=== PATIENT | female | born 1955 | race Caucasian/White ===

== ENCOUNTER 2017-09-29 09:35 | Emergency (ER) | payer MEDICAID, SELFPAY ==
[2017-09-29 09:36] VITALS: BP 159/92; PULSE 72; RESP 18; TEMP 36.6; O2SAT 96; BMI 28.0
--- NOTE | 2017-09-29 09:45 | ED.VISSUMM ---
- ER Visit Summary Date of Service: 09/29/17 Chief Complaint: Right neck pain History of Present Illness: The patient is a 61 F who woke up with right-sided neck pain yesterday. She took a couple of aspirin and it went away. Throughout the day as she was doing things around the house it got worse. She denies any trauma or falls. She also tried some icy hot which did not help. She woke up today and it was worse again. She has a history of arthritis but denies any history of neck or back pain. She has not had any fevers. Physical Examination: Vital signs are reviewed. Neck exam reveals right-sided paraspinal tenderness to palpation over the trapezius muscle. There is no midline tenderness to palpation. No thoracic back tenderness to palpation. Her neurologic exam is normal Test Results: None indicated Emergency Department Course and Treatment: She has a trapezius strain. It may have been from the way she slept 2 nights ago. I will treat her with naproxen and Flexeril. She will continue ice and icy hot. She will follow-up with her PCP Treatment Plan: [] Disposition: Discharge Impression: Right trapezius strain This note was generated with [employer] dictation software. It may contain incorrect words, spelling, and punctuation that were not noted in review of the chart prior to signing ED Disposition - Plan for ED Patient: Chief Complaint: Other, Pain/Inj Referrals: Keaton Voss MD [Primary Care Provider] -
--- NOTE | 2017-09-29 09:47 | ED.DEP ---
ED Disposition - Plan for ED Patient: Disposition: Home or Assisted Living Chief Complaint: Other, Pain/Inj Instructions: ED Sprain Strain Neck Prescriptions: Naproxen [Naprosyn] 500 mg PO BID PRN #20 tab Cyclobenzaprine [Flexeril] 10 mg PO TID PRN #20 tab PRN Reason: Muscle Spasm Referrals: Keaton Voss MD [Primary Care Provider] -
[2017-09-29] MEDS: Naproxen 500 MG Tablet PO (10:17)
[2017-09-29 10:21] VITALS: PULSE 72; RESP 17; O2SAT 96
== END 2017-09-29 10:23 | disposition home or self-care (01) ==
LOC: ED 10:13
PROVIDERS: Emergency Provider Emergency Medicine; Family Provider Family Medicine; PCP Family Medicine
DX: S46.811A Strain of other muscles, fascia and tendons at shoulder and upper arm level, right arm, initial encounter (principal); X58.XXXA Exposure to other specified factors, initial encounter; Y93.9 Activity, unspecified; Y92.9 Unspecified place or not applicable; Y99.9 Unspecified external cause status; M19.90 Unspecified osteoarthritis, unspecified site; Z72.0 Tobacco use

== ENCOUNTER 2017-09-29 23:56 | Emergency (ER) | payer MEDICAID, SELFPAY ==
[2017-09-29 09:36] VITALS: BP 159/92; BMI 28.0
[2017-09-29 23:58] VITALS: BP 161/107; PULSE 77; RESP 18; TEMP 36.3; O2SAT 98; BMI 28.2
--- NOTE | 2017-09-30 00:28 | ED.DCSUM_ITS ---
- ER Visit Summary Date of Service: 09/30/17 Chief Complaint: Neck pain History of Present Illness: The patient is a 61 F who has been having severe neck pain that radiates into the right arm for the last few days. She was seen early this morning for the same problem, prescribed naproxen, using icy hot and warm compresses, none of it is helping at all her pain is worse. It is the same symptoms. This includes burning in the same distribution, no pain goes past the elbow. Nothing on the other side. Never had this before, although has had low back arthritis that occasionally shoots down her right lower extremity, never had an MRI. No recent injuries. A little worse with movement in her neck. Physical Examination: Hypertensive but otherwise vitals are normal. She is in no acute distress. She has a normal neurologic exam in both upper extremities including symmetric DTRs of biceps, triceps, brachioradialis. There is no rash. There is minimal right paraspinal cervical neck tenderness. She has full range of motion of her neck. When I slightly distract her head cranially, it relieves some of the pain partially. Test Results: n/a Emergency Department Course and Treatment: I believe her history and physical are consistent with cervical radiculopathy, most consistent with the C5 level. Will prescribe her gabapentin and a short course of [place] and give her pain medication here. She is comfortable with this plan as well as following up with her doctor soon as she is able. Treatment Plan: As above Disposition: Discharge home Impression: Cervical radiculopathy Right upper extremity neuropathic pain due to cervical radiculopathy This note was generated with [employer] dictation software. It may contain incorrect words, spelling, and punctuation that were not noted in review of the chart prior to signing ED Disposition - Plan for ED Patient: Disposition: Home or Assisted Living Chief Complaint: Other, Pain/Inj Instructions: ED Cervical Radiculopathy Prescriptions: Hydrocodone Bitart/Apap 5-325 [[place] 5/325] 1 tab PO Q4H PRN PRN 3 Days #12 tab PRN Reason: Pain Gabapentin [Neurontin] 300 mg PO TIDCM #87 cap Referrals: Keaton Voss MD [Primary Care Provider] - As soon as possible
[2017-09-30] MEDS: Ondansetron ODT 4 MG Tablet 8 MG PO (00:31)
[2017-09-30 00:56] VITALS: BP 139/85; PULSE 66; RESP 17; O2SAT 99
== END 2017-09-30 00:58 | disposition home or self-care (01) ==
PROVIDERS: Emergency Provider Emergency Medicine; Family Provider Family Medicine; PCP Family Medicine
DX: M54.12 Radiculopathy, cervical region (principal); I10 Essential (primary) hypertension; M19.90 Unspecified osteoarthritis, unspecified site
CPT/HCPCS: 96372; 99283

== ENCOUNTER → 2018-01-11 10:28 | Outpatient (CLI) | payer MEDICAID, SELFPAY ==
--- NOTE | 2018-01-11 10:30 | RAD_ITS ---
STUDY: X-RAY - CERVICAL SPINE REASON FOR EXAM: Female, 62 years old. Neck pain TECHNIQUE: 4 view(s) of the cervical spine were obtained. COMPARISON: None FINDINGS: Normal anterior atlantoaxial articulation. Normal odontoid process. There is no subluxation on the flexion or extension views. There is straightening of the normal cervical lordosis. There is multi-level endplate spondylosis. There is multi-level degenerative disc disease with multilevel disc space narrowing. There is multi-level osseous foraminal stenosis. The soft tissue structures are unremarkable. RAD/Cerv Spine 4 or 5 Views IMPRESSION: There are degenerative changes as noted above. Electronically Signed: Angel Santiago MD at 21:58 EDT , Service support ,
== END ==
PROVIDERS: Family Provider Family Medicine; PCP Family Medicine; Visit Provider Orthopaedic Surgery
DX: M54.2 Cervicalgia (principal)
CPT/HCPCS: 72050

== ENCOUNTER 2018-02-25 11:16 | Emergency (ER) | payer MEDICAID, SELFPAY ==
[2018-02-25 11:17] VITALS: BP 151/76; PULSE 58; RESP 16; TEMP 36.9; O2SAT 98; BMI 26.6
--- NOTE | 2018-02-25 11:33 | RAD_ITS ---
STUDY: X-RAY - LEFT WRIST REASON FOR EXAM: Female, 62 years old. Pain following a fall. TECHNIQUE: 3 view(s) of the wrist were obtained. COMPARISON: None. FINDINGS: Nondisplaced transverse fracture of the distal radial metaphysis. Avulsion fracture of the ulnar styloid. Normal radiocarpal articulation. Normal distal radioulnar articulation. Normal carpal bones. Normal carpal articulations. Normal carpometacarpal articulation of the thumb. Normal second through fifth carpometacarpal articulations. Normal visualized metacarpal bones. Soft tissue swelling. RAD/Wrist min 3 Views IMPRESSION: Nondisplaced transverse fracture of the distal radial metaphysis. Avulsion fracture of the ulnar styloid. Diffuse soft tissue swelling. Electronically Signed: Priyank Arrington MD at 12:03 EDT Tel [phone], Service support ,
--- NOTE | 2018-02-25 11:33 | ED.VISSUMM ---
- ER Visit Summary Date of Service: 02/25/18 Chief Complaint: Right wrist pain History of Present Illness: The patient is a 62 F who tripped and fell yesterday landing on her right arm. She complaining of pain to the right wrist. She denies paresthesias. She denies any other injury from the fall. She is not on anticoagulants. Physical Examination: Vital signs significant for blood pressure of 151/76 and a heart rate of 58. Patient is sitting in a bedside chair. She is in no acute distress. Head neck examination was no external sign of trauma. Heart is regular rate and rhythm. Lung sounds are clear. Abdomen is soft nontender. Right upper extremity examination reveals tenderness about the right wrist, worse over the radial aspect. She has strong distal pulses. She is normal range of motion. There is no tenderness at the elbow or shoulder. She has normal sensation distally with good cap refill. Test Results: Right wrist x-rays are obtained. Per my read there is a distal right radius fracture with very minimal displacement. Emergency Department Course and Treatment: Patient is placed in an AP Ortho-Glass splint. Following splint application she has good cap refill distally and can wiggle fingers. Prescription for [place] will be sent to the pharmacy for her. Patient will follow up with Dr. Liu, as she is very known to that office. Treatment Plan: [] Disposition: Discharge Impression: Right distal radius fracture status post fall This note was generated with [employer] dictation software. It may contain incorrect words, spelling, and punctuation that were not noted in review of the chart prior to signing ED Disposition - Plan for ED Patient: Chief Complaint: Upper Extremity Injury Referrals: Keaton Voss MD [Primary Care Provider] -
--- NOTE | 2018-02-25 12:02 | DCINST.ED_ITS ---
ED Disposition - Plan for ED Patient: Disposition: Home or Assisted Living Chief Complaint: Upper Extremity Injury Instructions: ED Fx Wrist General Prescriptions: Hydrocodone Bitart/Apap 5-325 [[place] 5MG-325MG] 1 tablet PO Q4H PRN PRN 2 Days # 14 tablet PRN Reason: Pain Referrals: Keaton Voss MD [Primary Care Provider] - Danica Liu DO [STAFF PHYSICIAN] - 5-7 Days
[2018-02-25 12:09] VITALS: BP 169/82; PULSE 57; RESP 14; O2SAT 98
== END 2018-02-25 12:10 | disposition home or self-care (01) ==
PROVIDERS: Emergency Provider Emergency Medicine; Family Provider Family Medicine; PCP Family Medicine
DX: S52.501A Unspecified fracture of the lower end of right radius, initial encounter for closed fracture (principal); M54.2 Cervicalgia; W01.0XXA Fall on same level from slipping, tripping and stumbling without subsequent striking against object, initial encounter; Y93.9 Activity, unspecified; Y92.9 Unspecified place or not applicable; Y99.9 Unspecified external cause status; Z72.0 Tobacco use; Z79.899 Other long term (current) drug therapy
CPT/HCPCS: 29125; 73110; 99282

== ENCOUNTER → 2018-03-03 13:32 | Outpatient (CLI) | payer MEDICAID, SELFPAY ==
--- NOTE | 2018-03-03 13:34 | RAD_ITS ---
STUDY: X-RAY - RIGHT WRIST REASON FOR EXAM: Female, 62 years old. Follow-up of fracture. TECHNIQUE: 3 view(s) of the wrist were obtained through casting material. COMPARISON: February 25, 2018 FINDINGS: There is generalized osteopenia. A healing fracture of the distal radial metaphysis is identified with slight impaction at the fracture site unchanged. The ulnar styloid fracture shows no change. Normal distal radioulnar articulation. Normal carpal bones. Normal carpal articulations. Incidentally noted is stable moderate arthrosis of the radial carpal row and the first carpometacarpal joint. Normal second through fifth carpometacarpal articulations. Normal visualized metacarpal bones. The soft tissue structures are unremarkable. RAD/Wrist min 3 Views IMPRESSION: Stable osteopenia with healing fracture of the distal radial metaphysis. No change in the ulnar styloid fracture. Electronically Signed: Sebastian Vasques MD at 16:46 EDT , Service support ,
== END ==
PROVIDERS: Family Provider Family Medicine; PCP Family Medicine; Visit Provider Orthopaedic Surgery
DX: M25.531 Pain in right wrist (principal)
CPT/HCPCS: 73110

== ENCOUNTER → 2018-03-17 09:13 | Outpatient (CLI) | payer MEDICAID, SELFPAY ==
--- NOTE | 2018-03-17 09:15 | RAD_ITS ---
STUDY: X-RAY - RIGHT WRIST REASON FOR EXAM: Female, 62 years old. Fracture TECHNIQUE: 3 view(s) of the wrist were obtained. COMPARISON: 03/03/2018 FINDINGS: A fiberglass cast supports the right wrist. There has been closed reduction of previously described fractures in the radius and ulna. Bones remain diffusely demineralized with anatomic alignment of the fracture sites. There has been some progressive healing since the previous study but complete osseous union has yet to occur. Follow-up recommended to assure complete osseous union. RAD/Wrist min 3 Views IMPRESSION: Healing distal radius and ulnar fractures. Alignment remains anatomic, follow-up recommended to assure complete osseous union Demineralization of the osseous structures Fiberglas cast fine bony detail difficult. Electronically Signed: Elliot López MD at 11:39 EDT , Service support ,
== END ==
PROVIDERS: Family Provider Family Medicine; PCP Family Medicine; Visit Provider Physician Assistant
DX: S52.501A Unspecified fracture of the lower end of right radius, initial encounter for closed fracture (principal); X58.XXXA Exposure to other specified factors, initial encounter; Y93.9 Activity, unspecified; Y92.9 Unspecified place or not applicable; Y99.9 Unspecified external cause status
CPT/HCPCS: 73110

== ENCOUNTER → 2018-04-18 10:19 | Outpatient (CLI) | payer MEDICAID, SELFPAY | PROVIDERS: Family Provider Family Medicine; PCP Family Medicine; Visit Provider Physician Assistant | DX: S52.551A Other extraarticular fracture of lower end of right radius, initial encounter for closed fracture (principal); X58.XXXA Exposure to other specified factors, initial encounter; Y93.9 Activity, unspecified; Y92.9 Unspecified place or not applicable; Y99.9 Unspecified external cause status | CPT/HCPCS: 73110 ==

== ENCOUNTER → 2018-08-30 14:40 | Outpatient (CLI) | payer MEDICAID, SELFPAY ==
[2018-08-17 10:52] VITALS: BMI 28.2
--- NOTE | 2018-08-30 14:42 | RAD_ITS ---
STUDY: X-RAY - CERVICAL SPINE REASON FOR EXAM: Female, 62 years old. Postop TECHNIQUE: 2 view(s) of the cervical spine were obtained. COMPARISON: 01/11/2018 FINDINGS: There is no evidence of fracture or dislocation in the cervical spine. Since the prior examination, the patient is status post posterior fusion with fixation hardware spanning C3-T1. The hardware is intact and alignment is satisfactory. There are stable degenerative changes. The prevertebral soft tissues are unremarkable. There is no radiodense foreign body. RAD/Cerv Spine 2 or 3 Views IMPRESSION: Postoperative changes with intact hardware in satisfactory alignment. No fracture or dislocation in the cervical spine. Stable degenerative changes. Electronically Signed: Jamar De La O, at 15:13 EST Tel , Service support ,
== END ==
PROVIDERS: Family Provider Family Medicine; PCP Family Medicine; Referring Provider Orthopaedic Surgery; Visit Provider Orthopaedic Surgery
DX: M54.2 Cervicalgia (principal)
CPT/HCPCS: 72040

== ENCOUNTER → 2018-10-18 09:47 | Outpatient (CLI) | payer MEDICAID, SELFPAY ==
[2018-08-17 10:52] VITALS: BMI 28.2
--- NOTE | 2018-10-18 09:49 | RAD_ITS ---
STUDY: X-RAY - CERVICAL SPINE REASON FOR EXAM: Female, 62 years old. Postop TECHNIQUE: 2 view(s) of the cervical spine were obtained. COMPARISON: Previous study of August 30, 2018 FINDINGS: Normal anterior atlantoaxial articulation. Normal odontoid process. There is straightening of the normal cervical lordosis. There is posterior spinal fusion changes of the cervical spine from C3 through T1. There is narrowing of the C4-5, 5-6, and 6-7 levels. There is no evidence of fracture or subluxation. The soft tissue structures are unremarkable. RAD/Cerv Spine 2 or 3 Views IMPRESSION: Posterior spinal fusion changes from C3 through T1. The cervical vertebrae are normal in alignment. Degenerative changes as detailed above. Findings are stable in the interval. Electronically Signed: Brent Pool MD at 19:59 EST , Service support ,
== END ==
PROVIDERS: Family Provider Family Medicine; PCP Family Medicine; Referring Provider Orthopaedic Surgery; Visit Provider Orthopaedic Surgery
DX: M54.2 Cervicalgia (principal)
CPT/HCPCS: 72040

== ENCOUNTER → 2018-11-15 10:00 | Outpatient (CLI) | payer MEDICAID, SELFPAY ==
[2018-10-18 10:07] VITALS: BMI 28.2
--- NOTE | 2018-11-15 10:02 | RAD_ITS ---
HISTORY: LBP EXAM/TECHNIQUE: XR Spine Lumbar Min 4 Views: COMPARISON: None. FINDINGS: # of images incl. paperwork: 4 No fracture or dislocation or osseous destruction. Sagittal alignment anatomic including with flexion and extension. Moderate right scoliosis centered at T12. Mild disc and facet degeneration mid and lower lumbar spine. No acute findings in the soft tissues. RAD/L/S Spine Min 4 Views IMPRESSION: No acute findings. Moderate right scoliosis centered at T12. Mild degenerative changes. at 1014 Reported and signed by: Brent Fuentes MD Electronically Signed: Brent Fuentes, at 10:13 EDT Tel , Service support ,
--- NOTE | 2018-11-15 10:02 | RAD_ITS ---
HISTORY: POST OP EXAM/TECHNIQUE: XR Spine Cervical 2 or 3 Views: COMPARISON: 10/18/18 radiographs. FINDINGS: # of images incl. paperwork: 2 No fracture or dislocation or osseous destruction. Posterior fusion and laminectomy C3-T1, with bilateral pedicle screws at all levels except C7, joined by spinal rods. Hardware intact. Alignment anatomic. Underlying degenerative changes similar to prior. No acute findings in the soft tissues. RAD/Cerv Spine 2 or 3 Views IMPRESSION: Posterior fusion and laminectomy C3-T1 with no evidence of complication. at 1013 Reported and signed by: Brent Fuentes MD Electronically Signed: Brent Fuentes, at 10:12 EDT Tel , Service support ,
== END ==
PROVIDERS: Family Provider Family Medicine; PCP Family Medicine; Referring Provider Orthopaedic Surgery; Visit Provider Orthopaedic Surgery
DX: M54.5 Low back pain (principal); Z98.1 Arthrodesis status
CPT/HCPCS: 72040; 72110

== ENCOUNTER 2018-11-24 12:22 | Emergency (ER) | payer MEDICAID, SELFPAY ==
[2018-10-18 10:07] VITALS: BMI 28.2
[2018-11-24 12:23] VITALS: BP 151/84; PULSE 78; RESP 16; TEMP 36.3; O2SAT 98; BMI 24.0
--- NOTE | 2018-11-24 13:15 | ED.VIS.BACK ---
History of Present Illness Chief Complaint: Lower Extremity Injury Informant: Patient Onset: Weeks Context: Gradual Onset Injury: - - Possibly from bending and lifting Timing: Continuous, Waxes and wanes Quality: Dull, Aching Location: Lumbar, Buttock, Left Leg Current Severity: Mild Maximum Severity: Moderate Worsened by: improves with: Movement, Bending, Lifting. worse with: Night time pain Relieved by: Nothing - Radiation posteriorly to the popliteal fossa, left lower extremity denies bowel bladder dysfunction. Denies weakness going up or down steps. Denies foot drop. Denies saddle paresthesia or anesthesia. Narrative: 62-year-old woman who was seen Dr. ochoa for neck pathology and surgery. She is scheduled to follow-up with Dr. Dozier for pain management. She has no contra indication NSAIDs. She is presently on gabapentin. She denies bowel bladder dysfunction. Denies saddle paresthesia anesthesia. She denies foot drop. She has quadricep weakness going up or down steps. She denies dysuria, frequency, urgency or hematuria. She reports pain left lower back radiating posteriorly to the popliteal fossa. Prior similar symptoms: With Prior Back Pain Recent Illness/Hospitalization: No Past Medical History - Allergies and Home Meds Allergies/Adverse Reactions: Allergies Penicillins Allergy (Verified 11/24/18 12:26) Rash Primary Care Physician: Keaton Voss MD [Primary Care Provider] - Prior records reviewed: Yes Surgical History: noncontributory Lives: Spouse/ Significant Other Smoking Status: Former smoker Alcohol: None Review of Systems General: Denies: Chills, Fever, Subjective, Sweats, Weight loss Eyes: Denies: Visual changes - bilaterally, Blurred Vision - bilaterally, Diplopia ENT: Denies: Rhinorrhea, Sore throat Cardiovascular: Denies: Chest pain, Palpitations Respiratory: Denies: Dyspnea, Cough, Dyspnea on exertion Gastrointestinal: Denies: Abdominal pain, Nausea, Vomiting, Diarrhea, Melena, Hematochezia Genitourinary: Denies: Dysuria, Hematuria, Frequency Musculoskeletal: Reports: Back pain, Extremity Pain. Denies: Myalgias, Arthralgias Skin: Denies: Rash, Wounds Neurological: Denies: Headache, Weakness, Numbness Physical Exam Vital Signs/Narrative: Vital Signs Temp Pulse Resp BP Pulse Ox 11/24/18 12:23 97.3 F L 78 16 151/84 H 98 Inital Vital Signs reviewed: Yes General: Well nourished, Well developed Head: Normocephalic, Atraumatic Eyes: Perrl, EOMI ENT: Moist mucous membranes, No rhinorrhea Neck: Supple, Nontender Cardiovascular: Regular rate, Regular rhythm, No murmurs Respiratory: No distress, CTA bilaterally, Chest nontender Abdomen: Soft, Nontender, Nondistended, Normal bowel sounds Back: Normal Inspection, Nontender Extremeties: Nontender, No edema, Strong Pulses, Symmetric, - - DP and PT pulses are palpable and symmetric. Skin: Normal color, No rash Neuro: Alert, Oriented, Normal Strength - Motor strength is 5/5. She is able to dorsi and plantarflex. She is able to invert and yonis her foot with no weakness. EHL is intact., Normal Sensation, Normal DTR, Normal Gait, Normal Reflexes - Patella and ankle reflex are 2+. Psychological: Normal affect Diagnostic/Tx/Re-eval No diagnostic tests were obtained - Medical Decision Making Patient with exacerbation of chronic pain. She does have radicular pain. Straight leg test was equivocal at 30 degrees. Crossover test was negative. With no neurologic deficit imaging is not required since there is no history of trauma. Will medicate with [place] and Naprosyn. She is discharged with a prescription for Naprosyn. ED Disposition - Plan for ED Patient: Disposition: Home or Assisted Living Diagnosis: Left-sided low back pain with left-sided sciatica Instructions: ED Sciatica Prescriptions: Naproxen [Naprosyn] 500 mg PO BID #14 tablet Referrals: Keaton Voss MD [Primary Care Provider] - 5-7 Days Additional Instructions: if you are unable to urinate, have loss of bowel control or develope foot drop return to ER.
[2018-11-24] MEDS: HYDROcodone Bitartrate/Apap 5/325 Tablet PO (13:38)
[2018-11-24] MEDS: Naproxen 250 MG Tablet 500 MG PO (13:38)
== END 2018-11-24 13:40 | disposition home or self-care (01) ==
PROVIDERS: Emergency Provider Emergency Medicine; Family Provider Family Medicine; PCP Family Medicine
DX: M54.42 Lumbago with sciatica, left side (principal); Z87.891 Personal history of nicotine dependence; Z79.899 Other long term (current) drug therapy
CPT/HCPCS: 99283

== ENCOUNTER 2019-02-02 10:30 | Outpatient (RCR) | payer MEDICAID, SELFPAY ==
[2018-10-18 10:07] VITALS: BMI 28.2
--- NOTE | 2018-12-13 07:39 | HP.PTEVAL_ITS ---
Patient's Visit Information MAXI GARCIA is a 63 year old F referred to Physical Therapy by Erica Duncan MD with a diagnosis of low back pain and C3-T1 instrumental fusion. Date of Evaluation: 11/29/18 Physical Therapist: Andrew Sneed DPT - Visit Plan Frequency: 2x /Week Duration: 4-6 Weeks Plan: Start with BLE/core and scapular strengthening in aquatic setting allowing for increased overalll mobility. Progress HEP as tolerated. May attempt DN as modality for lumbar and cervical spine if needed. I would like her to start with slow progression of general mobility and strengthening first and explor modalities if needed. - Subjective Findings: Pt. is here today for her initial evaluation with diagnosis of low back pain and C3-T1 instrumental fusion. DOS: 08.12.18. Pt. was recently removed from cervical collar and is overall doing well. Pt. reports stiffness in her neck, but reports ebing pleased with progress. Pt. is having low back pain as well which appears to be more limiting at this point in time. Pt. has not been doing PT, but has slowly been increasing her walking routine. Pt. reports minimal pain in neck, but low back is 4/10 at this point in time. Pt. also reports having difficulty due to passing away recently. Pt. reports no formal PT recently, but did attempt PT ~3 years ago. Pt. denies fever or chilles and no N/T in all extremities. Pt. is hopeful to resume all ADLs and IADLs without issues. - Pain Lumbar spine Pain Intensity (Out of 10): 4 Cervical spine Pain Intensity (Out of 10): 0 Comment: Just stiff - Objective POSTURE: Pt. has guarded posture with her neck, increased shoulder elevation bilat, mild FH posture and slight rounded shoulders bilat. PALPATION: Pt. has normal healing incision, no signs of infection. Pt. has tenderness in bilatal UT and cervical erector spinea. Pt. has tenderness along lumbar erector spinea and multifidus. NEURO: Normal senstion and DTR of all UEs. ROM: cervical spine: flexion- mod loss, extension mod loss, rotation and SB mod loss bilat. No increase in pain with cervical ROM, but reports increased stiffness. UEs: Pt. lacks end range flexion, but no increase in pain. LUMBAR SPINE: flexion: mod loss increase NW, extension mod loss increase NW, SB min loss NE bilat, SB min loss NE bilat. Pt. has tight hip flexors and HS bilat. MMT: BUEs: 4+/5 throughout no signs of myotomal weakness. Cervical iso- 5/5 no pain. Core strength- poor. RLE- 4/5 throughout; except 5/5 throughout ankle. LLE- 4/5 throughout except ankle. GAIT: Pt. ambulates without AD, but has methodical pattern. Pt. has no LOB with ambulation this date. STAIRS: Pt. is able to complete with step to pattern and use of BHR, mild increase in LBP with descending. - Special Tests L/S Slump test left side: Negative L/S Slump test right side: Negative L/S Left Straight Leg Raise: Negative L/S Right Straight Leg Raise: Negative L/S Prone Instability Test: Positive Lumbar Standing: Flexion - Mechanical Response: No effect Lumbar Standing: Flexion - Symptoms During Testing: Increases Lumbar Standing: Flexion - Symptoms After Testing: No worse Lumbar Standing: Extension - Mechanical Response: No effect Lumbar Standing: Extension - Symptoms During Testing: Increases Lumbar Standing: Extension - Symptoms After Testing: No worse Lumbar Standing: Right Side Glides - Mechanical Response: No effect Lumbar Standing: Right Side [place] - Symptoms During Testing: No effect Lumbar Standing: Right Side [place] - Symptoms After Testing: No effect Lumbar Standing: Left Side [place] - Mechanical Response: No effect Lumbar Standing: Left Side [place] - Symptoms During Testing: No effect Lumbar Standing: Left Side [place] - Symptoms After Testing: No effect - Goals Goal 1:: Pt. to be I with HEP. Goal Time Frame: 4-6 Weeks Goal 2:: Pt. to have increased scapular and BUE strength by 1/2 grade allowing for increased cervical spine stability. Goal Time Frame: 4-6 Weeks Goal 3:: Pt. to have increased BLE and core strength by 1/2 grade to increase lumbar spine. Goal Time Frame: 4-6 Weeks Goal 4:: Pt. to sleep throughout the night without increase in symptoms. Goal Time Frame: 4-6 Weeks Goal 5:: Pt. complete all ADLs and IADLS with 0-2/10 pain in cervical and lumbar spine. Goal Time Frame: 4-6 Weeks - Rehabilitation Potential Physical Therapy Diagnosis: Pt. has signs and symptoms consistent with low back pain and C3-T1 instrumental fusion (DOS: 12.21.18). Pt. has subsequent cervical hyoomobility and core/scpaular weakness. She is also suffering from lumbar instability due to core weakness and would benefit from PT to increase postural strength and core strength to reduce stress on her cervical and lumbar spine. Rehabilitation Potential: Good - Anticipated Interventions Patient/Client Instruction: Educate patient on: Condition, Plan of Care, Risk Factors, Benefits of Fitness Program For the Purpose of:: To foster healthy habits, To improve decision making, To facilitate caregiver knowledge, To improve self management, To prevent re- injury, To improve ability to perform tasks related to life management, To improve tolerance to ADL's Therapeutic Exercise to Include: Strength training, Power training, Body mechanics, Postural training, Flexibilty training, Gait and locomotor training, In an aquatic setting, Passive ROM, Active ROM, Dynamic Lumbar Stabilization, Scapular Strength/Stabilization For the Purpose of:: To decrease pain, To decrease swelling/inflammation, To increase ROM, To improve nutrient delivery to tissue, To increase oxygenation perfusion, To improve muscle performance and motor function, To improve ability to perform ADL's, To improve ability of physical actions for home/community/work/leisure, To improve gait and locomotor functions, To improve health of tissue, To decrease soft tissue restriction, To increase flexibility/ROM Manual Therapy Techniques to Include: Mobilization, Passive ROM, Functional dry needling, Soft tissue mobilization For the Purpose of:: To decrease pain, To decrease swelling/inflammation, To increase ROM IF ES: Yes Cryotherapy (ice pack, ice massage): Yes Thermo therapy (hot pack): Yes Ultrasound (thermal/non thermal): Yes For the Purpose of:: To decrease pain, To decrease swelling/inflammation, To increase ROM Thank you for the opportunity to evaluate your patient. For Medicare and Medicare HMO plans, please review the plan of care and approve it. It will need to be FAXED BACK to us at [phone] for Medicare purposes. For Medicare only, by signing this I certify the plan of care. Please let me know if there are questions or concerns regarding this plan of care. Physician Signature: Date:
--- NOTE | 2019-06-06 08:18 | HP.PTDCSUM_ITS ---
HP - PT D/C Summary It has been my pleasure to treat MAXI GARCIA under orders from Erica Duncan MD, for the diagnosis of low back pain and C3-T1 instrumental fusion for a total of 8 visit(s). Discharge Date: 02/02/19 Please see the following information for a summary of their discharge status. - Subjective Subjective: Pt. reports overall I am doing better, but slwoly. I missed my appt with Dr. Duncan yesterday, but they are going to squeeze me in next month. - Pain Lumbar spine Pain Intensity (Out of 10): 4 Cervical spine Pain Intensity (Out of 10): 3 - Overall Improvement % Improvement: 50 - Objective Objective/Function: ROM: Cervical spine: flexion mod loss increase NW, ext mod loss (tightness), rotation R min loss (tightness), rotation L min loss (tightness), SB R min loss (tightness), SB L min loss (tightnes). LUMBAR SPINE: min loss increase NW, ext min loss NE, SB min loss bilat increase NW, rotation min loss increase NW Bilat. MMT: LEs- 4/5 generally throughout. UEs: 4+/5 throughout BLEs without icnrease in symptoms. GAIT: Pt. ambulates with good pattern, decreased tempo, but no antalgic pattern. - Goals Goal 1:: Pt. to be I with HEP. Goal 2:: Pt. to have increased scapular and BUE strength by 1/2 grade allowing for increased cervical spine stability. Goal 3:: Pt. to have increased BLE and core strength by 1/2 grade to increase lumbar spine. Goal 4:: Pt. to sleep throughout the night without increase in symptoms. Goal Progress: Progressing Goal 5:: Pt. complete all ADLs and IADLS with 0-2/10 pain in cervical and lumbar spine. Goal Progress: Progressing - Plan Plan: Pt. will be DC from PT at this point in time. - D/C Information Discharge Comments: Pt. was seen in aquatic setting for her neck and back pain. Pt. reports having some relief in her neck. Her chief complaint is with stiffness in her neck. Her back pain is more painful than the rest. Pt. was inconsistently with coming due to transportation issues, but did come for 8 visits. If there are questions or concerns regarding this patient's physical therapy, adama vincent feel free to call me at [phone]. Thank you for the referral of this patient. Sincerely, HUBER ForemanT
== END 2019-02-02 19:00 | disposition home or self-care (01) ==
LOC: PT 10:30
PROVIDERS: Family Provider Family Medicine; PCP Family Medicine; Referring Provider Orthopaedic Surgery; Visit Provider Orthopaedic Surgery
DX: M43.23 Fusion of spine, cervicothoracic region (principal); M54.5 Low back pain; Z98.890 Other specified postprocedural states
CPT/HCPCS: 97113; 97161; 97530

== ENCOUNTER 2019-02-10 11:04 | Emergency (ER) | payer MEDICAID, SELFPAY ==
[2019-02-10 11:05] VITALS: BP 140/85; PULSE 61; RESP 18; TEMP 36.4; O2SAT 99; BMI 24.7
--- NOTE | 2019-02-10 11:35 | ED.RN ---
PT STATES SHE WILL CALL PCP TO BE EVALUATED FOR RASH. STATES SHE HAS NOTHING MAJOR WRONG WITH ME. FURTHER STATES SHE DOES NOT WANT TO TAKE UP A ROOM WITH ED BEING SO BUSY'.
== END 2019-02-10 13:31 | disposition left against medical advice (07) ==
LOC: ED 11:45
PROVIDERS: Emergency Provider Emergency Medicine; Family Provider Family Medicine; PCP Family Medicine
DX: R21 Rash and other nonspecific skin eruption (principal); Z53.21 Procedure and treatment not carried out due to patient leaving prior to being seen by health care provider

== ENCOUNTER 2019-03-28 09:49 | Observation (INO) | payer MEDICAID, SELFPAY ==
[2019-03-28] VITALS (10 sets, daily range): BP systolic 130–168; BP diastolic 68–82; PULSE 58–91; RESP 13–16; TEMP 36.4–36.8; O2SAT 97–98; BMI 26.1; BMI 26.3; BMI 26.4
--- NOTE | 2019-03-28 10:17 | EKG12_ITS ---
Test Reason : CP Blood Pressure : / mmHG Vent. Rate : 087 BPM Atrial Rate : 087 BPM P-R Int : 156 ms QRS Dur : 080 ms QT Int : 362 ms P-R-T Axes : 058 021 034 degrees QTc Int : 435 ms Normal sinus rhythm Normal ECG Confirmed by SOLANGE VINSON ([id number]), editorial clerk ОЛЬГА FERNANDEZ ([id number]) on 03/29/2019 2:38:22 PM Referred By: Toshia Mcrae Confirmed By:SOLANGE VINSON
--- NOTE | 2019-03-28 10:18 | ED.VIS.CHEST ---
History of Present Illness Chief Complaint: Chest Pain Informant: Patient Onset: Today - Around 4 hours Activity at onset: Light Activity Timing: Waxes and wanes Quality: Pressure - And tingling Location: Left Chest Current Severity: Mild Maximum Severity: Moderate Worsened By: Exertion, - - Bending over Relieved By: Rest Associated Symptoms: Nausea, Dyspnea, Lightheadedness, Palpitations - Skipping/racing. Negative for: Vomiting, Diaphoresis, Cough, Fever, Acid Reflux Narrative: Patient has no known history of A. fib or coronary artery disease or other heart issues. She states she has had a stress test but it was a long time ago. Discomfort radiating down the proximal left upper extremity this morning, feeling tingly. No other radiation. No sharp, tearing sensations or sense of impending doom. [place] lightheaded but no near syncope. Prior Similar Symptoms: Yes, - - Unknown cause, occurred through 4 years ago. Does not get this often. Recent Illness/Hospitalization: No CVD Risk Factors: Family History 1' </=55. Negative for: Hypertension, Diabetes, Hypercholesterolemia, Smoking PE Risk Factors: Negative for: Recent Travel/Surgery, Recenet Immobilization, Prior DVT or PE, Cancer, OCP + Smoking + >/=35 - Past Medical History (1) Chronic low back pain Status: Chronic Past Medical History - Allergies and Home Meds Allergies/Adverse Reactions: Allergies Penicillins Allergy (Verified 02/10/19 11:06) Rash Primary Care Physician: Keaton Voss MD [Primary Care Provider] - Surgical History: noncontributory Lives: Alone Smoking Status: Former smoker Drugs: None Review of Systems General: Reports: Malaise. Denies: Chills, Fever, Sweats Eyes: Denies: Visual changes - bilaterally, Diplopia ENT: Denies: Rhinorrhea, Sore throat Cardiovascular: Reports: Chest pain - Nonpleuritic. Denies: Palpitations Respiratory: Reports: Dyspnea. Denies: Cough, Sputum, Dyspnea on exertion Gastrointestinal: Reports: Nausea. Denies: Abdominal pain, Vomiting, Diarrhea, Melena, Hematochezia Genitourinary: Denies: Dysuria, Hematuria, Frequency Musculoskeletal: Reports: Back pain - Low back, chronic, unchanged. Denies: Swelling, Extremity Pain Skin: Denies: Rash, Wounds Neurological: Reports: Parasthesia - Down left upper extremity. Denies: Headache, Weakness Physical Exam Vital Signs/Narrative: Vital Signs Temp Pulse Resp BP Pulse Ox 03/28/19 09:51 97.6 F L 91 16 144/78 H 97 Inital Vital Signs reviewed: Yes General: Well nourished, Well developed, No Acute Distress Head: Normocephalic, Atraumatic Eyes: Perrl, EOMI ENT: Moist mucous membranes, No rhinorrhea Neck: Supple, Nontender Cardiovascular: Regular rate, Regular rhythm, Normal S1, Normal S2, Murmur - 1/6 systolic, - - Equal bilateral radial 2+/4 pulses Respiratory: No distress, CTA bilaterally, Chest nontender Abdomen: Soft, Nontender, Nondistended, Normal bowel sounds Back: Nontender, Normal Inspection Extremities: Nontender, No edema Skin: Normal color, No rash Neurological: Alert, Oriented x3, Cranial nerves II-XII grossly intact, Normal Strength, Normal Sensation Psychological: Normal affect, Normal Mood Diagnostic/Tx/Re-eval Impressions Chest X-Ray 03/28/19 10:23 IMPRESSION: No acute abnormality is seen. Electronically Signed: Priyank Arrington, at 10:52 EDT , Service support , 03/28/19 10:23 Chest 1 View (Portable) [RAD] Stat Laboratory Results 03/28/19 03/28/19 10:50 10:50 WBC 6.2 RBC 3.83 L Hgb 9.3 L Hct 30.3 L MCV 79.1 L MCH 24.3 L MCHC 30.7 L RDW Std Deviation 47.6 H RDW Coeff of Carlos 16.8 H Plt Count 299 MPV 10.2 Immature Gran % (Auto) 0.300 Neut % (Auto) 82.0 H Lymph % (Auto) 14.1 L [place] % (Auto) 1.9 Eos % (Auto) 0.6 Baso % (Auto) 1.1 H Absolute Neuts (auto) 5.0 Absolute Lymphs (auto) 0.87 Nucleated RBC % 0 Sodium 137 Potassium 5.8 H Chloride 105 Carbon Dioxide 28.0 Anion Gap 4 L BUN 16 Creatinine 0.94 Estim Creat Clear Calc 55.54 Est GFR (MDRD) Af Amer 78 Est GFR (MDRD) Non-Af 64 BUN/Creatinine Ratio 17.1 Glucose 131 H Calcium 9.1 Troponin I < 0.015 - Rhythm Strip Rhythm Strip: Sinus Rhythm Rate: 60 Ectopy: None - EKG Initial EKG Interpretation: Sinus Rhythm, No Acute Injury Pattern - Normal EKG. Unchanged compared with prior. Prior: Unchanged LUÍS Risk: No Positive LUÍS Elements Score: 0 - Medical Decision Making HEART score is 2/0/1/1/0 = 4. Concern is for unstable angina. At this time enzymes are negative but she presents early after the onset of symptoms. Her EKG is normal, at a time and her pain is improved but not resolved. She was given aspirin. She declined nitroglycerin because her pain was improving. Will discuss with hospitalist for observation and risk stratification. ED Disposition - Plan for ED Patient: Disposition: Acute Care Hospital [facility] Diagnosis: Chest pain, unspecified Referrals: Keaton Voss MD [Primary Care Provider] -
--- NOTE | 2019-03-28 10:23 | RAD_ITS ---
STUDY: X-RAY CHEST REASON FOR EXAM: Female, 63 years old. Chest pain. TECHNIQUE: Single AP portable view of the chest. COMPARISON: None. FINDINGS: The lungs are clear and expanded. There is no demonstrated pleural abnormality. Normal size heart. Normal mediastinum and sarahi. Normal visualized pulmonary arteries. Normal visualized aortic arch and descending thoracic aorta. There are diffuse degenerative changes of the visualized thoracic spine. Normal visualized ribs, clavicles, and shoulders. There is no demonstrated abnormality of the visualized soft tissue structures of the upper abdomen. RAD/Chest 1 View (Portable) IMPRESSION: No acute abnormality is seen. Electronically Signed: Priyank Arrington, at 10:52 EDT , Service support ,
[2019-03-28 10:56] LABS: Absolute Lymphocyte Count 0.87 X10^3/uL (0.83-4.51); Basophil# 0.07 X10^3/uL; Basophil% 1.1 % (0-1); Eosinophil# 0.04 X10^3/uL; Eosinophils% 0.6 % (0-5); Hematocrit 30.3 % (37-47); Hemoglobin 9.3 g/dL (12.0-15.0); Lymphocyte # 0.87 X10^3/ul (4.0); Lymphocyte % 14.1 % (19-41); Mean Corp Hgb Conc 30.7 g/dL (32-36); Mean Corpuscular Hgb 24.3 pg (27.0-32.0); Mean Corpuscular Volume 79.1 fL (81-99); Mean Platelet Vol. 10.2 fl (6.2-12.0); Monocyte# 0.12 X10^3/uL; Monocyte% 1.9 % (0-10); NRBC Flagged by Analyzer 0 % (0-5); Neutrophil # 5.04 X10^3/uL (2.7-7.7); Platelet Count 299 K/mm3 (150-450); RBC Distribution Width CV 16.8 % (11.6-14.6); RBC Distribution Width SD 47.6 fl (35.1-43.9); Red Blood Count 3.83 M/mm3 (4.2-5.4); White Blood Count 6.2 K/mm3 (4.4-11.0)
[2019-03-28 11:23] LABS: Anion Gap 4 (5-15); BUN 16 mg/dL (7-18); BUN/Creat Ratio 17.1 RATIO (10-20); Calcium,Total 9.1 mg/dL (8.5-10.1); Chloride 105 mmol/L (98-107); Creatinine, Serum 0.94 mg/dL (0.55-1.02); EST Glomerular Filtration Rate 64 mL/min (>60); Est Glom Filt Rate - Afr Amer 78 mL/min (>60); Estimated Creatinine Clearance 55.54 ml/min; Glucose 131 mg/dL (74-106); Potassium 5.8 mmol/L (3.5-5.1); Sodium Level 137 mmol/L (136-145)
[2019-03-28] MEDS: Aspirin 81 MG TAB.CHEW 324 MG PO (11:29)
[2019-03-28] MEDS: Ondansetron 4 MG/2 ML Vial IV (11:29)
[2019-03-28] MEDS: Nitroglycerin SL (ED/IMG/CATH) 0.4 MG TABLET SUBLINGUAL ×2 (11:30→11:39)
--- NOTE | 2019-03-28 11:40 | EKG12_ITS ---
Test Reason : CP Blood Pressure : / mmHG Vent. Rate : 067 BPM Atrial Rate : 067 BPM P-R Int : 172 ms QRS Dur : 070 ms QT Int : 394 ms P-R-T Axes : 036 012 021 degrees QTc Int : 416 ms Sinus rhythm with Premature atrial complexes Otherwise normal ECG Confirmed by RHONDA GARY, BLANCA ([id number]), brands editor SALVADOR ZAPATA ([id number]) on 03/31/2019 9:16:54 AM Referred By: Toshia Mcrae Confirmed By:BLANCA ELLIS MD
[2019-03-28] MEDS: Mag Hydrox/Al Hydrox/Simeth 30 ML UDC PO (11:49)
[2019-03-28] MEDS: Nitroglycerin Oint 1 INCH PACKET TRANSDERM. (11:50)
[2019-03-28 11:58] LABS: Magnesium 2.2 mg/dL (1.6-2.6)
--- NOTE | 2019-03-28 12:04 | ED.RN ---
NITRO SL ADMIN #1 140/77, 87 PAIN AT 7-8. NITRO #2 ADMIN 128/69 PAIN 5-6. NO CHANGE WITH PAIN. NITRO PASTE APPLIED.
[2019-03-28] MEDS: 0.9% NaCl Peripheral Flush Adult/Peds IV (14:15)
[2019-03-28] MEDS: Morphine 2 MG/ML Syringe IV (14:15)
--- NOTE | 2019-03-28 14:56 | PCM.HP.STD ---
Problem List (1) Chronic low back pain Status: Chronic (2) Chest pain, unspecified Status: Acute (3) Pain of cervical spine Status: Chronic History of Present Illness Date of Admission: 03/28/19 Chief Complaint: Chest pain. The patient is a 63 year old F who presents emergency room due to chest pain. Patient reports she was completing her normal routine around the house getting ready for her day when she developed chest discomfort, she describes a burning sensation. She reports discomfort radiated up her left neck and left arm. She reports mild associated shortness of breath and lightheadedness. Denies diaphoresis, nausea. Chest discomfort has remained about the same and has not worsened or gotten better. She denies cardiac history. She states her father from heart disease in his mid 60s. She has a past medical history of anxiety, depression, chronic pain/arthritis, history of tobacco use. Past Medical History Past Medical History (Chronic Problems): Chronic Problems Chronic low back pain (Chronic) Pain of cervical spine (Chronic) Allergies Penicillins Allergy (Verified 02/10/19 11:06) Rash Home Medications: Ambulatory Orders Medication Instructions Recorded cycloBENZAPRine HCl [Flexeril] 10 mg PO TID PRN #20 tab 09/29/17 Gabapentin [Neurontin] 300 mg PO TIDCM #87 cap 09/30/17 bupropion HCl SR 150 mg tablet,12 150 mg PO BID 01/11/18 hr sustained-release Docusate Sodium [Colace] 100 mg PO BID 03/28/19 Naproxen [Naprosyn] 500 mg PO BID 03/28/19 Sertraline HCl 100 mg PO DAILY 03/28/19 Surgical History: Surgical History (Last Updated 08/30/18 @ 15:18 by Radhika Weinstein) H/O cervical spine surgery Z98.890 08/12/18 Surgical History: - - Cervical neck surgery. Psychiatric History: Anxiety, Depression [employer]ER [employer]SECTIC[employer] History: No pertinent SPR[employer]ER [employer]SE[employer]IC[employer] history Lives: Alone Smoking Status: Former smoker Alcohol: Occasional Drugs: None - *Family History Maternal History Items: COPD Paternal History Items: Heart Disease - related to heart disease Review of Systems Constitutional: Denies: Chills, Fever, Weight Change HEENT: Denies: Head Aches, Sinus Congestion, Sinus Drainage Cardiovascular: Reports: Chest Pain, Light Headedness. Denies: Edema, Palpitations, Syncope Respiratory: Denies: Cough, Shortness of breath at rest, Sputum production Gastrointestinal: Denies: Abdominal Pain, Nausea, Vomiting Genitourinary: Denies: Dysuria Musculoskeletal: Denies: Joint Pain, Joint Tenderness Skin: Denies: Rash, Wounds Neurological: Denies: Numbness, Tingling, Focal weakness Psychiatric: Reports: Anxiety, Depression Hematologic/ Lymphatic: Denies: Easy Bruising, Easy Bleeding VTE Information - Inpt Only VTE Present on Admission: No VTE Mechan Device Prophylaxis: None VTE Pharm Prophylaxis ordered?: Yes Patient Problems: Active and Suspected Problems Chest pain, unspecified (Acute) - Physical Exam General: Alert, Oriented x3, Cooperative HEENT: Atraumatic, PERRLA, EOMI, Normocephalic Neck: Supple, No JVD, Negative Carotid Bruits Lungs: Clear to auscultation, Normal air movement Cardiovascular: Regular rate, Regular Rhythm, Normal S1, Normal S2, No murmurs Abdomen: Bowel Sounds Present, Soft, Non Tender, Non-Distended Extremities: No clubbing, No cyanosis, No edema, Capillary Refill Less than 3 Seconds Skin: No rashes, No breakdown Musculoskeletal: No Tenderness to Palpation of Joints or Extremities Neurological: Cranial nerves II-XII grossly intact, Neuro grossly intact Psych/Mental Status: Normal Affect, Appropriate Vital Signs Temp Pulse Resp BP Pulse Ox 98.3 F 64 14 167/79 H 98 03/28/19 14:11 03/28/19 14:11 03/28/19 14:11 03/28/19 14:11 03/28/19 14:11 Oxygen Delivery Method Room Air Weight: 126 lb 1.671 oz Body Mass Index (BMI) 26.3 Laboratory Tests Past 24 Hrs 03/28/19 03/28/19 03/28/19 10:50 10:50 10:50 WBC 6.2 RBC 3.83 L Hgb 9.3 L Hct 30.3 L MCV 79.1 L MCH 24.3 L MCHC 30.7 L RDW Std Deviation 47.6 H RDW Coeff of Carlos 16.8 H Plt Count 299 MPV 10.2 Immature Gran % (Auto) 0.300 Neut % (Auto) 82.0 H Lymph % (Auto) 14.1 L [place] % (Auto) 1.9 Eos % (Auto) 0.6 Baso % (Auto) 1.1 H Absolute Neuts (auto) 5.0 Absolute Lymphs (auto) 0.87 Nucleated RBC % 0 Sodium 137 Potassium 5.8 H Chloride 105 Carbon Dioxide 28.0 Anion Gap 4 L BUN 16 Creatinine 0.94 Estim Creat Clear Calc 55.54 Est GFR (MDRD) Af Amer 78 Est GFR (MDRD) Non-Af 64 BUN/Creatinine Ratio 17.1 Glucose 131 H Calcium 9.1 Magnesium 2.2 Troponin I < 0.015 03/28/19 14:15 WBC RBC Hgb Hct MCV MCH MCHC RDW Std Deviation RDW Coeff of Carlos Plt Count MPV Immature Gran % (Auto) Neut % (Auto) Lymph % (Auto) [place] % (Auto) Eos % (Auto) Baso % (Auto) Absolute Neuts (auto) Absolute Lymphs (auto) Nucleated RBC % Sodium Potassium Chloride Carbon Dioxide Anion Gap BUN Creatinine Estim Creat Clear Calc Est GFR (MDRD) Af Amer Est GFR (MDRD) Non-Af BUN/Creatinine Ratio Glucose Calcium Magnesium Troponin I Pending Assessment/Plan All Active Problems Chest pain, unspecified (Acute) 1. Chest pain, rule out ACS-initial troponin negative. EKG without ST-T changes. Trend enzymes. Stress test in a.m. Check lipid panel in a.m. Continue aspirin. 2. Hyperkalemia-suspect this is falsely elevated, labs shows moderate hemolysis. Repeat in a.m. 3. Microcytic anemia, appears chronic-at baseline. Trend CBC. Check iron studies. 4. Depression/anxiety-continue bupropion, sertraline regimen. 5. Chronic pain/arthritis, history of cervical neck surgery-continue home gabapentin regimen. PRN pain regimen. DVT prophylaxis-Lovenox subcu This patient was seen by SHABBIR [place] under the supervision of Dr. Mcrae.
[2019-03-28] MEDS: Acetaminophen 325 MG Tablet 650 MG PO ×2 (15:11→21:56)
[2019-03-28] MEDS: Gabapentin 300 MG Capsule PO (16:47)
[2019-03-28 21:08] LABS: Vitamin B12 165 pg/mL (211-911)
[2019-03-28 21:36] LABS: Ferritin 8 ng/mL (8-252); Iron 39 ug/dL (50-170); Iron Binding Capacity,Total 444 ug/dL (250-450); PERCENT IRON SATURATION 8.8 % (15.0-55.0)
[2019-03-28] MEDS: Famotidine 20 MG Tablet PO (21:56)
[2019-03-28] MEDS: buPROPion (SR) 150 MG Tablet.SA PO (21:56)
[2019-03-28] MEDS: MELATONIN 3 MG TABLET PO (22:14)
[2019-03-29] VITALS (14 sets, daily range): BP systolic 114–154; BP diastolic 62–92; PULSE 53–71; RESP 16–18; TEMP 35.9–37; O2SAT 96–100
--- NOTE | 2019-03-29 04:00 | EKG12_ITS ---
Test Reason : AM EKG Blood Pressure : / mmHG Vent. Rate : 060 BPM Atrial Rate : 060 BPM P-R Int : 180 ms QRS Dur : 084 ms QT Int : 410 ms P-R-T Axes : 037 015 027 degrees QTc Int : 410 ms Normal sinus rhythm Normal ECG Confirmed by RHONDA GARY, BLANCA ([id number]), senior editor SALVADOR ZAPATA ([id number]) on 03/31/2019 9:12:20 AM Referred By: Toshia Mcrae Confirmed By:BLANCA ELLIS MD
[2019-03-29 04:39] LABS: Hematocrit 25.3 % (37-47); Hemoglobin 7.9 g/dL (12.0-15.0); Mean Corp Hgb Conc 31.2 g/dL (32-36); Mean Corpuscular Hgb 24.8 pg (27.0-32.0); Mean Corpuscular Volume 79.6 fL (81-99); Mean Platelet Vol. 9.6 fl (6.2-12.0); Platelet Count 243 K/mm3 (150-450); RBC Distribution Width CV 16.7 % (11.6-14.6); RBC Distribution Width SD 47.4 fl (35.1-43.9); Red Blood Count 3.18 M/mm3 (4.2-5.4); White Blood Count 5.8 K/mm3 (4.4-11.0)
[2019-03-29 04:54] LABS: Prothrombin Time (Protime)PT. 13.3 SECONDS (11.7-14.9)
[2019-03-29 04:55] LABS: Partial Thromboplast Time 29.8 Seconds (24.1-36.2)
[2019-03-29 05:06] LABS: AST(SGOT) 13 U/L (15-37); Alanine Aminotransfer ALT/SGPT 20 U/L (13-56); Albumin, Serum 3.3 g/dL (3.2-5.0); Alkaline Phosphatase 58 U/L (45-117); Anion Gap 6 (5-15); BUN 13 mg/dL (7-18); Bilirubin, Direct 0.13 mg/dL (0.00-0.30); Calcium,Total 8.5 mg/dL (8.5-10.1); Chloride 106 mmol/L (98-107); Cholesterol 238 mg/dL (200); Creatinine, Serum 0.72 mg/dL (0.55-1.02); EST Glomerular Filtration Rate 87 mL/min (>60); Est Glom Filt Rate - Afr Amer 105 mL/min (>60); Estimated Creatinine Clearance 73.16 ml/min; Glucose 91 mg/dL (74-106); High Density Lipoprotein 121 mg/dL; Potassium 3.9 mmol/L (3.5-5.1); Protein, Total 6.3 g/dL (6.4-8.2); Sodium Level 141 mmol/L (136-145); Triglycerides 69 mg/dL; Very Low Density Lipoprotein 14 mg/dL (5-40)
[2019-03-29] MEDS: Aspirin E.C. 81 MG Tablet PO (05:29)
[2019-03-29] MEDS: buPROPion (SR) 150 MG Tablet.SA PO ×2 (07:46→21:44)
[2019-03-29] MEDS: Famotidine 20 MG Tablet PO ×2 (07:46→21:44)
[2019-03-29] MEDS: Sertraline 100 MG Tablet PO (07:46)
[2019-03-29] MEDS: Gabapentin 300 MG Capsule PO ×3 (07:46→17:52)
--- NOTE | 2019-03-29 07:47 | NURSING ---
hgb 7.9 this AM. pt states she had BM before coming to hospital and that BM was of normal color and not dark. Pt denies lightheadedness.
[2019-03-29 09:17] LABS: Hemoglobin 8.6 g/dL (12.0-15.0)
[2019-03-29] MEDS: Acetaminophen 325 MG Tablet 650 MG PO ×2 (10:10→19:59)
--- NOTE | 2019-03-29 12:49 | PN_ITS ---
<Dorothy Nova - Last Filed: 03/29/19 12:53> Patient Problems: Active and Suspected Problems Chest pain, unspecified (Acute) Subjective: Patient seen and examined. Denies further chest pain. Stress test canceled this morning for hemoglobin 7.9. Repeat hemoglobin 8.6. - Physical Exam General: Alert, Oriented x3, Cooperative HEENT: Atraumatic, PERRLA, EOMI, Normocephalic Neck: Supple, No JVD, Negative Carotid Bruits Lungs: Clear to auscultation, Normal air movement Cardiovascular: Regular rate, Regular Rhythm, Normal S1, Normal S2, No murmurs Abdomen: Bowel Sounds Present, Soft, Non Tender, Non-Distended Extremities: No clubbing, No cyanosis, No edema, Capillary Refill Less than 3 Seconds Skin: No rashes, No breakdown Musculoskeletal: No Tenderness to Palpation of Joints or Extremities Neurological: Cranial nerves II-XII grossly intact, Neuro grossly intact Psych/Mental Status: Normal Affect, Appropriate Vital Signs Temp Pulse Resp BP Pulse Ox 97.9 F 68 16 137/67 H 96 03/29/19 09:32 03/29/19 09:32 03/29/19 09:32 03/29/19 09:32 03/29/19 09:32 Oxygen Delivery Method Room Air Weight: 126 lb 1.671 oz Body Mass Index (BMI) 26.3 Intake and Output for Last 24 Hours 03/27/19 03/28/19 03/29/19 23:59 23:59 23:59 Intake Total 220 / 720 750 / 750 Balance 220 / 720 750 / 750 Laboratory Tests Past 24 Hrs 03/28/19 03/28/19 03/28/19 10:50 14:15 17:25 WBC RBC Hgb Hct MCV MCH MCHC RDW Std Deviation RDW Coeff of Carlos Plt Count MPV PT INR APTT Sodium Potassium Chloride Carbon Dioxide Anion Gap BUN Creatinine Estim Creat Clear Calc Est GFR (MDRD) Af Amer Est GFR (MDRD) Non-Af BUN/Creatinine Ratio Glucose Calcium Iron TIBC Iron Saturation Ferritin Total Bilirubin Direct Bilirubin AST ALT Alkaline Phosphatase Troponin I < 0.015 < 0.015 Total Protein Albumin Globulin Triglycerides Cholesterol LDL Cholesterol VLDL Cholesterol HDL Cholesterol Vitamin B12 165 L Folate 03/28/19 03/29/19 03/29/19 17:25 04:24 04:24 WBC 5.8 RBC 3.18 L Hgb 7.9 L Hct 25.3 L MCV 79.6 L MCH 24.8 L MCHC 31.2 L RDW Std Deviation 47.4 H RDW Coeff of Carlos 16.7 H Plt Count 243 MPV 9.6 PT INR APTT Sodium 141 Potassium 3.9 Chloride 106 Carbon Dioxide 29.0 Anion Gap 6 BUN 13 Creatinine 0.72 Estim Creat Clear Calc 73.16 Est GFR (MDRD) Af Amer 105 Est GFR (MDRD) Non-Af 87 BUN/Creatinine Ratio 18.0 Glucose 91 Calcium 8.5 Iron 39 L TIBC 444 Iron Saturation 8.8 L Ferritin 8 Total Bilirubin 0.50 Direct Bilirubin 0.13 AST 13 L ALT 20 Alkaline Phosphatase 58 Troponin I Total Protein 6.3 L Albumin 3.3 Globulin 3.0 Triglycerides 69 Cholesterol 238 H LDL Cholesterol 103 VLDL Cholesterol 14 HDL Cholesterol 121 Vitamin B12 Folate 23.10 03/29/19 03/29/19 04:24 09:04 WBC RBC Hgb 8.6 L Hct MCV MCH MCHC RDW Std Deviation RDW Coeff of Carlos Plt Count MPV PT 13.3 INR 1.0 APTT 29.8 Sodium Potassium Chloride Carbon Dioxide Anion Gap BUN Creatinine Estim Creat Clear Calc Est GFR (MDRD) Af Amer Est GFR (MDRD) Non-Af BUN/Creatinine Ratio Glucose Calcium Iron TIBC Iron Saturation Ferritin Total Bilirubin Direct Bilirubin AST ALT Alkaline Phosphatase Troponin I Total Protein Albumin Globulin Triglycerides Cholesterol LDL Cholesterol VLDL Cholesterol HDL Cholesterol Vitamin B12 Folate Medical Necessity - Tobacco Use Smoking Status: Former smoker Assessment/Plan All Active Problems Chest pain, unspecified (Acute) 1. Chest pain, rule out ACS-troponin negative. EKG without ST-T changes. Co ntinue aspirin. Stress test ordered, unable to complete due to hemoglobin 7.9. Repeat hemoglobin 8.6. Plan for stress test in a.m. 2. Hyperkalemia- falsely elevated, labs shows moderate hemolysis. Repeat BMP normal. 3. Microcytic anemia/iron deficiency anemia, appears chronic-at baseline. Iron studies show low iron. IV letter for x1. Repeat CBC in a.m. 4. Depression/anxiety-continue bupropion, sertraline regimen. 5. Chronic pain/arthritis, history of cervical neck surgery-continue home gabapentin regimen. PRN pain regimen. DVT prophylaxis-Lovenox subcu This patient was seen by SHABBIR Lake under the supervision of Dr. Pearson. <MichelRaghavendra - Last Filed: 03/29/19 16:42> Subjective: Seen and examined. Stress test was canceled for low hemoglobin. Repeat hemoglobin is 8.6 admission. Patient denies any history of obvious or external bleed including GI bleed, vaginal bleeding or hematuria. Patient denies any previous colonoscopy or EGD. - Physical Exam General: Alert, Oriented x3, Cooperative, - - Pale HEENT: Atraumatic, PERRLA, EOMI, Normocephalic Neck: Supple, No JVD, Negative Carotid Bruits Lungs: Clear to auscultation, Normal air movement, No rhonchi, No wheeze, No rales Cardiovascular: Regular rate, Regular Rhythm, Normal S1, Normal S2, No murmurs Abdomen: Bowel Sounds Present, Soft, Non Tender, Non-Distended Extremities: No edema, Capillary Refill Less than 3 Seconds Skin: No rashes, No breakdown Musculoskeletal: No Tenderness to Palpation of Joints or Extremities Neurological: Cranial nerves II-XII grossly intact Psych/Mental Status: Normal Affect, Appropriate Vital Signs Temp Pulse Resp BP Pulse Ox 97.9 F 60 16 147/78 H 97 03/29/19 14:27 03/29/19 16:00 03/29/19 14:27 03/29/19 14:27 03/29/19 14:27 Oxygen Delivery Method Room Air Weight: 126 lb 1.671 oz Body Mass Index (BMI) 26.3 Intake and Output for Last 24 Hours 03/27/19 03/28/19 03/29/19 23:59 23:59 23:59 Intake Total 220 / 720 750 / 750 Balance 220 / 720 750 / 750 Laboratory Tests Past 24 Hrs 03/28/19 03/28/19 03/28/19 10:50 17:25 17:25 WBC RBC Hgb Hct MCV MCH MCHC RDW Std Deviation RDW Coeff of Carlos Plt Count MPV PT INR APTT Sodium Potassium Chloride Carbon Dioxide Anion Gap BUN Creatinine Estim Creat Clear Calc Est GFR (MDRD) Af Amer Est GFR (MDRD) Non-Af BUN/Creatinine Ratio Glucose Calcium Iron 39 L TIBC 444 Iron Saturation 8.8 L Ferritin 8 Total Bilirubin Direct Bilirubin AST ALT Alkaline Phosphatase Troponin I < 0.015 Total Protein Albumin Globulin Triglycerides Cholesterol LDL Cholesterol VLDL Cholesterol HDL Cholesterol Vitamin B12 165 L Folate 23.10 03/29/19 03/29/19 03/29/19 04:24 04:24 04:24 WBC 5.8 RBC 3.18 L Hgb 7.9 L Hct 25.3 L MCV 79.6 L MCH 24.8 L MCHC 31.2 L RDW Std Deviation 47.4 H RDW Coeff of Carlos 16.7 H Plt Count 243 MPV 9.6 PT 13.3 INR 1.0 APTT 29.8 Sodium 141 Potassium 3.9 Chloride 106 Carbon Dioxide 29.0 Anion Gap 6 BUN 13 Creatinine 0.72 Estim Creat Clear Calc 73.16 Est GFR (MDRD) Af Amer 105 Est GFR (MDRD) Non-Af 87 BUN/Creatinine Ratio 18.0 Glucose 91 Calcium 8.5 Iron TIBC Iron Saturation Ferritin Total Bilirubin 0.50 Direct Bilirubin 0.13 AST 13 L ALT 20 Alkaline Phosphatase 58 Troponin I Total Protein 6.3 L Albumin 3.3 Globulin 3.0 Triglycerides 69 Cholesterol 238 H LDL Cholesterol 103 VLDL Cholesterol 14 HDL Cholesterol 121 Vitamin B12 Folate 03/29/19 09:04 WBC RBC Hgb 8.6 L Hct MCV MCH MCHC RDW Std Deviation RDW Coeff of Carlos Plt Count MPV PT INR APTT Sodium Potassium Chloride Carbon Dioxide Anion Gap BUN Creatinine Estim Creat Clear Calc Est GFR (MDRD) Af Amer Est GFR (MDRD) Non-Af BUN/Creatinine Ratio Glucose Calcium Iron TIBC Iron Saturation Ferritin Total Bilirubin Direct Bilirubin AST ALT Alkaline Phosphatase Troponin I Total Protein Albumin Globulin Triglycerides Cholesterol LDL Cholesterol VLDL Cholesterol HDL Cholesterol Vitamin B12 Folate Assessment/Plan This patient was seen in conjunction with [employer], Dorothy. I have independently interviewed and examined the patient and reviewed pertinent history, examination findings, laboratory and plan of management. I have reviewed the note and agree with the documented findings with the few additional points. In brief, patient is admitted for this is a 63-year-old female is admitted with chest pain. EKG shows nonspecific ST-T changes. Stress test was canceled for low hemoglobin. Repeat troponin 8.6. Patient had iron sucrose 200 mg. 1 unit of PRBC transfusion ordered in order to correct H&H for stress tomorrow. Iron work-up is consistent with iron deficiency anemia, iron 39, iron saturation 8.8%, ferritin 8. Rest as mentioned above. I have discussed my assessment with MANAGER DATA WAREHOUSEDorothy and orders have been reviewed. Code Visit OBSV E&M: [id number] Initial observation care L2
--- NOTE | 2019-03-29 13:12 | CASEMGMT ---
Per RN patient was asking about assisted living. SW met with patient. Introduced self and role at [facility]. Patient asked about the low income apartments on [address]. SW told her the apartments are called [facility]. SW told her they have an office at the back of the parking lot. SW explained they have a packet of paperwork that needs to be filled out in order to apply to live there. She said her sister is pretty good with that stuff and she will tell her. SW asked if she needs any other information and she declined. Mariela PIÑA MSW
[2019-03-29] MEDS: Docusate Sodium 100 MG Capsule PO ×2 (13:23→21:44)
--- NOTE | 2019-03-29 13:29 | NURSING ---
pt's niece called this RN and notified this RN that pt drinks about 8 beers a day. this information was passed on from this RN to Edouard Nova NP
--- NOTE | 2019-03-29 13:49 | CASEMGMT ---
ALESIA met with patient again as per her niece she drinks 8 beers a day. Also, patient's in September. SW talked with patient about her drinking. She said when she used to work she would be so tired she couldn't sleep and she would have a couple of beers to help her sleep. SW asked her if she feels like she has been drinking more since her . She does not feel like she drinks more. SW asked her if she feels like she needs resources to stop drinking. She said she needs to quit and would take information, but doesn't like groups. ALESIA then asked her how she has been doing coping with the loss of her . She said she thinks she is doing ok. ALESIA told [facility] about [facility]. She was open to SW giving her this information also. ALESIA gave her information on [facility] and [facility] as well as [facility]. SW asked patient if she plans on going home when she is discharged from the hospital. She said she does plan on going home. Mariela PIÑA MSW
[2019-03-29] MEDS: Thiamine Hydrochloride 100 MG Tablet PO (17:51)
[2019-03-29] MEDS: Folic Acid 1 MG Tablet PO (17:51)
[2019-03-29] MEDS: MELATONIN 3 MG TABLET PO (21:55)
[2019-03-30] VITALS (7 sets, daily range): BP systolic 147–168; BP diastolic 82–96; PULSE 58–79; RESP 16; TEMP 36.4–36.6; O2SAT 94–100
[2019-03-30] MEDS: Famotidine 20 MG Tablet PO (05:37)
[2019-03-30] MEDS: Acetaminophen 325 MG Tablet 650 MG PO (05:37)
[2019-03-30] MEDS: Aspirin E.C. 81 MG Tablet PO (05:37)
--- NOTE | 2019-03-30 05:55 | EKG12_ITS ---
Test Reason : AM EKG Blood Pressure : / mmHG Vent. Rate : 057 BPM Atrial Rate : 057 BPM P-R Int : 184 ms QRS Dur : 076 ms QT Int : 422 ms P-R-T Axes : 059 030 042 degrees QTc Int : 410 ms Sinus bradycardia Otherwise normal ECG Confirmed by RHONDA GARY, BLANCA ([id number]), video effects editor SALVADOR ZAPATA ([id number]) on 03/31/2019 9:02:51 AM Referred By: Toshia Mcrae Confirmed By:BLANCA ELLIS MD
[2019-03-30 05:56] LABS: Hematocrit 32.6 % (37-47); Hemoglobin 10.4 g/dL (12.0-15.0); Mean Corp Hgb Conc 31.9 g/dL (32-36); Mean Corpuscular Hgb 25.9 pg (27.0-32.0); Mean Corpuscular Volume 81.3 fL (81-99); Platelet Count 265 K/mm3 (150-450); RBC Distribution Width CV 16.1 % (11.6-14.6); RBC Distribution Width SD 48.4 fl (35.1-43.9); Red Blood Count 4.01 M/mm3 (4.2-5.4)
--- NOTE | 2019-03-30 09:53 | STRESSREP ---
Stress Test Report Date: 03-30-19 Procedure: Pharmacologic stress nuclear imaging study Indications: Chest pain Consent: Per the patient Procedure: The patient underwent pharmacologic (Regadenoson) evaluation with a peak heart rate of 100 beats per minute (63 %predicted maximal heart rate) and a peak blood pressure of 150/84 mmHg. The baseline ECG demonstrated sinus bradycardia. The peak pharmacologic ECG demonstrated no obvious ECG changes. There were no cardiac dysrhythmias pretest, during pharmacologic infusion, or recovery. There was midsternal chest burning/left upper extremity discomfort during recovery with subsequent spontaneous resolution to baseline. The examination was discontinued secondary to completion of protocol. Impression: 1. Pharmacologic (Regadenoson) evaluation 2. Peak pharmacologic ECG with no obvious ECG changes. 3. There were no cardiac dysrhythmias pretest, during pharmacologic infusion, or recovery. 4. Nuclear images pending Myocardial perfusion imaging study: Technique: The patient was injected with 12.0 millicuries of technetium 99m Cardiolite and subsequently rest SPECT Cardiolite nuclear imaging was obtained in the horizontal long, vertical long, and short axis views. The patient underwent pharmacologic (Regadenoson) evaluation with a peak heart rate of 100 beats per minute (63 % percent predicted maximal heart rate) and a peak blood pressure of 150/84 mmHg. The patient was injected with 36.0 millicuries of technetium 99m Cardiolite and subsequently stress SPECT Cardiolite nuclear imaging was obtained in the horizontal long, vertical long, and short axis views. A gated Cardiolite study at peak stress was obtained. Interpretation: Rest and stress SPECT Cardiolite nuclear imaging status post realignment, normalization, and attenuation correction demonstrate relative uniform tracer uptake and myocardial perfusion appearing within normal limits. There is end systolic thickening and brightening. The gated Cardiolite study demonstrates myocardial thickening and inward wall motion. The reported LVEF is 75 %. Impression: 1. Rest and stress SPECT Cardiolite nuclear imaging demonstrate relative uniform tracer uptake and myocardial perfusion appearing within normal limits. 2. The gated Cardiolite study reports an LVEF of 75 %. This note was generated with [employer] software. It may contain incorrect words, spelling, and punctuation that were not noted in checking the note before signing.
[2019-03-30] MEDS: Docusate Sodium 100 MG Capsule PO (10:13)
[2019-03-30] MEDS: Gabapentin 300 MG Capsule PO (10:13)
[2019-03-30] MEDS: buPROPion (SR) 150 MG Tablet.SA PO (10:13)
[2019-03-30] MEDS: Sertraline 100 MG Tablet PO (10:13)
[2019-03-30] MEDS: Folic Acid 1 MG Tablet PO (10:13)
[2019-03-30] MEDS: Thiamine Hydrochloride 100 MG Tablet PO (10:13)
--- NOTE | 2019-03-30 10:21 | PCM.DC ---
- Discharge Diagnoses Current Active Problems: Current Active and Chronic Problems Chest pain, unspecified (Acute) You will use the following diet at home:: Regular Your food should be the consistency of: Regular Discharge Activity: May Not Drive Call your doctor if you observe: Fever of 101 or Higher, Numbness or Tingling, Inability to urinate, Inability to have a bowel movement, Shortness of breath, Dizziness, Fainting spells, Swelling in the ankles, Chest pain, Increased palpitations (irregular heartbeat) Additional Instructions: Needs outpatient EGD/Colonoscopy for iron def anemia Allergies/Adverse Reactions: Allergies Penicillins Allergy (Verified 02/10/19 11:06) Rash Medications to take at Discharge cycloBENZAPRine HCl [Flexeril] 10 mg PO TID PRN #20 tab 09/29/17 Gabapentin [Neurontin] 300 mg PO TIDCM #87 cap 09/30/17 bupropion HCl SR 150 mg tablet,12 hr sustained-release 150 mg PO BID 01/11/18 Docusate Sodium [Colace] 100 mg PO BID 03/28/19 Sertraline HCl 100 mg PO DAILY 03/28/19 Ferrous Sulfate 325 mg PO TIDCM #90 tab 03/30/19 Folic Acid 1 mg PO DAILY@0800 tablet 03/30/19 Pantoprazole Sodium [Protonix] 40 mg PO DAILY #30 tab 03/30/19 Thiamine Hydrochloride [Vitamin B1] 100 mg PO DAILYCM tablet 03/30/19 The following prescriptions were given: Ferrous Sulfate 325 mg PO TIDCM #90 tab Transmission Status: Pending to [facility] #30 Pantoprazole Sodium [Protonix] 40 mg PO DAILY #30 tab Transmission Status: Pending to [facility] #30 Primary Care Physician: Keaton Voss MD [Primary Care Provider] - Please follow up with your Primary Care Physician in: in 1-2 weeks Test Results: Test results from this visit will be discussed in further detail at your follow-up appointment, if applicable.
--- NOTE | 2019-03-30 10:26 | DS.PCM_ITS ---
Discharge Date and Diagnosis Date of Admission: 03/28/19 Date of Discharge: 03/30/19 - Primary Discharge Diagnosis Active and Suspected Problems Chest pain, unspecified (Acute) - Secondary Discharge Diagnosis Chronic Problems Chronic low back pain (Chronic) Pain of cervical spine (Chronic) Hospital Course and Treatment Imaging Results: 03/30/19 07:00 Nuclear Stress Test - Chemical [NM] Routine Summary of Care Provided: The patient is a 63 year old F is admitted chest pain. EKG shows nonspecific ST-T changes. Earlier, stress test was canceled for low hemoglobin. Repeat troponin 8.6. Patient had iron sucrose 200 mg. 1 unit of PRBC transfusion. Repeat H&H 10./32.6 Iron work-up is consistent with iron deficiency anemia, iron 39, iron saturation 8.8%, ferritin 8. ACS ruled out. Patient had Cardiolite nuclear stress test with reported as myocardial perfusion within normal limit. Gated EF 75% Detailed diagnosis and management as follows 1. Chest pain, acute coronary syndrome ruled out-troponin negative. EKG without ST-T changes. Stress test negative as mentioned above 2. Hyperkalemia- falsely elevated, labs shows moderate hemolysis. Repeat BMP normal. 3. Microcytic anemia/iron deficiency anemia, appears chronic-at baseline. Iron studies show low iron. Patient had 1 dose of 200 mg IV iron sucrose and 1 unit of PRBC transfusion. Repeat H&H 10./32.6. Patient discharged on ferrous sulfate 325 mg 3 times daily along with folic acid and thiamine [id number]. Naproxen discontinued. Patient further advised to follow-up with PCP to refer to GI/surgeon for upper and lower endoscopy. Patient might have gastritis secondary to NSAIDs. Prescription for Protonix 40 mg daily and ferrous sulfate given. 4. Depression/anxiety-continue bupropion, sertraline regimen. 5. Chronic spine pain sciatic in nature and history of cervical neck surgery- continue home gabapentin regimen. Further follow with PCP. DVT prophylaxis-Lovenox discontinued. Discharge medication reconciliation done. Discharge follow-up instructions completed. Discharge process discussed with the patient and all questions were answered to patient's satisfaction. Total time spent, exact 35 minutes on discharge meds reconciliation, examination, review of imaging and blood test and discussion with the patient on follow-up instructions. Subjective: Patient does not have any particular complaint. Patient is on naproxen, Neurontin for lower back pain, sciatica in nature positive for lumbar spine and shooting on bilateral lower legs going beyond the knee. Naproxen discontinued. She had had a nuclear stress test which was negative for acute ischemia. - Physical Exam General: Alert, Oriented x3, Cooperative HEENT: Atraumatic, PERRLA, EOMI, Normocephalic Neck: Supple, No JVD, Negative Carotid Bruits Lungs: Clear to auscultation, Normal air movement, No rhonchi, No wheeze, No rales Cardiovascular: Regular rate, Regular Rhythm, Normal S1, Normal S2, No murmurs Abdomen: Bowel Sounds Present, Soft, Non Tender, Non-Distended Extremities: No edema, Capillary Refill Less than 3 Seconds Skin: No rashes, No breakdown Musculoskeletal: No Tenderness to Palpation of Joints or Extremities Neurological: Cranial nerves II-XII grossly intact Psych/Mental Status: Normal Affect, Appropriate Vital Signs Temp Pulse Resp BP Pulse Ox 97.9 F 60 16 157/83 H 100 03/30/19 10:05 03/30/19 10:05 03/30/19 10:05 03/30/19 10:05 03/30/19 10:05 Oxygen Delivery Method Room Air Weight: 126 lb 1.671 oz Body Mass Index (BMI) 26.3 Intake and Output for Last 24 Hours 03/28/19 03/29/19 03/30/19 23:59 23:59 23:59 Intake Total 220 / 720 1510 / 1510 0 / 0 Balance 220 / 720 1510 / 1510 0 / 0 Laboratory Tests Past 24 Hrs 03/29/19 03/30/19 09:04 05:05 WBC 4.0 L RBC 4.01 L Hgb 10.4 L Hct 32.6 L MCV 81.3 MCH 25.9 L MCHC 31.9 L RDW Std Deviation 48.4 H RDW Coeff of Carlos 16.1 H Plt Count 265 MPV 10.0 Blood Type A POSITIVE Antibody Screen NEGATIVE Crossmatch See Detail Discharge Activity: May Not Drive Call your doctor if you observe: Fever of 101 or Higher, Numbness or Tingling, Inability to urinate, Inability to have a bowel movement, Shortness of breath, Dizziness, Fainting spells, Swelling in the ankles, Chest pain, Increased palpitations (irregular heartbeat) Home Medications: Medications to take at Discharge cycloBENZAPRine HCl [Flexeril] 10 mg PO TID PRN #20 tab 09/29/17 Gabapentin [Neurontin] 300 mg PO TIDCM #87 cap 09/30/17 bupropion HCl SR 150 mg tablet,12 hr sustained-release 150 mg PO BID 01/11/18 Docusate Sodium [Colace] 100 mg PO BID 03/28/19 Sertraline HCl 100 mg PO DAILY 03/28/19 Ferrous Sulfate 325 mg PO TIDCM #90 tab 03/30/19 Folic Acid 1 mg PO DAILY@0800 tab 03/30/19 Lisinopril [Prinivil] 10 mg PO DAILY #30 tab 03/30/19 Pantoprazole Sodium [Protonix] 40 mg PO DAILY #30 tab 03/30/19 Thiamine Hydrochloride [Vitamin B1] 100 mg PO DAILYCM tab 03/30/19 Following Prescrptions Were Given to Patient: Ferrous Sulfate 325 mg PO TIDCM #90 tab Transmission Status: Received by [facility] #30 Lisinopril [Prinivil] 10 mg PO DAILY #30 tab Transmission Status: Received by [facility] #30 Pantoprazole Sodium [Protonix] 40 mg PO DAILY #30 tab Transmission Status: Received by [facility] #30 Primary Care Physician: Keaton Voss MD [Primary Care Provider] - Please follow up with your Primary Care Physician in: in 1-2 weeks Medical Necessity - Tobacco Use Smoking Status: Former smoker Meaningful Use Info Meaningful Use Diagnoses (Choose all that apply): None applicable Code Visit OBSV E&M: 14926 Observation care discharge
== END 2019-03-30 10:22 | disposition home or self-care (01) ==
LOC: ED 11:33 → PCU 11:45
PROVIDERS: Nurse Practitioner Family; Admitting Provider Internal Medicine; Emergency Provider Emergency Medicine; Family Provider Family Medicine; PCP Family Medicine; Referring Provider Internal Medicine; Visit Provider Internal Medicine
DX: R07.89 Other chest pain (principal); R20.2 Paresthesia of skin; G89.29 Other chronic pain; R06.02 Shortness of breath; F41.9 Anxiety disorder, unspecified; F32.9 Major depressive disorder, single episode, unspecified; D50.9 Iron deficiency anemia, unspecified; E87.5 Hyperkalemia; M19.90 Unspecified osteoarthritis, unspecified site; Z79.899 Other long term (current) drug therapy; Z87.891 Personal history of nicotine dependence
CPT/HCPCS: 36415; 36430; 71045; 78452; 80048; 80061; 80076; 82607; 82728; 82746; 83540; 83550; 83735; 84484; 85018; 85025; 85027; 85610; 85730; 86850; 86900; 86920; 93005; 93017; 96365; 96366; 96375; 97162; 99218; 99285; A9500; J1756; J7040; P9016; A4216; G0378; J2405; J2785

== ENCOUNTER → 2019-04-04 13:30 | Outpatient (CLI) | payer MEDICAID, SELFPAY ==
[2019-03-28 12:21] VITALS: BMI 26.3
--- NOTE | 2019-04-04 13:32 | RAD_ITS ---
STUDY: X-RAY - CERVICAL SPINE REASON FOR EXAM: Female, 63 years old. Postoperative change TECHNIQUE: 2 view(s) of the cervical spine were obtained. COMPARISON: November 15, 2018 cervical spine x-ray FINDINGS: There are degenerative changes of the anterior atlantoaxial articulation. Normal odontoid process. There is a posterior spinal fusion with multilevel pedicle screws from the level of C3 disc C6. There are cortical screws at the level of T1 and a spinal bar connecting the above the T1, there is disc space narrowing C4-C5, to the greatest degree C5-C6 and C6-C7 with osteophyte formation. Stable Postlaminectomy. The soft tissue structures are unremarkable. RAD/Cerv Spine 2 or 3 Views IMPRESSION: Status post spinal fusion. As detailed above Electronically Signed: Dalila Espinoza MD at 1:15 EDT Tel , Service support ,
== END ==
PROVIDERS: Family Provider Family Medicine; PCP Family Medicine; Referring Provider Orthopaedic Surgery; Visit Provider Orthopaedic Surgery
DX: Z98.1 Arthrodesis status (principal)
CPT/HCPCS: 72040

== ENCOUNTER 2019-04-20 11:21 | Emergency (ER) | payer MEDICAID, SELFPAY ==
[2019-04-04 13:37] VITALS: BMI 26.3
[2019-04-20 11:22] VITALS: BP 151/76; PULSE 90; RESP 18; TEMP 36.4; O2SAT 98; BMI 27.1
--- NOTE | 2019-04-20 11:40 | ED.VIS.GEN ---
History of Present Illness Chief Complaint: Back Informant: Patient Onset: Days Context: Gradual Onset Current Severity: Moderate Maximum Severity: Moderate Narrative: The patient presents with low back pain. The patient had symptoms for the past few years. She states that over the past day, she is had some increasing pain in the left low back and radiates down her leg. She denies any changes in bowel or bladder. She denies any fevers or chills. She denies any trauma. She states that she was on anti-inflammatories, but had questionable GI bleeding. This was stopped. Since then, her pain is worsened. She is scheduled to see pain management tomorrow. Prior similar symptoms: Yes Recent Illness/Hospitalization: No Past Medical History - Allergies and Home Meds Allergies/Adverse Reactions: Allergies Penicillins Allergy (Verified 04/20/19 11:24) Rash Primary Care Physician: Keaton Voss MD [Primary Care Provider] - Prior records reviewed: Yes Past Medical History: - Surgical History: - - Cervical neck surgery. Lives: Alone Smoking Status: Former smoker Alcohol: None Drugs: None - Family History Maternal Family History: Reports: COPD Paternal Family History: Reports: Heart Disease - related to heart disease Review of Systems General: Denies: Chills, Fever, Sweats Eyes: Denies: Visual changes - bilaterally, Diplopia ENT: Denies: Rhinorrhea, Sore throat Cardiovascular: Denies: Chest pain, Palpitations Respiratory: Denies: Dyspnea, Cough, Dyspnea on exertion Gastrointestinal: Denies: Abdominal pain, Nausea, Vomiting, Diarrhea, Melena, Hematochezia Genitourinary: Denies: Dysuria, Hematuria, Frequency Musculoskeletal: Reports: Back pain. Denies: Myalgias, Arthralgias, Extremity Pain Skin: Denies: Rash, Wounds Neurological: Denies: Headache, Weakness, Numbness Physical Exam Vital Signs/Narrative: Vital Signs Temp Pulse Resp BP Pulse Ox 04/20/19 11:22 97.6 F L 90 18 151/76 H 98 Inital Vital Signs reviewed: Yes General: Well nourished, Well developed, No Acute Distress Head: Normocephalic, Atraumatic Eyes: Perrl, EOMI ENT: Moist mucous membranes, No rhinorrhea Neck: Supple, Nontender Cardiovascular: Regular rate, Regular rhythm, No murmurs Respiratory: No distress, CTA bilaterally, Chest nontender Abdomen: Soft, Nontender, Nondistended, Normal bowel sounds, No masses. Negative for: Guarding, Rebound tenderness Back: Nontender, Normal Inspection, - - The patient does have tenderness in the left paraspinal area. She has a straight leg raise which creates pain, but no paresthesias. She has normal pulses and reflexes. There is no difficulty with dorsiflexion, plantarflexion, extensor hallucis longus.. Negative for: Spinal tenderness Extremities: Nontender, No edema Skin: Normal color, No rash Neurological: Alert, Oriented x3, Cranial nerves II-XII grossly intact, Normal Strength, Normal Sensation Psychological: Normal affect, Normal Mood Diagnostic/Tx/Re-eval - Medical Decision Making The patient presents to the emergency department with sciatica. She does have a history of this. She has the reassuring neurologic examination. Her abdomen is soft and nontender. Her reflexes are normal. Her pulses are normal. She is scheduled to see pain management tomorrow. She will be treated with a short course of analgesics as she has had questionable GI bleed with anti-inflammatories in the past. She has no red flag symptoms. I do feel that this is safe for her to follow-up tomorrow with pain management. She is comfortable with this plan of care. Impression 1. Left low back pain with radiculopathy ED Disposition - Plan for ED Patient: Instructions: BACK PAIN w/ SCIATICA Prescriptions: Hydrocodone Bitart/Apap 5-325 [[place] 5MG-325MG] 1 tab PO Q6H PRN PRN 3 Days #10 tab PRN Reason: Pain Prescription Printed Referrals: Keaton Voss MD [Primary Care Provider] -
[2019-04-20] MEDS: HYDROcodone Bitartrate/Apap 5/325 Tablet PO (11:50)
== END 2019-04-20 12:04 | disposition home or self-care (01) ==
LOC: ED 11:58
PROVIDERS: Emergency Provider Emergency Medicine; Family Provider Family Medicine; PCP Family Medicine
DX: M54.42 Lumbago with sciatica, left side (principal); M54.16 Radiculopathy, lumbar region; Z88.0 Allergy status to penicillin; Z87.891 Personal history of nicotine dependence
CPT/HCPCS: 99283

== ENCOUNTER 2019-05-08 12:04 | Day surgery (SDC) | payer MEDICAID, SELFPAY ==
[2019-05-08] VITALS (7 sets, daily range): BP systolic 109–136; BP diastolic 50–93; PULSE 57–89; RESP 16; TEMP 35.8–37.2; O2SAT 97–100; BMI 25.7
--- NOTE | 2019-05-08 10:29 | HP.PCM_ITS ---
History and Physical Date of Admission: 05/08/19 HISTORY AND PHYSICAL ? Teresa Fry 1955 ? REFERRING PHYSICIAN: Salma Fry(Toribio)* ? CHIEF COMPLAINT: No chief complaint on file. ? HPI: The patient is a 63 year old female referred for endoscopy. Teresa notes she went to the hospital in March for chest pain, where evaluation showed ST changes. She had troponins checked which were negative. She was found on laboratory studies to have hemoglobin of 9.3, was admitted to hospital and given a blood transfusion. She had a cardiac stress test that came back normal. Patient was discharged on omeprazole and her naproxen was discontinued. ? Patient denies any change in bowel habits, weight changes, blood in stools, black tarry stools or abdominal pain. NOTES family history of colon issues. ? The patient NOTES some recent complaints of acid reflux and occasional vomiting if I eat too much. She notes some dysphagia and sensation of solid foods sticking. Patient is a former smoker. ? Teresa has undergone prior colonoscopy in 2015. Patient's past medical history is significant for hypertension, hyperlipidemia, past history of adenomatous colon polyps, degenerative disc disease. She denies problems with sedation in the past. ? ? ? PAST?MEDICAL?HISTORY PAST MEDICAL HISTORY Diagnosis Date ? Anxiety 11/11/2013 ? DDD (degenerative disc disease), lumbar 11/06/2013 ? Depression 11/11/2013 ? Ex-smoker 02/20/2016 ? Started at age 19 up to 13 PPD, Quit 2015 ? Lumbago 10/25/2013 ? 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 Neck pain 11/01/2017 ? Seeing [facility], Dr. Duncan ? Right arm pain 11/01/2017 ? Seeing [facility] at [facility], Dr. Duncan ? Right arm weakness 11/01/2017 ? Right cervical radiculopathy 11/01/2017 ? ? PAST?SURGICAL?HISTORY PAST SURGICAL HISTORY Procedure Laterality Date ? CATARACT EXTRACTION HX Left 03/2019 ? COLONOSCOP W/ OR W/O [facility] SPEC ? 09/11/2015 ? Colonoscopy ? LEXISCAN STRESS TEST ? 03/30/2019 ? negative ? PAST SURGICAL HISTORY OF ? ? ? cyst from tail bone removed. ? PAST SURGICAL HISTORY OF ? 08/12/2019 ? cervical surgery Dr. Duncan ? ? ? CURRENT?MEDICATIONS ? Current Outpatient Medications: cholecalciferol, Vitamin D3, (VITAMIN D3) 50,000 unit cap capsule Take 1 capsule by mouth once each week. For 2 months gabapentin (NEURONTIN) 300 mg capsule Take 1 capsule by mouth three times daily for 30 days. ferrous sulfate 325 mg (65 mg iron) tablet Take 1 tablet by mouth three times daily with meals. lisinopril (ZESTRIL, PRINIVIL) 20 mg tablet Take 1 tablet by mouth once daily. buPROPion SR (ZYBAN SR; WELLBUTRIN SR) 150 mg 12 hr tablet Take 1 tablet by mouth twice daily. sertraline (ZOLOFT) 100 mg tablet Take 1 tablet by mouth once daily. docusate sodium (COLACE) 100 mg capsule Take 1 capsule by mouth twice daily as needed. melatonin 1 mg tablet Take 1 tablet by mouth daily at bedtime. pantoprazole DR (PROTONIX) 40 mg tablet Take 1 tablet by mouth daily before breakfast. Take on empty stomach, 1/2 hr before meal. Cholecalciferol, Vitamin D3, 1,000 unit cap Take 1 capsule by mouth twice daily. ? No current facility-administered medications for this visit. ? ALLERGIES: Penicillins ? PERSONAL HISTORY: SOCIAL?HISTORY Social History Socioeconomic History Marital status: Spouse name: Not on file Number of children: 0 Years of education: Not on file Highest education level: Not on file Occupational History Not on file Social Needs Financial resource strain: Not on file Food insecurity: Worry: Not on file Inability: Not on file Transportation needs: Medical: Not on file Non-medical: Not on file Tobacco Use Smoking status: Former Smoker Quit date: 11/21/2017 Years since quittin.4 Smokeless tobacco: Never Used Tobacco comment: not daily Substance and Sexual Activity Alcohol use: Yes Comment: socially Drug use: No Sexual activity: Not Currently Lifestyle Physical activity: Days per week: Not on file Minutes per session: Not on file Stress: Not on file Relationships Social connections: Talks on phone: Not on file Gets together: Not on file Attends [employer]aritan service: Not on file Active member of club or organization: Not on file Attends meetings of clubs or organizations: Not on file Relationship status: Not on file Intimate partner violence: Fear of current or ex partner: Not on file Emotionally abused: Not on file Physically abused: Not on file Forced sexual activity: Not on file Other Topics Concerns: Not on file Social History Narrative Not on file ? FAMILY HISTORY: FAMILY?HISTORY FAMILY HISTORY Problem Relation Age of Onset ? Colon Cancer Mother 75 ? Coronary Artery Disease Father ? ? 60's ? Heart Brother ? ? ? REVIEW OF SYMPTOMS: The review of systems data was entered by the nurse and reviewed by me ? Nursing Notes: Tim Claire HAINES 05/01/2019 8:28 AM Signed REVIEW OF SYSTEMS: General: The patient denies fatigue, denies weight loss, NOTES weight gain, denies feeling hot, and denies feelings of cold. Eyes: The patient denies glaucoma, NOTES eye injury/surgery, wears glasses or contacts. Ear/Nose/Throat: The patient denies allergies, denies hayfever, denies ear infections, and denies bloody noses. Cardiovascular: The patient denies chest pain, denies heart disease, NOTES high blood pressure,denies cardiac stent, denies prior heart attack, denies irregular heart beat, denies high cholesterol, denies poor circulation, denies heart failure, other cardiac issues, NOTES claudication, denies cold feet, denies peripheral arterial stent. Respiratory: The patient denies tuberculosis, denies pneumonia, denies frequent cough, denies pulmonary embolism, denies shortness of breath, and denies coughing up blood. Gastrointestinal: The patient denies difficulty swallowing, NOTES acid reflux, denies ulcers, denies vomiting, denies jaundice/hepatitis, denies gallbladder problems, denies black or tarry stools, denies hemorrhoids, NOTES bleeding from rectum, denies diverticulitis, NOTES constipation, denies diarrhea, denies loss of stool control, and denies hernias. Kidney/Bladder: The patient denies kidney stones, denies urine infections, and denies bloody urine. Skin: The patient denies a history of skin cancer, denies bleeding/changing moles, and denies a history of skin rash. Neurologic: The patient denies a history of epilepsy/convulsions, denies headaches, denies head/spinal injuries, and denies stroke/TIA. Psychiatric: The patient denies psychiatric medications, NOTES depression, and denies voices, denies substance abuse. Endocrine: The patient denies thyroid disorders, denies diabetes, and denies hormonal problems. Hematologic: The patient denies a history of bruising, denies bleeding, and denies anemia, denies blood clots. Infections: The patient NOTES a history of measles and mumps, denies rheumatic fever, and denies sexually transmitted diseases. Musculoskeletal: The patient denies back pain/injury, NOTES back problems, denies sciatica, denies knee/foot trouble, NOTES arthritis, or denies gout. ? ? When was patient's last Mammogram screening? 01/07 ? Last Colonoscopy: 09/07 ? Tim Rangel LPN I have confirmed and edited as necessary, the PFSH and ROS obtained by others. ? PHYSICAL EXAMINATION: ? General: The patient is 63 year old female, well nourished, well hydrated in no acute distress. The patient is oriented to time, place, and person. ? VITALS: Blood pressure 138/72, pulse 60, height 148.6 cm (4' 10.5), weight 59.7 kg (131 lb 9.6 oz), last menstrual period 06/01/2005. Body mass index is 27.04 kg/m?. ? HEENT: Normal cephalic, ataumatic, pupils are equally round, sclera are anicteric, mucous membranes are moist, oropharynx is clear. Neck has no masses, asymmetry or lymphadenopathy. ? Respiratory: Clear to auscultation and percussion. Normal respiratory excursion and pattern. ? Cardiac: Examination is regular rate and rhythm. Normal S1/S2 ? Abdominal exam: Soft, nontender, with no palpable masses. No hepatosplenomegaly. No palpable hernias. ? Extremities: no clubbing, cyanosis or edema. No adenopathy. ? LABORATORY VALUES: As Noted ? RADIOLOGIC STUDIES: As Noted ? ? IMPRESSION: anemia, history of NSAID use, history of colon polyps, recommend upper and lower endoscopy ? PLAN: I have reviewed my findings with the surgeon. Will plan for upper and lower endoscopy. We discussed the risks and benefits of the planned endoscopy. I have informed the patient that complications can occur including failure to complete the endoscopy and perforation. The patient had the opportunity to ask questions concerning the planned endoscopy. My staff has also explained the procedure to the patient in understandable terms and has given the patient printed material concerning the procedure. The patient freely consents to surgery. ? I plan to use Golytely bowel preparation ? We will plan for Monitored Anesthetic Care. ? ? Diagnoses: (Z86.010) History of colonic polyps (primary encounter diagnosis) (D50.9) Iron deficiency anemia, unspecified iron deficiency anemia type (Z79.1) NSAID long-term use (Z87.898) History of chest pain (R13.10) Esophageal dysphagia ? ? Janet Velasquez PA-C
[2019-05-08] MEDS: Lactated Ringers 1,000 ML 100 ML IV ×2 (13:01→14:47)
--- NOTE | 2019-05-08 14:00 | EGD_PTH ---
PATIENT: MAXI GARCIA LOC: EN U#:[id number] AGE/SX: 63/F ROOM: RE05/08/[address]: Dr. Virginia Abraham MD : 1955 BED: DIS: 05/08/2019 SPEC #: [id number] RECD: 05/08/19 15:26 STATUS: GENEVIEVE GUILLE #: [id number] HARRIETT: 05/08/19 14:[address]: Virginia Abraham DEPT: SURGICAL PATHOLOGY RECD BY: Franck Lin ENTERED: 05/09/19 11:31 SP TYPE: EGD BIOPSY FRANCOISE DR: Dr. Keaton Voss MD Tissues: A - Gastric mucous membrane B - Gastric mucous membrane Procedures: Special Stain Group II Surgery Specimen Level IV Alcian Blue/PAS (control) HEADER OPERATION: Colonoscopy, EGD ([facility] [place]) PRE-OP DIAGNOSIS: Anemia, dysphagia, history polyps TISSUE SUBMITTED: A - Antrum biopsy for H. pylori and histo, B - GE junction MICROSCOPIC DIAGNOSIS A. Antrum, biopsy: Mild gastritis. B. GE junction, biopsy: A fragment of gastroesophageal mucosa with focal minimal intestinal metaplasia, consistent with Cali's esophagus. Mild chronic inflammation. Negative for dysplasia. See comment. SJ:levon 05/10/19 COMMENT A. The results of immunohistochemistry for Helicobacter pylori will be reported separately ([id number]). B. Alcian blue/PAS stain with matched control is used in the evaluation of the specimen. This case has been reviewed in consultation with Dr. Clemons who concurs with the above diagnosis. MICROSCOPIC DESCRIPTION Slides are reviewed. GROSS DESCRIPTION A - Received in fixative is one container labeled with the patient's name and designated gastric antrum. The specimen consists of three irregular fragments of light wagner soft tissue that in aggregate measure 0.5 x 0.2 x 0.1 cm. The specimen is totally submitted in one cassette. B - Received in fixative is one container labeled with the patient's name and designated GE junction biopsy. The specimen consists of one irregular fragment of light wagner soft tissue that measures 0.2 x 0.1 x <0.1 cm. The specimen is totally submitted in one cassette. / TRESA:levon 05/09/19 TC:3 CPT: 83614 x2, 25363
--- NOTE | 2019-05-08 14:00 | IMM_PTH ---
PATIENT: MAXI GARCIA LOC: EN U#:[id number] AGE/SX: 63/F ROOM: RE05/08/[address]: Dr. Virginia Abraham MD : 1955 BED: DIS: 05/08/2019 SPEC #: [id number] RECD: 05/09/19 12:23 STATUS: GENEVIEVE REQ #: [id number] HARRIETT: 05/08/19 14:[address]: Virginia Abraham DEPT: IMMUNOHISTOCHEMISTRY RECD BY: Christine Pop ENTERED: 05/09/19 12:23 SP TYPE: IMMUNO OTHR DR: Dr. Keaton Voss MD Tissues: A - Stomach, NOS Procedures: H Pylori (initial) PHYSICIAN & INSTITUTION [place] [address] SPECIMEN INFORMATION: Tissue Source: A - Antrum biopsy Clinical Info: Anemia, dysphagia, history polyps Specimen Number: [id number] CPT code: 71546 METHODOLOGY: Deparaffinized sections of prefer/formalin-fixed tissue or PAP/DQ stained slides are incubated with monoclonal/polyclonal antibodies/oligonucleotide probes. Localization is made via biotin free immunoperoxidase method. Appropriate controls are performed and reacted as expected. Results on target cell population are indicated in the following table: RESULTS: ANTIBODY / CLONE RESULT Block A H Pylori (polyclonal) negative These tests were developed and their performance characteristics determined by [facility]. They may not have been cleared or approved by the U.S. Food and Drug Administration. The FDA has determined that such clearance or approval is not necessary. INTERPRETATION: A. Antrum, biopsy: Negative for Helicobacter pylori organisms. SJ:levon 05/10/19
--- NOTE | 2019-05-09 23:36 | OP.ENDO_ITS ---
05/09/2019 Keaton Voss MD Re : Upper GI endoscopy procedure for Li Fry Dear Dr. Voss This procedure was performed on Wednesday, May 08, 2019. My impressions and recommendations are as follows: Impressions : - Normal first portion of the duodenum and second portion of the duodenum. - Erythematous mucosa in the antrum. Radial streaking - mild. Bile reflux seen. Biopsied. - Z-line irregular. Biopsied. Recommendations : - Discharge patient to home (ambulatory). - Resume previous diet. - Continue present medications. - Await pathology results. - Return to physician transportation assistant, Janet Velasquez, in 1-2 week. My findings are described in the full procedure note, which is enclosed. If I can be of further assistance, please feel free to contact me at Doctor phone number(s): , Work: . Sincerely, MD Virginia Patterson MD 05/08/2019 3:03:47 PM This report has been signed electronically.
--- NOTE | 2019-05-09 23:36 | OP.ENDO_ITS ---
05/09/2019 Keaton Voss MD Re : Colonoscopy procedure for Li Fry Dear Dr. Voss This procedure was performed on Wednesday, May 08, 2019. My impressions and recommendations are as follows: Impressions : - Preparation of the colon was fair. - Non-bleeding external and internal hemorrhoids - prominent anal papillae. - No specimens collected. Recommendations : - Discharge patient to home (ambulatory). - Resume previous diet. - Continue present medications. - Repeat colonoscopy in 5 years for surveillance. - Return to primary care physician PRN. My findings are described in the full procedure note, which is enclosed. If I can be of further assistance, please feel free to contact me at Doctor phone number(s): , Work: . Sincerely, MD Virginia Patterson MD 05/08/2019 3:06:49 PM This report has been signed electronically.
== END 2019-05-08 16:09 | disposition home or self-care (01) ==
LOC: EN 12:05 → AC 12:16
PROVIDERS: Family Provider Family Medicine; PCP Family Medicine; Referring Provider Surgery; Visit Provider Surgery
PROC: 0DJD8ZZ Inspection of Lower Intestinal Tract, Via Natural or Artificial Opening Endoscopic (ICD-10-PCS; CPT 45378; principal; 2019-05-08 13:55)
DX: Z12.11 Encounter for screening for malignant neoplasm of colon (principal); D50.9 Iron deficiency anemia, unspecified; K21.9 Gastro-esophageal reflux disease without esophagitis; R13.10 Dysphagia, unspecified; K64.4 Residual hemorrhoidal skin tags; K64.8 Other hemorrhoids; I10 Essential (primary) hypertension; E78.5 Hyperlipidemia, unspecified; M51.36 Other intervertebral disc degeneration, lumbar region; F32.5 Major depressive disorder, single episode, in full remission; F41.9 Anxiety disorder, unspecified; Z79.1 Long term (current) use of non-steroidal anti-inflammatories (NSAID); Z79.899 Other long term (current) drug therapy; Z88.0 Allergy status to penicillin; Z86.010 Personal history of colon polyps; Z87.891 Personal history of nicotine dependence
CPT/HCPCS: 43239; 45378; 88305; 88313; 88342; J7120

== ENCOUNTER 2019-10-16 11:14 | Outpatient (RCR) | payer MEDICAID, SELFPAY ==
[2019-05-08 12:48] VITALS: BMI 25.7
--- NOTE | 2019-10-16 12:31 | HP.PTEVAL ---
Patient's Visit Information MAXI GARCIA is a 63 year old F referred to Physical Therapy by SHABBIR Garnica with a diagnosis of BACK PAIN ,LUMBOSACRAL SPONDYLOSIS,LUMBAR RADICULOPATHY. Date of Evaluation: 10/16/19 Physical Therapist: Dwayne Miranda, PT, Cert MDT, OCS - Visit Plan Frequency: 2x /Week Duration: 4 Weeks Plan: PT INTERVETIONS INTIALLY AQUATIC THERAPY FOR LUMBAR ROM,LE FLEXABLITY,DLS ABD/BACK 2X/WK FOR 2WEEKS,THEN RECHECK TO PROGRESS TO LAND EX'S - Subjective Findings: This 63 y/o female presents with physical therapy with lumbar pain. Patient has lumbar pain with many years. Patient lumbar symmtrical radiating down bilateral legs . Patient has DR Liu in past. Patient has had lumbar injection in August didnt help. Seen by pain managemnet. Patient aggravating factors bending,lifting, walking ,standing. Alleviataing rest naprosyn. Denies paratthesia/tingling. Bowel/bladder-. Coughing sneezing -.Pain affects sleeping Patient pain affects ADLS' ,houseworks and function. Patient symptoms affects QOL.Pateint has h/o cervical fusion C3-T1. SOCAIL: . VOCATION: retired - Pain Bilateral Back Pain Intensity (Out of 10): 6 Pain Intensity Range: 10 - Objective POSTURE: mild foward posture. PALAPTION: tender L-S REGION. GAIT: reciprocal pattern mild foward posture. NEURO: denies parathesia/tingling ,reflexes L3-4,L4-5.L5-S1 1/3. MMT: quads/hams 4/5,hip flexion 4-/5,ankle 4/5 - Goals Goal 1:: Indfependant with HEP and Aquatic PT program Goal Time Frame: 4-6 Weeks Goal 2:: Patient decrease lumbar pain by 50 % or > to improve QOL and function. Goal Time Frame: 4-6 Weeks Goal 3:: Patient improve posture for ADLS' Goal Time Frame: 4-6 Weeks Goal 4:: Patient increase lumbar ROM for function of recovery Goal Time Frame: 4-6 Weeks Goal 5:: Patient to improve back owestry score by 5 points or > to improve QOL. - Rehabilitation Potential Physical Therapy Diagnosis: This patient has lumbar radiculopathy with decrease ROM ,pain,decrease strength thus impairs ADL'S and housework tasks thus benifit from skilled PT Rehabilitation Potential: Good - Anticipated Interventions Patient/Client Instruction: Educate patient on: Condition, Plan of Care For the Purpose of:: To decrease pain, To increase ROM, To improve muscle performance and motor function, To improve ability to perform ADL's, To increase tolerance to activity/condition/position, To improve ability of physical actions for home/community/work/leisure, To improve health of tissue, To decrease soft tissue restriction, To increase flexibility/ROM, To improve ability to perform tasks related to life management Therapeutic Exercise to Include: Strength training, Postural training, Flexibilty training, In an aquatic setting, Active ROM, Dynamic Lumbar Stabilization For the Purpose of:: To decrease pain, To increase ROM, To improve muscle performance and motor function, To increase tolerance to activity/condition/position, To improve performance and independence with ADL's, To improve ability of physical actions for home/community/work/leisure, To improve health of tissue, To decrease soft tissue restriction, To reduce risk of recurrence, To improve ability to perform tasks related to life management TENS: Yes IF ES: Yes Cryotherapy (ice pack, ice massage): Yes Thermo therapy (hot pack): Yes Ultrasound (thermal/non thermal): Yes For the Purpose of:: To decrease pain, To improve nutrient delivery to tissue, To increase oxygenation perfusion, To improve health of tissue, To decrease soft tissue restriction Thank you for the opportunity to evaluate your patient. For Medicare and Medicare HMO plans, please review the plan of care and approve it. It will need to be FAXED BACK to us at [phone] for Medicare purposes. For Medicare only, by signing this I certify the plan of care. Please let me know if there are questions or concerns regarding this plan of care. Physician Signature: Date:
--- NOTE | 2019-12-18 13:38 | HP.PT.NRP ---
MAXI GARCIA was seen in my office for initial evaluation on 10/16/19. The following Plan of Care was established for this patient: Initial Frequency: 2x /Week Initial Duration: 4 Weeks Patient/Client Instruction: Educate patient on: Condition, Plan of Care For the Purpose of:: To decrease pain, To increase ROM, To improve muscle performance and motor function, To improve ability to perform ADL's, To increase tolerance to activity/condition/position, To improve ability of physical actions for home/community/work/leisure, To improve health of tissue, To decrease soft tissue restriction, To increase flexibility/ROM, To improve ability to perform tasks related to life management Therapeutic Exercise to Include: Strength training, Postural training, Flexibilty training, In an aquatic setting, Active ROM, Dynamic Lumbar Stabilization For the Purpose of:: To decrease pain, To increase ROM, To improve muscle performance and motor function, To increase tolerance to activity/condition/position, To improve performance and independence with ADL's, To improve ability of physical actions for home/community/work/leisure, To improve health of tissue, To decrease soft tissue restriction, To reduce risk of recurrence, To improve ability to perform tasks related to life management TENS: Yes IF ES: Yes Cryotherapy (ice pack, ice massage): Yes Thermo therapy (hot pack): Yes Ultrasound (thermal/non thermal): Yes For the Purpose of:: To decrease pain, To improve nutrient delivery to tissue, To increase oxygenation perfusion, To improve health of tissue, To decrease soft tissue restriction This patient was last seen in our office . Pertinent comments regarding their Physical therapy will appear below: Patient seen for PT evaluation ,but didnt return COVID-19 At this point I will be discontinuing this patient from physical therapy. I would be happy to see this patient again in the future if found appropriate by the physician. Thank you! Dwayne Miranda, PT, Cert MDT, OCS
== END 2019-10-16 19:00 | disposition home or self-care (01) ==
LOC: PT 11:14
PROVIDERS: PCP Family Medicine; Referring Provider Nurse Practitioner Family; Visit Provider Nurse Practitioner Family
DX: M51.17 Intervertebral disc disorders with radiculopathy, lumbosacral region (principal); M47.27 Other spondylosis with radiculopathy, lumbosacral region; M54.5 Low back pain
CPT/HCPCS: 97110; 97162

== ENCOUNTER → 2019-10-17 09:42 | Outpatient (CLI) | payer MEDICAID, SELFPAY ==
[2019-05-08 12:48] VITALS: BMI 25.7
--- NOTE | 2019-10-17 09:43 | RAD_ITS ---
STUDY: X-RAY - CERVICAL SPINE REASON FOR EXAM: Female, 63 years old. pain COMPARISON: Previous cervical spine x-rays obtained on 04/04/2019 TECHNIQUE: 2 view FINDINGS: Studies of the cervical spine in 2 projections shows the cervical vertebra to be in good position and alignment. The patient has had a posterior cervical fusion with paired pedicle screws in place extending from C3 through T1. An extensive cervical laminectomy has been performed from above C3-T1. This is unchanged from the previous cervical spine x-rays obtained on 04/04/2019 There is no evidence of fracture, dislocation, or bony destruction. The cervical soft tissues appear to be normal. RAD/Cerv Spine 2 or 3 Views IMPRESSION: Status post posterior cervical fusion from C3 through T1 with a laminectomy noted at these levels and the cervical spine maintained in good position and alignment. Electronically Signed: Walter Garcia, at 10:05 EST Tel , Service support ,
== END ==
PROVIDERS: PCP Family Medicine; Referring Provider Orthopaedic Surgery; Visit Provider Orthopaedic Surgery
DX: M54.2 Cervicalgia (principal)
CPT/HCPCS: 72040

== ENCOUNTER 2019-12-30 11:41 | Emergency (ER) | payer MEDICAID, SELFPAY ==
[2019-10-17 10:17] VITALS: BMI 25.7
[2019-12-30 11:43] VITALS: BP 173/96; PULSE 64; RESP 20; TEMP 36.6; O2SAT 100; BMI 29.2
--- NOTE | 2019-12-30 11:56 | EKG12_ITS ---
Test Reason : GEN ILLNESS Blood Pressure : / mmHG Vent. Rate : 055 BPM Atrial Rate : 055 BPM P-R Int : 150 ms QRS Dur : 082 ms QT Int : 432 ms P-R-T Axes : 033 022 007 degrees QTc Int : 413 ms Sinus bradycardia Otherwise normal ECG Confirmed by MACK GARY, PRANEETH ([id number]), editor at large SALVADOR ZAPATA ([id number]) on 01/01/2020 3:18:14 PM Referred By: MERLY Confirmed By:PRANEETH GIRON MD
[2019-12-30 12:18] VITALS: BP 176/79; PULSE 57; RESP 16; O2SAT 99
[2019-12-30 12:55] LABS: Absolute Lymphocyte Count 1.53 X10^3/uL (0.83-4.51); Absolute Neutrophil Count 2.3 X10^3/uL (2.0-7.7); Basophil# 0.05 X10^3/uL; Basophil% 1.2 % (0-1); Eosinophil# 0.22 X10^3/uL; Eosinophils% 5.1 % (0-5); Hematocrit 29.1 % (37-47); Hemoglobin 9.6 g/dL (12.0-15.0); Lymphocyte # 1.53 X10^3/ul (4.0); Lymphocyte % 35.7 % (19-41); Mean Corpuscular Volume 93.9 fL (81-99); Mean Platelet Vol. 9.5 fl (6.2-12.0); Monocyte# 0.21 X10^3/uL; Monocyte% 4.9 % (0-10); NRBC Flagged by Analyzer 0 % (0-5); Neutrophil # 2.26 X10^3/uL (2.7-7.7); Neutrophil % 52.9 % (47-70); Platelet Count 165 K/mm3 (150-450); RBC Distribution Width CV 13.2 % (11.6-14.6); RBC Distribution Width SD 45.9 fl (35.1-43.9); White Blood Count 4.3 K/mm3 (4.4-11.0)
--- NOTE | 2019-12-30 13:05 | RAD_ITS ---
STUDY: X-RAY CHEST REASON FOR EXAM: Female, 64 years old. HTN, ble swelling, sob with wheezing TECHNIQUE: Single AP portable view of the chest. COMPARISON: March 28, 2019 FINDINGS: There are monitoring devices. There is interstitial accentuation of the lungs. There is no demonstrated pleural abnormality. Normal size heart. Normal mediastinum and sarahi. Normal visualized pulmonary arteries. Normal visualized aortic arch and descending thoracic aorta. There are diffuse degenerative changes of the visualized thoracic spine. Postoperative change of the cervical and upper thoracic spine. Normal visualized ribs, clavicles, and shoulders. There is no demonstrated abnormality of the visualized soft tissue structures of the upper abdomen. RAD/Chest 1 View (Portable) IMPRESSION: Interstitial edema or fibrosis. Electronically Signed: Praveen Sinha MD at 14:41 EDT , Service support ,
[2019-12-30 13:14] LABS: ALB/GLOB Ratio 1.3 RATIO (0.9-2.4); AST(SGOT) 19 U/L (15-37); Alanine Aminotransfer ALT/SGPT 18 U/L (13-56); Alkaline Phosphatase 43 U/L (45-117); Anion Gap 8 (5-15); BNP,B-Type NATRIURETIC PEPTIDE 257.9 pg/mL (0-100); BUN 23 mg/dL (7-18); BUN/Creat Ratio 25.9 RATIO (10-20); Chloride 110 mmol/L (98-107); Creatinine, Serum 0.89 mg/dL (0.55-1.02); EST Glomerular Filtration Rate 68 mL/min (>60); Est Glom Filt Rate - Afr Amer 83 mL/min (>60); Estimated Creatinine Clearance 64.86 ml/min; Glucose 78 mg/dL (74-106); Potassium 4.2 mmol/L (3.5-5.1); Sodium Level 143 mmol/L (136-145)
[2019-12-30 13:41] VITALS: BP 185/83; PULSE 82; RESP 16; O2SAT 96
--- NOTE | 2019-12-30 14:07 | CT_ITS ---
STUDY: CTA CHEST REASON FOR EXAM: Female, 64 years old. SOB AND LEG SWELLING RADIATION DOSAGE (If Supplied By Facility): CTDIvol = ( 10.57 ) mGy, DLP = ( 283.13 ) mGycm TECHNIQUE: The examination was performed with the intravenous administration of 100 ML ISOVUE 370. Post-processing of the angiographic images was performed, with multiplanar reformation and 3D reconstruction. Individualized dose optimization techniques were used for this CT. COMPARISON: None. FINDINGS: Normal enhancement of the main pulmonary artery and right and left pulmonary arteries. Normal enhancement of the bilateral peripheral pulmonary arteries. There is no demonstrated pulmonary embolism. Normal thoracic aorta and visualized great vessels. There is no demonstrated aortic dissection. Normal heart and pericardium. Normal mediastinum. Normal hilar regions. Normal visualized trachea and bronchi. The lungs are well expanded. Bilateral calcified granulomas. Normal pleura. Normal chest wall structures. Mild degenerative vertebral changes. Lower cervical surgical fusion. Normal visualized upper abdomen. CT/CTA Chest W/WO Contrast IMPRESSION: No demonstrated pulmonary embolism or arterial dissection. Electronically Signed: Rylan Au DO at 15:15 EDT Tel [phone], Service support ,
[2019-12-30 14:45] VITALS: BP 102/74; PULSE 55; RESP 16; O2SAT 97
--- NOTE | 2019-12-30 15:39 | ED.VISSUMM ---
- ER Visit Summary Date of Service: 12/30/19 Chief Complaint: Hypertension and edema History of Present Illness: The patient is a 64 F who was referred from urgent care for high blood pressure and peripheral edema. She said she has had this issue for the past week. She has some edema in both of her legs. No pain. She said she has a history of high blood pressure and is taking her medication for this, but her pressure was high at the urgent care. She has some shortness of breath occasionally but nothing significant. No chest pain. No other associated symptoms. No history of DVT, PE, CHF, liver disease, or renal disease. She had a stress test just over 6 months ago which was unremarkable. Physical Examination: 173/96. Otherwise vitals unremarkable. 100% on room air. Patient is talking, moving, breathing without difficulty. Heart regular. Lungs clear. Lower extremities show trace and symmetric edema, nontender. Skin appears normal. Test Results: EKG shows sinus rhythm at a rate of 55. No sign of ischemia or infarction pattern. White count 4.3 and hemoglobin 9.6, stable. Chloride 110, BUN 23, alk phos 43. Troponin normal. BNP 257, d-dimer elevated. Chest x-ray was concerning for interstitial edema or fibrosis, but d-dimer was elevated. CTA showed no PE or dissection. Emergency Department Course and Treatment: Patient was placed on the monitor. Work-up as above. Repeat blood pressure was 102/74. Otherwise vitals were unremarkable. No indication to treat her blood pressure emergently. I am concerned for the possibility of hypotension. Patient appears slightly dry clinically. I am reluctant to start diuretics given that her blood pressure has returned to normal and her oxygen is 100%. Her BNP is only 257 and her x-ray is not concerning. Patient is appropriate for outpatient management. Risks were discussed. Return for any new or worsening issues. Treatment Plan: As above Disposition: Discharge Impression: Peripheral edema, hypertension, anemia This note was generated with Playfireation software. It may contain incorrect words, spelling, and punctuation that were not noted in review of the chart prior to signing ED Disposition - Plan for ED Patient: Referrals: Keaton Voss MD [Primary Care Provider] -
--- NOTE | 2019-12-30 15:43 | ED.DEP ---
ED Disposition - Plan for ED Patient: Instructions: ED Peripheral Edema, Bilateral Referrals: Keaton Voss MD [Primary Care Provider] -
[2019-12-30 15:48] VITALS: BP 165/82; PULSE 51; RESP 15; O2SAT 98
== END 2019-12-30 15:59 | disposition home or self-care (01) ==
LOC: ED 14:05
PROVIDERS: Emergency Provider Emergency Medicine; PCP Family Medicine
DX: R60.0 Localized edema (principal); I10 Essential (primary) hypertension; D64.9 Anemia, unspecified; R06.02 Shortness of breath; R79.89 Other specified abnormal findings of blood chemistry; G89.29 Other chronic pain; Z79.899 Other long term (current) drug therapy
CPT/HCPCS: 36415; 71045; 71275; 80053; 83880; 84484; 85025; 85379; 93005; 99285; Q9967; A4216

== ENCOUNTER 2020-05-26 10:51 | Inpatient (IN) | payer MEDICAID, SELFPAY ==
[2020-05-26] VITALS (11 sets, daily range): BP systolic 113–209; BP diastolic 49–192; PULSE 71–86; RESP 12–18; TEMP 36.1–36.6; O2SAT 94–99; BMI 25.0; BMI 25.8
--- NOTE | 2020-05-26 11:05 | CT_ITS ---
STUDY: CT BRAIN WITHOUT CONTRAST REASON FOR EXAM: Female, 64 years old. DECREASED LOC RADIATION DOSAGE (If Supplied By Facility): CTDIvol = ( 44.99 ) mGy, DLP = ( 745.49 ) mGycm TECHNIQUE: Transaxial CT imaging of the brain was performed without administration of intravenous contrast material. Individualized dose optimization techniques were used for this CT. COMPARISON: No relevant priors. FINDINGS: Normal soft tissue structures. Normal calvarium. Normal size ventricles and extra-axial spaces for the patient''s age. Normal white matter tracts of the cerebral hemispheres. Normal basal ganglia and thalami. Normal brainstem. Normal cerebellum. There is no intracranial hemorrhage. There are no findings of an acute ischemic infarction. Normal visualized paranasal sinuses. CT/Brain/Head without Contrast IMPRESSION: Normal unenhanced CT scan of the brain. Electronically Signed: Albert Ordonez MD at 11:38 EDT Tel , Service support ,
--- NOTE | 2020-05-26 11:05 | RAD_ITS ---
STUDY: X-RAY CHEST REASON FOR EXAM: Female, 64 years old. dreased loc. pt found in garage TECHNIQUE: Single AP portable view of the chest. COMPARISON: 12/30/2019 FINDINGS: The lungs are clear and expanded. There is no demonstrated pleural abnormality. Normal size heart. Normal mediastinum and sarahi. Normal visualized pulmonary arteries. Normal visualized aortic arch and descending thoracic aorta. Normal visualized thoracic spine. Normal visualized ribs, clavicles, and shoulders. There is no demonstrated abnormality of the visualized soft tissue structures of the upper abdomen. RAD/Chest 1 View (Portable) IMPRESSION: Normal x-ray examination of the chest. Electronically Signed: Albert Ordonez MD at 11:40 EDT Tel , Service support ,
--- NOTE | 2020-05-26 11:05 | EKG12_ITS ---
Test Reason : NOT MOTIVATED Blood Pressure : / mmHG Vent. Rate : 067 BPM Atrial Rate : 067 BPM P-R Int : 182 ms QRS Dur : 072 ms QT Int : 422 ms P-R-T Axes : 072 046 047 degrees QTc Int : 445 ms Normal sinus rhythm Nonspecific ST abnormality Abnormal ECG Confirmed by MACK GARY, PRANEETH ([id number]), editor book ОЛЬГА FERNANDEZ ([id number]) on 05/29/2020 10:00:40 AM Referred By: MIKE Confirmed By:PRANEETH GIRON MD
[2020-05-26] MEDS: 0.9% Normal Saline 1,000 ML 1000 ML IV (11:16)
[2020-05-26 11:20] LABS: Bacteria 0 SEEN /hpf (None Seen); Mucous, Urine 0 SEEN /hpf (<or=2+); Red Blood Cells-Urine 0 SEEN /hpf (0-5); White Blood Cells 0 SEEN /hpf (0-5)
[2020-05-26 11:22] LABS: Color, Urine Yellow (Yellow); Glucose, Dipstick Normal (Normal); Ketone-Dipstick 15 mg/dl (Negative); Leukocyte Esterase-Dipstick Negative /ul (Negative); Nitrite-Dipstick Negative (Negative); Occult Blood-Urine Negative /ul (Negative); Protein-Dipstick 30 mg/dl (Negative); Urine Bilirubin Dipstick Negative (Negative); Urine Clarity Clear (Clear); Urine Urobilinogen Normal (Normal)
[2020-05-26 11:37] LABS: Squamous Epithelial Cells - UA 0-5 SEEN /hpf (5-10)
[2020-05-26 11:38] LABS: Amphetamine Urine VISTA NEGATIVE (<1000 ng/mL); Barbiturate Urine VISTA NEGATIVE (< 200 ng/mL); Benzodiazepine Urine VISTA NEGATIVE (< 200 ng/mL); Cocaine Urine VISTA NEGATIVE (< 300 ng/mL); Ecstacy Urine VISTA NEGATIVE (< 500 ng/mL); Methadone Urine VISTA NEGATIVE (< 300 ng/mL); PCP Urine VISTA NEGATIVE (< 25 ng/mL); THC Urine VISTA NEGATIVE (< 50 ng/mL); Vista UDS pH Range 5
--- NOTE | 2020-05-26 11:42 | ED.VISSUMM ---
- ER Visit Summary Date of Service: 05/26/20 Chief Complaint: Decreased level of consciousness History of Present Illness: The patient is a [address] Voss. Patient is not able to give me any information. Per sister the patient went grocery shopping with her neighbor yesterday and was fine. This morning the sister went over to check on her and the apartment was locked and the patient did not answer. The landlord opened the door and they found her with decreased level consciousness. Sister does report patient has been depressed and lonely since her last year. However she has not mentioned anything to her about suicide. She reports the patient was not ill yesterday. Patient has been incontinent of stool prior to arrival. Of medications that she is on that may affect her mental status include gabapentin, baclofen, and melatonin. Physical Examination: Vitals: 97.9, 152/102, 71, 15, 90% on room air which is not hypoxic. General: Well-nourished and well-developed. Head: Normocephalic atraumatic. Neck: Supple, no lymphadenopathy. No JVD. Nontender. Cardiovascular: Regular rate and rhythm. 2 out of 6 systolic murmur. Respiratory: No respiratory distress. Clear to auscultation bilaterally. Abdominal: Soft, nontender, nondistended, normal bowel sounds. No guarding, rebound, or peritoneal signs. Back: Nontender. Extremities: Nontender, no edema. Skin: Normal color, no rash. Neurologic: Opens eyes to voice. Moves all extremities well. Answers yes and no questions intermittently. Her answers do seem appropriate. Test Results: EKG is sinus at 67 with artifact. No acute changes. Troponin is negative. CPK is 321. Lactic acid is 1.2. TSH is 1.77. UA shows ketones but is otherwise negative. LFTs are normal. Chem-7 shows a sodium 131, CO2 of 13, anion gap 17, glucose 119, BUN of 78, creatinine 2.68. Baseline creatinine is 0.58?0.94. CBC shows a hematocrit of 36.1 with 84 segmented neutrophils and 10 lymphocytes. Talk screen is negative. Alcohol is negative. Aspirin level is 2.3. Monoxide level is 1.7. Clinical Impression(s) from Imaging Studies Brain CT 05/26/20 11:05 IMPRESSION: Normal unenhanced CT scan of the brain. Electronically Signed: Albert Ordonez MD at 11:38 EDT Tel , Service support , Chest X-Ray 05/26/20 11:05 IMPRESSION: Normal x-ray examination of the chest. Electronically Signed: Albert Ordonez MD at 11:40 EDT Tel , Service support , Emergency Department Course and Treatment: Patient was given a liter of normal saline. While in the department the patient continued to not answer questions. However, when adjusted in bed she put a blanket behind her head without any difficulty. Treatment Plan: At this time I do not have an explanation for her mental status change. However, she has acute kidney injury and an anion gap metabolic acidosis. She will be admitted the hospital for further evaluation and treatment. Disposition: Admitted in serious condition. Impression: 1. Mental status change. 2. Acute kidney injury. 3. Anion gap metabolic acidosis, uncertain cause. This note was generated with [employer]. dictation software. It may contain incorrect words, spelling, and punctuation that were not noted in review of the chart prior to signing ED Disposition - Plan for ED Patient: Referrals: Keaton Voss MD [Primary Care Provider] -
--- NOTE | 2020-05-26 12:10 | ED.RN ---
unable toobtain labs, lab attempted multiple as well. dr dangelo aware and did femural stick. no second blood cx
[2020-05-26 12:18] LABS: Absolute Lymphocyte Count 0.61 X10^3/uL (0.83-4.51); Absolute Neutrophil Count 4.9 X10^3/uL (2.0-7.7); Hematocrit 36.1 % (37-47); Hemoglobin 12.6 g/dL (12.0-15.0); Lymphocyte # 0.61 X10^3/ul (4.0); Lymphocyte % 10.4 % (19-41); Mean Corp Hgb Conc 34.9 g/dL (32-36); Mean Corpuscular Hgb 30.8 pg (27.0-32.0); Mean Corpuscular Volume 88.3 fL (81-99); Mean Platelet Vol. 10.4 fl (6.2-12.0); Monocyte# 0.33 X10^3/uL; Monocyte% 5.6 % (0-10); NRBC Flagged by Analyzer 0 % (0-5); Neutrophil # 4.93 X10^3/uL (2.7-7.7); Neutrophil % 83.8 % (47-70); Platelet Count 208 K/mm3 (150-450); RBC Distribution Width CV 11.9 % (11.6-14.6); RBC Distribution Width SD 38.5 fl (35.1-43.9); Red Blood Count 4.09 M/mm3 (4.2-5.4); White Blood Count 5.9 K/mm3 (4.4-11.0)
[2020-05-26 12:26] LABS: Prothrombin Time (Protime)PT. 13.1 SECONDS (11.7-14.9)
[2020-05-26 12:27] LABS: Partial Thromboplast Time 21.5 Seconds (24.1-36.2)
[2020-05-26 12:35] LABS: ALB/GLOB Ratio 1.2 RATIO (0.9-2.4); AST(SGOT) 26 U/L (15-37); Alanine Aminotransfer ALT/SGPT 30 U/L (13-56); Albumin, Serum 4.3 g/dL (3.2-5.0); Alkaline Phosphatase 62 U/L (45-117); Anion Gap 17 (5-15); BUN 78 mg/dL (7-18); BUN/Creat Ratio 29.1 RATIO (10-20); Calcium,Total 8.7 mg/dL (8.5-10.1); Chloride 101 mmol/L (98-107); Creatinine, Serum 2.68 mg/dL (0.55-1.02); EST Glomerular Filtration Rate 19 mL/min (>60); Est Glom Filt Rate - Afr Amer 23 mL/min (>60); Estimated Creatinine Clearance 16.99 ml/min; Globulin 3.7 g/dL (2.2-4.2); Glucose 119 mg/dL (74-106); Potassium 4.5 mmol/L (3.5-5.1); Sodium Level 131 mmol/L (136-145)
[2020-05-26 12:39] LABS: Lactic Acid 1.2 mmol/L (0.4-1.9)
[2020-05-26 12:43] LABS: CPK Total, Creatine Kinase 321 U/L (26-192); Thyroid Stim Hormone (TSH) 1.77 uIU/mL (0.358-3.74)
[2020-05-26 13:03] LABS: Carboxyhemoglobin Frac (CO) 1.7 % (0.0-1.5)
[2020-05-26 13:06] LABS: Alcohol, Blood (Medical)-Serum < 3.0 mg/dL; Salicylate 2.3 mg/dL (2.8-20.0)
[2020-05-26 13:32] LABS: Acetaminophen (Tylenol) Level < 2.0 ug/mL (10.0-30.0)
--- NOTE | 2020-05-26 14:05 | PCM.HP.STD ---
Problem List (1) Encephalopathy Status: Acute (2) Acute kidney injury Status: Acute (3) Depression Status: Chronic (4) Hyperlipidemia Status: Chronic (5) Hypertension Status: Chronic (6) Chronic low back pain Status: Chronic History of Present Illness Date of Admission: 05/26/20 Chief Complaint: Decreased level of consciousness. The patient is a 64 year old F with past medical history as mentioned above presented to the emergency room because of decreased level of consciousness. At this time, patient is awake, responds to verbal stimuli, blinking her eyes but she was not able to provide any information. Patient sister was at the bedside and she provided the history. According to the sister, patient went for grocery shopping yesterday with her neighbor and she was fine. Today, the sister went to check on the patient and her apartment which was locked and she did not answer or opened the door. The landlord opened the door and patient was found on the chair with decreased level of consciousness, was lethargic and having difficulty getting up. The patient is not able to provide any history at this time. Sister mentioned that patient has been depressed and lonely since her last year. Sister stated that patient never mentioned anything about suicide or hurting herself. Patient was incontinent of stool prior to the arrival to the emergency department. In the emergency department, initial blood pressure was elevated and then improved, was afebrile, heart rate stable, pulse ox was 98% on room air. Routine blood work was remarkable for sodium of 131, BUN of 78, creatinine is 2.68, serum bicarb is 13 and anion gap is 17. Blood glucose was 119. Lactic acid was 1.2. LFT was unremarkable. EKG revealed normal sinus rhythm without evidence of acute ischemic changes or cardiac arrhythmias. Troponin was negative. TSH was normal. Urinalysis showed no evidence of acute infection. Urine drug screen was negative. Blood salicylate and acetaminophen were unremarkable. Blood alcohol level was less than 3. TSH was normal. Chest x-ray showed no acute findings, no infiltrate or consolidation. CT scan brain showed no acute infarct or hemorrhage. She is being admitted for acute kidney injury, metabolic acidosis of unclear etiology but could be due to acute kidney injury as well as encephalopathy of unclear etiology. Past Medical History Past Medical History (Chronic Problems): Chronic Problems Depression (Chronic) Hyperlipidemia (Chronic) Hypertension (Chronic) Chronic low back pain (Chronic) Pain of cervical spine (Chronic) Allergies Penicillins Allergy (Verified 12/30/19 11:43) Rash Home Medications: Ambulatory Orders Medication Instructions Recorded Gabapentin [Neurontin] 300 mg PO TIDCM #87 cap 09/30/17 bupropion HCl 150 mg tablet,12 hr 150 mg PO BID 01/11/18 sustained-release Docusate Sodium [Colace] 100 mg PO BID 03/28/19 Sertraline HCl 100 mg PO DAILY 03/28/19 Folic Acid 1 mg PO DAILY@0800 tab 03/30/19 Pantoprazole Sodium [Protonix] 40 mg PO DAILY #30 tab 03/30/19 Thiamine Hydrochloride [Vitamin B1] 100 mg PO DAILYCM tab 03/30/19 Lisinopril [Prinivil] 20 mg PO DAILY 05/03/19 Atorvastatin Calcium [Lipitor] 10 mg PO QHS 05/26/20 Baclofen [Lioresal] 10 mg PO BID PRN 05/26/20 Cholecalciferol (VIT D3) [Vitamin 1,000 unit PO DAILY 05/26/20 D] Hydrochlorothiazide [Hctz] 25 mg PO DAILY 05/26/20 Loratadine 10 mg PO DAILY 05/26/20 Melatonin/Pyridoxine HCl (B6) 1 ea PO QHS 05/26/20 [Melatonin 1 mg Tablet] Surgical History: Surgical History (Last Updated 08/30/18 @ 15:18 by Radhika Weinstein) H/O cervical spine surgery Z98.890 08/12/18 Surgical History: - - Cervical neck surgery. 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 Eyes: Reports: - - Unobtainable, patient is responding to verbal stimuli, not answering questions. HEENT: Reports: - - Unobtainable, patient is responding to verbal stimuli, not answering questions. Cardiovascular: Reports: - - Unobtainable, patient is responding to verbal stimuli, not answering questions. Respiratory: Reports: - - Unobtainable, patient is responding to verbal stimuli, not answering questions. Gastrointestinal: Reports: - - Unobtainable, patient is responding to verbal stimuli, not answering questions. Genitourinary: Reports: - - Unobtainable, patient is responding to verbal stimuli, not answering questions. Musculoskeletal: Reports: - - Unobtainable, patient is responding to verbal stimuli, not answering questions. Skin: Reports: - - Unobtainable, patient is responding to verbal stimuli, not answering questions. Neurological: Reports: - - Unobtainable, patient is responding to verbal stimuli, not answering questions. Psychiatric: Reports: - - Unobtainable, patient is responding to verbal stimuli, not answering questions. Endocrine: Reports: - - Unobtainable, patient is responding to verbal stimuli, not answering questions. Hematologic/ Lymphatic: Reports: - VTE Information - Inpt Only VTE Present on Admission: No VTE Mechan Device Prophylaxis: None VTE Pharm Prophylaxis ordered?: Yes Patient Problems: Active and Suspected Problems Encephalopathy (Acute) Acute kidney injury (Acute) - Physical Exam Vitals/I&O's: Vital Signs Temp Pulse Resp BP Pulse Ox 97 F L 81 18 120/70 99 05/26/20 13:53 05/26/20 13:53 05/26/20 13:53 05/26/20 13:53 05/26/20 13:53 Oxygen Delivery Method Room Air Weight: 136 lb 10.986 oz Body Mass Index (BMI) 25.0 Intake and Output for Last 24 Hours 05/24/20 05/25/20 05/26/20 23:59 23:59 23:59 Intake Total 1000 / 1000 Balance 1000 / 1000 General: Alert, - - Open eyes to verbal stimuli, blinking eyes, not answering questions. HEENT: Atraumatic, PERRLA, EOMI, Normocephalic Oral: Moist Mucosa, No Gingival or Mucosal Lesions/ Ulcerations Neck: Supple, No JVD, Negative Carotid Bruits, Trachea Midline Lungs: Clear to auscultation, Normal air movement, No rhonchi, No wheeze, No rales, Diminished Cardiovascular: Regular rate, Regular Rhythm, Normal S1, Normal S2, PMI Normal Abdomen: Bowel Sounds Present, Soft, Non Tender, Non-Distended, No Hepato-splenomegaly Extremities: No clubbing, No cyanosis, No edema Skin: No rashes, No breakdown Lymphatic: No Cervical, Supraclavicular, or Inguinal Adenopathy Neurological: Cranial nerves II-XII grossly intact, - - Not following commands but she is moving all limbs. Psych/Mental Status: Flat Affect, - - Not answering questions. Laboratory Results 05/26/20 11:04: Urine Color Yellow, Urine Clarity Clear, Urine pH 5.0, Ur Specific [place] 1.020, Urine Protein 30 H, Urine Glucose (UA) Normal, Urine Ketones 15 H, Urine Occult Blood Negative, Urine Nitrite Negative, Urine Bilirubin Negative, Urine Urobilinogen Normal, Ur Leukocyte Esterase Negative, Urine RBC 0 SEEN, Urine WBC 0 SEEN, Ur Squamous Epith Cells 0-5 SEEN, Urine Bacteria 0 SEEN, Urine Mucus 0 SEEN 05/26/20 11:04: Urine Opiates Screen NEGATIVE, Urine Methadone Screen NEGATIVE, Ur Barbiturates Screen NEGATIVE, Ur Phencyclidine Scrn NEGATIVE, Ur Amphetamines Screen NEGATIVE, U Methamphetamin-MDMA NEGATIVE, U Benzodiazepines Scrn NEGATIVE, Urine Cocaine Screen NEGATIVE, U Cannabinoids Screen NEGATIVE, Ur Drug Screen Comment 05/26/20 12:00: WBC 5.9, RBC 4.09 L, Hgb 12.6, Hct 36.1 L, MCV 88.3, MCH 30.8, MCHC 34.9, RDW Std Deviation 38.5, RDW Coeff of Carlos 11.9, Plt Count 208, MPV 10.4, Immature Gran % (Auto) 0.200, Neut % (Auto) 83.8 H, Lymph % (Auto) 10.4 L, [place] % (Auto) 5.6, Eos % (Auto) 0.0, Baso % (Auto) 0.0, Absolute Neuts (auto) 4.9, Absolute Lymphs (auto) 0.61 L, Nucleated RBC % 0 05/26/20 12:00: PT 13.1, INR 1.0, APTT 21.5 L 05/26/20 12:00: Sodium 131 L, Potassium 4.5, Chloride 101, Carbon Dioxide 13.0 L, Anion Gap 17 H, BUN 78 H, Creatinine 2.68 H, Estim Creat Clear Calc 16.99, Est GFR (MDRD) Af Amer 23 L, Est GFR (MDRD) Non-Af 19 L, BUN/Creatinine Ratio 29.1 H, Glucose 119 H, Calcium 8.7, Total Bilirubin 0.20, AST 26, ALT 30, Alkaline Phosphatase 62, Troponin I < 0.015, Total Protein 8.0, Albumin 4.3, Globulin 3.7, Albumin/Globulin Ratio 1.2 05/26/20 12:00: Salicylates 2.3 L, Acetaminophen < 2.0 L, Ethyl Alcohol < 3.0 05/26/20 12:00: Lactic Acid 1.2 05/26/20 12:00: Total Creatine Kinase 321 H, TSH 1.77 05/26/20 12:53: VBG Carboxyhemoglobin 1.7 H Clinical Impression(s) from Imaging Studies Brain CT 05/26/20 11:05 IMPRESSION: Normal unenhanced CT scan of the brain. Electronically Signed: Albert Ordonez MD at 11:38 EDT Tel , Service support , Chest X-Ray 05/26/20 11:05 IMPRESSION: Normal x-ray examination of the chest. Electronically Signed: Albert Ordonez MD at 11:40 EDT Tel , Service support , Assessment/Plan All Active Problems Encephalopathy (Acute) Acute kidney injury (Acute) This is a 64 years old female patient presented to the emergency room because of decreased level of consciousness, no obvious etiology identified and she was found to have acute kidney injury, hyponatremia and metabolic acidosis and she is being admitted for evaluation and treatment. #1 acute encephalopathy: Unclear etiology, could be metabolic. No evidence of infection. CT scan brain showed no acute findings. She has no focal deficit on physical exam. EKG reviewed as above. Urine drug screen was unremarkable. Chest x-ray and urinalysis were unremarkable. Drug overdose is possible but no reported suicide attempt. Carboxyhemoglobin is 1.7% which is very minimally elevated. Patient has been on room air. Plan: Admit to PCU, cardiac monitoring, aspiration precautions, IV fluids, input output chart, repeat CBC and CMP tomorrow morning, cardiac diet when patient is fully awake, PT OT evaluation and treatment. #2 acute kidney injury: It is likely because of dehydration, poor oral intake. Creatinine kinase slightly elevated. Baseline kidney function is normal. Plan: IV fluids, input output chart, hold nephrotoxic drugs, repeat BMP tomorrow morning. #3 hyponatremia: It is probably due to hypovolemic hyponatremia secondary to dehydration. Expect sodium to improve with IV fluids. Plan as above. #4 metabolic acidosis: Unclear etiology, could be due to acute kidney injury. ABG is pending at this time. Blood glucose is 119, no evidence of DKA. #5 hypertension: Initially, blood pressure was elevated but improved down to normal. Hold HCTZ and lisinopril because of acute kidney injury. #6 hyperlipidemia: Continue statins. #7 chronic back pain: Patient has been on baclofen and gabapentin as well as melatonin. We are not sure if patient overdosed on 1 of those medications. Plan to hold all of them. #8 depression: Continue sertraline. #9 DVT prophylaxis: Subcu heparin. This note was generated with [employer] dictation software. It may contain incorrect words, spelling, and punctuation that were not noted in checking the note before signing. Inpatient E&M: 77071 Init Hosp L3
[2020-05-26] MEDS: 0.9% Normal Saline 1,000 ML 125 ML IV ×2 (14:46→22:28)
[2020-05-26 15:10] LABS: Base Excess -12 mmol/L (-2 to +2); Bicarbonate 14.4 mmol/L (22-26); Blood Gas Specimen Type ART; FI02 21; PO2 99 mmHG (75-100); SITE L Brach; SO2 97 % (95-99); Total Carbon Dioxide 15 mmol/L; pCO2 28.5 mmHg (35-45); pH 7.31 (7.35-7.45)
[2020-05-26] MEDS: Heparin Injection (Vial) 5,000 UNIT/ML VIAL 5000 UNIT SC (22:28)
[2020-05-27] VITALS (10 sets, daily range): BP systolic 142–154; BP diastolic 47–78; PULSE 74–90; RESP 15–18; TEMP 36.6–37.4; O2SAT 97–99
[2020-05-27] MEDS: Heparin Injection (Vial) 5,000 UNIT/ML VIAL 5000 UNIT SC ×3 (05:33→21:31)
[2020-05-27] MEDS: 0.9% Normal Saline 1,000 ML 125 ML IV ×3 (05:35→21:33)
[2020-05-27 05:49] LABS: Absolute Lymphocyte Count 1.01 X10^3/uL (0.83-4.51); Absolute Neutrophil Count 2.9 X10^3/uL (2.0-7.7); Basophil# 0.01 X10^3/uL; Basophil% 0.2 % (0-1); Eosinophil# 0.02 X10^3/uL; Eosinophils% 0.5 % (0-5); Hematocrit 31.7 % (37-47); Hemoglobin 10.8 g/dL (12.0-15.0); Lymphocyte # 1.01 X10^3/ul (4.0); Lymphocyte % 23.6 % (19-41); Mean Corp Hgb Conc 34.1 g/dL (32-36); Mean Corpuscular Hgb 30.8 pg (27.0-32.0); Mean Corpuscular Volume 90.3 fL (81-99); Mean Platelet Vol. 10.1 fl (6.2-12.0); NRBC Flagged by Analyzer 0 % (0-5); Neutrophil # 2.94 X10^3/uL (2.7-7.7); Neutrophil % 68.7 % (47-70); Platelet Count 150 K/mm3 (150-450); RBC Distribution Width CV 12.4 % (11.6-14.6); RBC Distribution Width SD 40.7 fl (35.1-43.9); Red Blood Count 3.51 M/mm3 (4.2-5.4); White Blood Count 4.3 K/mm3 (4.4-11.0)
[2020-05-27 06:28] LABS: ALB/GLOB Ratio 1.3 RATIO (0.9-2.4); AST(SGOT) 34 U/L (15-37); Alanine Aminotransfer ALT/SGPT 28 U/L (13-56); Albumin, Serum 3.8 g/dL (3.2-5.0); Alkaline Phosphatase 53 U/L (45-117); Anion Gap 12 (5-15); BUN 53 mg/dL (7-18); BUN/Creat Ratio 41.4 RATIO (10-20); Calcium,Total 8.6 mg/dL (8.5-10.1); Chloride 111 mmol/L (98-107); Creatinine, Serum 1.28 mg/dL (0.55-1.02); EST Glomerular Filtration Rate 45 mL/min (>60); Est Glom Filt Rate - Afr Amer 54 mL/min (>60); Estimated Creatinine Clearance 41.19 ml/min; Glucose 97 mg/dL (74-106); Potassium 3.9 mmol/L (3.5-5.1); Protein, Total 6.8 g/dL (6.4-8.2); Sodium Level 140 mmol/L (136-145)
[2020-05-27] MEDS: Sertraline 100 MG Tablet PO (09:37)
[2020-05-27] MEDS: Pantoprazole Sodium 40 MG Tablet PO (09:37)
--- NOTE | 2020-05-27 11:18 | CASEMGMT ---
Addendum entered by Dede Polanco 05/27/20 14:50: Per therapy, pt's sister is at bedside and has questions regarding aides for pt/help at home. This RN CM back to room to talk with pt/sister at this time. Pt/sister aware that pt should have CM thru [facility] that they can contact for resources and also provided with contact info for [facility], voice understanding. Advised pt/sister that this RN CM would follow for possible HHC need at discharge, voices understanding. Sister aware that HHC would not be for housekeeping help(which is what she is requesting) but would be for therapy or nursing, if needed, voices understanding. Pt/sister voice no further questions/concerns/needs at this time. CM to follow. [place] RN [facility] Original Note: RN CM assessment: Face to Face with patient for initial transition planning/care coordination assessment. RN CM introduced self and role at [facility], pt voices understanding and consents to assessment at this time. Pt is lying in bed in no distress at this time. Pt is A/Ox4 at this time and answers all questions appropriately at this time. Care providers, pharmacy, and demographics verified at this time. Presentation: Pt found at home, groggy, slow to respond but following commands Admitting dx: Encephalopathy, RUPAL PCP: [facility] Specialists: Pt states no current specialists. Preferred Pharmacy: [facility] Insurance: [facility] Prescription Benefit: [facility] Living Will/HPOA: Pt states has LW/HPOA and is aware that they are not on file at [facility] at this time. Pt states her sister, Rocío Gomez, is HPOA. LNOK: Rocío Gomez, sister/HPOA Living Arrangements: Pt states lives alone in apt with couple steps in and states no concerns at home at this time. Pt states is independent with ADL's. Transportation: Pt states drives self and states no transportation concerns at this time. DME/HHC: Pt states has a shower chair and states no need for any further DME at this time. Pt states has had HHC in the past and has been to [facility] in the past. Pt states no concerns with going home at time of discharge. Pt states is retired. Pt states does not smoke cigarettes or drink ETOH. Pt states no further concerns/needs at this time. CM to follow for any further discharge planning/needs. Advised pt to ask for CM if any further questions/concerns/needs at this time, voices understanding. Pt Goal: Home Plan: Home [facility] Maria FARRELL CM
--- NOTE | 2020-05-27 12:57 | PCM.PN.HOSP ---
<Alvarez Weiss - Last Filed: 05/27/20 12:57> Patient Problems: Active and Suspected Problems Encephalopathy (Acute) Acute kidney injury (Acute) Reason for Visit: encephalopathy Subjective: The patient was somewhat groggy and slow to respond to questions. She was a/ox3 however. She notes that she started taking baclofen a couple days ago for the first time. She used this in addition to gabapentin for chronic low back pain. Vitals/I&O's: Vital Signs Temp Pulse Resp BP Pulse Ox 98.4 F 89 16 146/65 H 97 05/27/20 08:33 05/27/20 08:33 05/27/20 08:33 05/27/20 08:33 05/27/20 08:33 Oxygen Delivery Method Room Air Weight: 127 lb 13.89 oz Body Mass Index (BMI) 25.8 Intake and Output for Last 24 Hours 05/25/20 05/26/20 05/27/20 23:59 23:59 23:59 Intake Total 1962.5 / 1962.5 949.58 / 949.58 Output Total 1850 / 1850 Balance 1962.5 / 1962.5 -900.42 / -900.42 General: Alert, Oriented x3, Cooperative, Lethargic HEENT: Atraumatic, PERRLA, EOMI, Normocephalic Neck: Supple, No JVD, Negative Carotid Bruits Lungs: Clear to auscultation, Normal air movement Cardiovascular: Regular rate, No murmurs Abdomen: Bowel Sounds Present, Soft, Non Tender Extremities: No edema, Capillary Refill Less than 3 Seconds Skin: No rashes, No breakdown Musculoskeletal: No Tenderness to Palpation of Joints or Extremities Neurological: Cranial nerves II-XII grossly intact Psych/Mental Status: Normal Affect, Appropriate, Alert and oriented to time, place, person, mood and affect Microbiology Past 72 Hours 05/26/20 11:04 Urine, Catheterized Urine Culture - Preliminary Culture exhibits no growth. Laboratory Results 05/26/20 12:00: PT 13.1, INR 1.0, APTT 21.5 L 05/26/20 12:00: Salicylates 2.3 L, Acetaminophen < 2.0 L, Ethyl Alcohol < 3.0 05/26/20 12:53: VBG Carboxyhemoglobin 1.7 H 05/26/20 15:04: Specimen Type ART, Sample Site L Brach, pH 7.31 L, Bicarbonate Actual 14.4 L, Total CO2 15, Base Excess -12 L, O2 Saturation 97, O2 % 21, ABG pCO2 28.5 L, ABG pO2 99 05/27/20 05:35: WBC 4.3 L, RBC 3.51 L, Hgb 10.8 L, Hct 31.7 L, MCV 90.3, MCH 30.8, MCHC 34.1, RDW Std Deviation 40.7, RDW Coeff of Carlos 12.4, Plt Count 150, MPV 10.1, Immature Gran % (Auto) 0.000, Neut % (Auto) 68.7, Lymph % (Auto) 23.6, [place] % (Auto) 7.0, Eos % (Auto) 0.5, Baso % (Auto) 0.2, Absolute Neuts (auto) 2.9, Absolute Lymphs (auto) 1.01, Nucleated RBC % 0 05/27/20 05:35: Sodium 140, Potassium 3.9, Chloride 111 H, Carbon Dioxide 17.0 L, Anion Gap 12, BUN 53 H, Creatinine 1.28 H, Estim Creat Clear Calc 41.19, Est GFR (MDRD) Af Amer 54 L, Est GFR (MDRD) Non-Af 45 L, BUN/Creatinine Ratio 41.4 H, Glucose 97, Calcium 8.6, Total Bilirubin 0.20, AST 34, ALT 28, Alkaline Phosphatase 53, Total Protein 6.8, Albumin 3.8, Globulin 3.0, Albumin/Globulin Ratio 1.3 Current Medications Acetaminophen (Tylenol) 650 mg PO Q6H PRN PRN PRN Reason: Pain Score 1-10/Temp > 100.7 F Atorvastatin Calcium (Lipitor) 10 mg PO QHS [facility] Last Admin: 05/26/20 22:27 Dose: Not Given Documented by: Heparin Sodium (Porcine) (Heparin Na) 5,000 unit SC Q8 [facility] Last Admin: 05/27/20 05:33 Dose: 5,000 unit Documented by: Sodium Chloride () 1,000 mls @ 125 mls/hr IV .Q8H [facility] Last Admin: 05/27/20 05:35 Dose: 125 mls/hr Documented by: Ondansetron HCl (Zofran) 4 mg IV Q8H PRN PRN PRN Reason: NAUSEA/VOMITING Pantoprazole Sodium (Protonix) 40 mg PO DAILY [facility] Last Admin: 05/27/20 09:37 Dose: 40 mg Documented by: Sertraline HCl (Zoloft) 100 mg PO DAILY [facility] Last Admin: 05/27/20 09:37 Dose: 100 mg Documented by: Sodium Chloride () 10 - 40 ml IV UD PRN PRN Reason: SALINE FLUSH Medical Necessity - Tobacco Use Smoking Status: Never smoker Assessment/Plan All Active Problems Encephalopathy (Acute) Acute kidney injury (Acute) 1. Acute toxic and metabolic encephalopathy 2/2 gabapentin/baclofen and RUPAL - renal function improved, not quite to baseline. Pt a/ox3 now however still lethargic. NPO until nursing comfortably that she is not too lethargic to eat then resume cardiac diet. gabapentin and baclofen held. melatonin held. Hyponatremia resolved. TSh normal, trop neg. CK mildly elevated 2. chronic back pain - will plan to resume gabapentin at lower dose and have the patient remain off baclofen 3. normocytic anemia - suspect some dilution from IVF. recheck in am. 4. depression/anxiety - zoloft - ok to continue, buproprion - resume 5. HTN - YUE held for RUPAL 6. HLD - statin DVT ppx: DC planning: home tomorrow if mentation and renal function improved. This patient was seen by Alvarez Weiss PA-C under the supervision of Dr. Pearson. <Raghavendra Pearson - Last Filed: 05/27/20 17:32> Subjective: Seen and examined. Although patient is awake and oriented x3 but is still looks groggy, slow to respond. Patient states she has difficulty in recall. She has chronic back pain. Physical exam General: Mild drowsy, oriented x3, Cooperative HEENT: Atraumatic, PERRLA, EOMI, Normocephalic Oral: No Gingival or Mucosal Lesions/ Ulcerations Neck: Supple, No JVD, Negative Carotid Bruits Lungs: Air entry diminished in bilateral lung bases. No crepitation/rhonchi Cardiovascular: Regular rate, Regular Rhythm, Normal S1, Normal S2, systolic murmur present over aortic area. Abdomen: Bowel Sounds Present, Soft, Non Tender, Non-Distended : No renal angle tenderness. No suprapubic tenderness. Extremities: No edema, Capillary Refill Less than 3 Seconds Skin: No rashes, No breakdown Musculoskeletal: No Tenderness to Palpation of Joints or Extremities Neurological: Cranial nerves II-XII grossly intact, Deep Tendon Reflexes 2+/4 and Symmetrical, Neuro grossly intact Psych/Mental Status: Normal Affect, Appropriate. Vitals/I&O's: Vital Signs Temp Pulse Resp BP Pulse Ox 98.0 F 86 18 144/71 H 99 05/27/20 15:00 05/27/20 15:00 05/27/20 15:00 05/27/20 15:00 05/27/20 15:00 Oxygen Delivery Method Room Air Weight: 127 lb 13.89 oz Body Mass Index (BMI) 25.8 Intake and Output for Last 24 Hours 05/25/20 05/26/20 05/27/20 23:59 23:59 23:59 Intake Total 1961.5 / 1961.5 1949.58 / 1949.58 Output Total 185 / 185 Balance 1961.5 / 1961. 99.58 / 99.58 Microbiology Past 72 Hours 05/26/20 11:04 Urine, Catheterized Urine Culture - Preliminary Culture exhibits no growth. Laboratory Results 05/27/20 05:35: WBC 4.3 L, RBC 3.51 L, Hgb 10.8 L, Hct 31.7 L, MCV 90.3, MCH 30.8, MCHC 34.1, RDW Std Deviation 40.7, RDW Coeff of Carlos 12.4, Plt Count 150, MPV 10.1, Immature Gran % (Auto) 0.000, Neut % (Auto) 68.7, Lymph % (Auto) 23.6, [place] % (Auto) 7.0, Eos % (Auto) 0.5, Baso % (Auto) 0.2, Absolute Neuts (auto) 2.9, Absolute Lymphs (auto) 1.01, Nucleated RBC % 0 05/27/20 05:35: Sodium 140, Potassium 3.9, Chloride 111 H, Carbon Dioxide 17.0 L, Anion Gap 12, BUN 53 H, Creatinine 1.28 H, Estim Creat Clear Calc 41.19, Est GFR (MDRD) Af Amer 54 L, Est GFR (MDRD) Non-Af 45 L, BUN/Creatinine Ratio 41.4 H, Glucose 97, Calcium 8.6, Total Bilirubin 0.20, AST 34, ALT 28, Alkaline Phosphatase 53, Total Protein 6.8, Albumin 3.8, Globulin 3.0, Albumin/Globulin Ratio 1.3 Current Medications Acetaminophen (Tylenol) 650 mg PO Q6H PRN PRN PRN Reason: Pain Score 1-10/Temp > 100.7 F Atorvastatin Calcium (Lipitor) 10 mg PO QHS [facility] Last Admin: 05/26/20 22:27 Dose: Not Given Documented by: Bupropion HCl (Wellbutrin Sr (150mg Tablets)) 150 mg PO BID [facility] Heparin Sodium (Porcine) (Heparin Na) 5,000 unit SC Q8 [facility] Last Admin: 05/27/20 14:49 Dose: 5,000 unit Documented by: Sodium Chloride () 1,000 mls @ 125 mls/hr IV .Q8H [facility] Last Admin: 05/27/20 13:43 Dose: 125 mls/hr Documented by: Ondansetron HCl (Zofran) 4 mg IV Q8H PRN PRN PRN Reason: NAUSEA/VOMITING Pantoprazole Sodium (Protonix) 40 mg PO DAILY [facility] Last Admin: 05/27/20 09:37 Dose: 40 mg Documented by: Sertraline HCl (Zoloft) 100 mg PO DAILY [facility] Last Admin: 05/27/20 09:37 Dose: 100 mg Documented by: Sodium Chloride () 10 - 40 ml IV UD PRN PRN Reason: SALINE FLUSH STROKE Vital Signs/Narrative: Vital Signs Temp Pulse Resp BP Pulse Ox 05/27/20 15:00 98.0 F 86 18 144/71 H 99 05/27/20 14:22 98.3 F 76 16 154/78 H Assessment/Plan This patient was seen in conjunction with Alvarez CRENSHAW. I have independently interviewed and examined the patient and reviewed pertinent history, examination findings, laboratory and plan of management. I have reviewed the note and agree with the documented findings with the few additional points. In brief, patient is admitted for acute encephalopathy most likely secondary to metabolic/toxic etiology, polypharmacy. Hold gabapentin, baclofen until patient is fully awake. Patient also has RUPAL which shows improvement in BUN/creatinine. Hyponatremia resolved. ABG was done at time of admission, 7.3 09/19/98 suggestive of mild anion gap metabolic acidosis. Continue IV fluid. Other comorbidities as mentioned above I have discussed my assessment with Alvarez CRENSHAW and orders have been reviewed. Inpatient E&M: 29186 Subs Hosp L2
[2020-05-27] MEDS: buPROPion (SR) 150 MG Tablet.SA PO (21:31)
[2020-05-27] MEDS: Atorvastatin Calcium 10 MG Tablet PO (21:31)
[2020-05-28] VITALS (7 sets, daily range): BP systolic 146–151; BP diastolic 69–72; PULSE 62–81; RESP 16; TEMP 36.3–37.1; O2SAT 99–100
[2020-05-28] MEDS: Acetaminophen 325 MG Tablet 650 MG PO (02:02)
[2020-05-28] MEDS: 0.9% Normal Saline 1,000 ML 125 ML IV (05:25)
[2020-05-28] MEDS: Heparin Injection (Vial) 5,000 UNIT/ML VIAL 5000 UNIT SC (05:25)
[2020-05-28 05:55] LABS: Absolute Lymphocyte Count 2.19 X10^3/uL (0.83-4.51); Basophil# 0.03 X10^3/uL; Basophil% 0.7 % (0-1); Eosinophil# 0.11 X10^3/uL; Eosinophils% 2.4 % (0-5); Hematocrit 28.4 % (37-47); Hemoglobin 9.4 g/dL (12.0-15.0); Lymphocyte # 2.19 X10^3/ul (4.0); Lymphocyte % 47.5 % (19-41); Mean Corp Hgb Conc 33.1 g/dL (32-36); Mean Corpuscular Hgb 30.5 pg (27.0-32.0); Mean Corpuscular Volume 92.2 fL (81-99); Mean Platelet Vol. 10.1 fl (6.2-12.0); Monocyte# 0.31 X10^3/uL; Monocyte% 6.7 % (0-10); NRBC Flagged by Analyzer 0 % (0-5); Neutrophil # 1.96 X10^3/uL (2.7-7.7); Neutrophil % 42.5 % (47-70); Platelet Count 117 K/mm3 (150-450); RBC Distribution Width CV 12.3 % (11.6-14.6); RBC Distribution Width SD 41.1 fl (35.1-43.9); Red Blood Count 3.08 M/mm3 (4.2-5.4); White Blood Count 4.6 K/mm3 (4.4-11.0)
[2020-05-28 06:38] LABS: Anion Gap 6 (5-15); BUN 20 mg/dL (7-18); BUN/Creat Ratio 31.3 RATIO (10-20); CPK Total, Creatine Kinase 705 U/L (26-192); Calcium,Total 8.3 mg/dL (8.5-10.1); Chloride 114 mmol/L (98-107); Creatinine, Serum 0.64 mg/dL (0.55-1.02); EST Glomerular Filtration Rate 100 mL/min (>60); Est Glom Filt Rate - Afr Amer 121 mL/min (>60); Estimated Creatinine Clearance 82.38 ml/min; Glucose 100 mg/dL (74-106); Potassium 3.4 mmol/L (3.5-5.1); Sodium Level 141 mmol/L (136-145)
[2020-05-28] MEDS: Pantoprazole Sodium 40 MG Tablet PO (09:04)
[2020-05-28] MEDS: Sertraline 100 MG Tablet PO (09:04)
[2020-05-28] MEDS: buPROPion (SR) 150 MG Tablet.SA PO (09:04)
--- NOTE | 2020-05-28 11:40 | DCINST_ITS ---
- Discharge Diagnoses Current Active Problems: Current Active and Chronic Problems Encephalopathy (Acute) Acute kidney injury (Acute) Depression (Chronic) Hyperlipidemia (Chronic) Hypertension (Chronic) You will use the following diet at home:: Cardiac Your food should be the consistency of: Regular Your liquids should be the consistency of: Regular/Thin Discharge Activity: Return to Normal Activity Allergies/Adverse Reactions: Allergies Penicillins Allergy (Verified 12/30/19 11:43) Rash Medications to take at Discharge bupropion HCl 150 mg tablet,12 hr sustained-release 150 mg PO BID 01/11/18 Docusate Sodium [Colace] 100 mg PO BID 03/28/19 Sertraline HCl 100 mg PO DAILY 03/28/19 Folic Acid 1 mg PO DAILY@0800 tab 03/30/19 Pantoprazole Sodium [Protonix] 40 mg PO DAILY #30 tab 03/30/19 Thiamine Hydrochloride [Vitamin B1] 100 mg PO DAILYCM tab 03/30/19 Lisinopril [Prinivil] 30 mg PO DAILY 05/03/19 Atorvastatin Calcium [Lipitor] 10 mg PO QHS 05/26/20 Cholecalciferol (VIT D3) [Vitamin D3] 1,000 unit PO BID 05/26/20 Hydrochlorothiazide [Hctz] 25 mg PO DAILY 05/26/20 Loratadine 10 mg PO DAILY 05/26/20 Melatonin/Pyridoxine HCl (B6) [Melatonin 1 mg Tablet] 1 ea PO QHS 05/26/20 Acetaminophen [Tylenol Tablet] 650 mg PO Q6H PRN PRN tablet 05/28/20 Primary Care Physician: Keaton Voss MD [Primary Care Provider] - Please follow up with your Primary Care Physician in: 1 week Test Results: Test results from this visit will be discussed in further detail at your follow- up appointment, if applicable. Proposed Discharge Date: 05/28/20
--- NOTE | 2020-05-28 12:23 | PHA.DC.MR ---
Pharmacy Service has performed discharge medication reconciliation for this patient. The patient's discharge medication list was reviewed for discrepancies and discrepancies were resolved. Home Medications bupropion HCl 150 mg tablet,12 hr sustained-release 150 mg PO BID 01/11/18 Docusate Sodium [Colace] 100 mg PO BID 03/28/19 Sertraline HCl 100 mg PO DAILY 03/28/19 Folic Acid 1 mg PO DAILY@0800 tab 03/30/19 Pantoprazole Sodium [Protonix] 40 mg PO DAILY #30 tab 03/30/19 Thiamine Hydrochloride [Vitamin B1] 100 mg PO DAILYCM tab 03/30/19 Lisinopril [Prinivil] 30 mg PO DAILY 05/03/19 Atorvastatin Calcium [Lipitor] 10 mg PO QHS 05/26/20 Cholecalciferol (VIT D3) [Vitamin D3] 1,000 unit PO BID 05/26/20 Hydrochlorothiazide [Hctz] 25 mg PO DAILY 05/26/20 Loratadine 10 mg PO DAILY 05/26/20 Melatonin/Pyridoxine HCl (B6) [Melatonin 1 mg Tablet] 1 ea PO QHS 05/26/20 Acetaminophen [Tylenol Tablet] 650 mg PO Q6H PRN PRN tab 05/28/20
--- NOTE | 2020-05-28 13:29 | DS.PCM_ITS ---
<Alvarez Weiss - Last Filed: 05/28/20 13:29> Discharge Date and Diagnosis - Problem List Patient Problems: Active and Suspected Problems Encephalopathy (Acute) Acute kidney injury (Acute) Date of Admission: 05/26/20 Date of Discharge: 05/28/20 - Primary Discharge Diagnosis Acute Problems: Active Problems Acute toxic/metabolic encephalopathy 2/2 RUPAL, baclofen, gabapentin - Secondary Discharge Diagnosis Chronic Problems: Chronic Problems Depression (Chronic) Hyperlipidemia (Chronic) Hypertension (Chronic) Chronic low back pain (Chronic) Pain of cervical spine (Chronic) Hospital Course and Treatment Imaging Results: RAD/Chest 1 View (Portable) IMPRESSION: Normal x-ray examination of the chest. CT/Brain/Head without Contrast IMPRESSION: Normal unenhanced CT scan of the brain. Operations: None Procedures: None Summary of Care Provided: Hospital Course: The patient is a 64 year old F with pmhx of chronic low back pain who was recently started on baclofen who presented to the ER with decreased LOC. The patient was found by her sister at home very lethargic and weak. She was brought to the ER and appeared to have RUPAL. Brain CT was normal. She was taking baclofen and gabapentin at home which was felt to be responsible for her lethargy and confusion in conjunction with RUPAL. She later admitted that she had recently started the baclofen several days ago. Baclofen and nicholas were held, she was placed on IV fluids, and she was admitted to the hospital. She had some improvement in her renal function the following day and was more alert however lethargic. She was kept one more night and her mentation and renal function returned to baseline. She was discharged home in stable condition. She will need follow up with her PCP in 1 week. This patient was seen by Alvarez Weiss PA-C under the supervision of Dr. Pearson. [] Patient Problems: Active and Suspected Problems Encephalopathy (Acute) Acute kidney injury (Acute) - Physical Exam Vitals/I&O's: Vital Signs Temp Pulse Resp BP Pulse Ox 98.7 F 73 16 146/69 H 100 05/28/20 12:22 05/28/20 12:22 05/28/20 12:22 05/28/20 12:22 05/28/20 12:22 Oxygen Delivery Method Room Air Weight: 127 lb 13.89 oz Body Mass Index (BMI) 25.8 Intake and Output for Last 24 Hours 05/26/20 05/27/20 05/28/20 23:59 23:59 23:59 Intake Total 1961.5 / 1961.5 3403.75 / 3403.75 1803.33 / 1803.33 Output Total 2570 / 2570 200 / 200 Balance 1962.5 / 1962.5 833.75 / 833.75 1603.33 / 1603.33 General: Alert, Oriented x3, Cooperative HEENT: Atraumatic, PERRLA, EOMI, Normocephalic Neck: Supple, No JVD, Negative Carotid Bruits Lungs: Clear to auscultation, Normal air movement Cardiovascular: Regular rate, No murmurs Abdomen: Bowel Sounds Present, Soft, Non Tender Extremities: No edema, Capillary Refill Less than 3 Seconds Skin: No rashes, No breakdown Musculoskeletal: No Tenderness to Palpation of Joints or Extremities Neurological: Cranial nerves II-XII grossly intact Psych/Mental Status: Normal Affect, Appropriate Microbiology Past 72 Hours 05/26/20 12:00 Blood Culture (Wb) - Femoral Artery Blood Culture - Preliminary No growth in 48 hours. 05/26/20 11:04 Urine, Catheterized Urine Culture - Final Culture exhibits no growth. Laboratory Results 05/28/20 05:35: WBC 4.6, RBC 3.08 L, Hgb 9.4 L, Hct 28.4 L, MCV 92.2, MCH 30.5, MCHC 33.1, RDW Std Deviation 41.1, RDW Coeff of Carlos 12.3, Plt Count 117 L, MPV 10.1, Immature Gran % (Auto) 0.200, Neut % (Auto) 42.5 L, Lymph % (Auto) 47.5 H, [place] % (Auto) 6.7, Eos % (Auto) 2.4, Baso % (Auto) 0.7, Absolute Neuts (auto) 2.0, Absolute Lymphs (auto) 2.19, Nucleated RBC % 0 05/28/20 05:35: Sodium 141, Potassium 3.4 L, Chloride 114 H, Carbon Dioxide 21.0, Anion Gap 6, BUN 20 H, Creatinine 0.64, Estim Creat Clear Calc 82.38, Est GFR (MDRD) Af Amer 121, Est GFR (MDRD) Non-Af 100, BUN/Creatinine Ratio 31.3 H, Glucose 100, Calcium 8.3 L, Total Creatine Kinase 705 H Current Medications Acetaminophen (Tylenol) 650 mg PO Q6H PRN PRN PRN Reason: Pain Score 1-10/Temp > 100.7 F Last Admin: 05/28/20 02:02 Dose: 650 mg Documented by: Atorvastatin Calcium (Lipitor) 10 mg PO QHS [facility] Last Admin: 05/27/20 21:31 Dose: 10 mg Documented by: Bupropion HCl (Wellbutrin Sr (150mg Tablets)) 150 mg PO BID [facility] Last Admin: 05/28/20 09:04 Dose: 150 mg Documented by: Sodium Chloride () 1,000 mls @ 125 mls/hr IV .Q8H [facility] Last Admin: 05/28/20 05:25 Dose: 125 mls/hr Documented by: Ondansetron HCl (Zofran) 4 mg IV Q8H PRN PRN PRN Reason: NAUSEA/VOMITING Pantoprazole Sodium (Protonix) 40 mg PO DAILY [facility] Last Admin: 05/28/20 09:04 Dose: 40 mg Documented by: Sertraline HCl (Zoloft) 100 mg PO DAILY [facility] Last Admin: 05/28/20 09:04 Dose: 100 mg Documented by: Sodium Chloride () 10 - 40 ml IV UD PRN PRN Reason: SALINE FLUSH Discharge Diet: Low fat/ Low Cholesterol, 2000 mg Sodium Diet Discharge Activity: Return to Normal Activity Home Medications: Medications to take at Discharge bupropion HCl 150 mg tablet,12 hr sustained-release 150 mg PO BID 01/11/18 Docusate Sodium [Colace] 100 mg PO BID 03/28/19 Sertraline HCl 100 mg PO DAILY 03/28/19 Folic Acid 1 mg PO DAILY@0800 tab 03/30/19 Pantoprazole Sodium [Protonix] 40 mg PO DAILY #30 tab 03/30/19 Thiamine Hydrochloride [Vitamin B1] 100 mg PO DAILYCM tab 03/30/19 Lisinopril [Prinivil] 30 mg PO DAILY 05/03/19 Atorvastatin Calcium [Lipitor] 10 mg PO QHS 05/26/20 Cholecalciferol (VIT D3) [Vitamin D3] 1,000 unit PO BID 05/26/20 Hydrochlorothiazide [Hctz] 25 mg PO DAILY 05/26/20 Loratadine 10 mg PO DAILY 05/26/20 Melatonin/Pyridoxine HCl (B6) [Melatonin 1 mg Tablet] 1 ea PO QHS 05/26/20 Acetaminophen [Tylenol Tablet] 650 mg PO Q6H PRN PRN tab 05/28/20 Primary Care Physician: Keaton Voss MD [Primary Care Provider] - Please follow up with your Primary Care Physician in: 1 week Disposition: Home Minutes spent on discharge:: 35 Patient Condition:: Stable Medical Necessity - Tobacco Use Smoking Status: Never smoker Meaningful Use Info Meaningful Use Diagnoses (Choose all that apply): None applicable <MichelRaghavendra - Last Filed: 05/28/20 13:48> Discharge Date and Diagnosis - Primary Discharge Diagnosis Acute Problems: Active Problems Encephalopathy (Acute) Acute kidney injury (Acute) - Secondary Discharge Diagnosis Chronic Problems: Chronic Problems Depression (Chronic) Hyperlipidemia (Chronic) Hypertension (Chronic) Chronic low back pain (Chronic) Pain of cervical spine (Chronic) Hospital Course and Treatment Summary of Care Provided: This patient was seen in conjunction with Alvarez CRENSHAW. I have independently interviewed and examined the patient and reviewed pertinent history, examination findings, laboratory and plan of management. I have reviewed the note and agree with the documented findings with the few additional points. In brief, patient is admitted for acute encephalopathy most likely secondary to metabolic/toxic etiology, polypharmacy. Hold gabapentin, baclofen until patient is fully awake. RUPAL resolved with IV fluid normal saline. Hyponatremia resolved. ABG was done at time of admission, 7.31///15 suggestive of mild anion gap metabolic acidosis. Other comorbidities as mentioned above. Patient advised to follow-up with PCP in 1 to 2 weeks. Discharge medication reconciliation done. Discharge follow-up instructions completed. Discharge process discussed with the patient and all questions were answered to patient's satisfaction. Total time spent, exact 35 minutes on discharge meds reconciliation, examination, coordination of care with nurses and ancillary staff, review of imaging and blood test and discussion with the patient on follow-up instructions I have discussed my assessment with Alvarez CRENSHAW and orders have been reviewed. Objective: Seen and examined. Blood pressure and heart rate are controlled. Patient had good urine output and bowel movement. Alert awake in bed x3 but I think patient is chronically slow to respond probably early dementia Physical exam General: Mild drowsy, oriented x3, Cooperative HEENT: Atraumatic, PERRLA, EOMI, Normocephalic Oral: No Gingival or Mucosal Lesions/ Ulcerations Neck: Supple, No JVD, Negative Carotid Bruits Lungs: Air entry diminished in bilateral lung bases. No crepitation/rhonchi Cardiovascular: Regular rate, Regular Rhythm, Normal S1, Normal S2, systolic murmur present over aortic area. Abdomen: Bowel Sounds Present, Soft, Non Tender, Non-Distended : No renal angle tenderness. No suprapubic tenderness. Extremities: No edema, Capillary Refill Less than 3 Seconds Skin: No rashes, No breakdown Musculoskeletal: No Tenderness to Palpation of Joints or Extremities Neurological: Cranial nerves II-XII grossly intact, Deep Tendon Reflexes 2+/4 and Symmetrical, Neuro grossly intact Psych/Mental Status: Normal Affect, Appropriate. - Physical Exam Vitals/I&O's: Vital Signs Temp Pulse Resp BP Pulse Ox 98.7 F 73 16 146/69 H 100 05/28/20 12:22 05/28/20 12:22 05/28/20 12:22 05/28/20 12:22 05/28/20 12:22 Oxygen Delivery Method Room Air Weight: 127 lb 13.89 oz Body Mass Index (BMI) 25.8 Intake and Output for Last 24 Hours 05/26/20 05/27/20 05/28/20 23:59 23:59 23:59 Intake Total 1962.5 / 1962.5 3403.75 / 3403.75 1803.33 / 1803.33 Output Total 2570 / 2570 200 / 200 Balance 1962.5 / 1962.5 833.75 / 833.75 1603.33 / 1603.33 Microbiology Past 72 Hours 05/26/20 12:00 Blood Culture (Wb) - Femoral Artery Blood Culture - Preliminary No growth in 48 hours. 05/26/20 11:04 Urine, Catheterized Urine Culture - Final Culture exhibits no growth. Laboratory Results 05/28/20 05:35: WBC 4.6, RBC 3.08 L, Hgb 9.4 L, Hct 28.4 L, MCV 92.2, MCH 30.5, MCHC 33.1, RDW Std Deviation 41.1, RDW Coeff of Carlos 12.3, Plt Count 117 L, MPV 10.1, Immature Gran % (Auto) 0.200, Neut % (Auto) 42.5 L, Lymph % (Auto) 47.5 H, [place] % (Auto) 6.7, Eos % (Auto) 2.4, Baso % (Auto) 0.7, Absolute Neuts (auto) 2.0, Absolute Lymphs (auto) 2.19, Nucleated RBC % 0 05/28/20 05:35: Sodium 141, Potassium 3.4 L, Chloride 114 H, Carbon Dioxide 21.0, Anion Gap 6, BUN 20 H, Creatinine 0.64, Estim Creat Clear Calc 82.38, Est GFR (MDRD) Af Amer 121, Est GFR (MDRD) Non-Af 100, BUN/Creatinine Ratio 31.3 H, Glucose 100, Calcium 8.3 L, Total Creatine Kinase 705 H Current Medications Acetaminophen (Tylenol) 650 mg PO Q6H PRN PRN PRN Reason: Pain Score 1-10/Temp > 100.7 F Last Admin: 05/28/20 02:02 Dose: 650 mg Documented by: Atorvastatin Calcium (Lipitor) 10 mg PO QHS [facility] Last Admin: 05/27/20 21:31 Dose: 10 mg Documented by: Bupropion HCl (Wellbutrin Sr (150mg Tablets)) 150 mg PO BID [facility] Last Admin: 05/28/20 09:04 Dose: 150 mg Documented by: Sodium Chloride () 1,000 mls @ 125 mls/hr IV .Q8H [facility] Last Admin: 05/28/20 05:25 Dose: 125 mls/hr Documented by: Ondansetron HCl (Zofran) 4 mg IV Q8H PRN PRN PRN Reason: NAUSEA/VOMITING Pantoprazole Sodium (Protonix) 40 mg PO DAILY [facility] Last Admin: 05/28/20 09:04 Dose: 40 mg Documented by: Sertraline HCl (Zoloft) 100 mg PO DAILY [facility] Last Admin: 05/28/20 09:04 Dose: 100 mg Documented by: Sodium Chloride () 10 - 40 ml IV UD PRN PRN Reason: SALINE FLUSH Inpatient E&M: [id number] [facility]
--- NOTE | 2020-05-28 14:00 | CASEMGMT ---
Addendum entered by Dede Polanco 05/28/20 15:12: Pt's sister is here and this RN CM back to room to speak with pt/sister at this time. Sister updated on therapy recommendations, voices understanding. Pt/sister decline need for HHC at this time. Pt/sister aware that they can contact pt's PCP once home if they change their mind, voice understanding. Sister states she will try to get a cane for pt, if needed. Pt/sister voice no further questions/concerns/needs at this time. Rosa Maria FARRELL CM Original Note: Verbal from therapy is that pt should not need HHC therapy at discharge at this time. Pt was provided exercise sheets for home by therapy. This RN CM to room and pt states no need for further therapy(HHC or OP)at this time. Pt states no concerns with going home at time of discharge at this time. Pt's sister will be here after 1400 and this RN CM to check back with pt/sister at that time. Rosa Maria FARRELL CM
== END 2020-05-28 15:25 | disposition home or self-care (01) | DRG 469 ==
LOC: ED 12:11 → PCU 14:26
PROVIDERS: Physician Assistant; Admitting Provider Hospitalist; Emergency Provider Emergency Medicine; PCP Family Medicine; Visit Provider Internal Medicine
DX: N17.9 Acute kidney failure, unspecified (principal); E86.0 Dehydration; G93.41 Metabolic encephalopathy; G92 Toxic encephalopathy; T42.8X5A Adverse effect of antiparkinsonism drugs and other central muscle-tone depressants, initial encounter; T42.6X5A Adverse effect of other antiepileptic and sedative-hypnotic drugs, initial encounter; Y92.9 Unspecified place or not applicable; E86.1 Hypovolemia; E87.1 Hypo-osmolality and hyponatremia; E87.2 Acidosis; I10 Essential (primary) hypertension; E78.5 Hyperlipidemia, unspecified; M54.5 Low back pain; G89.29 Other chronic pain; K21.9 Gastro-esophageal reflux disease without esophagitis; F32.9 Major depressive disorder, single episode, unspecified; F41.9 Anxiety disorder, unspecified; Z79.899 Other long term (current) drug therapy
CPT/HCPCS: 36415; 36600; 70450; 71045; 80048; 80053; 80307; 80320; 80329; 81001; 82375; 82550; 82803; 83605; 84443; 84484; 85025; 85610; 85730; 87040; 87086; 93005; 97110; 97116; 97162; 97166; 97530; 97535; 97802; 99285; J7030; A4216; G0480

== ENCOUNTER 2020-06-28 11:40 | Emergency (ER) | payer MEDICAID, SELFPAY ==
[2020-05-26 14:26] VITALS: BMI 25.8
[2020-06-28 11:42] VITALS: BP 168/83; PULSE 64; RESP 16; TEMP 37.1; O2SAT 98; BMI 29.4
--- NOTE | 2020-06-28 12:09 | ED.VIS.GEN ---
History of Present Illness Chief Complaint: Chest Pain Informant: Patient Narrative: 63-year-old female presenting with chest pain/epigastric pain. She states her blood pressure was slightly elevated and she called her primary care's office and they told her to come to the emergency room. She denies shortness of breath, lightheadedness, dizziness. She has no history of cardiac disease. She has hypertension and hyperlipidemia. She did not smoker. No history of DVT/PE. Currently she is pain-free. - Past Medical History (1) Hyperlipidemia Status: Chronic (2) Hypertension Status: Chronic Past Medical History - Allergies and Home Meds Allergies/Adverse Reactions: Allergies Penicillins Allergy (Verified 12/30/19 11:43) Rash Primary Care Physician: Keaton Voss MD [Primary Care Provider] - Prior records reviewed: Yes Past Medical History: - - Reviewed in problem list Surgical History: noncontributory, - - Cervical neck surgery. Smoking Status: Former smoker - Family History Maternal Family History: Reports: COPD Paternal Family History: Reports: Heart Disease - related to heart disease Review of Systems General: Denies: Chills, Fever, Sweats Eyes: Denies: Visual changes - bilaterally, Diplopia ENT: Denies: Rhinorrhea, Sore throat Cardiovascular: Reports: Chest pain. Denies: Palpitations Respiratory: Denies: Dyspnea, Cough, Dyspnea on exertion Gastrointestinal: Denies: Abdominal pain, Nausea, Vomiting, Diarrhea, Melena, Hematochezia Genitourinary: Denies: Dysuria, Hematuria, Frequency Skin: Denies: Rash, Wounds Neurological: Denies: Headache, Weakness, Numbness Physical Exam Vital Signs/Narrative: Vital Signs Temp Pulse Resp BP Pulse Ox 06/28/20 11:42 98.8 F 64 16 168/83 H 98 Inital Vital Signs reviewed: Yes General: Well nourished, Well developed, No Acute Distress Head: Normocephalic, Atraumatic Eyes: Perrl, EOMI ENT: Moist mucous membranes, No rhinorrhea Neck: Supple Cardiovascular: Regular rate, Regular rhythm, No murmurs Respiratory: No distress, CTA bilaterally, Chest nontender Abdomen: Soft, Nontender, Nondistended, Normal bowel sounds Back: Nontender, Normal Inspection Extremities: Nontender, No edema Skin: Normal color, No rash Neurological: Alert, Oriented x3, Cranial nerves II-XII grossly intact, Normal Strength, Normal Sensation Psychological: Normal affect, Normal Mood Diagnostic/Tx/Re-eval Clinical Impression(s) from Imaging Studies Chest X-Ray 06/28/20 12:18 IMPRESSION: No acute abnormalities seen. Electronically Signed: Priyank Arrington, at 12:45 EST , Service support , Chest CTA 06/28/20 13:11 IMPRESSION: Normal CTA chest examination, without a demonstrated pulmonary embolism or arterial dissection. Electronically Signed: Priyank Arrington, at 14:06 EST , Service support , Laboratory Data 06/28/20 06/28/20 06/28/20 15:05 Unknown Unknown WBC 4.2 L RBC 3.60 L Hgb 11.0 L Hct 33.7 L MCV 93.6 MCH 30.6 MCHC 32.6 RDW Std Deviation 44.3 H RDW Coeff of Carlos 12.8 Plt Count 216 MPV 11.0 Immature Gran % (Auto) 0.200 Neut % (Auto) 48.8 Lymph % (Auto) 41.0 [place] % (Auto) 4.5 Eos % (Auto) 4.3 Baso % (Auto) 1.2 H Absolute Neuts (auto) 2.1 Absolute Lymphs (auto) 1.72 Nucleated RBC % 0 D-Dimer Quant (PE/DVT) 0.70 H* Sodium Potassium Chloride Carbon Dioxide Anion Gap BUN Creatinine Estim Creat Clear Calc Est GFR (MDRD) Af Amer Est GFR (MDRD) Non-Af BUN/Creatinine Ratio Glucose Calcium Troponin I < 0.015 06/28/20 Unknown WBC RBC Hgb Hct MCV MCH MCHC RDW Std Deviation RDW Coeff of Carlos Plt Count MPV Immature Gran % (Auto) Neut % (Auto) Lymph % (Auto) [place] % (Auto) Eos % (Auto) Baso % (Auto) Absolute Neuts (auto) Absolute Lymphs (auto) Nucleated RBC % D-Dimer Quant (PE/DVT) Sodium 140 Potassium 3.8 Chloride 106 Carbon Dioxide 27.0 Anion Gap 7 BUN 13 Creatinine 1.05 H Estim Creat Clear Calc 55.32 Est GFR (MDRD) Af Amer 68 Est GFR (MDRD) Non-Af 56 L BUN/Creatinine Ratio 12.4 Glucose 91 Calcium 10.0 Troponin I < 0.015 - Rhythm Strip Rhythm Strip: Sinus Rhythm Rate: 73 - EKG Initial EKG Interpretation: Sinus Rhythm, No Acute Injury Pattern Follow-up EKG Interpretation: No Acute Injury Pattern, Sinus Bradycardia - Medical Decision Making Patient arrives with chest pain which appears to be atypical. She has no other associated symptoms. Is a heart score of 3 therefore she had 2 EKGs and 2 troponins which were negative. Her D-dimer was elevated and she had a negative CTA. Her vital signs are stable and she is afebrile. I think given that she has a normal work-up here she is safe to be discharged home to follow-up with her PCP. She is given return precautions. Impression 1. Chest pain ED Disposition - Plan for ED Patient: Disposition: Home or Assisted Living Instructions: ED Chest Pain Atypical Unkn Cause Referrals: Keaton Voss MD [Primary Care Provider] -
--- NOTE | 2020-06-28 12:18 | RAD_ITS ---
STUDY: X-RAY CHEST REASON FOR EXAM: Female, 64 years old. SBP 170''S, CHEST HEAVINESS, DYSPNEA TECHNIQUE: Single AP portable view of the chest. COMPARISON: Comparison is made with prior study dated 05/26/2020. FINDINGS: EKG electrode are seen. The lungs are clear and expanded. There is no demonstrated pleural abnormality. Normal size heart. Normal mediastinum and sarahi. Normal visualized pulmonary arteries. There is atherosclerotic tortuosity of the aortic arch and descending thoracic aorta. There are diffuse degenerative changes of the visualized thoracic spine. Prior laminectomy and fusion in the lower cervical spine. There is no demonstrated abnormality of the visualized soft tissue structures of the upper abdomen. RAD/Chest 1 View (Portable) IMPRESSION: No acute abnormalities seen. Electronically Signed: Priyank Arrington, at 12:45 EST , Service support ,
--- NOTE | 2020-06-28 12:18 | EKG12_ITS ---
Test Reason : CP Blood Pressure : / mmHG Vent. Rate : 073 BPM Atrial Rate : 073 BPM P-R Int : 168 ms QRS Dur : 072 ms QT Int : 390 ms P-R-T Axes : 036 004 030 degrees QTc Int : 429 ms Normal sinus rhythm Normal ECG Confirmed by RHONDA GARY, BLANCA ([id number]), editor department REINIER BEARD ([id number]) on 07/01/2020 2:28:53 PM Referred By: MR Confirmed By:BLANCA ELLIS MD
[2020-06-28 12:52] VITALS: BP 185/78; PULSE 63; RESP 16; O2SAT 96
[2020-06-28 13:00] VITALS: BP 168/73; PULSE 61; RESP 17; O2SAT 95
[2020-06-28 13:04] LABS: Absolute Lymphocyte Count 1.72 X10^3/uL (0.83-4.51); Absolute Neutrophil Count 2.1 X10^3/uL (2.0-7.7); Basophil# 0.05 X10^3/uL; Basophil% 1.2 % (0-1); Eosinophil# 0.18 X10^3/uL; Eosinophils% 4.3 % (0-5); Hematocrit 33.7 % (37-47); Lymphocyte # 1.72 X10^3/ul (4.0); Mean Corp Hgb Conc 32.6 g/dL (32-36); Mean Corpuscular Hgb 30.6 pg (27.0-32.0); Mean Corpuscular Volume 93.6 fL (81-99); Monocyte# 0.19 X10^3/uL; Monocyte% 4.5 % (0-10); NRBC Flagged by Analyzer 0 % (0-5); Neutrophil # 2.05 X10^3/uL (2.7-7.7); Neutrophil % 48.8 % (47-70); Platelet Count 216 K/mm3 (150-450); RBC Distribution Width CV 12.8 % (11.6-14.6); RBC Distribution Width SD 44.3 fl (35.1-43.9); White Blood Count 4.2 K/mm3 (4.4-11.0)
--- NOTE | 2020-06-28 13:11 | CT_ITS ---
STUDY: CTA CHEST REASON FOR EXAM: Female, 64 years old. CHEST FULLNESS and amp; HEAVINESS -- DYSPNEA RADIATION DOSAGE (If Supplied By Facility): CTDIvol = ( 5.54 ) mGy, DLP = ( 157.69 ) mGycm TECHNIQUE: The examination was performed with the intravenous administration of IV 100mL Isovue-370. Post-processing of the angiographic images was performed, with multiplanar reformation and 3D reconstruction. Individualized dose optimization techniques were used for this CT. COMPARISON: Comparison is made with prior chest radiograph done earlier in the day as well as prior CT scan of the chest dated 12/30/2019. FINDINGS: Normal enhancement of the main pulmonary artery and right and left pulmonary arteries. Normal enhancement of the bilateral peripheral pulmonary arteries. There is no demonstrated pulmonary embolism. Normal thoracic aorta and visualized great vessels. There is no demonstrated aortic dissection. Normal heart and pericardium. Normal mediastinum. Normal hilar regions. Normal visualized trachea and bronchi. The lungs are well expanded. Normal pulmonary parenchyma. Normal pleura. Normal chest wall structures. There are degenerative changes of thoracic spine. Normal visualized upper abdomen. CT/CTA Chest W/WO Contrast IMPRESSION: Normal CTA chest examination, without a demonstrated pulmonary embolism or arterial dissection. Electronically Signed: Priyank Arrington, at 14:06 EST , Service support ,
[2020-06-28 13:14] LABS: Anion Gap 7 (5-15); BUN 13 mg/dL (7-18); BUN/Creat Ratio 12.4 RATIO (10-20); Chloride 106 mmol/L (98-107); Creatinine, Serum 1.05 mg/dL (0.55-1.02); EST Glomerular Filtration Rate 56 mL/min (>60); Est Glom Filt Rate - Afr Amer 68 mL/min (>60); Estimated Creatinine Clearance 55.32 ml/min; Glucose 91 mg/dL (74-106); Potassium 3.8 mmol/L (3.5-5.1); Sodium Level 140 mmol/L (136-145)
[2020-06-28 14:30] VITALS: BP 178/82; PULSE 59; RESP 15; O2SAT 99
--- NOTE | 2020-06-28 14:57 | EKG12_ITS ---
Test Reason : REPEAT Blood Pressure : / mmHG Vent. Rate : 057 BPM Atrial Rate : 057 BPM P-R Int : 134 ms QRS Dur : 070 ms QT Int : 440 ms P-R-T Axes : 010 006 016 degrees QTc Int : 428 ms Sinus bradycardia Otherwise normal ECG Confirmed by RHONDA GARY, BLANCA ([id number]), acquisition editor REINIER BEARD ([id number]) on 07/01/2020 2:29:10 PM Referred By: LISSET Confirmed By:BLANCA ELLIS MD
[2020-06-28 16:13] VITALS: BP 184/78; PULSE 56; RESP 12; O2SAT 98
[2020-06-28 16:45] VITALS: BP 174/82; PULSE 61; RESP 16; O2SAT 98
== END 2020-06-28 16:45 | disposition home or self-care (01) ==
PROVIDERS: Emergency Provider Student in an Organized Health Care Education/Training Program; PCP Family Medicine
DX: R07.9 Chest pain, unspecified (principal); R10.13 Epigastric pain; R79.89 Other specified abnormal findings of blood chemistry; I10 Essential (primary) hypertension; E78.5 Hyperlipidemia, unspecified; Z87.891 Personal history of nicotine dependence; Z79.899 Other long term (current) drug therapy
CPT/HCPCS: 71045; 71275; 80048; 84484; 85025; 85379; 93005; 99285; J7030; Q9967; A4216

== ENCOUNTER 2020-09-23 10:06 | Emergency (ER) | payer MEDICAID, SELFPAY ==
[2020-09-23 10:07] VITALS: BP 146/73; PULSE 84; RESP 17; TEMP 36; O2SAT 96; BMI 26.1
--- NOTE | 2020-09-23 10:29 | RAD_ITS ---
STUDY: X-RAY - ABDOMEN/PELVIS REASON FOR EXAM: Female, 64 years old. CONSTIPATION X 3 DAYS TECHNIQUE: Single AP view of the abdomen / pelvis. COMPARISON: None. FINDINGS: Normal visualized lung bases. There is an unremarkable bowel gas pattern. Moderate amount of fecal material is seen in the rectum. The visualized liver, spleen and kidneys are grossly normal in size and morphology. Normal soft tissue structures. There are diffuse degenerative changes of the visualized lumbar spine. Mild dextroscoliosis. RAD/Abdomen Single View IMPRESSION: Moderate amount of fecal material is seen in the rectum. Electronically Signed: Priyank Arrington MD at 10:54 EST , Service support ,
--- NOTE | 2020-09-23 10:30 | ED.VISSUMM ---
- ER Visit Summary Date of Service: 09/23/20 Chief Complaint: Constipation History of Present Illness: The patient is a 64 F presenting with constipation. Patient states her last bowel movement was morning. She states she has tried laxatives and enemas at home with no relief. She denies nausea or vomiting. Denies abdominal pain. Denies other complaints. Physical Examination: Vitals are stable. Patient is afebrile. Alert no acute distress. HEENT exam is unremarkable. Neck is supple. Lungs are clear and equal bilaterally. Heart is regular rate and rhythm. Abdomen is soft nontender nondistended. No guarding or rebound Rectal soft stool. Extremities are unremarkable. Skin is warm and dry. Remainder of exam is unremarkable. Emergency Department Course and Treatment: KUB read by myself and radiology shows moderate amount of fecal material is seen in the rectum. Patient was given a soapsuds enema. She was manually disimpacted. She prefers to take mag citrate at home. She will follow-up with her primary care physician. Advised return to ED for worsening complaints. Disposition: Discharge home Impression: Constipation This note was generated with [employer] dictation software. It may contain incorrect words, spelling, and punctuation that were not noted in review of the chart prior to signing ED Disposition - Plan for ED Patient: Instructions: ED Constipation (Adult) Referrals: Keaton Voss MD [Primary Care Provider] -
--- NOTE | 2020-09-23 14:44 | ED.DEP ---
ED Disposition - Plan for ED Patient: Instructions: ED Constipation (Adult) Referrals: Keaton Voss MD [Primary Care Provider] -
[2020-09-23] MEDS: Magnesium Citrate 300 ML PO (15:30)
[2020-09-23 15:51] VITALS: BP 142/58; PULSE 75; RESP 18; O2SAT 97
== END 2020-09-23 15:30 | disposition home or self-care (01) ==
LOC: ED 10:33
PROVIDERS: Emergency Provider Emergency Medicine; PCP Family Medicine
DX: K59.00 Constipation, unspecified (principal); Z79.899 Other long term (current) drug therapy
CPT/HCPCS: 74018; 99284

== ENCOUNTER 2020-09-24 13:50 | Emergency (ER) | payer MEDICAID, SELFPAY ==
[2020-09-23 10:07] VITALS: BMI 26.1
[2020-09-24 13:51] VITALS: BP 142/74; PULSE 98; RESP 15; TEMP 36; O2SAT 96; BMI 25.7
--- NOTE | 2020-09-24 14:10 | RAD_ITS ---
STUDY: X-RAY - ABDOMEN/PELVIS REASON FOR EXAM: Female, 64 years old. CONSTIPATION X4 DAYS TECHNIQUE: Single AP view of the abdomen / pelvis. COMPARISON: Comparison is made with prior study dated 09/23/2020. FINDINGS: Normal visualized lung bases. There is an unremarkable bowel gas pattern. Small amount of residual fecal material is seen in the rectum. The visualized liver, spleen and kidneys are grossly normal in size and morphology. There are calcified phleboliths in the pelvis. There are diffuse degenerative changes of the visualized lumbar spine. Dextroscoliosis. RAD/Abdomen Single View IMPRESSION: Nonspecific bowel gas pattern. Electronically Signed: Priyank Arrington MD at 14:25 EST , Service support ,
--- NOTE | 2020-09-24 14:32 | ED.VIS.GEN ---
History of Present Illness Chief Complaint: Constipation Informant: Patient Narrative: Patient states that several days ago she consumed an entire large bag of popcorn. Since then she has felt constipated and has not been eating or drinking as much. She has had constipation in the past and has typically tried to digitally disimpact herself. She has tried a couple enemas. She was seen at an urgent care recently. She was seen in the emergency department yesterday. Yesterday she had some disimpaction and enema work done. She states that today she continues to feel like she needs to have a bowel movement. She has not arranged follow-up with primary care. She notes some anal discomfort from her manipulation and occasionally gets dizzy with straining. - Past Medical History (1) Depression Status: Chronic (2) Hyperlipidemia Status: Chronic (3) Hypertension Status: Chronic Past Medical History - Allergies and Home Meds Allergies/Adverse Reactions: Allergies Penicillins Allergy (Verified 09/24/20 13:50) Rash Primary Care Physician: Keaton Voss MD [Primary Care Provider] - Surgical History: noncontributory, - - Cervical neck surgery. Smoking Status: Former smoker Drugs: None - Family History Maternal Family History: Reports: COPD Paternal Family History: Reports: Heart Disease - related to heart disease Review of Systems General: Denies: Chills, Fever, Sweats Eyes: Denies: Visual changes - bilaterally, Diplopia ENT: Denies: Rhinorrhea, Sore throat Cardiovascular: Denies: Chest pain, Palpitations Respiratory: Denies: Dyspnea, Cough, Dyspnea on exertion Gastrointestinal: Reports: Constipation. Denies: Abdominal pain, Nausea, Vomiting, Diarrhea, Melena, Hematochezia Genitourinary: Denies: Dysuria, Hematuria, Frequency Musculoskeletal: Denies: Back pain, Extremity Pain Skin: Denies: Rash, Wounds Neurological: Denies: Headache, Weakness, Numbness Physical Exam Vital Signs/Narrative: Vital Signs Temp Pulse Resp BP Pulse Ox 09/24/20 13:51 96.8 F L 98 15 142/74 H 96 Inital Vital Signs reviewed: Yes General: Well nourished, Well developed, No Acute Distress Head: Normocephalic, Atraumatic Eyes: Perrl, EOMI ENT: Moist mucous membranes, No rhinorrhea Neck: Supple, Nontender Cardiovascular: Regular rate, Regular rhythm, No murmurs Respiratory: No distress, CTA bilaterally, Chest nontender Abdomen: Soft, Nontender, Nondistended, Normal bowel sounds Rectal: - - Soft stool present Back: Nontender, Normal Inspection Extremities: Nontender, No edema Skin: Normal color, No rash Neurological: Alert, Oriented x3, Cranial nerves II-XII grossly intact, Normal Strength, Normal Sensation Psychological: Normal affect, Normal Mood Diagnostic/Tx/Re-eval Clinical Impression(s) from Imaging Studies KUB X-Ray 09/24/20 14:10 IMPRESSION: Nonspecific bowel gas pattern. Electronically Signed: Priyank Arrington MD at 14:25 EST , Service support , - Medical Decision Making Interpretation of the single view abdominal x-ray is nonspecific bowel gas pattern with small residual stool in the rectal vault. Patient has benign abdomen. The patient has very little fecal material in her colon. This is most likely because she has not been eating or drinking much. Low recommend that she can certainly try a couple more enemas at home to try to hold as long she can to help soften what little stool is there. Also recommend that she do a bottle of magnesium citrate a day. I believe that this last small amount of stool will pass. I do not believe that hospitalization is needed or further rectal disimpaction. ED Disposition - Plan for ED Patient: Disposition: Home or Assisted Living Diagnosis: Constipation Instructions: ED Constipation (Adult) Prescriptions: Magnesium Citrate [Citrate Of Magnesia] 300 ml PO DAILY 2 Days #600 ml Prescription Printed Referrals: Keaton Voss MD [Primary Care Provider] - 3-5 Days Additional Instructions: I would recommend a bottle of magnesium citrate daily for the next couple of days. I would try a couple more enemas and hold as long as you can. I truly believe that your stool will pass. You will probably go a couple days without having bowel movements as there is very little stool left in you.
== END 2020-09-24 14:48 | disposition home or self-care (01) ==
PROVIDERS: Emergency Provider Emergency Medicine; PCP Family Medicine
DX: K59.00 Constipation, unspecified (principal); I10 Essential (primary) hypertension; E78.5 Hyperlipidemia, unspecified; F32.9 Major depressive disorder, single episode, unspecified; Z79.899 Other long term (current) drug therapy; Z88.0 Allergy status to penicillin; Z87.891 Personal history of nicotine dependence
CPT/HCPCS: 74018; 99282

== ENCOUNTER 2020-09-26 12:31 | Observation (INO) | payer MEDICAID, SELFPAY ==
[2020-09-26] VITALS (7 sets, daily range): BP systolic 122–174; BP diastolic 53–84; PULSE 67–81; RESP 16–18; TEMP 37–37.2; O2SAT 97–100; BMI 26.7; BMI 26.8; BMI 25.2
--- NOTE | 2020-09-26 12:45 | CT_ITS ---
STUDY: CT ABDOMEN AND PELVIS WITHOUT CONTRAST REASON FOR EXAM: Female, 64 years old. ABD PAIN/N/V/D/SEEN HERE 09/23 AND 09/24 FOR CONSTIPATION. Oral contrast only RADIATION DOSAGE (If Supplied By Facility): CTDIvol = ( 6.09 ) mGy, DLP = ( 273.79 ) mGycm TECHNIQUE: Transaxial images were obtained from the dome of the diaphragm to the symphysis pubis with oral contrast, and without intravenous contrast. Sagittal and coronal images were reconstructed. Individualized dose optimization techniques were used for this CT. COMPARISON: None. FINDINGS: The visualized lung bases are unremarkable. The visualized portions of the heart are within normal limits. Normal liver. Normal gallbladder and extrahepatic biliary system. Normal spleen. Normal pancreas. Normal bilateral adrenal glands. Normal right kidney. Normal left kidney. There is a small hiatal hernia. Normal small intestine. Normal colon. The appendix is visualized and appears normal. There is scattered atherosclerotic calcification of the abdominal aorta, without a demonstrated aneurysm. Normal inferior vena cava. Normal retroperitoneum. Normal urinary bladder. Normal abdominal wall. There are diffuse degenerative changes of the visualized lumbar spine. There is straightening of the normal lumbar lordosis. CT/Abdomen/Pel W ORAL Cont Only IMPRESSION: No acute abnormality is seen. Electronically Signed: Priyank Arrington MD at 14:49 EST , Service support ,
--- NOTE | 2020-09-26 12:46 | ED.DCSUM_ITS ---
- ER Visit Summary Date of Service: 09/26/20 Chief Complaint: [Constipation and vomiting] History of Present Illness: The patient is a 64 F [notes to the emergency department with complaint of constipation. Patient states that she has been in this department 2 other times in the last 4 days for the same complaint. Patient states that today she was trying to drink some of her magnesium citrate and vomited x1. She has had some intermittent abdominal discomfort. Patient states that she is passing loose to watery stools but does not feel like she had a good bowel movement. She denies any fevers. Patient complains of generalized weakness and fatigue as well as some body aches. She denies any fever or cough. She denies Covid exposures and states that she lives alone and really does not go anywhere. Patient has history of hypertension, high cholesterol, and history of encephalopathy. Patient denies prior abdominal surgeries.] Physical Examination: [HEENT-PERRLA, EOMI. Cranial nerves II through XII grossly intact. TMs clear. Mucous membranes moist. No adenopathy. Cardiovascular-regular rate and rhythm without murmur or ectopy Lungs-clear to auscultation, chest wall stable without crepitus or subcu emphysema Abdomen-normoactive bowel sounds, soft. Patient has some mild diffuse tenderness on exam. There is no rebound, rigidity, or peritoneal signs. Extremities-intact ?4, normal range of motion, normal pulses, atraumatic] Test Results: CBC with differential obtained showing a 7.8, hemoglobin 11.9, hematocrit 34, platelet 388. Chemistries showed a sodium 133, potassium 2.5, chloride 96, CO2 26, glucose 120, BUN 22 and Gram 1.6. LFTs unremarkable. Urinalysis unremarkable. CT scan of the abdomen pelvis showed nothing acute.] Emergency Department Course and Treatment: [The line established on arrival. Patient was ordered potassium chloride 40 mEq p.o. Patient was ordered soapsuds enema. I discussed case with hospitalist who will evaluate patient for admission who also recommended obtaining a magnesium level.] Treatment Plan: [Admit] Disposition: [Admit] Impression: [Weakness Obstipation Hypokalemia Hypercalcemia Acute kidney injury] This note was generated with [employer] dictation software. It may contain incorrect words, spelling, and punctuation that were not noted in review of the chart prior to signing ED Disposition - Plan for ED Patient: Referrals: Keaton Voss MD [Primary Care Provider] -
[2020-09-26] MEDS: 0.9% Normal Saline 1,000 ML 125 ML IV (14:07)
[2020-09-26 14:16] LABS: Absolute Lymphocyte Count 1.22 X10^3/uL (0.83-4.51); Absolute Neutrophil Count 5.5 X10^3/uL (2.0-7.7); Basophil# 0.07 X10^3/uL; Basophil% 0.9 % (0-1); Eosinophil# 0.06 X10^3/uL; Eosinophils% 0.8 % (0-5); Hematocrit 34.4 % (37-47); Hemoglobin 11.9 g/dL (12.0-15.0); Lymphocyte # 1.22 X10^3/ul (4.0); Lymphocyte % 15.6 % (19-41); Mean Corp Hgb Conc 34.6 g/dL (32-36); Mean Corpuscular Hgb 30.4 pg (27.0-32.0); Mean Corpuscular Volume 87.8 fL (81-99); Mean Platelet Vol. 9.6 fl (6.2-12.0); Monocyte# 0.83 X10^3/uL; Monocyte% 10.6 % (0-10); NRBC Flagged by Analyzer 0 % (0-5); Neutrophil # 5.49 X10^3/uL (2.7-7.7); Neutrophil % 70.1 % (47-70); Platelet Count 388 K/mm3 (150-450); RBC Distribution Width CV 12.8 % (11.6-14.6); RBC Distribution Width SD 41.1 fl (35.1-43.9); Red Blood Count 3.92 M/mm3 (4.2-5.4); White Blood Count 7.8 K/mm3 (4.4-11.0)
[2020-09-26 14:37] LABS: ALB/GLOB Ratio 0.9 RATIO (0.9-2.4); AST(SGOT) 17 U/L (15-37); Alanine Aminotransfer ALT/SGPT 23 U/L (13-56); Alkaline Phosphatase 71 U/L (45-117); Anion Gap 11 (5-15); BUN 22 mg/dL (7-18); BUN/Creat Ratio 13.8 RATIO (10-20); Calcium,Total 10.4 mg/dL (8.5-10.1); Chloride 96 mmol/L (98-107); EST Glomerular Filtration Rate 35 mL/min (>60); Est Glom Filt Rate - Afr Amer 42 mL/min (>60); Estimated Creatinine Clearance 33.01 ml/min; Globulin 4.5 g/dL (2.2-4.2); Glucose 120 mg/dL (74-106); Potassium 2.5 mmol/L (3.5-5.1); Protein, Total 8.5 g/dL (6.4-8.2); Sodium Level 133 mmol/L (136-145)
[2020-09-26 14:38] LABS: Lactic Acid 0.9 mmol/L (0.4-1.9)
[2020-09-26 15:07] LABS: Mucous, Urine 0 SEEN /hpf (<or=2+); Red Blood Cells-Urine 0 SEEN /hpf (0-5); Squamous Epithelial Cells - UA 0 SEEN /hpf (5-10)
[2020-09-26 15:10] LABS: Glucose, Dipstick Normal (Normal); Ketone-Dipstick 5 mg/dl (Negative); Leukocyte Esterase-Dipstick 25 /ul (Negative); Nitrite-Dipstick Negative (Negative); Occult Blood-Urine 10 /ul (Negative); Protein-Dipstick 15 mg/dl (Negative); Specific Gravity, Urine 1.015 (1.002-1.030); Urine Bilirubin Dipstick Negative (Negative); Urine Urobilinogen Normal (Normal)
[2020-09-26 15:11] LABS: Color, Urine Yellow (Yellow); Urine Clarity Clear (Clear)
[2020-09-26 15:21] LABS: Bacteria 2+ /hpf (None Seen); White Blood Cells 0-5 SEEN /hpf (0-5)
--- NOTE | 2020-09-26 15:36 | HP.PCM_ITS ---
Problem List (1) Acute kidney injury Status: Acute (2) Depression Status: Chronic Qualifiers: Depression Type: unspecified Qualified Code(s): F32.9 - Major depressive disorder, single episode, unspecified (3) Hyperlipidemia Status: Chronic Qualifiers: Hyperlipidemia type: unspecified Qualified Code(s): E78.5 - Hyperlipidemia, unspecified (4) Hypertension Status: Chronic Qualifiers: Hypertension type: essential hypertension Qualified Code(s): I10 - Essential (primary) hypertension (5) Chronic low back pain Status: Chronic Qualifiers: Sciatica presence: unspecified whether sciatica present History of Present Illness Date of Admission: 09/26/20 Chief Complaint: Generalized weakness, diarrhea, nausea and vomiting The patient is a 64 year old F with past medical history of hypertension, hyperlipidemia who comes in for the third time to the emergency department with complaints of generalized weakness, diarrhea, nausea and vomiting. Patient was first seen in the ED on 09/23/20 with complaints of constipation. She admitted to having consumed an entire large bowel of popcorn. She felt constipated and has not been eating and drinking much. She had tried a couple of enema and also to digitally disimpact herself with no success. She was seen on 09/23/20 and given a soapsuds enema which seems to have helped. She was discharged home with mag citrate. She stated she has had nausea and vomiting she took some mag citrate. She admits to passing loose watery stools but still feels she has not had a good bowel movement. When patient was picked up by the EMS crew, her temperature was 100.3F. Rectal exam done in the emergency department showed soft stools in the rectal vault with popcorn residue. Vitals in the ED showed temperature of 98.8F, heart rate 81, blood pressure 132/61, respiratory rate 18, SPO2 is 97% on room air. Had WBC count 7.8, hemoglobin 11.9, platelet count of 388, sodium 133, potassium 2.5, chloride 96, bicarbonate 26, BUN 22, creatinine 1.60, his creatinine was around 1. Lactic acid was 0.9, calcium was 10.4, magnesium 4.2, albumin 4.2, UA was unremarkable. CT scan of the abdomen and pelvis showed no bowel obstruction. Past Medical History Past Medical History (Chronic Problems): Chronic Problems Depression (Chronic) Hyperlipidemia (Chronic) Hypertension (Chronic) Chronic low back pain (Chronic) Pain of cervical spine (Chronic) Allergies Penicillins Allergy (Verified 09/24/20 13:50) Rash Home Medications: Ambulatory Orders Medication Instructions Recorded Sertraline HCl 100 mg PO DAILY 03/28/19 Atorvastatin Calcium [Lipitor] 10 mg PO DAILY 05/26/20 Cholecalciferol (VIT D3) [Vitamin 1,000 unit PO BID 05/26/20 D3] Hydrochlorothiazide [Hctz] 25 mg PO DAILY 05/26/20 Loratadine 10 mg PO DAILY 05/26/20 Melatonin/Pyridoxine HCl (B6) 1 tab PO QHS 05/26/20 [Melatonin 1 mg Tablet] Baclofen 10 mg PO BID 09/26/20 Ibuprofen 800 mg PO TID 09/26/20 Lisinopril 30 mg PO DAILY 09/26/20 Pantoprazole Sodium [Protonix] 40 mg PO DAILY 09/26/20 Surgical History: Surgical History (Last Updated 08/30/18 @ 15:18 by Radhika Weinstein) H/O cervical spine surgery Z98.890 08/12/18 Surgical History: - - Cervical neck surgery. 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 Denies: Chills, Night Sweats, Weight Change Eyes: Denies: Blurred vision, Cataracts, Conjunctivae Inflammation, Pain, Redness, Vision Change HEENT: Denies: Difficulty Hearing, Difficulty Swallowing, Head Aches, Hearing Changes, Sinus Congestion, Sinus Drainage, Sore Throat Cardiovascular: Denies: Chest Pain, Claudication, Orthopnea, Palpitations, Paroxysmal Noc. Dyspnea Respiratory: Denies: Cough, Hemoptysis, Shortness of breath at rest, Shortness of breath upon exertion, Sputum production Gastrointestinal: Reports: Constipation, Diarrhea, Nausea, Vomiting. Denies: Abdominal Pain, Dyspepsia, Hematemesis, Hematochezia Genitourinary: Denies: Dysuria Musculoskeletal: Denies: Joint Pain, Joint stiffness, Joint swelling, Joint Tenderness Skin: Denies: Rash, Wounds Neurological: Denies: Difficulty swallowing, Focal weakness, Numbness, Tingling Psychiatric: Denies: Anxiety, Depression, Homicidal Ideations, Suicidal Ideations Hematologic/ Lymphatic: Denies: Easy Bruising, Easy Bleeding VTE Information - Inpt Only VTE Present on Admission: No VTE Pharm Prophylaxis ordered?: Yes Patient Problems: Active and Suspected Problems Acute kidney injury (Acute) - Physical Exam Vitals/I&O's: Vital Signs Temp Pulse Resp BP Pulse Ox 98.8 F 67 16 150/84 H 100 09/26/20 12:32 09/26/20 14:53 09/26/20 14:53 09/26/20 14:53 09/26/20 14:53 Oxygen Delivery Method Room Air Weight: 58.1 kg Body Mass Index (BMI) 26.7 General: Alert, Oriented x3, Cooperative, - - Appears very frail HEENT: Atraumatic, PERRLA, EOMI, Normocephalic Oral: Moist Mucosa Neck: Supple Lungs: Clear to auscultation, Normal air movement Cardiovascular: Regular rate, Regular Rhythm, Normal S1, Normal S2, No murmurs Abdomen: Bowel Sounds Present, Soft, Non-Distended, No Hepato-splenomegaly, Tender - Slight generalized tenderness, no guarding or rebound tenderness Extremities: No edema Skin: No rashes, No breakdown Musculoskeletal: No Tenderness to Palpation of Joints or Extremities Lymphatic: No Cervical, Supraclavicular, or Inguinal Adenopathy Neurological: Cranial nerves II-XII grossly intact, Neuro grossly intact Psych/Mental Status: Normal Affect, Appropriate Microbiology Past 72 Hours 09/26/20 13:00 Mucosa - Nose SARS-CoV-2 Antigen (Rapid) - Final Laboratory Results 09/26/20 14:05: WBC 7.8, RBC 3.92 L, Hgb 11.9 L, Hct 34.4 L, MCV 87.8, MCH 30.4, MCHC 34.6, RDW Std Deviation 41.1, RDW Coeff of Carlos 12.8, Plt Count 388, MPV 9.6, Immature Gran % (Auto) 2.000 H, Neut % (Auto) 70.1 H, Lymph % (Auto) 15.6 L , [place] % (Auto) 10.6 H, Eos % (Auto) 0.8, Baso % (Auto) 0.9, Absolute Neuts (auto) 5.5, Absolute Lymphs (auto) 1.22, Nucleated RBC % 0 09/26/20 14:05: Sodium 133 L, Potassium 2.5 L*, Chloride 96 L, Carbon Dioxide 26.0, Anion Gap 11, BUN 22 H, Creatinine 1.60 H, Estim Creat Clear Calc 33.01, Est GFR (MDRD) Af Amer 42 L, Est GFR (MDRD) Non-Af 35 L, BUN/Creatinine Ratio 13.8, Glucose 120 H, Calcium 10.4 H, Total Bilirubin 0.20, AST 17, ALT 23, Alkaline Phosphatase 71, Total Protein 8.5 H, Albumin 4.0, Globulin 4.5 H, Albumin/Globulin Ratio 0.9 09/26/20 14:05: Lactic Acid 0.9 09/26/20 15:00: Urine Color Yellow, Urine Clarity Clear, Urine pH 5.0, Ur Specific [place] 1.015, Urine Protein 15 H, Urine Glucose (UA) Normal, Urine Ketones 5 H, Urine Occult Blood 10 H, Urine Nitrite Negative, Urine Bilirubin Negative, Urine Urobilinogen Normal, Ur Leukocyte Esterase 25 H, Urine RBC 0 SEEN, Urine WBC 0-5 SEEN, Ur Squamous Epith Cells 0 SEEN, Urine Bacteria 2+, Uri ne Mucus 0 SEEN Current Medications Sodium Chloride () 1,000 mls @ 125 mls/hr IV .Q8H [facility] Last Admin: 09/26/20 14:07 Dose: 125 mls/hr Documented by: Assessment/Plan All Active Problems Encephalopathy (Acute) Acute kidney injury (Acute) 1. Acute nausea/vomiting/diarrhea, status post recent treatment for constipation related to large popcorn use Continue IV fluids, continue to manage symptomatically 2. Acute kidney injury, prerenal from dehydration from #1 Baseline creatinine is less than 1, admitted creatinine 1.6 Continue on IV fluids, repeat blood work in a.m. 3. Severe hypokalemia secondary to #1, admitting potassium is 2.5, replace, recheck in a.m. 4. Hypermagnesemia/hypercalcemia likely secondary to chronic mag citrate use/RUPAL Continue on IV fluids. Would repeat blood work in a.m. 5. Hypertension, slightly uncontrolled, will hold hydrochlorothiazide and lisinopril for now Continue on hydralazine as needed 6. Hyperlipidemia, continue on statin 7. Depression, continue on Zoloft 8. DVT PPx- Heparin SC Inpatient E&M: [id number] Init Hosp L3
--- NOTE | 2020-09-26 15:45 | NURSING ---
MED SURG PAINTSIL HYPOKALEMIA, RUPAL, HYPERCALCEMIA, OBSTIPATION
--- NOTE | 2020-09-26 17:55 | RAD_ITS ---
HISTORY: FEVER EXAM: XR Chest 1 View: COMPARISON: June 28, 2020 FINDINGS: # of images incl. paperwork: 1 Posterior neck cervical thoracic fixation hardware is unchanged Lungs are clear, but a right upper lobe benign calcified granuloma which is unchanged. Heart is not enlarged. No acute osseous pathology perceived. Pulmonary vascularity is distinct. No effusions. RAD/Chest 1 View (Portable) IMPRESSION: No acute cardiopulmonary disease perceived. at 0305 Reported and signed by: Savage Lewis MD Electronically Signed: Savage Lewis MD at 3:04 EST Tel , Service support ,
[2020-09-26] MEDS: 0.9% Normal Saline 1,000 ML 150 ML IV (18:16)
[2020-09-26] MEDS: Potassium Chloride 10mEq/100mL 10 MEQ/100 ML IV.SOLN. 100 MEQ IV BOLUS (18:22)
[2020-09-26] MEDS: Potassium Chloride 10mEq/100mL 10 MEQ/100 ML IV.SOLN. 80 MEQ IV BOLUS ×3 (19:57→22:38)
[2020-09-26] MEDS: Heparin Injection (Vial) 5,000 UNIT/ML VIAL 5000 UNIT SC (21:45)
[2020-09-26] MEDS: MELATONIN 3 MG TABLET PO (21:45)
[2020-09-26] MEDS: Atorvastatin Calcium 10 MG Tablet PO (21:45)
[2020-09-27] VITALS (7 sets, daily range): BP systolic 118–166; BP diastolic 46–79; PULSE 65–90; RESP 16–18; TEMP 36.7–36.9; O2SAT 96–100
[2020-09-27] MEDS: 0.9% Normal Saline 1,000 ML 150 ML IV ×4 (01:00→21:58)
[2020-09-27 01:19] LABS: Anion Gap 7 (5-15); BUN 19 mg/dL (7-18); BUN/Creat Ratio 16.4 RATIO (10-20); Calcium,Total 8.7 mg/dL (8.5-10.1); Chloride 107 mmol/L (98-107); Creatinine, Serum 1.16 mg/dL (0.55-1.02); EST Glomerular Filtration Rate 50 mL/min (>60); Est Glom Filt Rate - Afr Amer 61 mL/min (>60); Estimated Creatinine Clearance 42.83 ml/min; Glucose 100 mg/dL (74-106); Potassium 3.4 mmol/L (3.5-5.1); Sodium Level 139 mmol/L (136-145)
--- NOTE | 2020-09-27 07:10 | PCS.PANDOC ---
PANDEMIC DOCUMENTATION INITIATED: Date: 07/29/2020 Time:
[2020-09-27 07:14] LABS: Absolute Lymphocyte Count 1.48 X10^3/uL (0.83-4.51); Absolute Neutrophil Count 3.2 X10^3/uL (2.0-7.7); Basophil# 0.05 X10^3/uL; Basophil% 0.9 % (0-1); Eosinophil# 0.14 X10^3/uL; Eosinophils% 2.6 % (0-5); Hematocrit 27.5 % (37-47); Hemoglobin 9.2 g/dL (12.0-15.0); Lymphocyte # 1.48 X10^3/ul (4.0); Lymphocyte % 27.1 % (19-41); Mean Corp Hgb Conc 33.5 g/dL (32-36); Mean Corpuscular Hgb 30.3 pg (27.0-32.0); Mean Corpuscular Volume 90.5 fL (81-99); Mean Platelet Vol. 10.1 fl (6.2-12.0); Monocyte# 0.48 X10^3/uL; Monocyte% 8.8 % (0-10); NRBC Flagged by Analyzer 0 % (0-5); Neutrophil # 3.18 X10^3/uL (2.7-7.7); Platelet Count 221 K/mm3 (150-450); RBC Distribution Width CV 13.2 % (11.6-14.6); RBC Distribution Width SD 43.9 fl (35.1-43.9); Red Blood Count 3.04 M/mm3 (4.2-5.4); White Blood Count 5.5 K/mm3 (4.4-11.0)
--- NOTE | 2020-09-27 07:55 | PN_ITS ---
Patient Problems: Active and Suspected Problems Acute kidney injury (Acute) Reason for Visit: Follow-up on acute kidney injury/gastroenteritis/constipation Subjective: Patient was seen and examined. She is feeling a bit better. She had one moderate bowel movement. Denies any dizziness, palpitations or chest pain. She complains of flareup of her hemorrhoids. Objective: Physical exam: General: Alert, Oriented x3, Cooperative, - - Appears very frail HEENT: Atraumatic, PERRLA, EOMI, Normocephalic Oral: Moist Mucosa Neck: Supple Lungs: Clear to auscultation, Normal air movement Cardiovascular: Regular rate, Regular Rhythm, Normal S1, Normal S2, No murmurs Abdomen: Bowel Sounds Present, Soft, Non-Distended, No Hepato-splenomegaly, Tender - Slight generalized tenderness, no guarding or rebound tenderness Extremities: No edema Skin: No rashes, No breakdown Musculoskeletal: No Tenderness to Palpation of Joints or Extremities Lymphatic: No Cervical, Supraclavicular, or Inguinal Adenopathy Neurological: Cranial nerves II-XII grossly intact, Neuro grossly intact Psych/Mental Status: Normal Affect, Appropriate Vitals/I&O's: Vital Signs Temp Pulse Resp BP Pulse Ox 98.4 F 77 16 118/46 L 97 09/27/20 04:24 09/27/20 05:23 09/27/20 04:24 09/27/20 04:24 09/27/20 04:24 Oxygen Delivery Method Room Air Weight: 54.658 kg Body Mass Index (BMI) 25.2 Intake and Output for Last 24 Hours 09/25/20 09/26/20 09/27/20 23:59 23:59 23:59 Intake Total 970.42 / 1170.42 2800 / 2800 Balance 970.42 / 1170.42 2800 / 2800 Microbiology Past 72 Hours 09/26/20 13:00 Mucosa - Nose SARS-CoV-2 Antigen (Rapid) - Final Laboratory Results 09/26/20 14:05: WBC 7.8, RBC 3.92 L, Hgb 11.9 L, Hct 34.4 L, MCV 87.8, MCH 30.4, MCHC 34.6, RDW Std Deviation 41.1, RDW Coeff of Carlos 12.8, Plt Count 388, MPV 9.6, Immature Gran % (Auto) 2.000 H, Neut % (Auto) 70.1 H, Lymph % (Auto) 15.6 L , [place] % (Auto) 10.6 H, Eos % (Auto) 0.8, Baso % (Auto) 0.9, Absolute Neuts (auto) 5.5, Absolute Lymphs (auto) 1.22, Nucleated RBC % 0 09/26/20 14:05: Sodium 133 L, Potassium 2.5 L*, Chloride 96 L, Carbon Dioxide 26.0, Anion Gap 11, BUN 22 H, Creatinine 1.60 H, Estim Creat Clear Calc 33.01, Est GFR (MDRD) Af Amer 42 L, Est GFR (MDRD) Non-Af 35 L, BUN/Creatinine Ratio 13.8, Glucose 120 H, Calcium 10.4 H, Total Bilirubin 0.20, AST 17, ALT 23, Alkaline Phosphatase 71, Total Protein 8.5 H, Albumin 4.0, Globulin 4.5 H, Albumin/Globulin Ratio 0.9 09/26/20 14:05: Lactic Acid 0.9 09/26/20 14:05: Magnesium 4.0 H 09/26/20 15:00: Urine Color Yellow, Urine Clarity Clear, Urine pH 5.0, Ur Specific [place] 1.015, Urine Protein 15 H, Urine Glucose (UA) Normal, Urine Ketones 5 H, Urine Occult Blood 10 H, Urine Nitrite Negative, Urine Bilirubin Negative, Urine Urobilinogen Normal, Ur Leukocyte Esterase 25 H, Urine RBC 0 SEEN, Urine WBC 0-5 SEEN, Ur Squamous Epith Cells 0 SEEN, Urine Bacteria 2+, Urine Mucus 0 SEEN 09/27/20 00:46: Sodium 139, Potassium 3.4 L, Chloride 107, Carbon Dioxide 25.0, Anion Gap 7, BUN 19 H, Creatinine 1.16 H, Estim Creat Clear Calc 42.83, Est GFR (MDRD) Af Amer 61, Est GFR (MDRD) Non-Af 50 L, BUN/Creatinine Ratio 16.4, Glucose 100, Calcium 8.7 09/27/20 07:02: WBC 5.5, RBC 3.04 L, Hgb 9.2 L, Hct 27.5 L, MCV 90.5, MCH 30.3, MCHC 33.5, RDW Std Deviation 43.9, RDW Coeff of Carlos 13.2, Plt Count 221, MPV 10.1, Immature Gran % (Auto) 2.600 H, Neut % (Auto) 58.0, Lymph % (Auto) 27.1, [place] % (Auto) 8.8, Eos % (Auto) 2.6, Baso % (Auto) 0.9, Absolute Neuts (auto) 3.2, Absolute Lymphs (auto) 1.48, Nucleated RBC % 0 09/27/20 07:02: Sodium Pending, Potassium Pending, Chloride Pending, Carbon Dioxide Pending, Anion Gap Pending, BUN Pending, Creatinine Pending, Est GFR (MDRD) Af Amer Pending, Est GFR (MDRD) Non-Af Pending, BUN/Creatinine Ratio Pending, Glucose Pending, Calcium Pending, Total Bilirubin Pending, AST Pending, ALT Pending, Alkaline Phosphatase Pending, Total Protein Pending, Albumin Pending Current Medications Acetaminophen (Acetaminophen 325 Mg Tablet) 650 mg PO Q6H PRN PRN PRN Reason: Pain Score 1-10/Temp > 100.7 F Albuterol Sulfate (Albuterol 2.5 Mg/3 Ml Vial.Neb.) 2.5 mg INHALATION Q2H PRN PRN PRN Reason: Shortness of Breath/Wheezing Atorvastatin Calcium (Atorvastatin Calcium 10 Mg Tablet) 10 mg PO QHS [facility] Last Admin: 09/26/20 21:45 Dose: 10 mg Documented by: Heparin Sodium (Porcine) (Heparin Injection (Vial) 5,000 Unit/Ml Vial) 5,000 unit SC Q12 [facility] Last Admin: 09/26/20 21:45 Dose: 5,000 unit Documented by: Hydralazine HCl (Hydralazine 20 Mg/Ml Vial) 5 mg IV Q4H PRN PRN PRN Reason: BLOOD PRESSURE Sodium Chloride () 1,000 mls @ 150 mls/hr IV .Q6H40M [facility] Last Admin: 09/27/20 07:48 Dose: 150 mls/hr Documented by: Pantoprazole Sodium 40 mg/ (Sodium Chloride) 110 mls @ 330 mls/hr IV Q24 [facility] Last Infusion: 09/26/20 20:38 Dose: Infused Documented by: Melatonin (Melatonin 3 Mg Tablet) 3 mg PO QHS [facility] Last Admin: 09/26/20 21:45 Dose: 3 mg Documented by: Ondansetron HCl (Ondansetron 4 Mg/2 Ml Vial) 4 mg IV Q8H PRN PRN PRN Reason: NAUSEA/VOMITING Sertraline HCl (Sertraline 100 Mg Tablet) 100 mg PO DAILY [facility] Sodium Chloride (0.9% Saline Lock 10 Ml Syringe) 10 - 40 ml IV UD PRN PRN Reason: SALINE FLUSH STROKE Vital Signs/Narrative: Vital Signs Temp Pulse Resp BP Pulse Ox 09/27/20 05:23 77 09/27/20 04:24 98.4 F 81 16 118/46 L 97 Medical Necessity - Tobacco Use Smoking Status: Former smoker Tobacco Use: Non-smoker Assessment/Plan All Active Problems Encephalopathy (Acute) Acute kidney injury (Acute) 1. Acute nausea/vomiting/diarrhea, status post recent treatment for constipation related to large popcorn use, improved Continue IV fluids, continue to manage symptomatically 2. Acute kidney injury, prerenal from dehydration from #1, improved Creatinine is less than 1 Baseline creatinine is less than 1, admitted with creatinine 1.6 Continue on IV fluids, repeat blood work in a.m. 3. Severe hypokalemia secondary to #1, resolved Admitting potassium is 2.5, recheck in a.m. 4. Hypermagnesemia/hypercalcemia likely secondary to chronic mag citrate use/RUPAL, resolved Continue on IV fluids. Repeat blood work in a.m. 5. Hypertension, controlled Continue to hold hydrochlorothiazide and lisinopril for now Continue on hydralazine as needed 6. Hemorrhoids, continue on prn anusol 7. Hyperlipidemia, continue on statin 8. Depression, continue on Zoloft 9. DVT PPx- Heparin SC Inpatient E&M: [id number] [facility] Hosp L3
[2020-09-27 08:07] LABS: ALB/GLOB Ratio 0.8 RATIO (0.9-2.4); AST(SGOT) 24 U/L (15-37); Alanine Aminotransfer ALT/SGPT 17 U/L (13-56); Albumin, Serum 2.9 g/dL (3.2-5.0); Alkaline Phosphatase 55 U/L (45-117); Anion Gap 9 (5-15); BUN 16 mg/dL (7-18); BUN/Creat Ratio 17.2 RATIO (10-20); Calcium,Total 8.8 mg/dL (8.5-10.1); Chloride 107 mmol/L (98-107); Creatinine, Serum 0.93 mg/dL (0.55-1.02); EST Glomerular Filtration Rate 65 mL/min (>60); Est Glom Filt Rate - Afr Amer 78 mL/min (>60); Estimated Creatinine Clearance 53.43 ml/min; Globulin 3.7 g/dL (2.2-4.2); Glucose 105 mg/dL (74-106); Potassium 4.7 mmol/L (3.5-5.1); Protein, Total 6.6 g/dL (6.4-8.2); Sodium Level 136 mmol/L (136-145)
[2020-09-27] MEDS: Sertraline 100 MG Tablet PO (10:00)
[2020-09-27] MEDS: Acetaminophen 325 MG Tablet 650 MG PO ×2 (10:01→17:46)
[2020-09-27] MEDS: Heparin Injection (Vial) 5,000 UNIT/ML VIAL 5000 UNIT SC ×2 (10:01→22:43)
[2020-09-27] MEDS: Menthol/Lanolin/Calamine/Znox 113 GM Tube 1 APPLIC TOPICAL ×4 (10:02→22:42)
[2020-09-27] MEDS: Hydrocortisone 25 MG Suppository RECTAL ×3 (10:02→23:07)
--- NOTE | 2020-09-27 10:30 | CASEMGMT ---
JAMI GREER Face to Face with patient for initial transition planning/care coordination assessment. RN EPRCY introduced self and role at [facility]. Patient lying in bed, alert and oriented. Patient willing to participate in assessment and is able to answer all questions appropriately. Care providers, pharmacy, and demographics verified. Patient wishes to discharge home, denies need for home health at this time, but is interested in possible aides. RN PERCY updated ALESIA Wood regarding referral for [facility]. Patient states she has no further needs or concerns at this time. CM to follow for discharge planning needs that may arise. PCP: [facility] Specialists: none Preferred Pharmacy: [facility] Insurance: [employer] Prescription Benefit: yes Living Will/HPOA: none LNOK: sister Living Arrangements: Patient lives alone in a first floor apartment with no steps to enter. Patient states she is independent. Transportation: [employer], sister, or friend DME/HHC: Patient states she has hand held shower and grab bars. Patient has previously been to [facility]. Disposition Plan: Patient to discharge home with family support and follow-up plans in place. Dede LEWIS, RN, CM
--- NOTE | 2020-09-27 13:19 | CASEMGMT ---
Social Work Note SW received referral for [facility] information. SW in to speak with pt. SW introduced self and role at [facility]. Pt is alert and orientated. Pt has guest present in room, pt gave this worker permission to speak to her in front of her guest. SW provided [facility] brochure to pt, SW educated pt on programs. Pt agreeable to having a referral made to [facility]. Pt denied additional needs or concerns at this time. SW faxed referral to [facility]. Dede Wood STAFF ANESTHETIST, CRIPPLE WORKER
[2020-09-27] MEDS: Atorvastatin Calcium 10 MG Tablet PO (22:43)
[2020-09-27] MEDS: MELATONIN 3 MG TABLET PO (22:43)
[2020-09-28 03:32] VITALS: BP 167/70; PULSE 61; RESP 18; TEMP 36.8; O2SAT 99
[2020-09-28 03:42] VITALS: BP 167/70; PULSE 61
[2020-09-28] MEDS: hydrALAZINE 20 MG/ML Vial 5 MG IV (03:42)
[2020-09-28] MEDS: 0.9% Normal Saline 1,000 ML 150 ML IV (03:47)
[2020-09-28] MEDS: Hydrocortisone 25 MG Suppository RECTAL (03:51)
[2020-09-28] MEDS: Lisinopril 20 MG Tablet 30 MG PO (08:06)
[2020-09-28 08:27] LABS: Absolute Lymphocyte Count 1.48 X10^3/uL (0.83-4.51); Absolute Neutrophil Count 3.1 X10^3/uL (2.0-7.7); Basophil# 0.07 X10^3/uL; Basophil% 1.3 % (0-1); Eosinophil# 0.11 X10^3/uL; Eosinophils% 2.1 % (0-5); Hemoglobin 10.1 g/dL (12.0-15.0); Lymphocyte # 1.48 X10^3/ul (4.0); Lymphocyte % 27.9 % (19-41); Mean Corp Hgb Conc 32.6 g/dL (32-36); Mean Corpuscular Hgb 29.6 pg (27.0-32.0); Mean Corpuscular Volume 90.9 fL (81-99); Mean Platelet Vol. 9.4 fl (6.2-12.0); Monocyte# 0.33 X10^3/uL; Monocyte% 6.2 % (0-10); NRBC Flagged by Analyzer 0 % (0-5); Neutrophil # 3.14 X10^3/uL (2.7-7.7); Neutrophil % 59.3 % (47-70); Platelet Count 379 K/mm3 (150-450); RBC Distribution Width CV 13.1 % (11.6-14.6); RBC Distribution Width SD 43.6 fl (35.1-43.9); Red Blood Count 3.41 M/mm3 (4.2-5.4); White Blood Count 5.3 K/mm3 (4.4-11.0)
--- NOTE | 2020-09-28 08:37 | RAD_ITS ---
STUDY: X-RAY - ABDOMEN/PELVIS REASON FOR EXAM: Female, 64 years old. constipation, abd pain TECHNIQUE: Single AP view of the abdomen / pelvis. COMPARISON: 09/24/2020 FINDINGS: Normal visualized lung bases. There is an unremarkable bowel gas pattern. The visualized liver, spleen and kidneys are grossly normal in size and morphology. Normal soft tissue structures. Normal visualized osseous structures. RAD/Abdomen Single View IMPRESSION: Normal x-ray examination of the abdomen and pelvis. Electronically Signed: Albert Ordonez MD at 9:36 EST Tel , Service support ,
[2020-09-28 08:57] LABS: ALB/GLOB Ratio 0.9 RATIO (0.9-2.4); AST(SGOT) 12 U/L (15-37); Alanine Aminotransfer ALT/SGPT 20 U/L (13-56); Alkaline Phosphatase 54 U/L (45-117); Anion Gap 7 (5-15); BUN 9 mg/dL (7-18); Calcium,Total 9.1 mg/dL (8.5-10.1); Chloride 110 mmol/L (98-107); Creatinine, Serum 0.64 mg/dL (0.55-1.02); EST Glomerular Filtration Rate 99 mL/min (>60); Est Glom Filt Rate - Afr Amer 119 mL/min (>60); Estimated Creatinine Clearance 77.63 ml/min; Globulin 3.5 g/dL (2.2-4.2); Glucose 110 mg/dL (74-106); Potassium 3.2 mmol/L (3.5-5.1); Protein, Total 6.5 g/dL (6.4-8.2); Sodium Level 142 mmol/L (136-145)
[2020-09-28 09:30] VITALS: BP 162/69; PULSE 67; RESP 16; TEMP 36.7; O2SAT 100
--- NOTE | 2020-09-28 09:52 | PCM.DC ---
- Discharge Diagnoses Current Active Problems: Current Active and Chronic Problems Acute kidney injury (Acute) Depression (Chronic) Hyperlipidemia (Chronic) Hypertension (Chronic) Chronic low back pain (Chronic) Reason(s) for Visit for Discharge Instructions: Nausea, vomiting, diarrhea, constipation You will use the following diet at home:: Cardiac Your food should be the consistency of: Regular Your liquids should be the consistency of: Regular/Thin Discharge Activity: Return to Normal Activity Additional Instructions: Continue to keep yourself hydrated. Continue to use your stool softeners as previous. You have also been prescribed MiraLAX to use as needed for constipation. Take note of some changes in your medications. You should follow-up with your primary care doctor within 1 week. Take your blood pressure every day and show a log of her blood pressure at your primary care doctor. Allergies/Adverse Reactions: Allergies Penicillins Allergy (Verified 09/24/20 13:50) Rash Medications to take at Discharge Sertraline HCl 100 mg PO DAILY 03/28/19 Atorvastatin Calcium [Lipitor] 10 mg PO DAILY 05/26/20 Cholecalciferol (VIT D3) [Vitamin D3] 1,000 unit PO BID 05/26/20 Loratadine 10 mg PO DAILY 05/26/20 Melatonin/Pyridoxine HCl (B6) [Melatonin 1 mg Tablet] 1 tab PO QHS 05/26/20 Baclofen 10 mg PO BID 09/26/20 Ibuprofen 800 mg PO TID 09/26/20 Lisinopril 30 mg PO DAILY 09/26/20 Pantoprazole Sodium [Protonix] 40 mg PO DAILY 09/26/20 Polyethylene Glycol 3350 [Miralax] 17 gm PO DAILY PRN 30 Days #30 packet 09/28/20 Primary Care Physician: Keaton Voss MD [Primary Care Provider] - Please follow up with your Primary Care Physician in: within 1-2 weeks Test Results: Test results from this visit will be discussed in further detail at your follow-up appointment, if applicable. Proposed Discharge Date: 09/28/20
--- NOTE | 2020-09-28 09:54 | DS.PCM_ITS ---
Discharge Date and Diagnosis - Problem List Patient Problems: Active and Suspected Problems Acute kidney injury (Acute) Date of Admission: 09/26/20 Date of Discharge: 09/28/20 - Primary Discharge Diagnosis Acute Problems: Active Problems Acute kidney injury (Acute) Hypokalemia Hypermagnesemia Acute kidney injury, pre-renal - Secondary Discharge Diagnosis Chronic Problems: Chronic Problems Depression (Chronic) Hyperlipidemia (Chronic) Hypertension (Chronic) Chronic low back pain (Chronic) Pain of cervical spine (Chronic) Hospital Course and Treatment Imaging Results: Clinical Impression(s) from Imaging Studies Abdomen CT 09/26/20 12:45 IMPRESSION: No acute abnormality is seen. Electronically Signed: Priyank Arrington MD at 14:49 EST , Service support , Chest X-Ray 09/26/20 17:55 IMPRESSION: No acute cardiopulmonary disease perceived. at 0305 Reported and signed by: Savage Lewis MD Electronically Signed: Savage Lewis MD at 3:04 EST Tel , Service support , KUB X-Ray 09/28/20 08:37 IMPRESSION: Normal x-ray examination of the abdomen and pelvis. Electronically Signed: Albert Ordonez MD at 9:36 EST Tel , Service support , Operations: None Procedures: None Summary of Care Provided: The patient is a 64 year old F with past medical history of hypertension, hyperlipidemia who comes in for the third time to the emergency department with complaints of generalized weakness, diarrhea, nausea and vomiting. Patient was first seen in the ED on 09/23/20 with complaints of constipation. She admitted to having consumed an entire large bowel of popcorn. She felt constipated and has not been eating and drinking much. She had tried a couple of enema and also to digitally disimpact herself with no success. She was seen on 09/23/20 and given a soapsuds enema which seems to have helped. She was discharged home with mag citrate. She stated she has had nausea and vomiting she took some mag citrate. She admits to passing loose watery stools but still feels she has not had a good bowel movement. She was admitted to the [facility] floor, started on IVF, electrolytes were replaced. Patient continued to feel improved. She had irritation of her hemorrhoids for which suppository and Calmoseptine were prescribed. Patient had complained of sensation of incomplete bowel emptying. KUB showed no evidence of constipation. She was discharged to follow-up with her primary care doctor within a week for repeat blood work. Patient Problems: Active and Suspected Problems Acute kidney injury (Acute) Subjective: On the day of discharge, patient was seen and examined. She felt improved. Denies chest pain, dizziness, palpitations. Objective: Physical exam: General: Alert, Oriented x3, Cooperative, - -Appears very frail HEENT: Atraumatic, PERRLA, EOMI, Normocephalic Oral: Moist Mucosa Neck: Supple Lungs: Clear to auscultation, Normal air movement Cardiovascular: Regular rate, Regular Rhythm, Normal S1, Normal S2, No murmurs Abdomen: Bowel Sounds Present, Soft, Non-Distended, No Hepato-splenomegaly, Tender - Slight generalized tenderness, no guarding or rebound tenderness Extremities: No edema Skin: No rashes, No breakdown Musculoskeletal: No Tenderness to Palpation of Joints or Extremities Lymphatic: No Cervical, Supraclavicular, or Inguinal Adenopathy Neurological: Cranial nerves II-XII grossly intact, Neuro grossly intact Psych/Mental Status: Normal Affect, Appropriate - Physical Exam Vitals/I&O's: Vital Signs Temp Pulse Resp BP Pulse Ox 98.3 F 61 18 167/70 H 99 09/28/20 03:32 09/28/20 03:42 09/28/20 03:32 09/28/20 03:42 09/28/20 03:32 Oxygen Delivery Method Room Air Weight: 54.658 kg Body Mass Index (BMI) 25.2 Intake and Output for Last 24 Hours 09/26/20 09/27/20 09/28/20 23:59 23:59 23:59 Intake Total 970.42 / 1170.42 4840.0 / 4840.0 872.5 / 872.5 Balance 970.42 / 1170.42 4840.0 / 4840.0 872.5 / 872.5 Microbiology Past 72 Hours 09/26/20 13:00 Mucosa - Nose SARS-CoV-2 Antigen (Rapid) - Final Laboratory Results 09/28/20 08:13: WBC 5.3, RBC 3.41 L, Hgb 10.1 L, Hct 31.0 L, MCV 90.9, MCH 29.6, MCHC 32.6, RDW Std Deviation 43.6, RDW Coeff of Carlos 13.1, Plt Count 379, MPV 9.4, Immature Gran % (Auto) 3.200 H, Neut % (Auto) 59.3, Lymph % (Auto) 27.9, [place] % (Auto) 6.2, Eos % (Auto) 2.1, Baso % (Auto) 1.3 H, Absolute Neuts (auto) 3.1, Absolute Lymphs (auto) 1.48, Nucleated RBC % 0 09/28/20 08:13: Sodium 142, Potassium 3.2 L, Chloride 110 H, Carbon Dioxide 25.0 , Anion Gap 7, BUN 9, Creatinine 0.64, Estim Creat Clear Calc 77.63, Est GFR (MDRD) Af Amer 119, Est GFR (MDRD) Non-Af 99, BUN/Creatinine Ratio 14.0, Glucose 110 H, Calcium 9.1, Total Bilirubin 0.10 L, AST 12 L, ALT 20, Alkaline Phosphatase 54, Total Protein 6.5, Albumin 3.0 L, Globulin 3.5, Albumin/Globulin Ratio 0.9 Current Medications Acetaminophen (Acetaminophen 325 Mg Tablet) 650 mg PO Q6H PRN PRN PRN Reason: Pain Score 1-10/Temp > 100.7 F Last Admin: 09/27/20 17:46 Dose: 650 mg Documented by: Albuterol Sulfate (Albuterol 2.5 Mg/3 Ml Vial.Neb.) 2.5 mg INHALATION Q2H PRN PRN PRN Reason: Shortness of Breath/Wheezing Atorvastatin Calcium (Atorvastatin Calcium 10 Mg Tablet) 10 mg PO QHS DOMINIC Last Admin: 09/27/20 22:43 Dose: 10 mg Documented by: Calamine/Phenol (Menthol/Lanolin/Calamine/Znox 113 Gm Tube) 1 applic TOPICAL 4X/DAY [facility]; Protocol Last Admin: 09/27/20 22:42 Dose: 1 applicatio Documented by: Heparin Sodium (Porcine) (Heparin Injection (Vial) 5,000 Unit/Ml Vial) 5,000 unit SC Q12 [facility] Last Admin: 09/27/20 22:43 Dose: 5,000 unit Documented by: Hydralazine HCl (Hydralazine 20 Mg/Ml Vial) 5 mg IV Q4H PRN PRN PRN Reason: BLOOD PRESSURE Last Admin: 09/28/20 03:42 Dose: 5 mg Documented by: Hydrocortisone Acetate (Hydrocortisone 25 Mg Suppository) 25 mg RECTAL TID PRN PRN PRN Reason: rectal pain Last Admin: 09/28/20 03:51 Dose: 25 mg Documented by: Sodium Chloride () 1,000 mls @ 150 mls/hr IV .Q6H40M [facility] Last Admin: 09/28/20 03:47 Dose: 150 mls/hr Documented by: Pantoprazole Sodium 40 mg/ (Sodium Chloride) 110 mls @ 330 mls/hr IV Q24 [facility] Last Infusion: 09/27/20 10:30 Dose: Infused Documented by: Lisinopril (Lisinopril 20 Mg Tablet) 30 mg PO DAILY [facility] Last Admin: 09/28/20 08:06 Dose: 30 mg Documented by: Melatonin (Melatonin 3 Mg Tablet) 3 mg PO QHS [facility] Last Admin: 09/27/20 22:43 Dose: 3 mg Documented by: Ondansetron HCl (Ondansetron 4 Mg/2 Ml Vial) 4 mg IV Q8H PRN PRN PRN Reason: NAUSEA/VOMITING Sertraline HCl (Sertraline 100 Mg Tablet) 100 mg PO DAILY [facility] Last Admin: 09/27/20 10:00 Dose: 100 mg Documented by: Sodium Chloride (0.9% Saline Lock 10 Ml Syringe) 10 - 40 ml IV UD PRN PRN Reason: SALINE FLUSH Discharge Diet: Low fat/ Low Cholesterol, 2000 mg Sodium Diet Discharge Activity: Return to Normal Activity Home Medications: Medications to take at Discharge Sertraline HCl 100 mg PO DAILY 03/28/19 Atorvastatin Calcium [Lipitor] 10 mg PO DAILY 05/26/20 Cholecalciferol (VIT D3) [Vitamin D3] 1,000 unit PO BID 10/04/20 Loratadine 10 mg PO DAILY 05/26/20 Melatonin/Pyridoxine HCl (B6) [Melatonin 1 mg Tablet] 1 tab PO QHS 05/26/20 Baclofen 10 mg PO BID 09/26/20 Ibuprofen 800 mg PO TID 09/26/20 Lisinopril 30 mg PO DAILY 09/26/20 Pantoprazole Sodium [Protonix] 40 mg PO DAILY 09/26/20 Polyethylene Glycol 3350 [Miralax] 17 gm PO DAILY PRN 30 Days #30 packet 09/28/20 Following Prescriptions Were Given to Patient: Polyethylene Glycol 3350 [Miralax] 17 gm PO DAILY PRN 30 Days #30 packet PRN Reason: Constipation Transmission Status: Received by [facility] Primary Care Physician: Keaton Voss MD [Primary Care Provider] - Please follow up with your Primary Care Physician in: within 1-2 weeks Disposition: Home Minutes spent on discharge:: 40 Patient Condition:: Stable Medical Necessity - Tobacco Use Smoking Status: Former smoker Tobacco Use: Non-smoker Meaningful Use Info Meaningful Use Diagnoses (Choose all that apply): None applicable Inpatient E&M: 74915 Disch Hosp
[2020-09-28] MEDS: Sertraline 100 MG Tablet PO (10:24)
[2020-09-28] MEDS: Menthol/Lanolin/Calamine/Znox 113 GM Tube 1 APPLIC TOPICAL (10:30)
[2020-09-28] MEDS: Heparin Injection (Vial) 5,000 UNIT/ML VIAL 5000 UNIT SC (10:30)
[2020-09-28] MEDS: Acetaminophen 325 MG Tablet 650 MG PO (10:30)
[2020-09-28 12:39] VITALS: BP 162/69; PULSE 67; RESP 16; TEMP 36.7; O2SAT 100
== END 2020-09-28 12:28 | disposition home or self-care (01) | DRG 469 ==
LOC: ED 13:21 → MS3 16:10
PROVIDERS: Admitting Provider Internal Medicine; Emergency Provider Emergency Medicine; PCP Family Medicine; Visit Provider Internal Medicine
DX: N17.9 Acute kidney failure, unspecified (principal); E86.0 Dehydration; K52.9 Noninfective gastroenteritis and colitis, unspecified; K59.00 Constipation, unspecified; E87.6 Hypokalemia; E83.41 Hypermagnesemia; I10 Essential (primary) hypertension; E78.5 Hyperlipidemia, unspecified; M54.5 Low back pain; G89.29 Other chronic pain; F32.9 Major depressive disorder, single episode, unspecified; E83.52 Hypercalcemia; K64.9 Unspecified hemorrhoids; F41.9 Anxiety disorder, unspecified; Z79.899 Other long term (current) drug therapy; Z87.891 Personal history of nicotine dependence
CPT/HCPCS: 36415; 71045; 74018; 74176; 80048; 80053; 81001; 83605; 83735; 85025; 87426; 96361; 96365; 96366; 96367; 96372; 97802; 99218; 99282; 99284; 99285; J7030; P9612; A4216; G0378

== ENCOUNTER 2021-05-12 22:07 | Emergency (ER) | payer MEDICAID, SELFPAY ==
[2021-05-12 22:09] VITALS: BP 191/79; PULSE 81; RESP 18; TEMP 37; O2SAT 98; BMI 29.5
[2021-05-12 23:52] LABS: Bacteria 0 SEEN /hpf (None Seen); Mucous, Urine 0 SEEN /hpf (<or=2+); Red Blood Cells-Urine 0 SEEN /hpf (0-5); White Blood Cells 0 SEEN /hpf (0-5)
--- NOTE | 2021-05-13 00:01 | ED.VIS.FEGU ---
HPI HPI - Female History of Present Illness Chief Complaint: Complaint Informant: patient Narrative Narrative: Patient presents with suprapubic and left lower quadrant discomfort and dysuria. It sounds like she has been having the dysuria for at least a month. She saw her physician's office approximately 2 weeks ago. She was given an unknown antibiotic. Urine was checked but she does not recall the results. Symptoms seem to get better but then came back a couple days after the antibiotics. She was seen again Wednesday just a few days ago. Urinalysis was questionable for UTI. She was started on an antibiotic but she was told to stop it today because the culture was negative. Patient states she still has some dysuria. She also has some discomfort. She has back pain but this is a chronic issue. She has had back surgery and she is on baclofen. This is not any different or new. Nothing makes her urinary symptoms better or worse. No prior abdominal surgeries. [facility] Medical History Depression Home Medications sertraline 100 mg PO DAILY 03/28/19 [History Last Taken 09/25/20] atorvastatin 10 mg PO DAILY 05/26/20 [History Last Taken 09/25/20] cholecalciferol (vitamin D3) 1,000 unit PO BID 05/26/20 [History Last Taken 09/25/20] loratadine 10 mg PO DAILY 05/26/20 [History Last Taken 09/23/20] melatonin-pyridoxine HCl (B6) 1 tab PO QHS 05/26/20 [History Last Taken 09/25/20] baclofen 10 mg PO BID 09/26/20 [History Last Taken 09/25/20] ibuprofen 800 mg PO TID 09/26/20 [History Last Taken 09/26/20] lisinopril 30 mg PO DAILY 09/26/20 [History Last Taken 09/26/20] pantoprazole 40 mg PO DAILY 09/26/20 [History Last Taken 09/25/20] phenazopyridine [Pyridium] 100 mg PO TID PRN #6 tab 05/13/21 [Rx Last Taken Unknown] Allergy/AdvReac Type Severity Reaction Status Date / Time Penicillins Allergy Rash Verified 05/12/21 23:48 Surgical History H/O cervical spine surgery Social History Smoking Status: Former smoker ROS ROS ED Constitutional Constitutional ED: Denies chills or fever(s) Eyes Eyes: Denies blurry vision ENT ENT ED: Denies rhinorrhea Cardiovascular Cardiovascular: Denies palpitations Respiratory/Chest Respiratory/Chest: Denies cough or dyspnea Gastrointestinal Gastrointestinal: Reports abdominal pain and other Details: Patient is eating and drinking well. ; Denies constipation, diarrhea, melena, nausea or vomiting Genitourinary Genitourinary ED: Reports dysuria; Denies hematuria Musculoskeletal Musculoskeletal: Reports neck pain and other Details: Chronic neck and back pains. Integumentary Denies rash Neurologic Neurologic: Denies paresthesias or weakness Endocrine Endocrinology: Denies polydipsia Hematologic/Lymphatic Hematologic/Lymphatic: Denies easy bleeding or easy bruising Allergic/Immunologic Allergic/Immunologic ED: Denies urticaria EXAM Physical Exam Const Vital Signs: 05/12/21 22:09 05/13/21 02:44 Temperature 98.6 F 96.8 F L Temperature Source Temporal Temporal Pulse Rate 81 59 L Respiratory Rate 18 16 Blood Pressure 191/79 H 154/73 H Blood Pressure Mean 116 100 Pulse Ox 98 97 Oxygen Delivery Method Room Air Room Air Positive well nourished and well developed General Appearance ED: well developed and NAD HEENT Reports moist mucous membranes Negative for trauma or tenderness Eyes General Eye ED: Negative for scleral icterus Resp normal respiratory effort and clear to auscultation bilaterally Cardio regular rate and regular rhythm GI normal to inspection, nondistended, normoactive bowel sounds and soft to palpation GI Narrative: Bowel sounds are normal and abdomen is not distended. However there is some mild tenderness in the suprapubic and left lower quadrant region. No guarding or rebound. No mass felt. no CVA tenderness Extremity normal to inspection Neuro oriented x3 Sensorium / Orientation: alert Psych mental status grossly normal Skin no rashes or lesions noted MDM MDM MDM Narrative Medical decision making narrative: There is no white count. There is some mild anemia. Electrolytes show some mildly low sodium but no other acute process. We did give her some IV fluids here. Urine does not show sign of infection. CT showed some mild colitis versus malabsorption. Patient denies any diarrhea or bowel symptoms. I think we get this patient home. She will follow up with her primary physician in a couple days to recheck her sodium. I will get her on some Pyridium to help symptoms. She has an appointment with the urologist she thinks on 26 May. Lab Data Attestation: I reviewed the patient's lab results. Labs: Laboratory Results - last 24 hr 05/12/21 05/13/21 05/13/21 23:35 00:15 00:15 WBC 4.5 RBC 3.59 L Hgb 10.6 L Hct 30.8 L MCV 85.8 MCH 29.5 MCHC 34.4 RDW Std Deviation 38.5 RDW Coeff of Carlos 12.3 Plt Count 258 MPV 10.0 Immature Gran % (Auto) 0.200 Neut % (Auto) 44.5 L Lymph % (Auto) 40.8 [place] % (Auto) 7.6 Eos % (Auto) 5.1 H Baso % (Auto) 1.8 H Absolute Neuts (auto) 2.0 Absolute Lymphs (auto) 1.83 Nucleated RBC % 0 Sodium 124 L Potassium 5.0 Chloride 91 L Carbon Dioxide 25.0 Anion Gap 8 BUN 24 H Creatinine 0.93 Estim Creat Clear Calc 63.01 Est GFR (MDRD) Af Amer 78 Est GFR (MDRD) Non-Af 65 BUN/Creatinine Ratio 25.9 H Glucose 95 Calcium 8.8 Urine Color Yellow Urine Clarity Clear Urine pH 7.0 Ur Specific [place] 1.005 Urine Protein Negative Urine Glucose (UA) NEGATIVE Urine Ketones Negative Urine Occult Blood Negative Urine Nitrite Negative Urine Bilirubin Negative Urine Urobilinogen Normal Ur Leukocyte Esterase Negative Urine RBC 0 SEEN Urine WBC 0 SEEN Ur Squamous Epith Cells 0-5 SEEN Urine Bacteria 0 SEEN Urine Mucus 0 SEEN Radiography Diagnostic Testing: Radiology Impression Abdomen/Pelvis CT 05/13/21 23:58 IMPRESSION: Cannot exclude mild colitis/enterocolitis versus malabsorption with mild diffuse distention of the colon and scattered foamy debris within the lumen. No bowel obstruction. No acute appendicitis. Unremarkable abdominal viscera. Electronically Signed: Skylar Gutiérrez MD at 1:51 EDT , Service support , Discharge Plan Triage Chief Complaint: Complaint Other Complaint: Back ED Provider: Listerman,Peter Dx/Rx/DC Orders Clinical Impression: Dysuria, Hyponatremia Instructions: Dysuria, ED Hyponatremia Prescriptions: New phenazopyridine [Pyridium] 100 mg tablet 100 mg PO TID PRN (Reason: pain) Qty: 6 RF: 0 No Action sertraline 100 MG tablet 100 mg PO DAILY RF: 0 atorvastatin 10 MG tablet 10 mg PO DAILY RF: 0 loratadine 10 MG tablet 10 mg PO DAILY RF: 0 cholecalciferol (vitamin D3) 1,000 UNIT tablet 1,000 unit PO BID RF: 0 melatonin-pyridoxine HCl (B6) 1 EACH tablet 1 tab PO QHS RF: 0 ibuprofen 800 MG tablet 800 mg PO TID RF: 0 baclofen 10 MG tablet 10 mg PO BID RF: 0 lisinopril 30 MG tablet 30 mg PO DAILY RF: 0 pantoprazole 40 MG tablet 40 mg PO DAILY RF: 0 Primary Care Provider: Keaton Voss Referrals: Keaton Voss MD [Primary Care Provider] - 2 Days (Follow-up for recheck and recheck of sodium level.) Disposition Disposition: Home, Self Care
[2021-05-13 00:16] LABS: Color, Urine Yellow (Yellow); Glucose, Dipstick NEGATIVE (Normal); Ketone-Dipstick Negative (Negative); Leukocyte Esterase-Dipstick Negative /ul (Negative); Nitrite-Dipstick Negative (Negative); Occult Blood-Urine Negative /ul (Negative); Protein-Dipstick Negative (Negative); Specific Gravity, Urine 1.005 (1.002-1.030); Squamous Epithelial Cells - UA 0-5 SEEN /hpf (5-10); Urine Bilirubin Dipstick Negative (Negative); Urine Clarity Clear (Clear); Urine Urobilinogen Normal (Normal)
[2021-05-13] MEDS: Morphine 4 MG/ML Syringe IV (00:18)
[2021-05-13 00:28] LABS: Absolute Lymphocyte Count 1.83 X10^3/uL (0.83-4.51); Basophil# 0.08 X10^3/uL; Basophil% 1.8 % (0-1); Eosinophil# 0.23 X10^3/uL; Eosinophils% 5.1 % (0-5); Hematocrit 30.8 % (37-47); Hemoglobin 10.6 g/dL (12.0-15.0); Lymphocyte # 1.83 X10^3/ul (0.83-4.51); Lymphocyte % 40.8 % (19-41); Mean Corp Hgb Conc 34.4 g/dL (32-36); Mean Corpuscular Hgb 29.5 pg (27.0-32.0); Mean Corpuscular Volume 85.8 fL (81-99); Monocyte# 0.34 X10^3/uL; Monocyte% 7.6 % (0-10); NRBC Flagged by Analyzer 0 % (0-5); Neutrophil # 1.99 X10^3/uL (2.7-7.7); Neutrophil % 44.5 % (47-70); Platelet Count 258 K/mm3 (150-450); RBC Distribution Width CV 12.3 % (11.6-14.6); RBC Distribution Width SD 38.5 fl (35.1-43.9); Red Blood Count 3.59 M/mm3 (4.2-5.4); White Blood Count 4.5 K/mm3 (4.4-11.0)
[2021-05-13 00:42] LABS: Anion Gap 8 (5-15); BUN 24 mg/dL (7-18); BUN/Creat Ratio 25.9 RATIO (10-20); Calcium,Total 8.8 mg/dL (8.5-10.1); Chloride 91 mmol/L (98-107); Creatinine, Serum 0.93 mg/dL (0.55-1.02); EST Glomerular Filtration Rate 65 mL/min (>60); Est Glom Filt Rate - Afr Amer 78 mL/min (>60); Estimated Creatinine Clearance 63.01 ml/min; Glucose 95 mg/dL (74-106); Sodium Level 124 mmol/L (136-145)
[2021-05-13 02:44] VITALS: BP 154/73; PULSE 59; RESP 16; TEMP 36; O2SAT 97
[2021-05-13] MEDS: Phenazopyridine 95 MG Tablet PO (03:42)
--- NOTE | 2021-05-13 23:58 | CT_ITS ---
STUDY: CT ABDOMEN AND PELVIS WITH CONTRAST REASON FOR EXAM: Female, 65 years old. abd pain RADIATION DOSAGE (If Supplied By Facility): CTDIvol = ( 12.68 ) mGy, DLP = ( 538.95 ) mGycm TECHNIQUE: Transaxial images were obtained from the dome of the diaphragm to the symphysis pubis without oral contrast. IV 100mL Isovue-370 was administered. Sagittal and coronal images were reconstructed. Individualized dose optimization techniques were used for this CT. COMPARISON: None. FINDINGS: The visualized lung bases are unremarkable. The visualized portions of the heart are within normal limits. Normal liver. Normal gallbladder and extrahepatic biliary system. Normal spleen. Normal pancreas. Normal bilateral adrenal glands. Normal right kidney. Normal left kidney. Normal visualized stomach. Borderline thickening of the wall through some of the small bowel loops which may indicate enteritis. Mild diffuse distention of the colon with scattered foamy debris and minimal surrounding stranding, cannot exclude nonspecific mild colitis versus mild obstruction. The appendix is visualized and appears normal. There is diffuse atherosclerotic calcification of the abdominal aorta, without a demonstrated aneurysm. Normal inferior vena cava. Normal retroperitoneum. Normal urinary bladder. Normal abdominal wall. There are diffuse degenerative changes of the visualized lumbar spine. CT/Abdomen/Pelvis W IV Cont ONLY IMPRESSION: Cannot exclude mild colitis/enterocolitis versus malabsorption with mild diffuse distention of the colon and scattered foamy debris within the lumen. No bowel obstruction. No acute appendicitis. Unremarkable abdominal viscera. Electronically Signed: Skylar Gutiérrez MD at 1:51 EDT , Service support ,
== END 2021-05-13 03:43 | disposition home or self-care (01) ==
PROVIDERS: Emergency Provider Emergency Medicine; PCP Family Medicine
DX: R30.0 Dysuria (principal); E87.1 Hypo-osmolality and hyponatremia; M54.2 Cervicalgia; R10.9 Unspecified abdominal pain; M54.9 Dorsalgia, unspecified; D64.9 Anemia, unspecified; F32.9 Major depressive disorder, single episode, unspecified; Z79.1 Long term (current) use of non-steroidal anti-inflammatories (NSAID); Z79.899 Other long term (current) drug therapy; Z87.891 Personal history of nicotine dependence
CPT/HCPCS: 74177; 80048; 81001; 85025; 87077; 87086; 87088; 87186; 96361; 96365; 96374; 99285; Q9967; A4216

== ENCOUNTER 2021-10-19 12:21 | Emergency (ER) | payer MEDICAID, SELFPAY ==
[2021-10-19 12:21] VITALS: BP 179/63; PULSE 81; RESP 16; TEMP 36.2; O2SAT 93; BMI 29.6
--- NOTE | 2021-10-19 13:00 | ED.VIS.BACK ---
HPI History of Present Illness Chief Complaint: Back Informant: patient Onset/Context/Timing Onset: Days Context: Gradual Onset Timing: Intermittent Quality: Dull and Aching Location: Lumbar Current Severity: Mild Maximum Severity: Mild Worsened by: improves with Movement Relieved by: Remaining Still Associated Symptoms Associated Symptoms: Negative for Numbness, Tingling, Radiation to Right Leg, Radiation to Left Leg, Fever, Abdominal Pain, Dysuria, Unable to Ambulate, Unable to Transfer, Urinary Retention, Urinary Incontinence, Constipation and Fecal Incontinence Narrative Narrative: 65-year-old female has a history of osteoporosis and hypertension. States she has been walking more recently and has had discomfort in her neck and lower back. States she has had this before when she has had muscle stiffness and muscle spasms. She uses baclofen at home. She denies any other symptoms. She has not been ill recently. She denies any numbness or weakness in her legs. No falls or trauma. Prior similar symptoms: Yes Recent Illness/[facility]ospital[facility]: [facility] Medical History Depression Home Medications sertraline 100 mg PO DAILY 03/28/19 [History Last Taken 09/25/20] atorvastatin 10 mg PO DAILY 05/26/20 [History Last Taken 09/25/20] cholecalciferol (vitamin D3) 1,000 unit PO BID 05/26/20 [History Last Taken 09/25/20] loratadine 10 mg PO DAILY 05/26/20 [History Last Taken 09/23/20] melatonin-pyridoxine HCl (B6) 1 tab PO QHS 05/26/20 [History Last Taken 09/25/20] baclofen 10 mg PO BID 09/26/20 [History Last Taken 09/25/20] ibuprofen 800 mg PO TID 09/26/20 [History Last Taken 09/26/20] lisinopril 30 mg PO DAILY 09/26/20 [History Last Taken 09/26/20] pantoprazole 40 mg PO DAILY 09/26/20 [History Last Taken 09/25/20] phenazopyridine [Pyridium] 100 mg PO TID PRN #6 tab 05/13/21 [Rx Last Taken Unknown] Allergy/AdvReac Type Severity Reaction Status Date / Time Penicillins Allergy Rash Verified 10/19/21 12:24 Surgical History H/O cervical spine surgery Social History Smoking Status: Former smoker ROS ROS ED ROS Narrative Upper back and neck and lower back discomfort. Review of Systems ROS Unobtainable: Denies due to encephalopathy Constitutional Constitutional ED: Denies fever(s) Eyes Eyes: Denies change in vision ENT ENT ED: Denies ear pain Cardiovascular Cardiovascular: Denies chest pain Respiratory/Chest Respiratory/Chest: Denies dyspnea Gastrointestinal Gastrointestinal: Denies abdominal pain Genitourinary Genitourinary ED: Denies dysuria Musculoskeletal Musculoskeletal: Reports back pain and myalgias Integumentary Denies rash Neurologic Neurologic: Denies headache(s) Psychiatric Psychiatric: Denies depression Endocrine Endocrinology: Denies polyuria Hematologic/Lymphatic Hematologic/Lymphatic: Denies easy bruising Allergic/Immunologic Allergic/Immunologic ED: Denies urticaria EXAM Physical Exam Narrative Exam Narrative: 65-year-old female no acute distress vital signs stable afebrile. HEENT exam unremarkable. Moist mucous membranes. Neck she has paracervical soft tissue tenderness. There is no bony tenderness. Consistent with a stiff neck. Trachea midline. Lungs are clear. Heart regular rhythm no murmur. Abdomen soft nontender. Moving all 4 extremities. Normal quality analyst/technical writer strength. Normal range of motion. Normal dorsi plantar flexion. No cauda equina. Neurologically she is awake and alert with no focal motor deficits. Const Vital Signs: 10/19/21 12:21 Temperature 97.1 F L Temperature Source Temporal Pulse Rate 81 Respiratory Rate 16 Blood Pressure 179/63 H Blood Pressure Mean 101 Pulse Ox 93 Oxygen Delivery Method Room Air Positive well nourished and well developed; Negative for cachectic, contractures or unkempt General Appearance ED: well developed and NAD; Negative for unkempt, cachectic, contractures or pallor Nutritional Appearance: Negative for cachectic HEENT Reports moist mucous membranes Negative for trauma or tenderness Eyes PERRL and EOMs intact bilaterally General Eye ED: Negative for pale conjunctiva or scleral icterus Neck no lymphadenopathy, supple and no JVD General: tenderness Resp normal respiratory effort and clear to auscultation bilaterally Effort and Inspection: Negative for pain with movement or other Auscultation: Negative for rales or rhonchi Cardio regular rate, regular rhythm, S1 normal heart sound, S2 normal heart sound and no murmurs GI normal to inspection, nondistended, normoactive bowel sounds, soft to palpation, non-tender, non-distended and no masses Palpation: Negative for tender, guarding or rebound tenderness present Back/Spine normal to inspection; Negative for no thoracic nor lumbar tenderness Cervical Spine: Negative for cervical spine tenderness and paracervical muscle tenderness Thoracic Spine / Upper Back: paraspinal muscle tenderness Lumbar Spine / Lower Back: straight leg raise negative bilaterally; Negative for ROM limited Extremity normal to inspection General Extremety ED: Negative for edema or tenderness General Extremity: Negative for edema Neuro oriented x3 and no sensory deficits noted Sensorium / Orientation: alert; Negative for confused, lethargic or stuporous Motor Exam: strength 5/5 throughout Psych mental status grossly normal Appearance: Negative for unkempt Mood & Affect: Negative for depressed or tearful Skin no rashes or lesions noted and no wounds General Skin Exam: Negative for jaundice or pallor MDM MDM MDM Narrative Medical decision making narrative: 65-year-old with history exam consistent with muscle stiffness of her neck and lower back. She has normal motor strength and sensation. She is already on baclofen at home. Hot shower, warm bath, massage and her baclofen. Follow-up with primary if not improving. She is comfortable with the plan. Discharge Plan Triage Chief Complaint: Back ED Provider: Angel Diallo Dx/Rx/DC Orders Clinical Impression: Muscle spasm, Back spasm Instructions: ED Back Pain (Acute or Chronic), ED Muscle Spasm Prescriptions: No Action sertraline 100 MG tablet 100 mg PO DAILY RF: 0 atorvastatin 10 MG tablet 10 mg PO DAILY RF: 0 loratadine 10 MG tablet 10 mg PO DAILY RF: 0 cholecalciferol (vitamin D3) 1,000 UNIT tablet 1,000 unit PO BID RF: 0 melatonin-pyridoxine HCl (B6) 1 EACH tablet 1 tab PO QHS RF: 0 ibuprofen 800 MG tablet 800 mg PO TID RF: 0 baclofen 10 MG tablet 10 mg PO BID RF: 0 lisinopril 30 MG tablet 30 mg PO DAILY RF: 0 pantoprazole 40 MG tablet 40 mg PO DAILY RF: 0 phenazopyridine [Pyridium] 100 mg tablet 100 mg PO TID PRN (Reason: pain) Qty: 6 RF: 0 Primary Care Provider: Keaton Voss Referrals: Keaton Voss MD [Primary Care Provider] - 1 Week if not improving Activity Restrictions/Additional Instructions: Hot shower, warm bath and massage. Motrin and Tylenol for pain. Use the muscle relaxant you have at home. Follow-up with your doctor if not improving. Disposition Disposition: Home, Self Care
== END 2021-10-19 13:07 | disposition home or self-care (01) ==
PROVIDERS: Emergency Provider Emergency Medicine; PCP Family Medicine; Visit Provider Emergency Medicine
DX: M62.830 Muscle spasm of back (principal); I10 Essential (primary) hypertension; M54.2 Cervicalgia; M54.50 Low back pain, unspecified; M81.0 Age-related osteoporosis without current pathological fracture; F32.A Depression, unspecified; Z79.899 Other long term (current) drug therapy; Z87.891 Personal history of nicotine dependence
CPT/HCPCS: 99282

== ENCOUNTER 2021-10-23 10:00 | Outpatient (CLI) | payer MEDICAID, SELFPAY ==
[2021-10-23 11:35] LABS: Absolute Lymphocyte Count 1.49 X10^3/uL (0.83-4.51); Absolute Neutrophil Count 2.9 X10^3/uL (2.0-7.7); Basophil# 0.04 X10^3/uL; Basophil% 0.8 % (0-1); Eosinophil# 0.16 X10^3/uL; Eosinophils% 3.3 % (0-5); Hematocrit 31.4 % (37-47); Hemoglobin 10.4 g/dL (12.0-15.0); Lymphocyte # 1.49 X10^3/ul (0.83-4.51); Lymphocyte % 30.6 % (19-41); Mean Corp Hgb Conc 33.1 g/dL (32-36); Mean Corpuscular Hgb 30.1 pg (27.0-32.0); Mean Corpuscular Volume 90.8 fL (81-99); Mean Platelet Vol. 10.4 fl (6.2-12.0); Monocyte# 0.27 X10^3/uL; Monocyte% 5.5 % (0-10); NRBC Flagged by Analyzer 0 % (0-5); Neutrophil % 59.6 % (47-70); Platelet Count 263 K/mm3 (150-450); RBC Distribution Width CV 13.8 % (11.6-14.6); Red Blood Count 3.46 M/mm3 (4.2-5.4); White Blood Count 4.9 K/mm3 (4.4-11.0)
[2021-10-23 11:40] LABS: Erythrocyte Sedimentation Rate 9 mm/hr (0-30)
[2021-10-23 11:59] LABS: International Normalized Ratio 0.9; Prothrombin Time (Protime)PT. 11.4 SECONDS (11.7-14.9)
[2021-10-23 12:03] LABS: Hemoglobin A1c 5.1 % (3.8-5.6)
[2021-10-23 12:22] LABS: HIV - WCH Non-Reactive (Nonreactive); Vitamin B12 202 pg/mL (211-911)
[2021-10-23 12:23] LABS: ALB/GLOB Ratio 1.2 RATIO (0.9-2.4); AST(SGOT) 19 U/L (15-37); Alanine Aminotransfer ALT/SGPT 24 U/L (13-56); Albumin, Serum 4.4 g/dL (3.2-5.0); Alkaline Phosphatase 48 U/L (45-117); Anion Gap 5 (5-15); BUN 21 mg/dL (7-18); BUN/Creat Ratio 20.8 RATIO (10-20); Bilirubin, Direct 0.08 mg/dL (0.00-0.30); CRP < 2.90 mg/L (0.0-3.0); Calcium,Total 9.1 mg/dL (8.5-10.1); Chloride 103 mmol/L (98-107); Creatinine, Serum 1.01 mg/dL (0.55-1.02); EST Glomerular Filtration Rate 59 mL/min (>60); Est Glom Filt Rate - Afr Amer 71 mL/min (>60); Ferritin 9 ng/mL (8-252); Globulin 3.7 g/dL (2.2-4.2); Glucose 86 mg/dL (74-106); LDH 224 U/L (84-246); Potassium 6.2 mmol/L (3.5-5.1); Protein, Total 8.1 g/dL (6.4-8.2); Sodium Level 133 mmol/L (136-145); Thyroid Stim Hormone (TSH) 2.48 uIU/mL (0.358-3.74)
[2021-10-24 13:08] LABS: Anti-Centromere B Ab <0.2 AI (0.0-0.9); Anti-Chromatin <0.2 AI (0.0-0.9); Anti-Jo <0.2 AI (0.0-0.9); Anti-Scleroderma-70 AB <0.2 AI (0.0-0.9); RNP Ab <0.2 AI (0.0-0.9); SJOGREN'S Anti-SS-A test < 0.2 AI (0.0-0.9); SJOGREN'S Anti-SS-B test < 0.2 AI (0.0-0.9); Smith Ab <0.2 AI (0.0-0.9)
[2021-10-24 15:14] LABS: Anti-dsDNA Ab 1 IU/mL (0-9)
[2021-10-24 18:55] LABS: Anti-Mitochondrial AB <20.0 Units (0.0-20.0)
[2021-10-26 11:07] LABS: Angiotensin Convert Enzyme < 15 U/L (14-82); Cytoplasmic Ab (C-ANCA) <1:20 titer (Neg:<1:20); HEPATITIS B SURFACE AG Negative (Negative); Hepatitis A IgM Antibody Negative (Negative); Hepatitis B Core AB IgM Negative (Negative)
[2021-10-27 13:35] LABS: AFP, Tumor Marker 6.4 ng/mL (0.0-8.3); Anti-Smooth Muscle ABS 6 Units (0-19); Copper, Serum or Plasma 122 ug/dL (80-158); Haptoglobin 70 mg/dL (37-355); Hep C Antibodies <0.1 s/co ratio (0.0-0.9); Perinuclear Ab (P-ANCA) <1:20 titer (Neg:<1:20)
== END 2021-10-23 23:59 | disposition home or self-care (01) ==
LOC: LAB 10:01
PROVIDERS: PCP Family Medicine; Referring Provider Nurse Practitioner Adult Health; Visit Provider Nurse Practitioner Adult Health
DX: K74.60 Unspecified cirrhosis of liver (principal)
CPT/HCPCS: 36415; 80074; 86235 ×5; 82164; 86225; 86703; 80053; 82105; 82248; 83010; 83036; 84443; 82140; 83516 ×2; 86256 ×3; 82390; 82728; 85610; 82607; 85025; 85652; 83615; 82525; 86140

== ENCOUNTER 2021-10-23 12:59 | Emergency (ER) | payer MEDICAID, SELFPAY ==
[2021-10-23 13:00] VITALS: BP 157/64; PULSE 92; RESP 15; TEMP 36.2; O2SAT 98; BMI 29.2
--- NOTE | 2021-10-23 13:05 | EKG12_ITS ---
Test Reason : Blood Pressure : / mmHG Vent. Rate : 087 BPM Atrial Rate : 087 BPM P-R Int : 142 ms QRS Dur : 066 ms QT Int : 334 ms P-R-T Axes : 043 012 027 degrees QTc Int : 401 ms Normal sinus rhythm Normal ECG Confirmed by MACK GARY, PRANEETH ([id number]), writer editor ОЛЬГА FERNANDEZ ([id number]) on 10/24/2021 9:14:22 AM Referred By: RONI Confirmed By:PRANEETH GIRON MD
--- NOTE | 2021-10-23 15:29 | EDS_ITS ---
HPI History of Present Illness Chief Complaint: Abn Labs Informant: patient Narrative Narrative: Patient is a 65-year-old female with history of chronic low back pain, cirrhosis of the liver, alcohol abuse, hypertension and hyperlipidemia presenting with an elevated potassium level. Patient had routine labs this morning ordered by gastroenterology [employer]. She has been evaluated for cirrhosis. She was found to have a potassium of 6.2 and sent to the emergency room for further evaluation. She not currently on any potassium supplements. She has a history of low potassium when she is admitted to the hospital but not high. She denies any change with her urination. She knows she has had some issues with stress incontinence and dysuria which she is following with gynecology for. She is taking ibuprofen 800 mg. Patient had normal kidney function on lab work this morning. [facility] Medical History Depression Home Medications sertraline 100 mg PO DAILY 03/28/19 [History Last Taken 09/25/20] atorvastatin 10 mg PO DAILY 05/26/20 [History Last Taken 09/25/20] cholecalciferol (vitamin D3) 1,000 unit PO BID 05/26/20 [History Last Taken 09/25/20] loratadine 10 mg PO DAILY 05/26/20 [History Last Taken 09/23/20] melatonin-pyridoxine HCl (B6) 1 tab PO QHS 05/26/20 [History Last Taken 09/25/20] baclofen 10 mg PO BID 09/26/20 [History Last Taken 09/25/20] ibuprofen 800 mg PO TID 09/26/20 [History Last Taken 09/26/20] lisinopril 30 mg PO DAILY 09/26/20 [History Last Taken 09/26/20] pantoprazole 40 mg PO DAILY 09/26/20 [History Last Taken 09/25/20] alendronate 70 mg tablet 70 mg PO QWEEK 10/23/21 [History Last Taken Unknown] Allergy/AdvReac Type Severity Reaction Status Date / Time Penicillins Allergy Rash Verified 10/23/21 13:02 Surgical History H/O cervical spine surgery Social History Smoking Status: Former smoker alcohol intake: current ROS ROS ED Constitutional Constitutional ED: Denies chills or fever(s) Eyes Eyes: Denies change in vision ENT ENT ED: Denies sore throat Cardiovascular Cardiovascular: Reports chest pain and other Details: Attributed to reflux Respiratory/Chest Respiratory/Chest: Denies cough or dyspnea Gastrointestinal Gastrointestinal: Reports abdominal pain and other Details: epigastric pain, seeing GI for this ; Denies diarrhea, nausea or vomiting Genitourinary Genitourinary ED: Reports urinary frequency; Denies dysuria or hematuria Musculoskeletal Musculoskeletal: Reports back pain and neck pain; Denies myalgias Integumentary Denies rash Neurologic Neurologic: Denies headache(s) or weakness Psychiatric Psychiatric: Denies depression EXAM Physical Exam Const Vital Signs: 10/23/21 13:00 10/23/21 15:04 10/23/21 16:35 Temperature 97.2 F L Temperature Source Temporal Pulse Rate 92 70 Respiratory Rate 15 14 Respiratory Effort Normal Non-Labored Respiratory Pattern Normal Blood Pressure 157/64 H 139/57 H Blood Pressure Mean 95 84 Pulse Ox 98 91 Oxygen Delivery Method Room Air Room Air 10/23/21 17:24 Temperature Temperature Source Pulse Rate 68 Respiratory Rate 16 Respiratory Effort Respiratory Pattern Blood Pressure 141/60 H Blood Pressure Mean Pulse Ox 92 Oxygen Delivery Method Positive well nourished and well developed General Appearance ED: well developed HEENT Negative for trauma or tenderness Eyes PERRL and EOMs intact bilaterally General Eye ED: Negative for scleral icterus Neck supple Chest Wall inspection of chest normal Resp normal respiratory effort and clear to auscultation bilaterally Cardio regular rate, regular rhythm and no murmurs GI normal to inspection, nondistended, normoactive bowel sounds, non-tender and non-distended Palpation: soft Extremity normal to inspection Neuro oriented x3 Sensorium / Orientation: alert Motor Exam: Negative for general weakness Psych mental status grossly normal Skin no rashes or lesions noted MDM MDM MDM Narrative Medical decision making narrative: Patient's potassium on redraw is 5.3. No EKG changes. Is given a liter of IV fluids. Patient states she is been eating a lot of bananas. She had normal kidney function earlier today so I do not think there is an acute renal pathology. Counseled to slightly decrease her potassium intake and follow-up for repeat labs in a week. This time I do not think she requires admission for her hyperkalemia. Patient is counseled on signs and symptoms requiring return to the emergency room. Patient verbalizes agreement and understand this plan. Patient discharged home in stable and improved condition. Lab Data Labs: Laboratory Results - last 24 hr 10/23/21 15:20 Potassium 5.3 H Rhythm Strip Rhythm Strip: Sinus Rhythm Rate: 87 Ectopy: None EKG Initial EKG: Attestation: I personally reviewed and interpreted this EKG as follows: Interpretation: Sinus Rhythm Comments: Normal sinus rhythm at a rate of 87 Normal axis Normal intervals Normal ST segments Normal T waves Discharge Plan Triage Chief Complaint: Abn Labs ED Provider: Jaclyn Girard Dx/Rx/DC Orders Clinical Impression: Hyperkalemia Instructions: ED Hyperkalemia Prescriptions: No Action alendronate 70 mg tablet 70 mg PO QWEEK RF: 0 sertraline 100 MG tablet 100 mg PO DAILY RF: 0 atorvastatin 10 MG tablet 10 mg PO DAILY RF: 0 loratadine 10 MG tablet 10 mg PO DAILY RF: 0 cholecalciferol (vitamin D3) 1,000 UNIT tablet 1,000 unit PO BID RF: 0 melatonin-pyridoxine HCl (B6) 1 EACH tablet 1 tab PO QHS RF: 0 ibuprofen 800 MG tablet 800 mg PO TID RF: 0 baclofen 10 MG tablet 10 mg PO BID RF: 0 lisinopril 30 MG tablet 30 mg PO DAILY RF: 0 pantoprazole 40 MG tablet 40 mg PO DAILY RF: 0 Primary Care Provider: Keaton Voss Referrals: Keaton Voss MD [Primary Care Provider] - Activity Restrictions/Additional Instructions: Follow-up with your primary care doctor next week for repeat blood draw. Your potassium on recheck today was 5.3. You are given a liter of IV fluid. Decrease your banana/high potassium food intake. At this time I think you are safe to go home. Disposition Disposition: Home, Self Care Discharge Date/Time: 10/23/21 17:26
[2021-10-23 15:54] LABS: Potassium 5.3 mmol/L (3.5-5.1)
[2021-10-23] MEDS: 0.9% Normal Saline 1,000 ML 999 ML IV (16:34)
[2021-10-23 16:35] VITALS: BP 139/57; PULSE 70; RESP 14; O2SAT 91
[2021-10-23 17:24] VITALS: BP 141/60; PULSE 68; RESP 16; O2SAT 92
== END 2021-10-23 17:26 | disposition home or self-care (01) ==
PROVIDERS: Emergency Provider Emergency Medicine; PCP Family Medicine; Visit Provider Emergency Medicine
DX: E87.5 Hyperkalemia (principal); K74.60 Unspecified cirrhosis of liver; I10 Essential (primary) hypertension; E78.5 Hyperlipidemia, unspecified; F10.10 Alcohol abuse, uncomplicated; M54.50 Low back pain, unspecified; G89.29 Other chronic pain; Z79.899 Other long term (current) drug therapy; Z87.891 Personal history of nicotine dependence
CPT/HCPCS: 36415; 80053; 80074; 82105; 82140; 82164; 82248; 82390; 82525; 82607; 82728; 83010; 83036; 83516; 83615; 84132; 84443; 85025; 85610; 85652; 86140; 86225; 86235; 86256; 86703; 93005; 96360; 99283; J7030; A4216

== ENCOUNTER 2022-02-05 15:27 | Emergency (ER) | payer MEDICARE, MEDICAID, SELFPAY ==
[2022-02-05 15:28] VITALS: BP 161/90; PULSE 75; RESP 18; TEMP 36.8; O2SAT 96; BMI 29.9
[2022-02-05 15:32] VITALS: O2SAT 97
--- NOTE | 2022-02-05 15:47 | EKG12_ITS ---
Test Reason : SOB Blood Pressure : / mmHG Vent. Rate : 074 BPM Atrial Rate : 074 BPM P-R Int : 180 ms QRS Dur : 076 ms QT Int : 380 ms P-R-T Axes : 068 032 043 degrees QTc Int : 421 ms Normal sinus rhythm Normal ECG Confirmed by RHONDA GARY, BLANCA ([id number]), pictures editor ОЛЬГА FERNANDEZ ([id number]) on 02/06/2022 9:03:27 AM Referred By: SIENNA Confirmed By:BLANCA ELLIS MD
--- NOTE | 2022-02-05 16:00 | RAD_ITS ---
HISTORY: chest pain. TECHNIQUE: XR Chest 1 View. COMPARISON: 09/26/2020. FINDINGS: CARDIOMEDIASTINAL BORDERS: Cardiac silhouette within normal limits in size. Mediastinal contour unremarkable. LUNGS: Radiographically clear. PLEURA: No pleural effusion or pneumothorax seen. OSSEOUS STRUCTURES: Cervical spinal fusion hardware noted. RAD/Chest 1 View (Portable) IMPRESSION: No acute cardiopulmonary process identified. Electronically Signed: Ramya Elizabeth MD at 16:18 EDT ,
--- NOTE | 2022-02-05 16:04 | ED.VIS.DYS ---
HPI <DEN Miranda - Last Filed: 02/05/22 18:48> History of Present Illness Chief Complaint: Shortness of Breath Narrative Narrative: 66-year-old female with PMH of HTN, HLD, GERD, Cali's esophagus, cirrhosis, anxiety presents with chest tightness and shortness of breath that started at rest today. No nausea vomiting or diaphoresis. Both of her arms feel tight like they have muscle spasms in her hands with numbness and tingling. She has a history of anxiety but states this does not feel similar. She has no cardiopulmonary history. She quit smoking in 2017. She states over the last week she has had some dyspnea on exertion noted while shopping or cleaning around the house but no associated chest pain. PFS <DEN Miranda - Last Filed: 02/05/22 18:48> [facility] Medical History (Updated 02/05/22 @ 18:47 by DEN Miranda) Abdominal pain Abnormal liver ultrasound Alcohol use Anemia Arthritis Back pain Cirrhosis Depression Easy bruising Former smoker Gastric reflux GERD (gastroesophageal reflux disease) History of Cail's esophagus History of edema History of stress test Hypertension Injury of head and neck Leg cramps Restless legs Shortness of breath on exertion Wears dentures Wears glasses Home Medications sertraline 100 mg tablet 100 mg PO DAILY antidepressant 03/28/19 [History Last Taken 09/25/20] atorvastatin 10 mg tablet 10 mg PO DAILY CHOLESTEROL 05/26/20 [History Last Taken 09/25/20] loratadine 10 mg tablet 10 mg PO DAILY ALLERGIES 05/26/20 [History Last Taken 09/23/20] melatonin-pyridoxine HCl (vitamin B6) 1 mg-10 mg tablet 1 tab PO QHS SLEEP 05/26/20 [History Last Taken 09/25/20] baclofen 10 mg tablet 10 mg PO BID SPASMS 09/26/20 [History Last Taken 09/25/20] ibuprofen 800 mg tablet 800 mg PO TID PAIN 09/26/20 [History Last Taken 09/26/20] lisinopril 30 mg tablet 40 mg PO DAILY BP 09/26/20 [History Last Taken 09/26/20] pantoprazole 40 mg tablet,delayed release 40 mg PO DAILY GERD 09/26/20 [History Last Taken 09/25/20] alendronate 70 mg tablet 70 mg PO QWEEK 10/23/21 [History Last Taken Unknown] ergocalciferol (vitamin D2) 1,250 mcg (50,000 unit) capsule (Vitamin D2) 1,250 mcg PO QWEEK 10/31/21 [History Last Taken Unknown] Allergy/AdvReac Type Severity Reaction Status Date / Time Penicillins Allergy Rash Verified 12/15/21 15:26 Surgical History H/O cervical spine surgery Hx of colonoscopy Hx of left cataract extraction Social History Smoking Status: Former smoker alcohol intake: current ROS <DEN Miranda - Last Filed: 02/05/22 18:48> ROS ED ROS Narrative Constitutional: Negative for fever, chills, malaise. Eyes: Negative for visual change. ENT: Negative for sore throat, ear pain, rhinorrhea. CVS: Positive for chest pain. Negative for palpitations, syncope. Respiratory: Positive for shortness of breath. Negative for cough, orthopnea. GI: Negative for abdominal pain, nausea, vomiting, diarrhea, constipation, melena, hematochezia. : Negative for dysuria, hematuria or frequency. Neuro: Negative for headache, motor/sensory dysfunction. Skin: Negative for rash, abscess, or wound. Musc: Negative for joint pain, swelling, trauma. Heme: Negative for easy bruising, bleeding, lymphadenopathy. EXAM <DEN Miranda - Last Filed: 02/05/22 18:48> Physical Exam Narrative Exam Narrative: CONST: Patient sitting in no acute distress. EYES: Normal inspection. NECK: Normal inspection. RESP: No respiratory distress, CTAB. CVS: Regular rate and rhythm, no murmur, no gallop. ABD: Soft and nontender, no guarding or rebound, nondistended. Back: Normal inspection. SKIN: Color normal, no rash, warm, dry, intact. EXTREMITIES: Normal appearance, no pedal edema. No calf tenderness. 2+ radial and DP pulses. NEURO: Oriented x4. PSYCH: Normal affect. Const Vital Signs: 02/05/22 15:28 02/05/22 15:32 02/05/22 16:40 Temperature 98.3 F Temperature Source Oral Pulse Rate 75 73 Respiratory Rate 18 16 Respiratory Effort Short of Breath Respiratory Depth Normal Respiratory Pattern Normal Blood Pressure 161/90 H 155/75 H Blood Pressure Mean 113 101 Pulse Ox 96 95 Oxygen Delivery Method Room Air Room Air Room Air 02/05/22 17:12 02/05/22 18:22 Temperature Temperature Source Pulse Rate 73 71 Respiratory Rate 16 18 Respiratory Effort Respiratory Depth Respiratory Pattern Blood Pressure 158/93 H 166/76 H Blood Pressure Mean 114 106 Pulse Ox 97 100 Oxygen Delivery Method Room Air Room Air <Dr. Angel Diallo MD - Last Filed: 02/05/22 18:32> Physical Exam Const Vital Signs: 02/05/22 15:28 02/05/22 15:32 02/05/22 16:40 Temperature 98.3 F Temperature Source Oral Pulse Rate 75 73 Respiratory Rate 18 16 Respiratory Effort Short of Breath Respiratory Depth Normal Respiratory Pattern Normal Blood Pressure 161/90 H 155/75 H Blood Pressure Mean 113 101 Pulse Ox 96 95 Oxygen Delivery Method Room Air Room Air Room Air 02/05/22 17:12 02/05/22 18:22 Temperature Temperature Source Pulse Rate 73 71 Respiratory Rate 16 18 Respiratory Effort Respiratory Depth Respiratory Pattern Blood Pressure 158/93 H 166/76 H Blood Pressure Mean 114 106 Pulse Ox 97 100 Oxygen Delivery Method Room Air Room Air MDM <DEN Miranda - Last Filed: 02/05/22 18:48> [facility] MDM Narrative Medical decision making narrative: Patient presents with chest tightness and shortness of breath. She appears well nontoxic. BP 155/75, otherwise normal vital signs. Heart is regular. Lungs clear. Abdomen soft and nontender. There is no lower extremity edema or calf tenderness. Upper and lower extremity pulses intact. EKG is normal sinus rhythm with no ischemia and high-sensitivity troponin is 8. CBC shows stable anemia at 9.9. BMP shows sodium 125, potassium 6.1, creatinine 1.11. She was given IV fluids and repeat labs show sodium trending up at 130, potassium 5.0. Patient advised to continue p.o. hydration and add salt to her food and follow-up with her doctor next week. If any symptoms worsen return to the ER. She was discharged in stable condition. Diagnoses 1. Atypical chest pain 2. Hyponatremia 3. Hyperkalemia, resolved 4. Dehydration I have personally performed a face to face assessment of the patient and have reviewed the AMBER Note. I performed a substantive portion of the visit including all aspects of the following. My maddox findings include: History is [66-year-old female with past medical history that I evaluate with our physician procurement assistant. Patient claims shortness of breath muscle aches etc. Exam is benign. She is undergoing a work-up.] Exam is [six 6-year-old female no acute distress vital signs stable afebrile. Pulse ox 96% on room air no signs hypoxia. H EENT exam unremarkable. Neck nontender no lymphadenopathy. Lungs clear to auscultation. Heart regular rhythm no murmur. Abdomen soft nondistended normal bowel sounds no peritoneal signs. Moving all 4 extremities. Calves are nontender without edema or cords. Neurologically she is awake and alert.] Medical Decision Making [66-year-old undergo work-up. Exam benign] Other additions or changes: [None] Lab Data Attestation: I reviewed the patient's lab results. Labs: Laboratory Results - last 24 hr 02/05/22 02/05/22 02/05/22 16:00 16:00 18:10 WBC 5.1 RBC 3.52 L Hgb 9.9 L Hct 29.4 L MCV 83.5 MCH 28.1 MCHC 33.7 RDW Std Deviation 41.5 RDW Coeff of Carlos 13.5 Plt Count 312 MPV 9.9 Immature Gran % (Auto) 0.400 Neut % (Auto) 45.2 L Lymph % (Auto) 38.7 [place] % (Auto) 9.4 Eos % (Auto) 5.1 H Baso % (Auto) 1.2 H Absolute Neuts (auto) 2.3 Absolute Lymphs (auto) 1.98 Nucleated RBC % 0 Sodium 125 L 130 L Potassium 6.1 H* 5.0 Chloride 96 L 101 Carbon Dioxide 23.0 21.0 Anion Gap 6 8 BUN 24 H 22 H Creatinine 1.11 H 1.04 H Estim Creat Clear Calc 53.55 57.15 Est GFR (MDRD) Af Amer 63 68 Est GFR (MDRD) Non-Af 52 L 57 L BUN/Creatinine Ratio 21.6 H 21.2 H Glucose 92 96 Calcium 9.1 8.2 L Troponin I High Sens < 3 L Radiography Chest X-Ray - ED: 1 View, Read by ED Physician, Normal, Heart, Lungs, Mediastinum, Bony Structures and No Acute Disease Diagnostic Testing: Clinical Impression(s) from Imaging Studies Chest X-Ray 02/05/22 16:00 IMPRESSION: No acute cardiopulmonary process identified. Electronically Signed: Ramya Elizabeth MD at 16:18 EDT , ED attending interpretation shows normal heart size, no acute infiltrate, edema, or effusion. EKG Initial EKG: Attestation: I personally reviewed and interpreted this EKG as follows: Interpretation: Sinus Rhythm Comments: Normal sinus rhythm, normal intervals, no acute ischemic changes, 74 bpm <Dr. Angel Diallo MD - Last Filed: 02/05/22 18:32> [facility] MDM Narrative Medical decision making narrative: Patient presents with chest tightness and shortness of breath. She appears well nontoxic. BP 155/75, otherwise normal vital signs. Heart is regular. Lungs clear. Abdomen soft and nontender. There is no lower extremity edema or calf tenderness. Upper and lower extremity pulses intact. EKG is normal sinus rhythm with no ischemia and high-sensitivity troponin is 8. CBC shows stable anemia at 9.9. BMP shows sodium 125, potassium 6.1, creatinine 1.11. I have personally performed a face to face assessment of the patient and have reviewed the AMBER Note. I performed a substantive portion of the visit including all aspects of the following. My maddox findings include: History is [66-year-old female with past medical history that I evaluate with our physician procurement assistant. Patient claims shortness of breath muscle aches etc. Exam is benign. She is undergoing a work-up.] Exam is [six 6-year-old female no acute distress vital signs stable afebrile. Pulse ox 96% on room air no signs hypoxia. H EENT exam unremarkable. Neck nontender no lymphadenopathy. Lungs clear to auscultation. Heart regular rhythm no murmur. Abdomen soft nondistended normal bowel sounds no peritoneal signs. Moving all 4 extremities. Calves are nontender without edema or cords. Neurologically she is awake and alert.] Medical Decision Making [66-year-old undergo work-up. Exam benign] Other additions or changes: [None] Lab Data Labs: Laboratory Results - last 24 hr 02/05/22 02/05/22 02/05/22 16:00 16:00 18:10 WBC 5.1 RBC 3.52 L Hgb 9.9 L Hct 29.4 L MCV 83.5 MCH 28.1 MCHC 33.7 RDW Std Deviation 41.5 RDW Coeff of Carlso 13.5 Plt Count 312 MPV 9.9 Immature Gran % (Auto) 0.400 Neut % (Auto) 45.2 L Lymph % (Auto) 38.7 [place] % (Auto) 9.4 Eos % (Auto) 5.1 H Baso % (Auto) 1.2 H Absolute Neuts (auto) 2.3 Absolute Lymphs (auto) 1.98 Nucleated RBC % 0 Sodium 125 L 130 L Potassium 6.1 H* 5.0 Chloride 96 L 101 Carbon Dioxide 23.0 21.0 Anion Gap 6 8 BUN 24 H 22 H Creatinine 1.11 H 1.04 H Estim Creat Clear Calc 53.55 57.15 Est GFR (MDRD) Af Amer 63 68 Est GFR (MDRD) Non-Af 52 L 57 L BUN/Creatinine Ratio 21.6 H 21.2 H Glucose 92 96 Calcium 9.1 8.2 L Troponin I High Sens < 3 L Radiography Diagnostic Testing: Clinical Impression(s) from Imaging Studies Chest X-Ray 02/05/22 16:00 IMPRESSION: No acute cardiopulmonary process identified. Electronically Signed: Ramya Elizabeth MD at 16:18 EDT Reading Location ID and State: [address] [place] [address] Tel , Service support , Discharge Plan Triage Chief Complaint: Shortness of Breath ED Midlevel Provider: Charu Ellsworth ED Provider: Angel Diallo Dx/Rx/DC Orders Clinical Impression: Chest pain, Acute dehydration Instructions: Dehydration, ED Chest Pain, Noncardiac Prescriptions: No Action alendronate 70 mg tablet 70 mg PO QWEEK sertraline 100 MG tablet 100 mg PO DAILY atorvastatin 10 MG tablet 10 mg PO DAILY loratadine 10 MG tablet 10 mg PO DAILY melatonin-pyridoxine HCl (B6) 1 EACH tablet 1 tab PO QHS ibuprofen 800 MG tablet 800 mg PO TID baclofen 10 MG tablet 10 mg PO BID lisinopril 30 MG tablet 40 mg PO DAILY pantoprazole 40 MG tablet 40 mg PO DAILY ergocalciferol (vitamin D2) [Vitamin D2] 1,250 mcg (50,000 unit) Capsule 1,250 mcg PO QWEEK Primary Care Provider: Keaton Voss Referrals: Keaton Voss MD [Primary Care Provider] - Activity Restrictions/Additional Instructions: Please increase hydration and add salt to your food. Follow-up with your doctor next week. Disposition Disposition: Home, Self Care
[2022-02-05 16:09] LABS: Absolute Lymphocyte Count 1.98 X10^3/uL (0.83-4.51); Absolute Neutrophil Count 2.3 X10^3/uL (2.0-7.7); Basophil# 0.06 X10^3/uL; Basophil% 1.2 % (0-1); Eosinophil# 0.26 X10^3/uL; Eosinophils% 5.1 % (0-5); Hematocrit 29.4 % (37-47); Hemoglobin 9.9 g/dL (12.0-15.0); Lymphocyte # 1.98 X10^3/ul (0.83-4.51); Lymphocyte % 38.7 % (19-41); Mean Corp Hgb Conc 33.7 g/dL (32-36); Mean Corpuscular Hgb 28.1 pg (27.0-32.0); Mean Corpuscular Volume 83.5 fL (81-99); Mean Platelet Vol. 9.9 fl (6.2-12.0); Monocyte# 0.48 X10^3/uL; Monocyte% 9.4 % (0-10); NRBC Flagged by Analyzer 0 % (0-5); Neutrophil # 2.32 X10^3/uL (2.7-7.7); Neutrophil % 45.2 % (47-70); Platelet Count 312 K/mm3 (150-450); RBC Distribution Width CV 13.5 % (11.6-14.6); RBC Distribution Width SD 41.5 fl (35.1-43.9); Red Blood Count 3.52 M/mm3 (4.2-5.4); White Blood Count 5.1 K/mm3 (4.4-11.0)
[2022-02-05 16:32] LABS: Anion Gap 6 (5-15); BUN 24 mg/dL (7-18); BUN/Creat Ratio 21.6 RATIO (10-20); Calcium,Total 9.1 mg/dL (8.5-10.1); Chloride 96 mmol/L (98-107); Creatinine, Serum 1.11 mg/dL (0.55-1.02); EST Glomerular Filtration Rate 52 mL/min (>60); Est Glom Filt Rate - Afr Amer 63 mL/min (>60); Estimated Creatinine Clearance 53.55 ml/min; Glucose 92 mg/dL (74-106); Potassium 6.1 mmol/L (3.5-5.1); Sodium Level 125 mmol/L (136-145); Troponin-I HS < 3 pg/mL (3.0-54.0)
[2022-02-05 16:40] VITALS: BP 155/75; PULSE 73; RESP 16; O2SAT 95
[2022-02-05 17:12] VITALS: BP 158/93; PULSE 73; RESP 16; O2SAT 97
[2022-02-05] MEDS: 0.9% Normal Saline 1,000 ML 999 ML IV (17:14)
[2022-02-05 18:22] VITALS: BP 166/76; PULSE 71; RESP 18; O2SAT 100
[2022-02-05 18:44] LABS: Anion Gap 8 (5-15); BUN 22 mg/dL (7-18); BUN/Creat Ratio 21.2 RATIO (10-20); Calcium,Total 8.2 mg/dL (8.5-10.1); Chloride 101 mmol/L (98-107); Creatinine, Serum 1.04 mg/dL (0.55-1.02); EST Glomerular Filtration Rate 57 mL/min (>60); Est Glom Filt Rate - Afr Amer 68 mL/min (>60); Estimated Creatinine Clearance 57.15 ml/min; Glucose 96 mg/dL (74-106); Sodium Level 130 mmol/L (136-145)
== END 2022-02-05 19:02 | disposition home or self-care (01) ==
PROVIDERS: Physician Assistant; Emergency Provider Emergency Medicine; PCP Family Medicine; Visit Provider Emergency Medicine
DX: R07.89 Other chest pain (principal); E86.0 Dehydration; E87.5 Hyperkalemia; I10 Essential (primary) hypertension; E78.5 Hyperlipidemia, unspecified; E87.1 Hypo-osmolality and hyponatremia; D64.9 Anemia, unspecified; K21.9 Gastro-esophageal reflux disease without esophagitis; F41.9 Anxiety disorder, unspecified; Z79.899 Other long term (current) drug therapy; Z87.891 Personal history of nicotine dependence
CPT/HCPCS: 71045; 80048; 84484; 85025; 93005; 96360; 99285; J7030; A4216

== ENCOUNTER 2022-09-14 10:27 | Emergency (ER) | payer MEDICARE, MEDICAID, SELFPAY ==
[2022-09-14 10:28] VITALS: BP 198/92; PULSE 93; RESP 16; TEMP 36; O2SAT 98; BMI 28.2
[2022-09-14 10:30] VITALS: BP 198/92; PULSE 93; RESP 16; TEMP 36; O2SAT 98
[2022-09-14 11:30] VITALS: BP 193/98; PULSE 91; RESP 18; TEMP 36.1; O2SAT 97
[2022-09-14 11:54] LABS: Bacteria 0 SEEN /hpf (None Seen); Mucous, Urine 0 SEEN /hpf (<or=2+); Red Blood Cells-Urine 0 SEEN /hpf (0-5)
[2022-09-14 12:00] LABS: Color, Urine Yellow (Yellow); Glucose, Dipstick Normal (Normal); Ketone-Dipstick Negative (Negative); Leukocyte Esterase-Dipstick 100 /ul (Negative); Nitrite-Dipstick Positive (Negative); Occult Blood-Urine Negative /ul (Negative); Protein-Dipstick 15 mg/dl (Negative); Specific Gravity, Urine 1.005 (1.002-1.030); Urine Bilirubin Dipstick Negative (Negative); Urine Clarity Sl. Cloudy (Clear); Urine Urobilinogen Normal (Normal)
[2022-09-14 12:12] LABS: Squamous Epithelial Cells - UA 0-5 SEEN /hpf (5-10); White Blood Cells 10-25 SEEN /hpf (0-5)
--- NOTE | 2022-09-14 12:13 | ED.VIS.FEGU ---
HPI HPI - Female History of Present Illness Chief Complaint: Complaint Informant: patient Pain Pain: Positive for Pelvic Pain Onset: Days (2-3) Context: Gradual Onset Timing: Continuous Quality: Positive for Burning Location: Suprapubic Current Severity: Mild Maximum Severity: Moderate Worsened by: - (Urinating) Relieved by: - (Nothing) Associated Symptoms Associated Symptoms: Positive for Dysuria, Frequency and Urgency; Negative for Hematuria Narrative Narrative: Patient had a urinary infection a year or 2 ago and feels like she may have another 1. She has not discomfort in her lower abdomen, urinary symptoms, and also some pain today in her right flank. No fevers, chills, nausea, vomiting, hematuria, or retention. No vaginal symptoms. [facility] Medical History Abdominal pain Abnormal liver ultrasound Alcohol use Anemia Arthritis Back pain Cirrhosis Depression Easy bruising Former smoker Gastric reflux GERD (gastroesophageal reflux disease) History of Cali's esophagus History of edema History of stress test Hypertension Injury of head and neck Leg cramps Restless legs Shortness of breath on exertion Wears dentures Wears glasses Home Medications sertraline 100 mg tablet 100 mg PO DAILY antidepressant 03/28/19 [History Last Taken 09/25/20] atorvastatin 10 mg tablet 10 mg PO DAILY CHOLESTEROL 05/26/20 [History Last Taken 09/25/20] loratadine 10 mg tablet 10 mg PO DAILY ALLERGIES 05/26/20 [History Last Taken 09/23/20] melatonin-pyridoxine HCl (vitamin B6) 1 mg-10 mg tablet 1 tab PO QHS SLEEP 05/26/20 [History Last Taken 09/25/20] baclofen 10 mg tablet 10 mg PO BID SPASMS 09/26/20 [History Last Taken 09/25/20] ibuprofen 800 mg tablet 800 mg PO TID PAIN 09/26/20 [History Last Taken 09/26/20] lisinopril 30 mg tablet 40 mg PO DAILY BP 09/26/20 [History Last Taken 09/26/20] pantoprazole 40 mg tablet,delayed release 40 mg PO DAILY GERD 09/26/20 [History Last Taken 09/25/20] alendronate 70 mg tablet 70 mg PO NORRIS 10/23/21 [History Last Taken Unknown] ergocalciferol (vitamin D2) 1,250 mcg (50,000 unit) capsule (Vitamin D2) 1,250 mcg PO NORRIS 10/31/21 [History Last Taken Unknown] cephalexin 500 mg capsule 500 mg PO Q6 #28 CAPSULES 09/14/22 [Rx Last Taken Unknown] Allergy/AdvReac Type Severity Reaction Status Date / Time Penicillins Allergy Rash Verified 09/14/22 10:27 Surgical History H/O cervical spine surgery Hx of colonoscopy Hx of left cataract extraction Social History Smoking Status: Former smoker alcohol intake: former substance use type: does not use ROS ROS ED Constitutional Constitutional ED: Denies chills or fever(s) Eyes Eyes: Denies change in vision or diplopia ENT ENT ED: Denies rhinorrhea or sore throat Cardiovascular Cardiovascular: Denies chest pain or palpitations Respiratory/Chest Respiratory/Chest: Denies cough or dyspnea Gastrointestinal Gastrointestinal: Reports abdominal pain; Denies diarrhea, nausea or vomiting Genitourinary Genitourinary ED: Reports dysuria, flank pain and urinary frequency; Denies hematuria Musculoskeletal Musculoskeletal: Denies back pain or neck pain Integumentary Denies abscess or rash Neurologic Neurologic: Denies headache(s), paresthesias or weakness Psychiatric Psychiatric: Denies anxiety or suicidal thoughts EXAM Physical Exam Const Vital Signs: 09/14/22 10:28 09/14/22 10:30 Temperature 96.8 F L 96.8 F L Temperature Source Temporal Temporal Pulse Rate 93 93 Respiratory Rate 16 16 Blood Pressure 198/92 H 198/92 H Blood Pressure Mean 127 127 Pulse Ox 98 98 Oxygen Delivery Method Room Air Room Air Positive well nourished and well developed Constitutional Narrative: Well-appearing General Appearance ED: well developed and NAD HEENT Reports moist mucous membranes normocephalic and atraumatic Eyes PERRL and EOMs intact bilaterally Neck full ROM and supple Resp normal respiratory effort and clear to auscultation bilaterally Cardio regular rate, regular rhythm and no murmurs GI non-distended GI Narrative: Very mild tenderness left side of the bladder/suprapubic area, no other areas of tenderness. Auscultation: normoactive bowel sounds Palpation: soft Back/Spine no CVA tenderness General Back: other FROM Extremity normal to inspection General Extremety ED: Negative for edema, pulses abnormal or tenderness General Extremity: Negative for edema or pulses abnormal Neuro oriented x3, CN's II-XII intact bilaterally and no sensory deficits noted Sensorium / Orientation: awake and alert Motor Exam: strength 5/5 throughout Skin no rashes or lesions noted and no wounds MDM MDM MDM Narrative Medical decision making narrative: Clinically not concerned about pyelonephritis here. Her symptoms are more that of cystitis, and possibly starting to become an a sending infection. Her urinalysis is consistent with infection, I sent this for culture started her on Bactrim and I will give her a weeks worth of that, basically to cover her for the possibility of an early a sending infection, 7 days being longer than the recommended course of cephalexin (Bactrim contraindicated since the patient is on an YUE inhibitor), but not as long as the recommended course for pyelonephritis. Lab Data Attestation: I reviewed the patient's lab results. Labs: Laboratory Results - last 24 hr 09/14/22 11:43 Urine Color Yellow Urine Clarity Sl. Cloudy Urine pH 7.0 Ur Specific [place] 1.005 Urine Protein 15 H Urine Glucose (UA) Normal Urine Ketones Negative Urine Occult Blood Negative Urine Nitrite Positive H Urine Bilirubin Negative Urine Urobilinogen Normal Ur Leukocyte Esterase 100 H Urine RBC 0 SEEN Urine WBC 10-25 SEEN Ur Squamous Epith Cells 0-5 SEEN Urine Bacteria 0 SEEN Urine Mucus 0 SEEN Discharge Plan Triage Chief Complaint: Complaint Other Complaint: Back ED Provider: Praveen Brumfield Dx/Rx/DC Orders Clinical Impression: Acute cystitis without hematuria, Episode of hypertension Instructions: Hypertension Dc, ED Cystitis Female Adult Prescriptions: New cephalexin [cephalexin] 500 mg capsule 500 mg PO Q6 Qty: 28 0RF No Action alendronate 70 mg tablet 70 mg PO NORRIS sertraline 100 MG tablet 100 mg PO DAILY atorvastatin 10 MG tablet 10 mg PO DAILY loratadine 10 MG tablet 10 mg PO DAILY melatonin-pyridoxine HCl (B6) 1 EACH tablet 1 tab PO QHS ibuprofen 800 MG tablet 800 mg PO TID baclofen 10 MG tablet 10 mg PO BID lisinopril 30 MG tablet 40 mg PO DAILY pantoprazole 40 MG tablet 40 mg PO DAILY ergocalciferol (vitamin D2) [Vitamin D2] 1,250 mcg (50,000 unit) Capsule 1,250 mcg PO NORRIS Primary Care Provider: Keaton Voss Referrals: Keaton Voss MD [Primary Care Provider] - 3-5 Days (Follow-up for blood pressure recheck, make sure you are taking your medication as prescribed, sooner if your symptoms or not improving or if they are worsening. We sent a culture, if your infection is resistant to the antibiotic we started, you will get a call to change it.) Disposition Disposition: Home, Self Care
[2022-09-14 12:30] VITALS: BP 197/93; PULSE 94; RESP 16; TEMP 36; O2SAT 98
[2022-09-14] MEDS: Cephalexin 250 MG Capsule 500 MG PO (12:49)
[2022-09-14 12:51] VITALS: BP 192/102; PULSE 70; RESP 18; TEMP 36.2; O2SAT 97
== END 2022-09-14 12:53 | disposition home or self-care (01) ==
PROVIDERS: Emergency Provider Emergency Medicine; PCP Family Medicine; Visit Provider Emergency Medicine
DX: N30.00 Acute cystitis without hematuria (principal); Z87.891 Personal history of nicotine dependence; I10 Essential (primary) hypertension; R10.2 Pelvic and perineal pain; R30.0 Dysuria; R35.0 Frequency of micturition; R39.15 Urgency of urination
CPT/HCPCS: 81001; 87086; 87088; 99283

== ENCOUNTER 2022-11-11 10:45 | Emergency (ER) | payer MEDICARE, MEDICAID, SELFPAY ==
[2022-11-11 10:48] VITALS: BP 151/61; PULSE 98; RESP 16; TEMP 36.6; O2SAT 100; BMI 29.5
--- NOTE | 2022-11-11 11:29 | EX.ED.GENINJ ---
HPI History of Present Illness Chief Complaint: Other, Pain/Inj Narrative Narrative: 66-year-old female here with concern for 2 lumps on back of head. The patient denies any injury. Patient further states this been going on for 2 days no pain symptoms have been constant severe without alleviating factors. No trauma to the area. Denies any ear pain sore throat or other infectious symptoms. [facility] Medical History Abdominal pain Abnormal liver ultrasound Alcohol use Anemia Arthritis Back pain Cirrhosis Depression Easy bruising Former smoker Gastric reflux GERD (gastroesophageal reflux disease) History of Cali's esophagus History of edema History of stress test Hypertension Injury of head and neck Leg cramps Restless legs Shortness of breath on exertion Wears dentures Wears glasses Home Medications sertraline 100 mg tablet 100 mg PO DAILY antidepressant 03/28/19 [History Last Taken 09/25/20] atorvastatin 10 mg tablet 10 mg PO DAILY CHOLESTEROL 05/26/20 [History Last Taken 09/25/20] loratadine 10 mg tablet 10 mg PO DAILY ALLERGIES 05/26/20 [History Last Taken 09/23/20] melatonin-pyridoxine HCl (vitamin B6) 1 mg-10 mg tablet 1 tab PO QHS SLEEP 05/26/20 [History Last Taken 09/25/20] baclofen 10 mg tablet 10 mg PO BID SPASMS 09/26/20 [History Last Taken 09/25/20] ibuprofen 800 mg tablet 800 mg PO TID PAIN 09/26/20 [History Last Taken 09/26/20] lisinopril 30 mg tablet 40 mg PO DAILY BP 09/26/20 [History Last Taken 09/26/20] pantoprazole 40 mg tablet,delayed release 40 mg PO DAILY GERD 09/26/20 [History Last Taken 09/25/20] alendronate 70 mg tablet 70 mg PO NORRIS 10/23/21 [History Last Taken Unknown] ergocalciferol (vitamin D2) 1,250 mcg (50,000 unit) capsule (Vitamin D2) 1,250 mcg PO NORRIS 10/31/21 [History Last Taken Unknown] cephalexin 500 mg capsule 500 mg PO Q6 #28 CAPSULES 09/14/22 [Rx Last Taken Unknown] Allergy/AdvReac Type Severity Reaction Status Date / Time Penicillins Allergy Rash Verified 11/11/22 10:47 Surgical History H/O cervical spine surgery Hx of colonoscopy Hx of left cataract extraction Social History Smoking Status: Former smoker alcohol intake: former substance use type: does not use ROS ROS ED ROS Narrative Constitutional: Denies fever HEENT: Denies sore throat Neck: Denies neck pain Cardiovascular: Denies chest pain, syncope Respiratory: Denies shortness of breath GI: Denies nausea vomiting or abdominal pain : Denies changes in urinary habits Musculoskeletal: Denies muscle or joint pain Neurologic: Denies numbness weakness or loss of sensation Skin denies rash, notes 2 lumps to right side posterior occiput EXAM Physical Exam Narrative Exam Narrative: Nursing triage notes reviewed, Vital signs reviewed Constitutional: please see mdm HENT: MMM, tonsils are without edema, hyperemia, no exudates. Uvula midline. Bilateral TMs pearly alcantara with no evidence of hyperemia or middle ear effusion. Eyes: Pupils equal round and reactive to light, Extraocular muscles intact Neck: No stridor, no JVD, full neck ROM Lungs: Clear to auscultation, No wheezing or rales. No increased work of breathing, no conversational dyspnea, no accessory muscle use, no nasal flaring. No respiratory distress noted Heart: Regular rate and rhythm, No murmurs, No rubs and No gallops, 2+ distal pulses (radial, femoral, posterior tibial) in all extremities Abdomen: Soft, there is no tenderness, rigidity, rebound or guarding, no obvious peritoneal signs, no palpable pulsatile abdominal masses, no auscultated abdominal bruit : No CVAT Extremities: No edema Neuro: No focal neurological deficits, cranial nerves II through XII intact, 5/5 strength in all extremities. Intact sensation to light touch in all extremities, 2+ reflexes bilateral patella dens. Normal gait. No ataxia. Skin: No rash or lesions noted, no fluctuance, no induration, no crepitus no bullae, no redness no obvious trauma to the posterior occiput there are 2 palpable areas approximately 1 cm in diameter that are not freely movable and are not tender to palpation noted the posterior cervical chain likely inflamed lymph nodes. Const Vital Signs: 11/11/22 10:48 Temperature 98 F Temperature Source Temporal Pulse Rate 98 Respiratory Rate 16 Blood Pressure 151/61 H Blood Pressure Mean 91 Pulse Ox 100 Oxygen Delivery Method Room Air MDM MDM MDM Narrative Medical decision making narrative: Chief Complaint: Head lesions External records reviewed: Last ED visit in August for acute cystitis I considered the following differential diagnosis: Mass, lipoma, cellulitis, abscess Exam most consistent with likely lymphadenopathy however this cannot be proven definitively. No obvious abscess, mass or cellulitis noted does not appear to be infectious is not painful is not red. There is no obvious trauma. Encourage ibuprofen for anti-inflammatory effect, careful watching and PCP follow-up for outpatient evaluation possible biopsy if indicated at a later date. Factors affecting care: History of hypertension, hyperlipidemia, cirrhosis, alcohol abuse Social determinants of health: Chronic alcohol abuse History obtained from others: None Shared decision making: I will have a discussion with the patient and or visitors regarding risk/benefits of further testing or admission. They will be made aware of of the risk/benefits inherent in this decision they will be given the opportunity to voice understanding. Consults: None Discharge Plan Triage Chief Complaint: Other, Pain/Inj ED Provider: Waqas Singer Dx/Rx/DC Orders Clinical Impression: Lymphadenopathy Prescriptions: No Action alendronate 70 mg tablet 70 mg PO NORRIS sertraline 100 MG tablet 100 mg PO DAILY atorvastatin 10 MG tablet 10 mg PO DAILY loratadine 10 MG tablet 10 mg PO DAILY melatonin-pyridoxine HCl (B6) 1 EACH tablet 1 tab PO QHS ibuprofen 800 MG tablet 800 mg PO TID baclofen 10 MG tablet 10 mg PO BID lisinopril 30 MG tablet 40 mg PO DAILY pantoprazole 40 MG tablet 40 mg PO DAILY ergocalciferol (vitamin D2) [Vitamin D2] 1,250 mcg (50,000 unit) Capsule 1,250 mcg PO NORRIS cephalexin [cephalexin] 500 mg capsule 500 mg PO Q6 Qty: 28 0RF Primary Care Provider: Keaton Voss Referrals: Keaton Voss MD [Primary Care Provider] -
== END 2022-11-11 13:02 | disposition home or self-care (01) ==
PROVIDERS: Emergency Provider Emergency Medicine; PCP Family Medicine; Visit Provider Emergency Medicine
DX: R59.9 Enlarged lymph nodes, unspecified (principal); K74.60 Unspecified cirrhosis of liver; I10 Essential (primary) hypertension; E78.5 Hyperlipidemia, unspecified; Z79.899 Other long term (current) drug therapy; Z87.891 Personal history of nicotine dependence
CPT/HCPCS: 99282

== ENCOUNTER 2022-11-15 21:17 | Emergency (ER) | payer MEDICARE, MEDICAID, SELFPAY ==
[2022-11-15 21:20] VITALS: BP 157/63; PULSE 70; RESP 15; TEMP 37.2; O2SAT 97
[2022-11-15 22:04] LABS: Mucous, Urine 0 SEEN /hpf (<or=2+); Squamous Epithelial Cells - UA 0 SEEN /hpf (5-10)
[2022-11-15 22:06] LABS: Color, Urine Yellow (Yellow); Glucose, Dipstick Normal (Normal); Ketone-Dipstick Negative (Negative); Leukocyte Esterase-Dipstick 500 /ul (Negative); Nitrite-Dipstick Negative (Negative); Occult Blood-Urine 10 /ul (Negative); Protein-Dipstick 15 mg/dl (Negative); Urine Bilirubin Dipstick Negative (Negative); Urine Clarity Clear (Clear); Urine Urobilinogen Normal (Normal)
[2022-11-15 22:33] LABS: Anion Gap 10 (5-15); BUN 21 mg/dL (7-18); Calcium,Total 9.4 mg/dL (8.5-10.1); Chloride 99 mmol/L (98-107); Creatinine, Serum 1.31 mg/dL (0.55-1.02); EST Glomerular Filtration Rate 43 mL/min (>60); Est Glom Filt Rate - Afr Amer 52 mL/min (>60); Glucose 117 mg/dL (74-106); Potassium 4.6 mmol/L (3.5-5.1); Sodium Level 129 mmol/L (136-145)
[2022-11-15 22:36] LABS: Absolute Lymphocyte Count 0.85 X10^3/uL (0.83-4.51); Basophil# 0.06 X10^3/uL; Eosinophil# 0.35 X10^3/uL; Eosinophils% 6.1 % (0-5); Lymphocyte # 0.85 X10^3/ul (0.83-4.51); Lymphocyte % 14.8 % (19-41); Mean Corp Hgb Conc 34.3 g/dL (32-36); Mean Corpuscular Hgb 29.5 pg (27.0-32.0); Mean Platelet Vol. 9.5 fl (6.2-12.0); Monocyte# 0.43 X10^3/uL; Monocyte% 7.5 % (0-10); NRBC Flagged by Analyzer 0 % (0-5); Neutrophil # 4.03 X10^3/uL (2.7-7.7); Neutrophil % 70.4 % (47-70); Platelet Count 296 K/mm3 (150-450); RBC Distribution Width CV 14.4 % (11.6-14.6); RBC Distribution Width SD 45.6 fl (35.1-43.9); Red Blood Count 4.07 M/mm3 (4.2-5.4); White Blood Count 5.7 K/mm3 (4.4-11.0)
[2022-11-15 23:28] LABS: Bacteria 1+ /hpf (None Seen); Hyaline Cast 0-5 SEEN /lpf (0-5); Red Blood Cells-Urine 0-5 SEEN /hpf (0-5); White Blood Cells 25-50 SEEN /hpf (0-5)
[2022-11-16] MEDS: Phenazopyridine 95 MG Tablet 190 MG PO (00:12)
[2022-11-16] MEDS: Ceftriaxone 1 GM/50 ML BAG IV (00:12)
--- NOTE | 2022-11-16 00:25 | EX.ED.DYSGE1 ---
HPI History of Present Illness Chief Complaint: Abd Pain Narrative Narrative: Patient is a 66-year-old female with past medical history of hypertension and hyperlipidemia who presents the ER complaining of lower mid abdominal burning. She states that the burning sensation/pain began approximate 2 to 3 hours prior to arrival. She states she is having some urinary frequency but denies any dysuria. She states has been no nausea vomiting or diarrhea. She denies any fevers chills or injury. However based on the abnormal sensation which she was concerned for infection and comes in for evaluation [facility] Medical History Abdominal pain Abnormal liver ultrasound Alcohol use Anemia Arthritis Back pain Cirrhosis Depression Easy bruising Former smoker Gastric reflux GERD (gastroesophageal reflux disease) History of Cali's esophagus History of edema History of stress test Hypertension Injury of head and neck Leg cramps Restless legs Shortness of breath on exertion Wears dentures Wears glasses Home Medications sertraline 100 mg tablet 100 mg PO DAILY antidepressant 03/28/19 [History Last Taken 09/25/20] atorvastatin 10 mg tablet 10 mg PO DAILY CHOLESTEROL 05/26/20 [History Last Taken 09/25/20] loratadine 10 mg tablet 10 mg PO DAILY ALLERGIES 05/26/20 [History Last Taken 09/23/20] melatonin-pyridoxine HCl (vitamin B6) 1 mg-10 mg tablet 1 tab PO QHS SLEEP 05/26/20 [History Last Taken 09/25/20] baclofen 10 mg tablet 10 mg PO BID SPASMS 09/26/20 [History Last Taken 09/25/20] ibuprofen 800 mg tablet 800 mg PO TID PAIN 09/26/20 [History Last Taken 09/26/20] lisinopril 30 mg tablet 40 mg PO DAILY BP 09/26/20 [History Last Taken 09/26/20] pantoprazole 40 mg tablet,delayed release 40 mg PO DAILY GERD 09/26/20 [History Last Taken 09/25/20] alendronate 70 mg tablet 70 mg PO NORRIS 10/23/21 [History Last Taken Unknown] ergocalciferol (vitamin D2) 1,250 mcg (50,000 unit) capsule (Vitamin D2) 1,250 mcg PO NORRIS 10/31/21 [History Last Taken Unknown] cephalexin 500 mg capsule 500 mg PO Q6 #28 CAPSULES 09/14/22 [Rx Last Taken Unknown] cephalexin 500 mg capsule 500 mg PO TID 7 days #21 caps 11/16/22 [Rx Last Taken Unknown] phenazopyridine 200 mg tablet (Pyridium) 200 mg PO TID 3 days #9 tabs 11/16/22 [Rx Last Taken Unknown] Allergy/AdvReac Type Severity Reaction Status Date / Time Penicillins Allergy Rash Verified 11/15/22 21:24 Surgical History H/O cervical spine surgery Hx of colonoscopy Hx of left cataract extraction Social History Smoking Status: Former smoker alcohol intake: former substance use type: does not use ROS ROS ED Constitutional Constitutional ED: Denies chills or fever(s) ENT ENT ED: Denies sore throat Cardiovascular Cardiovascular: Denies chest pain Respiratory/Chest Respiratory/Chest: Denies cough or dyspnea Gastrointestinal Gastrointestinal: Reports abdominal pain; Denies diarrhea, nausea or vomiting Genitourinary Genitourinary ED: Reports urinary frequency; Denies dysuria Musculoskeletal Musculoskeletal: Denies back pain or myalgias Integumentary Denies rash Neurologic Neurologic: Denies headache(s) Hematologic/Lymphatic Hematologic/Lymphatic: Denies easy bleeding or easy bruising EXAM Physical Exam Const Vital Signs: 11/15/22 21:20 Temperature 98.9 F Temperature Source Temporal Pulse Rate 70 Respiratory Rate 15 Blood Pressure 157/63 H Blood Pressure Mean 94 Pulse Ox 97 Oxygen Delivery Method Room Air Positive well nourished and well developed General Appearance ED: well developed Eyes PERRL and EOMs intact bilaterally General Eye ED: Negative for scleral icterus Neck supple Resp normal respiratory effort and clear to auscultation bilaterally Cardio regular rate and regular rhythm Rate: other Other Details: Radial pulses are plus 2 out of 4 bilaterally are equal and symmetric GI non-distended GI Narrative: Abdomen is soft and nondistended with normal active bowel sounds. There is mild pain with palpation in the suprapubic region without organomegaly. No voluntary guarding or rigidity. No pulsatile mass Auscultation: normoactive bowel sounds Palpation: soft Extremity normal to inspection Neuro oriented x3 and CN's II-XII intact bilaterally Sensorium / Orientation: alert Psych Psych Narrative: Patient has a flat affect Skin no rashes or lesions noted Skin Narrative: No overlying erythema warmth induration or fluctuance to suggest infectious process MDM MDM MDM Narrative Medical decision making narrative: Patient presented to the ER hypertensive but does have a history of this and otherwise stable vitals. Her abdomen is soft and nonsurgical so there is no need for emergent imaging studies. Differential diagnosis includes viral gastroenteritis colitis urinary tract infection versus overlying cellulitis or abscess formation. Basic labs were obtained and show changes consistent with UTI which would correlate with her suprapubic pain as well as burning sensation and urinary frequency. She does not have any overlying soft tissue changes to suggest Jessi's gangrene or infection such as cellulitis or abscess. She does not show changes consistent with urosepsis or acute kidney injury and therefore can be placed on antibiotics and discharged home History & Record Review Discussion w/independent historian: Patient Lab Data Attestation: I reviewed the patient's lab results. Labs: Laboratory Results - last 24 hr 11/15/22 11/15/22 11/15/22 21:50 21:50 22:00 WBC Cancelled Corrected WBC Cancelled RBC Cancelled Hgb Cancelled Hct Cancelled MCV Cancelled MCH Cancelled MCHC Cancelled RDW Std Deviation Cancelled RDW Coeff of Carlos Cancelled Plt Count Cancelled MPV Cancelled Immature Gran % (Auto) Cancelled Neut % (Auto) Cancelled Lymph % (Auto) Cancelled Mason % (Auto) Cancelled Eos % (Auto) Cancelled Baso % (Auto) Cancelled Absolute Neuts (auto) Cancelled Absolute Lymphs (auto) Cancelled Total Counted Cancelled Neutrophils % (Manual) Cancelled Band Neutrophils % Cancelled Lymphocytes % (Manual) Cancelled Monocytes % (Manual) Cancelled Eosinophils % (Manual) Cancelled Basophils % (Manual) Cancelled Metamyelocytes % Cancelled Myelocytes % Cancelled Promyelocytes % Cancelled Blast Cells % Cancelled Plasma Cell % (Manual) Cancelled Other Cells % Cancelled Nucleated RBC % Cancelled Nucleated RBCs/100 WBC Cancelled Differential Comment Cancelled Diff Path Review Cancelled Hypersegmented Neuts Cancelled Atypical Lymphocytes Cancelled Reactive Lymphocytes Cancelled Smudge Cells Cancelled Toxic Granulation Cancelled Toxic Vacuolation Cancelled Dohle Bodies Cancelled [place] Cancelled Platelet Estimate Cancelled Plt Morphology Comment Cancelled RBC Morphology Cancelled Polychromasia Cancelled Hypochromasia Cancelled Poikilocytosis Cancelled Basophilic Stippling Cancelled Anisocytosis Cancelled Microcytosis Cancelled Macrocytosis Cancelled Spherocytes Cancelled Sickle Cells Cancelled Target Cells Cancelled Tear Drop Cells Cancelled Ovalocytes Cancelled Stomatocytes Cancelled [place] Bodies Cancelled [place] Cells Cancelled Bite Cells Cancelled Crenated Cell Cancelled Acanthocytes (Spur) Cancelled Rouleaux Cancelled Schistocytes Cancelled Sodium 129 L Potassium 4.6 Chloride 99 Carbon Dioxide 20.0 L Anion Gap 10 BUN 21 H Creatinine 1.31 H Est GFR (MDRD) Af Amer 52 L Est GFR (MDRD) Non-Af 43 L BUN/Creatinine Ratio 16.0 Glucose 117 H Calcium 9.4 Urine Color Yellow Urine Clarity Clear Urine pH 6.0 Ur Specific [place] 1.020 Urine Protein 15 H Urine Glucose (UA) Normal Urine Ketones Negative Urine Occult Blood 10 H Urine Nitrite Negative Urine Bilirubin Negative Urine Urobilinogen Normal Ur Leukocyte Esterase 500 H Urine RBC 0-5 SEEN Urine WBC 25-50 SEEN Ur Squamous Epith Cells 0 SEEN Urine Bacteria 1+ Hyaline Casts 0-5 SEEN Urine Mucus 0 SEEN 11/15/22 22:20 WBC 5.7 Corrected WBC RBC 4.07 L Hgb 12.0 Hct 35.0 L MCV 86.0 MCH 29.5 MCHC 34.3 RDW Std Deviation 45.6 H RDW Coeff of Carlos 14.4 Plt Count 296 MPV 9.5 Immature Gran % (Auto) 0.200 Neut % (Auto) 70.4 H Lymph % (Auto) 14.8 L [place] % (Auto) 7.5 Eos % (Auto) 6.1 H Baso % (Auto) 1.0 Absolute Neuts (auto) 4.0 Absolute Lymphs (auto) 0.85 Total Counted Neutrophils % (Manual) Band Neutrophils % Lymphocytes % (Manual) Monocytes % (Manual) Eosinophils % (Manual) Basophils % (Manual) Metamyelocytes % Myelocytes % Promyelocytes % Blast Cells % Plasma Cell % (Manual) Other Cells % Nucleated RBC % 0 Nucleated RBCs/100 WBC Differential Comment Diff Path Review Hypersegmented Neuts Atypical Lymphocytes Reactive Lymphocytes Smudge Cells Toxic Granulation Toxic Vacuolation Dohle Bodies [place]s Platelet Estimate Plt Morphology Comment RBC Morphology Polychromasia Hypochromasia Poikilocytosis Basophilic Stippling Anisocytosis Microcytosis Macrocytosis Spherocytes Sickle Cells Target Cells Tear Drop Cells Ovalocytes Stomatocytes [place] Bodies [place] Cells Bite Cells Crenated Cell Acanthocytes (Spur) Rouleaux Schistocytes Sodium Potassium Chloride Carbon Dioxide Anion Gap BUN Creatinine Est GFR (MDRD) Af Amer Est GFR (MDRD) Non-Af BUN/Creatinine Ratio Glucose Calcium Urine Color Urine Clarity Urine pH Ur Specific [place] Urine Protein Urine Glucose (UA) Urine Ketones Urine Occult Blood Urine Nitrite Urine Bilirubin Urine Urobilinogen Ur Leukocyte Esterase Urine RBC Urine WBC Ur Squamous Epith Cells Urine Bacteria Hyaline Casts Urine Mucus Discharge Plan Triage Chief Complaint: Abd Pain ED Provider: Eddie Osborn Dx/Rx/DC Orders Clinical Impression: Urinary tract infection, Hypertension, Hyperlipidemia Instructions: Urinary Tract Infections in Women Prescriptions: New cephalexin 500 mg capsule 500 mg PO TID 7 Days Qty: 21 0RF phenazopyridine [Pyridium] 200 mg tablet 200 mg PO TID 3 Days Qty: 9 0RF No Action alendronate 70 mg tablet 70 mg PO NORRIS sertraline 100 MG tablet 100 mg PO DAILY atorvastatin 10 MG tablet 10 mg PO DAILY loratadine 10 MG tablet 10 mg PO DAILY melatonin-pyridoxine HCl (B6) 1 EACH tablet 1 tab PO QHS ibuprofen 800 MG tablet 800 mg PO TID baclofen 10 MG tablet 10 mg PO BID lisinopril 30 MG tablet 40 mg PO DAILY pantoprazole 40 MG tablet 40 mg PO DAILY ergocalciferol (vitamin D2) [Vitamin D2] 1,250 mcg (50,000 unit) Capsule 1,250 mcg PO NORRIS cephalexin [cephalexin] 500 mg capsule 500 mg PO Q6 Qty: 28 0RF Primary Care Provider: Keaton Voss Referrals: Keaton Voss MD [Primary Care Provider] - Activity Restrictions/Additional Instructions: Your work-up indicates that your burning sensation is secondary to a urinary tract infection. Take the medication as directed to help control this and treat the infection and return to the ER should you have any further concerns Disposition Disposition: Home, Self Care Discharge Date/Time: 11/16/22 00:45
[2022-11-16 00:38] VITALS: BMI 28.3
[2022-11-16 00:40] VITALS: BP 160/77; PULSE 63; RESP 15; O2SAT 100
== END 2022-11-16 00:45 | disposition home or self-care (01) ==
PROVIDERS: Emergency Provider Emergency Medicine; PCP Family Medicine; Visit Provider Emergency Medicine
DX: N39.0 Urinary tract infection, site not specified (principal); Z87.891 Personal history of nicotine dependence; I10 Essential (primary) hypertension; E78.5 Hyperlipidemia, unspecified; R35.0 Frequency of micturition
CPT/HCPCS: 80048; 81001; 85025; 87086; 87088; 96365; 99284; A4216

== ENCOUNTER 2023-01-21 16:46 | Emergency (ER) | payer MEDICARE, MEDICAID, SELFPAY ==
[2023-01-21 16:47] VITALS: BP 111/98; PULSE 95; RESP 18; TEMP 36.4; O2SAT 99; BMI 18.9
--- NOTE | 2023-01-21 17:26 | EDS_ITS ---
HPI History of Present Illness Chief Complaint: Back Informant: patient Onset/Context/Timing Onset: Days Context: Gradual Onset Timing: Continuous Quality: Aching and Burning Location: Lumbar Worsened by: improves with Nothing Relieved by: - (Heat) Associated Symptoms Associated Symptoms: Radiation to Right Leg and Radiation to Left Leg; Negative for Numbness, Tingling, Fever, Abdominal Pain, Dysuria, Unable to Ambulate, Unable to Transfer, Urinary Retention, Urinary Incontinence, Constipation or Fecal Incontinence Narrative Narrative: Patient presents with back pain that has been getting progressively worse over t he past few days. Patient states it is gradually getting worse. Patient denies any falls or trauma. Patient states it is constant. Patient describes as aching and burning. Patient states her pain is mainly over the lower lumbar area. Patient states nothing makes it worse. Patient states it gets better with heat. Patient states it radiates to her knees bilaterally. Patient denies any bowel or bladder changes. Patient denies any saddle anesthesia. Prior similar symptoms: Yes and With Prior Back Pain [facility] Medical History Abdominal pain Abnormal liver ultrasound Alcohol use Anemia Arthritis Back pain Cirrhosis Depression Easy bruising Former smoker Gastric reflux GERD (gastroesophageal reflux disease) History of Cali's esophagus History of edema History of stress test Hypertension Injury of head and neck Leg cramps Restless legs Shortness of breath on exertion Wears dentures Wears glasses Home Medications sertraline 100 mg tablet 100 mg PO DAILY antidepressant 03/28/19 [History Last Taken 09/25/20] atorvastatin 10 mg tablet 10 mg PO DAILY CHOLESTEROL 05/26/20 [History Last Taken 09/25/20] loratadine 10 mg tablet 10 mg PO DAILY ALLERGIES 05/26/20 [History Last Taken 09/23/20] melatonin-pyridoxine HCl (vitamin B6) 1 mg-10 mg tablet 1 tab PO QHS SLEEP 05/26/20 [History Last Taken 09/25/20] baclofen 10 mg tablet 10 mg PO BID SPASMS 09/26/20 [History Last Taken 09/25/20] ibuprofen 800 mg tablet 800 mg PO TID PAIN 09/26/20 [History Last Taken 09/26/20] lisinopril 30 mg tablet 40 mg PO DAILY BP 09/26/20 [History Last Taken 09/26/20] pantoprazole 40 mg tablet,delayed release 40 mg PO DAILY GERD 09/26/20 [History Last Taken 09/25/20] alendronate 70 mg tablet 70 mg PO NORRIS 10/23/21 [History Last Taken Unknown] ergocalciferol (vitamin D2) 1,250 mcg (50,000 unit) capsule (Vitamin D2) 1,250 mcg PO NORRIS 10/31/21 [History Last Taken Unknown] cephalexin 500 mg capsule 500 mg PO Q6 #28 CAPSULES 09/14/22 [Rx Last Taken Unknown] cephalexin 500 mg capsule 500 mg PO TID 7 days #21 caps 11/16/22 [Rx Last Taken Unknown] phenazopyridine 200 mg tablet (Pyridium) 200 mg PO TID 3 days #9 tabs 11/16/22 [Rx Last Taken Unknown] Allergy/AdvReac Type Severity Reaction Status Date / Time Penicillins Allergy Rash Verified 01/21/23 16:49 Surgical History H/O cervical spine surgery Hx of colonoscopy Hx of left cataract extraction Social History Smoking Status: Former smoker alcohol intake: former substance use type: does not use ROS ROS ED Constitutional Constitutional ED: Denies chills or fever(s) Eyes Eyes: Denies blurry vision or change in vision ENT ENT ED: Denies rhinorrhea or sore throat Cardiovascular Cardiovascular: Denies chest pain or palpitations Respiratory/Chest Respiratory/Chest: Reports dyspnea; Denies cough Gastrointestinal Gastrointestinal: Denies nausea or vomiting Genitourinary Genitourinary ED: Denies dysuria or hematuria Musculoskeletal Musculoskeletal: Reports back pain and neck pain Integumentary Denies abscess or rash Neurologic Neurologic: Denies headache(s) or weakness Allergic/Immunologic Allergic/Immunologic ED: Denies mouth swelling or urticaria EXAM Physical Exam Const Vital Signs: 01/21/23 16:47 Temperature 97.6 F L Temperature Source Temporal Pulse Rate 95 Respiratory Rate 18 Blood Pressure 111/98 H Blood Pressure Mean 102 Pulse Ox 99 Oxygen Delivery Method Room Air Positive well nourished and well developed General Appearance ED: well developed and NAD HEENT Reports moist mucous membranes Neck supple and no JVD Resp normal respiratory effort and clear to auscultation bilaterally Cardio regular rate and regular rhythm GI soft to palpation, non-tender and non-distended Back/Spine Back/Spine Narrative: There is mild tenderness over the lumbar spine and paraspinal muscles. There is no bony crepitance or step-off. There is no edema or ecchymosis. There is somewhat limited range of motion in all motions of the lumbar spine secondary to pain. Strength is 5/5 bilaterally in the upper and lower extremities. There are no sensory deficits noted. Deep tendon reflexes are 2/4 bilaterally in the lower extremities. Straight leg raises were negative bilaterally. Lumbar Spine / Lower Back: ROM limited and straight leg raise negative bilaterally Neuro oriented x3 and no sensory deficits noted Sensorium / Orientation: alert Motor Exam: strength 5/5 throughout Deep Tendon Reflexes: Rt Patellar (L4): 2+, Lt Patellar (L4): 2+, Rt Ankle (S1): 2+ and Lt Ankle (S1): 2+ Deep Tendon Reflexes Back: Rt Patellar (L4): 2+, Lt Patellar (L4): 2+, Rt Ankle (S1): 2+ and Lt Ankle (S1): 2+ Psych mental status grossly normal MDM MDM MDM Narrative Medical decision making narrative: Patient was advised that this is most likely a muscular strain. Patient was advised that x-rays would not be beneficial since she did not have any fall or trauma or injury to her back. Patient was instructed to continue her ibuprofen and baclofen. Patient was given injection of morphine here. Patient was instructed to follow-up with her primary care physician in 5 to 7 days. Patient understood and was agreeable with the plan. All questions were answered. Discharge Plan Triage Chief Complaint: Back ED Provider: Jarad Bear Dx/Rx/DC Orders Clinical Impression: Lumbosacral strain, Chronic low back pain Instructions: ED Back Sprain/Strain, ED Chronic Pain Prescriptions: No Action alendronate 70 mg tablet 70 mg PO NORRIS sertraline 100 MG tablet 100 mg PO DAILY atorvastatin 10 MG tablet 10 mg PO DAILY loratadine 10 MG tablet 10 mg PO DAILY melatonin-pyridoxine HCl (B6) 1 EACH tablet 1 tab PO QHS ibuprofen 800 MG tablet 800 mg PO TID baclofen 10 MG tablet 10 mg PO BID lisinopril 30 MG tablet 40 mg PO DAILY pantoprazole 40 MG tablet 40 mg PO DAILY ergocalciferol (vitamin D2) [Vitamin D2] 1,250 mcg (50,000 unit) Capsule 1,250 mcg PO NORRIS cephalexin [cephalexin] 500 mg capsule 500 mg PO Q6 Qty: 28 0RF cephalexin 500 mg capsule 500 mg PO TID 7 Days Qty: 21 0RF phenazopyridine [Pyridium] 200 mg tablet 200 mg PO TID 3 Days Qty: 9 0RF Primary Care Provider: Keaton Voss Referrals: Keaton Voss MD [Primary Care Provider] - 5-7 Days Disposition Disposition: Home, Self Care
[2023-01-21] MEDS: Morphine 4 MG/ML Syringe IM (17:36)
[2023-01-21 18:18] VITALS: PULSE 80; O2SAT 95
--- NOTE | 2023-01-21 18:22 | ED.RN ---
THIS RN CALLED JOVANA CARR (PT SISTER) ON BEHALF OF THE PT AT 1822 TO SET UP A RIDE FOR THE PT HOME.
--- NOTE | 2023-01-21 18:33 | ED.RN ---
THIS RN CALLED [facility] FOR THE PT DUE TO SISTER AND FRIEND BEING UNABLE TO GIVE HER A RIDE HOME. PT STATED I JUST WANT TO WALK HOME. PT REFUSED TO WAIT FOR [facility]. THIS RN EDUCATED PT THAT WALKING HOME WITH BACK PAIN COULD WORSEN HER CONDITION AND EDUCATED HER THAT IT WOULD BE MOST SAFE FOR HER TO WAIT FOR THE [facility]. PT REFUSED AND WALKED OUT OF ER AT 1834.
== END 2023-01-21 18:25 | disposition home or self-care (01) ==
PROVIDERS: Emergency Provider Emergency Medicine; PCP Family Medicine; Visit Provider Emergency Medicine
DX: S39.012A Strain of muscle, fascia and tendon of lower back, initial encounter (principal); I10 Essential (primary) hypertension; R06.00 Dyspnea, unspecified; G89.29 Other chronic pain; Z87.891 Personal history of nicotine dependence; X58.XXXA Exposure to other specified factors, initial encounter
CPT/HCPCS: 99284; 96372

== ENCOUNTER 2023-01-23 10:30 | Inpatient (IN) | payer MEDICARE, MEDICAID, SELFPAY ==
[2023-01-23 10:34] VITALS: BP 130/64; PULSE 88; RESP 18; TEMP 36.7; O2SAT 94; BMI 27.7
--- NOTE | 2023-01-23 11:02 | EKG12_ITS ---
Test Reason : SHOULDER PAIN Blood Pressure : / mmHG Vent. Rate : 076 BPM Atrial Rate : 076 BPM P-R Int : 178 ms QRS Dur : 074 ms QT Int : 358 ms P-R-T Axes : 041 020 035 degrees QTc Int : 402 ms Normal sinus rhythm Normal ECG Confirmed by MACK GARY, PRANEETH ([id number]), features editor ОЛЬГА FERNANDEZ ([id number]) on 01/26/2023 8:35:34 AM Referred By: Confirmed By:PRANEETH GIRON MD
--- NOTE | 2023-01-23 11:02 | RAD_ITS ---
INDICATION: near syncope EXAMINATION/TECHNIQUE: X-RAY - XR Chest 2 Views COMPARISON: February 05, 2022 FINDINGS: LINES/DEVICES: None. LUNGS: No consolidation, edema or effusion. No pneumothorax. MEDIASTINUM AND CARDIOVASCULAR STRUCTURES: Cardiac silhouette not enlarged. Central airways and mediastinal contour are unremarkable. BONES AND SOFT TISSUES: There are postsurgical changes of the cervical spine. There are degenerative changes of the thoracic spine. RAD/Chest PA and Lateral IMPRESSION: No radiographic evidence of acute cardiopulmonary disease. Electronically Signed: Melissa López MD at 12:00 EDT ,
--- NOTE | 2023-01-23 11:04 | EDS_ITS ---
HPI History of Present Illness Chief Complaint: Other, Pain/Inj Informant: patient Narrative Narrative: Patient is a 67-year-old female with history of chronic low back pain, osteoporosis hypertension, hyperlipidemia, cirrhosis of the liver, alcohol abuse and depression presenting with worsening pelvic pain as well as multiple other complaints. Patient was seen in our ER 2 days ago for worsening of her chronic back pain. She was given dose of morphine at that time. She denies any falls or injuries. She states since last night she is been having worsening pelvic discomfort and pain with urination. She also had urgency. She denies any blood in her urine. She states it feels like her prior urinary tract infections. She states she had about 2 in the past year and she has seen Dr. Osei, urology who thought she maybe has an overactive bladder. Patient does have an appointment to see her primary care doctor this coming Wednesday (in 3 days). She denies any fever or night sweats. She does have some nausea but attributes it more to from taking her medicine if she does not eat. She denies any vomiting. She has an chronic constipation but denies any change in this. She describes an aching and burning in her pelvic region. She is also having some mild right- sided flank pain. Patient states she feels like she is going to pass out and feels lightheaded. She is concerned she is dehydrated. She has osteoarthritis in her knees and has had a harder time walking because of this. Patient does have baclofen to take at home which she feels like its been less helpful than normal. Finally patient states that she suffers from tinnitus. She has been hearing her pulse in her ear and is worried there could be something wrong with her heart because of this. [facility] Medical History Abdominal pain Abnormal liver ultrasound Alcohol use Anemia Arthritis Back pain Cirrhosis Depression Easy bruising Former smoker Gastric reflux GERD (gastroesophageal reflux disease) History of Cali's esophagus History of edema History of stress test Hypertension Injury of head and neck Leg cramps Restless legs Shortness of breath on exertion Wears dentures Wears glasses Home Medications sertraline 100 mg tablet 100 mg PO DAILY antidepressant 03/28/19 [History Last Taken 09/25/20] atorvastatin 10 mg tablet 10 mg PO DAILY CHOLESTEROL 05/26/20 [History Last Taken 09/25/20] baclofen 10 mg tablet 10 mg PO BID SPASMS 09/26/20 [History Last Taken 09/25/20] lisinopril 30 mg tablet 40 mg PO DAILY BP 09/26/20 [History Last Taken 09/26/20] alendronate 70 mg tablet 70 mg PO NORRIS 10/23/21 [History Last Taken Unknown] ergocalciferol (vitamin D2) 1,250 mcg (50,000 unit) capsule (Vitamin D2) 1,250 mcg PO NORRIS 10/31/21 [History Last Taken Unknown] Allergy/AdvReac Type Severity Reaction Status Date / Time Penicillins Allergy Rash Verified 01/23/23 10:36 Surgical History H/O cervical spine surgery Hx of colonoscopy Hx of left cataract extraction Social History Smoking Status: Former smoker alcohol intake: former substance use type: does not use ROS ROS ED Constitutional Constitutional ED: Denies chills, fever(s) or sweats ENT ENT ED: Reports other Details: + Tinnitus ; Denies ear pain, rhinorrhea or sore throat Cardiovascular Cardiovascular: Reports palpitations; Denies chest pain Gastrointestinal Gastrointestinal: Reports abdominal pain and nausea; Denies constipation, diarrhea or vomiting Genitourinary Genitourinary ED: Reports dysuria and urinary frequency; Denies hematuria Musculoskeletal Musculoskeletal: Reports arthralgias and back pain; Denies myalgias or neck pain Integumentary Denies rash Neurologic Neurologic: Reports weakness; Denies headache(s) or paresthesias Psychiatric Psychiatric: Reports anxiety Hematologic/Lymphatic Hematologic/Lymphatic: Denies easy bleeding or easy bruising EXAM Physical Exam Const Vital Signs: 01/23/23 10:34 01/23/23 11:32 Temperature 98.1 F Temperature Source Temporal Pulse Rate 88 Respiratory Rate 18 Respiratory Pattern Normal Blood Pressure 130/64 H Blood Pressure Mean 86 Pulse Ox 94 Oxygen Delivery Method Room Air Positive well nourished and well developed General Appearance ED: well developed and NAD HEENT Reports moist mucous membranes Eyes PERRL and EOMs intact bilaterally Neck supple and no JVD Chest Wall inspection of chest normal and palpation of chest normal Resp normal respiratory effort and clear to auscultation bilaterally Cardio regular rate, regular rhythm and no murmurs GI normal to inspection, nondistended, normoactive bowel sounds Palpation: tender suprapubic; Negative for guarding Back/Spine General Back: CVA tenderness right (very mild ) Thoracic Spine / Upper Back: Negative for thoracic spinal tenderness Lumbar Spine / Lower Back: Negative for lumbar spinal tenderness Extremity normal to inspection General Extremety ED: Negative for edema or tenderness General Extremity: Negative for edema Neuro oriented x3 Sensorium / Orientation: alert Motor Exam: general weakness Psych mental status grossly normal Mood & Affect: anxious Skin no rashes or lesions noted and no wounds MDM MDM MDM Narrative Medical decision making narrative: Patient's evaluated for dysuria, generalized weakness and concern for dehydrati on. Patient's been afebrile. She does report some mild right flank pain however is not reproducible on direct palpation. Patient does have a urinalysis concerning for infection with 500 leukoesterase, 5-10 white blood cells and 1+ bacteria. There is slight contamination with 0-5 squamous epithelial cells. In addition she has worsening hyponatremia with a sodium of 126, chloride of 91 and now a creatinine of 1.7 which is up trending. 3 months ago patient's creatinine was 1.31 and a year ago her creatinine was around 1.0. Clinically patient does appear dehydrated. She is given IV fluids in the emergency room. She started IV Rocephin which chart review shows that she has previously tolerated. Given her generalized weakness, worsening kidney function and worsening hyponatremia I do think she benefit from admission for treatment of UTI and IV fluids. Given that she is having some mild right flank pain question she could be developing pyelonephritis. Patient is agreeable this plan of care. Patient is given a dose of IV morphine for pain control in the ER. As she has been taking a lot of NSAIDs which could be contributing to her worsening kidney function. Case is discussed with admitting physician, Dr. Pearson, who is agreeable with plan of care. History & Record Review Additional record(s) reviewed:: Prior labs Lab Data Labs: Laboratory Results - last 24 hr 01/23/23 01/23/23 01/23/23 11:30 11:30 11:30 WBC 4.9 RBC 3.84 L Hgb 11.4 L Hct 32.9 L MCV 85.7 MCH 29.7 MCHC 34.7 RDW Std Deviation 43.7 RDW Coeff of Carlos 13.9 Plt Count 215 MPV 10.2 Immature Gran % (Auto) 0.200 Neut % (Auto) 56.5 Lymph % (Auto) 30.0 [place] % (Auto) 9.7 Eos % (Auto) 2.6 Baso % (Auto) 1.0 Absolute Neuts (auto) 2.8 Absolute Lymphs (auto) 1.48 Nucleated RBC % 0 Sodium 126 L Potassium 4.0 Chloride 91 L Carbon Dioxide 22.0 Anion Gap 13 BUN 19 H Creatinine 1.70 H Estim Creat Clear Calc 30.93 Est GFR (MDRD) Af Amer 39 L Est GFR (MDRD) Non-Af 32 L BUN/Creatinine Ratio 11.2 Glucose 119 H Calcium 9.7 Phosphorus Magnesium Total Bilirubin 0.20 AST 30 ALT 28 Alkaline Phosphatase 48 Ammonia 17.0 Total Protein 8.3 H Albumin 4.6 Globulin 3.7 Albumin/Globulin Ratio 1.2 Urine Color Urine Clarity Urine pH Ur Specific [place] Urine Protein Urine Glucose (UA) Urine Ketones Urine Occult Blood Urine Nitrite Urine Bilirubin Urine Urobilinogen Ur Leukocyte Esterase Urine RBC Urine WBC Ur Squamous Epith Cells Urine Bacteria Urine Mucus 01/23/23 01/23/23 11:30 11:30 WBC RBC Hgb Hct MCV MCH MCHC RDW Std Deviation RDW Coeff of Carlos Plt Count MPV Immature Gran % (Auto) Neut % (Auto) Lymph % (Auto) [place] % (Auto) Eos % (Auto) Baso % (Auto) Absolute Neuts (auto) Absolute Lymphs (auto) Nucleated RBC % Sodium Potassium Chloride Carbon Dioxide Anion Gap BUN Creatinine Estim Creat Clear Calc Est GFR (MDRD) Af Amer Est GFR (MDRD) Non-Af BUN/Creatinine Ratio Glucose Calcium Phosphorus 2.9 Magnesium 1.8 Total Bilirubin AST ALT Alkaline Phosphatase Ammonia Total Protein Albumin Globulin Albumin/Globulin Ratio Urine Color Yellow Urine Clarity Sl. Cloudy Urine pH 5.0 Ur Specific [place] 1.020 Urine Protein Negative Urine Glucose (UA) Normal Urine Ketones 5 H Urine Occult Blood Negative Urine Nitrite Negative Urine Bilirubin Negative Urine Urobilinogen Normal Ur Leukocyte Esterase 500 H Urine RBC 0 SEEN Urine WBC 5-10 SEEN Ur Squamous Epith Cells 0-5 SEEN Urine Bacteria 1+ Urine Mucus 0 SEEN Radiography Chest X-Ray - ED: 2 View, Read by ED Physician and No Acute Disease Diagnostic Testing: Clinical Impression(s) from Imaging Studies Chest X-Ray 01/23/23 11:02 IMPRESSION: No radiographic evidence of acute cardiopulmonary disease. Electronically Signed: Melissa López MD at 12:00 EDT , Renal Ultrasound 01/23/23 12:43 IMPRESSION: No acute findings in the retroperitoneum. Electronically Signed: Janes Barboza ([place]) at 15:49 EDT , Rhythm Strip Rhythm Strip: Sinus Rhythm Rate: 76 Ectopy: None EKG Initial EKG: Attestation: I personally reviewed and interpreted this EKG as follows: Interpretation: Sinus Rhythm Comments: Sinus rhythm at a rate of 76 bpm Normal axis Normal intervals Normal ST segments Discharge Plan Dx/Rx/DC Orders Clinical Impression: Acute kidney injury, Acute UTI, Acute hyponatremia, Dehydration Disposition Disposition: Acute Care Hospital [facility] Discharge Date/Time: 01/23/23 13:11
[2023-01-23] MEDS: 0.9% Normal Saline 1,000 ML 1000 ML IV (11:35)
[2023-01-23 11:37] LABS: Mucous, Urine 0 SEEN /hpf (<or=2+); Red Blood Cells-Urine 0 SEEN /hpf (0-5)
[2023-01-23 11:40] LABS: Absolute Lymphocyte Count 1.48 X10^3/uL (0.83-4.51); Absolute Neutrophil Count 2.8 X10^3/uL (2.0-7.7); Basophil# 0.05 X10^3/uL; Eosinophil# 0.13 X10^3/uL; Eosinophils% 2.6 % (0-5); Hematocrit 32.9 % (37-47); Hemoglobin 11.4 g/dL (12.0-15.0); Lymphocyte # 1.48 X10^3/ul (0.83-4.51); Mean Corp Hgb Conc 34.7 g/dL (32-36); Mean Corpuscular Hgb 29.7 pg (27.0-32.0); Mean Corpuscular Volume 85.7 fL (81-99); Mean Platelet Vol. 10.2 fl (6.2-12.0); Monocyte# 0.48 X10^3/uL; Monocyte% 9.7 % (0-10); NRBC Flagged by Analyzer 0 % (0-5); Neutrophil # 2.78 X10^3/uL (2.7-7.7); Neutrophil % 56.5 % (47-70); Platelet Count 215 K/mm3 (150-450); RBC Distribution Width CV 13.9 % (11.6-14.6); RBC Distribution Width SD 43.7 fl (35.1-43.9); Red Blood Count 3.84 M/mm3 (4.2-5.4); White Blood Count 4.9 K/mm3 (4.4-11.0)
[2023-01-23 11:41] LABS: Color, Urine Yellow (Yellow); Glucose, Dipstick Normal (Normal); Ketone-Dipstick 5 mg/dl (Negative); Leukocyte Esterase-Dipstick 500 /ul (Negative); Nitrite-Dipstick Negative (Negative); Occult Blood-Urine Negative /ul (Negative); Protein-Dipstick Negative (Negative); Urine Bilirubin Dipstick Negative (Negative); Urine Clarity Sl. Cloudy (Clear); Urine Urobilinogen Normal (Normal)
[2023-01-23 11:46] LABS: White Blood Cells 5-10 SEEN /hpf (0-5)
[2023-01-23 11:47] LABS: Bacteria 1+ /hpf (None Seen); Squamous Epithelial Cells - UA 0-5 SEEN /hpf (5-10)
[2023-01-23 11:55] LABS: ALB/GLOB Ratio 1.2 RATIO (0.9-2.4); AST(SGOT) 30 U/L (15-37); Alanine Aminotransfer ALT/SGPT 28 U/L (13-56); Albumin, Serum 4.6 g/dL (3.2-5.0); Alkaline Phosphatase 48 U/L (45-117); Anion Gap 13 (5-15); BUN 19 mg/dL (7-18); BUN/Creat Ratio 11.2 RATIO (10-20); Calcium,Total 9.7 mg/dL (8.5-10.1); Chloride 91 mmol/L (98-107); EST Glomerular Filtration Rate 32 mL/min (>60); Est Glom Filt Rate - Afr Amer 39 mL/min (>60); Estimated Creatinine Clearance 30.93 ml/min; Globulin 3.7 g/dL (2.2-4.2); Glucose 119 mg/dL (74-106); Protein, Total 8.3 g/dL (6.4-8.2); Sodium Level 126 mmol/L (136-145)
--- NOTE | 2023-01-23 12:43 | US_ITS ---
EXAM: US RETROPERITONEAL LIMITED, RENAL CLINICAL INDICATION: Right flank pain, TECHNIQUE: Limited grayscale and color Doppler sonographic evaluation of the retroperitoneum was performed. COMPARISON: No relevant prior studies available. FINDINGS: RIGHT KIDNEY: Mild cortical thinning. No hydronephrosis. No shadowing calculus. No focal lesion. No perinephric collection is demonstrated. LEFT KIDNEY: Unremarkable. No hydronephrosis. No shadowing calculus. No focal lesion. No perinephric collection is demonstrated. BLADDER: No bladder wall thickening. Bilateral ureteral jets are confirmed. US/Kidney and Bladder IMPRESSION: No acute findings in the retroperitoneum. Electronically Signed: Janes Barboza ([place]), at 15:49 EDT ,
--- NOTE | 2023-01-23 13:02 | HP.PCM.HOS_ITS ---
HPI - General General Date of Admission: 01/23/23 Date of Service: 01/23/23 Chief Complaint: Multiple pain issues, burning pain/dysuria and RUPAL HPI Narrative MAXI GARCIA, is a 67 F has history of recurrent ED visits came to ER this time with multiple pain complaints. She has chronic back pain and neck pain and had surgery in cervical spine [place] [address] GARCIA. Complain of chronic bilateral lower back pain more on the right side with radiation along her right buttock and thigh to the knee level. she has seen Dr. Garner last visit in April 2022. She also has osteoarthritis in knees. Complain of right flank pain also and burning micturition for 2 days. She also has history of recurrent UTI and had to UTI last year and 1 this year. She also feels dizzy lightheaded and dehydrated. She also complains of bilateral ear tinnitus which is chronic with difficulty in his speech discrimination and impaired hearing worse in the right ear. She is on ibuprofen 800 mg 3 times daily along with baclofen, alendronate and vitamin D. She states she has history of osteoporosis and hurts all over. Vitals in the ED in acceptable limit. No fever. Labs and imaging reviewed and discussed in assessment plan. ON LICENSE OF [facility] Medical History Abdominal pain Abnormal liver ultrasound Alcohol use Anemia Arthritis Back pain Cirrhosis Depression Easy bruising Former smoker Gastric reflux GERD (gastroesophageal reflux disease) History of Cali's esophagus History of edema History of stress test Hypertension Injury of head and neck Leg cramps Restless legs Shortness of breath on exertion Wears dentures Wears glasses Home Medications sertraline 100 mg tablet 100 mg PO DAILY antidepressant 03/28/19 [History Last Taken 09/25/20] atorvastatin 10 mg tablet 10 mg PO DAILY CHOLESTEROL 05/26/20 [History Last Taken 09/25/20] baclofen 10 mg tablet 10 mg PO BID SPASMS 09/26/20 [History Last Taken 09/25/20] lisinopril 30 mg tablet 40 mg PO DAILY BP 09/26/20 [History Last Taken 09/26/20] alendronate 70 mg tablet 70 mg PO NORRIS 10/23/21 [History Last Taken Unknown] ergocalciferol (vitamin D2) 1,250 mcg (50,000 unit) capsule (Vitamin D2) 1,250 mcg PO NORRIS 10/31/21 [History Last Taken Unknown] Allergy/AdvReac Type Severity Reaction Status Date / Time Penicillins Allergy Rash Verified 01/23/23 10:36 Surgical History H/O cervical spine surgery Hx of colonoscopy Hx of left cataract extraction Social History Smoking Status: Former smoker alcohol intake: former substance use type: does not use ROS ROS Narrative Constitutional: Reports fatigue and weakness and chronic pain. No fever. HEENT: Reports systems reviewed and no addt'l complaints, except as documented Respiratory/Chest: No acute shortness of breath or respiratory distress or wheezing. CVS: No chest pain or tightness. Denies history of cardiac abnormality. Gastrointestinal: Denies coffee ground emesis, hematemesis or vomiting Genitourinary: Denies recent decrease in urine output or water intake. Burning micturition. History of recurrent UTI Musculoskeletal: Chronic joint pain arthritis of C-spine lumbar spine, right knee and left hip. History of cervical spine surgery. No acute injury Neurologic: Denies seizure-like symptoms. No acute strokelike symptoms. skin: No ulcer. No rash Endocrinology: Reports systems reviewed and no addt'l complaints, except as documented Hematologic/Lymphatic: Reports systems reviewed and no addt'l complaints, except as documented Rest 14 ROS are negative except as mentioned in HPI Vital Signs Vital Signs Vital Signs: 01/23/23 10:34 01/23/23 11:32 Temperature 98.1 F Temperature Source Temporal Pulse Rate 88 Respiratory Rate 18 Respiratory Pattern Normal Blood Pressure 130/64 H Blood Pressure Mean 86 Pulse Ox 94 Oxygen Delivery Method Room Air Weight Weight: 132 lb 11.2 oz Body Mass Index (BMI) 27.7 Physical Exam Narrative General: Alert, Oriented x3, Cooperative HEENT: Atraumatic, PERRLA, EOMI, Normocephalic Oral: Oral mucosa dry. No Gingival or Mucosal Lesions/ Ulcerations Neck: Supple, No JVD, Negative Carotid Bruits Lungs: Air entry diminished in bilateral lung bases. No crepitation/rhonchi Cardiovascular: Regular rate, Regular Rhythm, Normal S1, Normal S2, systolic murmur over right second ICS and LUSB. Abdomen: Bowel Sounds Present, Soft, Non Tender, Non-Distended : Mild tenderness over right lumbar back. No suprapubic tenderness. Dysuria present. Extremities: No edema, Capillary Refill Less than 3 Seconds Skin: No rashes, No breakdown Musculoskeletal: Tenderness over right and left lumbar paraspinal muscles and LS spine. ROM restricted over right knee. Mild tenderness over right knee and left knee, on deep palpation, degenerative arthritis Neurological: Cranial nerves II-XII grossly intact, DTR 2+/4, muscle strength 4+/5 at knees and hip joints. Psych/Mental Status: Flat affect. Results Lab / Micro Data Result Diagrams: 01/23/23 11:30 01/23/23 11:30 Labs: Laboratory Results - last 24 hr 01/23/23 11:30: WBC 4.9, RBC 3.84 L, Hgb 11.4 L, Hct 32.9 L, MCV 85.7, MCH 29.7, MCHC 34.7, RDW Std Deviation 43.7, RDW Coeff of Carlos 13.9, Plt Count 215, MPV 10.2, Immature Gran % (Auto) 0.200, Neut % (Auto) 56.5, Lymph % (Auto) 30.0, Day % (Auto) 9.7, Eos % (Auto) 2.6, Baso % (Auto) 1.0, Absolute Neuts (auto) 2.8, Absolute Lymphs (auto) 1.48, Nucleated RBC % 0 01/23/23 11:30: Sodium 126 L, Potassium 4.0, Chloride 91 L, Carbon Dioxide 22.0, Anion Gap 13, BUN 19 H, Creatinine 1.70 H, Estim Creat Clear Calc 30.93, Est GFR (MDRD) Af Amer 39 L, Est GFR (MDRD) Non-Af 32 L, BUN/Creatinine Ratio 11.2, Glucose 119 H, Calcium 9.7, Total Bilirubin 0.20, AST 30, ALT 28, Alkaline Phosphatase 48, Total Protein 8.3 H, Albumin 4.6, Globulin 3.7, Albumin/Globulin Ratio 1.2 01/23/23 11:30: Ammonia 17.0 01/23/23 11:30: Urine Color Yellow, Urine Clarity Sl. Cloudy, Urine pH 5.0, Ur Specific [place] 1.020, Urine Protein Negative, Urine Glucose (UA) Normal, Urine Ketones 5 H, Urine Occult Blood Negative, Urine Nitrite Negative, Urine Bilirubin Negative, Urine Urobilinogen Normal, Ur Leukocyte Esterase 500 H, Urine RBC 0 SEEN, Urine WBC 5-10 SEEN, Ur Squamous Epith Cells 0-5 SEEN, Urine Bacteria 1+, Urine Mucus 0 SEEN Rhythm Strip Rhythm Strip: Sinus Rhythm Rate: 76 Ectopy: None Radiology Impression Chest X-Ray 01/23/23 11:02 IMPRESSION: No radiographic evidence of acute cardiopulmonary disease. Electronically Signed: Melissa López MD at 12:00 EDT , Assessment & Plan Assessment/Plan (1) Acute kidney injury: PLAN: Plan This 67-year-old female is being admitted for concern of possible UTI/pyelonephritis, hyponatremia and RUPAL 1. RUPAL on CKD Stage IIIA with possible gradual worsening CKD, possible prerenal or potential ATN: Patient creatinine was 1.04 in January 2022, 1.31 in October 2022 and now 1.70. Not much increase in BUN. Patient on high dose of NSAID ibupr ofen 800 mg 3 times daily which might be a factor for worsening chronic kidney disease. IV fluid normal saline monitor kidney function electrolyte. Avoid nephrotoxic medications. Renal bladder ultrasound ordered. Patient was last admitted in September 2019 for RUPAL. If kidney function worsens, will consult ada accommodation consultant. 2. Hypotonic isovolumetric hyponatremia, gradually worsening: Patient sodium was 1 29-1 30 in last year but currently 126. Denies external loss of fluid. Monitor sodium. Does not have acute symptoms of hyponatremia including altered mental status, seizure or decreased mentation. IV fluid normal saline 100 mill per hour. Serum potassium normal. 3. Dysuria, urgency and concern for UTI with history of recurrent UTI: Patient history of recurrent UTI 2 times last year and 23 August 2022. UA shows WBC 5- 10 cells, LE 500, nitrite negative. Patient started empirically on IV ceftriaxone. Urine culture ordered. No fever. She follows Dr. Osei for overactive/urge incontinence. She also has chronic constipation. 4. Hypertension: Blood pressure is controlled. Patient states she takes HCTZ but not listed on home meds reconciliation. Hold lisinopril for now. 5. Osteoporosis, multiple chronic degenerative arthritis involving cervical spine, lumbar spine/lumbar radiculopathy, knee and hip joint arthritis. Patient follows Dr. Garner, last seen in April 2022. PT and OT ordered. Avoid NSAIDs. 6. Other chronic comorbidities include dyslipidemia, anxiety and depression and chronic pain syndrome: On Zoloft. Home medication reconciliation done. Living will/advanced directive/end of life care: Patient does not have living will or advanced directive. Her next to kin is her sister Mrs. Rocío Gomez who lives in [facility]. After discussion of benefits/risks procedures involved with full code, DNR CC arrest and DNR CC, the patient opted for full code. Patient does want artificial life support including intubation, tube feed, olvin tilator and/chest compression, central venous catheter, vasopressor and DC shock if needed Total time spent in [id number] encounter in discussion of advanced directive 17 minutes. Laboratory Results 01/23/23 11:30: WBC 4.9, RBC 3.84 L, Hgb 11.4 L, Hct 32.9 L, MCV 85.7, MCH 29.7, MCHC 34.7, RDW Std Deviation 43.7, RDW Coeff of Carlos 13.9, Plt Count 215, MPV 10.2, Immature Gran % (Auto) 0.200, Neut % (Auto) 56.5, Lymph % (Auto) 30.0, Day % (Auto) 9.7, Eos % (Auto) 2.6, Baso % (Auto) 1.0, Absolute Neuts (auto) 2.8, Absolute Lymphs (auto) 1.48, Nucleated RBC % 0 01/23/23 11:30: Sodium 126 L, Potassium 4.0, Chloride 91 L, Carbon Dioxide 22.0, Anion Gap 13, BUN 19 H, Creatinine 1.70 H, Estim Creat Clear Calc 30.93, Est GFR (MDRD) Af Amer 39 L, Est GFR (MDRD) Non-Af 32 L, BUN/Creatinine Ratio 11.2, Glucose 119 H, Calcium 9.7, Total Bilirubin 0.20, AST 30, ALT 28, Alkaline Phosphatase 48, Total Protein 8.3 H, Albumin 4.6, Globulin 3.7, Albumin/Globulin Ratio 1.2 01/23/23 11:30: Ammonia 17.0 01/23/23 11:30: Urine Color Yellow, Urine Clarity Sl. Cloudy, Urine pH 5.0, Ur Specific [place] 1.020, Urine Protein Negative, Urine Glucose (UA) Normal, Urine Ketones 5 H, Urine Occult Blood Negative, Urine Nitrite Negative, Urine Bilirubin Negative, Urine Urobilinogen Normal, Ur Leukocyte Esterase 500 H, Urine RBC 0 SEEN, Urine WBC 5-10 SEEN, Ur Squamous Epith Cells 0-5 SEEN, Urine Bacteria 1+, Urine Mucus 0 SEEN 01/23/23 11:30: Phosphorus Pending, Magnesium Pending Clinical Impression(s) from Imaging Studies Chest X-Ray 01/23/23 11:02 IMPRESSION: No radiographic evidence of acute cardiopulmonary disease. Charges/Coding Visit Charges Inpatient E&M: 66580 Init Hosp L3 Procedures Hospitalists Procedures: 05612 Advncd Care Plan 30 Min
[2023-01-23] MEDS: Morphine 4 MG/ML Syringe IV (13:05)
[2023-01-23] MEDS: Ceftriaxone 1 GM/50 ML BAG IV (13:05)
[2023-01-23 13:06] VITALS: BP 112/70; PULSE 78; RESP 14; TEMP 36.6; O2SAT 95
[2023-01-23 13:23] VITALS: BMI 28.3
[2023-01-23 13:30] LABS: Magnesium 1.8 mg/dL (1.6-2.6); Phosphorus 2.9 mg/dL (2.5-4.9)
[2023-01-23 13:47] VITALS: BP 169/87; PULSE 70; RESP 16; TEMP 36.9; O2SAT 97
[2023-01-23 15:45] VITALS: O2SAT 100
[2023-01-23 16:05] VITALS: BP 137/74; PULSE 69; RESP 16; TEMP 36.5; O2SAT 100
[2023-01-23] MEDS: Enoxaparin 30 MG/0.3 ML Syringe SC (16:09)
[2023-01-23] MEDS: 0.9% Normal Saline 1,000 ML 100 ML IV (16:09)
[2023-01-23] MEDS: amLODIPine 5 MG Tablet PO (16:09)
[2023-01-23] MEDS: Baclofen 10 MG Tablet PO (19:54)
[2023-01-23] MEDS: Atorvastatin Calcium 10 MG Tablet PO (19:54)
[2023-01-23] MEDS: Senna/Docusate Sodium 1 Tablet 2 TABLET PO (19:54)
[2023-01-23] MEDS: MELATONIN 3 MG TABLET 5 MG PO (21:07)
[2023-01-23 21:15] VITALS: BP 105/58; PULSE 74; RESP 18; TEMP 36.4; O2SAT 98
[2023-01-24] VITALS (9 sets, daily range): BP systolic 131–157; BP diastolic 60–90; PULSE 75–98; RESP 16–18; TEMP 36.5–36.8; O2SAT 95–99
[2023-01-24] MEDS: 0.9% Normal Saline 1,000 ML 100 ML IV (00:46)
[2023-01-24 06:12] LABS: Absolute Lymphocyte Count 1.45 X10^3/uL (0.83-4.51); Absolute Neutrophil Count 2.5 X10^3/uL (2.0-7.7); Basophil# 0.05 X10^3/uL; Basophil% 1.1 % (0-1); Eosinophil# 0.15 X10^3/uL; Eosinophils% 3.4 % (0-5); Hematocrit 29.6 % (37-47); Lymphocyte # 1.45 X10^3/ul (0.83-4.51); Lymphocyte % 32.5 % (19-41); Mean Corp Hgb Conc 33.8 g/dL (32-36); Mean Corpuscular Hgb 30.1 pg (27.0-32.0); Mean Corpuscular Volume 89.2 fL (81-99); Monocyte# 0.33 X10^3/uL; Monocyte% 7.4 % (0-10); NRBC Flagged by Analyzer 0 % (0-5); Neutrophil # 2.47 X10^3/uL (2.7-7.7); Neutrophil % 55.4 % (47-70); Platelet Count 158 K/mm3 (150-450); RBC Distribution Width CV 14.4 % (11.6-14.6); RBC Distribution Width SD 47.1 fl (35.1-43.9); Red Blood Count 3.32 M/mm3 (4.2-5.4); White Blood Count 4.5 K/mm3 (4.4-11.0)
[2023-01-24 06:39] LABS: Anion Gap 9 (5-15); BUN 10 mg/dL (7-18); BUN/Creat Ratio 14.9 RATIO (10-20); Calcium,Total 8.2 mg/dL (8.5-10.1); Chloride 110 mmol/L (98-107); Creatinine, Serum 0.67 mg/dL (0.55-1.02); EST Glomerular Filtration Rate 93 mL/min (>60); Est Glom Filt Rate - Afr Amer 113 mL/min (>60); Estimated Creatinine Clearance 53.69 ml/min; Glucose 94 mg/dL (74-106); Potassium 3.7 mmol/L (3.5-5.1); Sodium Level 139 mmol/L (136-145)
--- NOTE | 2023-01-24 08:08 | PN.HOSP_ITS ---
Reason for Visit Reason for Visit: Diagnoses Acute kidney failure, unspecified (01/23/23) Subjective Subjective Follow-up for RUPAL and hyponatremia. Objective Data Objective Data Vital Signs: Vital Signs Temp Pulse Resp BP Pulse Ox O2 Del Method 97.8 F 80 18 142/75 H 96 Room Air 01/24/23 03:20 01/24/23 03:20 01/24/23 03:20 01/24/23 03:20 01/24/23 03:20 01/24/23 03:20 Oxygen Delivery Method Room Air Weight: 135 lb 8 oz Body Mass Index (BMI) 28.3 Intake & Output: Intake and Output for Last 24 Hours 01/22/23 01/23/23 01/24/23 23:59 23:59 23:59 Intake Total 1250 / 1250 1061.67 / 1061.67 Output Total 300 / 300 600 / 600 Balance 950 / 950 461.67 / 461.67 Lab / Micro Data Result Diagrams: 01/24/23 06:00 01/24/23 06:00 Labs: Laboratory Results - last 24 hr 01/23/23 11:30: WBC 4.9, RBC 3.84 L, Hgb 11.4 L, Hct 32.9 L, MCV 85.7, MCH 29.7, MCHC 34.7, RDW Std Deviation 43.7, RDW Coeff of Carlos 13.9, Plt Count 215, MPV 10.2, Immature Gran % (Auto) 0.200, Neut % (Auto) 56.5, Lymph % (Auto) 30.0, [place] % (Auto) 9.7, Eos % (Auto) 2.6, Baso % (Auto) 1.0, Absolute Neuts (auto) 2.8, Absolute Lymphs (auto) 1.48, Nucleated RBC % 0 01/23/23 11:30: Sodium 126 L, Potassium 4.0, Chloride 91 L, Carbon Dioxide 22.0, Anion Gap 13, BUN 19 H, Creatinine 1.70 H, Estim Creat Clear Calc 30.93, Est GFR (MDRD) Af Amer 39 L, Est GFR (MDRD) Non-Af 32 L, BUN/Creatinine Ratio 11.2, Glucose 119 H, Calcium 9.7, Total Bilirubin 0.20, AST 30, ALT 28, Alkaline Phosphatase 48, Total Protein 8.3 H, Albumin 4.6, Globulin 3.7, Albumin/Globulin Ratio 1.2 01/23/23 11:30: Ammonia 17.0 01/23/23 11:30: Urine Color Yellow, Urine Clarity Sl. Cloudy, Urine pH 5.0, Ur Specific [place] 1.020, Urine Protein Negative, Urine Glucose (UA) Normal, Urine Ketones 5 H, Urine Occult Blood Negative, Urine Nitrite Negative, Urine Bilirubin Negative, Urine Urobilinogen Normal, Ur Leukocyte Esterase 500 H, Urine RBC 0 SEEN, Urine WBC 5-10 SEEN, Ur Squamous Epith Cells 0-5 SEEN, Urine Bacteria 1+, Urine Mucus 0 SEEN 01/23/23 11:30: Phosphorus 2.9, Magnesium 1.8 01/24/23 06:00: WBC 4.5, RBC 3.32 L, Hgb 10.0 L, Hct 29.6 L, MCV 89.2, MCH 30.1, MCHC 33.8, RDW Std Deviation 47.1 H, RDW Coeff of Carlos 14.4, Plt Count 158, MPV 10.0, Immature Gran % (Auto) 0.200, Neut % (Auto) 55.4, Lymph % (Auto) 32.5, [place] % (Auto) 7.4, Eos % (Auto) 3.4, Baso % (Auto) 1.1 H, Absolute Neuts (auto) 2.5, Absolute Lymphs (auto) 1.45, Nucleated RBC % 0 01/24/23 06:00: Sodium 139, Potassium 3.7, Chloride 110 H, Carbon Dioxide 20.0 L , Anion Gap 9, BUN 10, Creatinine 0.67, Estim Creat Clear Calc 53.69, Est GFR (MDRD) Af Amer 113, Est GFR (MDRD) Non-Af 93, BUN/Creatinine Ratio 14.9, Glucose 94, Calcium 8.2 L Micro: Microbiology 01/23/23 11:15 Urine, Clean Catch Urine Culture - Final Mixed Gram Positive Organisms Radiography Diagnostic Testing: Radiology Impression Chest X-Ray 01/23/23 11:02 IMPRESSION: No radiographic evidence of acute cardiopulmonary disease. Electronically Signed: Melissa López MD at 12:00 EDT , Renal Ultrasound 01/23/23 12:43 IMPRESSION: No acute findings in the retroperitoneum. Electronically Signed: Janes Barboza (Brooks), at 15:49 EDT Reading Location ID and State: [facility] / [place] , Service support , Rhythm Strip Rhythm Strip: Sinus Rhythm Rate: 76 Ectopy: None Physical Exam Narrative General: Alert, Oriented x3, Cooperative HEENT: Atraumatic, PERRLA, EOMI, Normocephalic Oral: Oral mucosa moist. No Gingival or Mucosal Lesions/ Ulcerations Neck: Supple, No JVD, Negative Carotid Bruits Lungs: Air entry diminished in bilateral lung bases. No crepitation/rhonchi Cardiovascular: Regular rate, Regular Rhythm, Normal S1, Normal S2, systolic murmur over right second ICS and LUSB. Abdomen: Bowel Sounds Present, Soft, Non Tender, Non-Distended : Mild tenderness over right lumbar back. No suprapubic tenderness. Dysuria present. Extremities: No edema, Capillary Refill Less than 3 Seconds Skin: No rashes, No breakdown Musculoskeletal: Tenderness over right and left lumbar paraspinal muscles and LS spine. ROM restricted over right knee. Chronic mild tenderness over right knee and left hip, on deep palpation, degenerative arthritis Neurological: Cranial nerves II-XII grossly intact, DTR 2+/4, muscle strength 4+/5 at knees and hip joints. Psych/Mental Status: Flat affect. chronic pain syndrome. Assessment & Plan Assessment/Plan (1) Acute kidney injury: PLAN: Plan This 67-year-old female is being admitted for concern of possible UTI/pyelonephritis, hyponatremia and RUPAL 1. RUPAL on CKD Stage IIIA with possible gradual worsening CKD, possible prerenal or potential ATN: Patient creatinine was 1.04 in January 2022, 1.31 in October 2022 and now 1.70. Not much increase in BUN. Patient on high dose of NSAID ibuprofen 800 mg 3 times daily which might be a factor for worsening chronic kidney disease. IV fluid normal saline monitor kidney function electrolyte. Avoid nephrotoxic medications. Renal bladder ultrasound ordered. Patient was last admitted in September 2019 for RUPAL. If kidney function worsens, will consult cigar head piercer. 01/24: Discussed with the cigar head piercer. Creatinine improved from 1.7-0.67 but seems too quick therefore we will repeat labs in evening to confirm. Bicarb is still low 20. Serum sodium also got normal from 126-139 therefore needs repeat labs and monitoring. 2. Hypotonic isovolumetric hyponatremia, gradually worsening: Patient sodium was 1 29-1 30 in last year but currently 126. Denies external loss of fluid. Monitor sodium. Does not have acute symptoms of hyponatremia including altered mental status, seizure or decreased mentation. IV fluid normal saline 100 mill per hour. Serum potassium normal. 01/24: IV fluid has been discontinued. Serum potassium 3.7. 3. Dysuria, urgency and concern for UTI with history of recurrent UTI: Patient history of recurrent UTI 2 times last year and 23 August 2022. UA shows WBC 5- 10 cells, LE 500, nitrite negative. Patient started empirically on IV ceftriaxone. Urine culture ordered. No fever. She follows Dr. Osei for overactive/urge incontinence. She also has chronic constipation. 01/24: Urine culture preliminary shows mixed gram-positive organism. Continue IV ceftriaxone 4. Hypertension: Blood pressure is controlled. Patient states she takes HCTZ but not listed on home meds reconciliation. Hold lisinopril for now. 5. Osteoporosis, multiple chronic degenerative arthritis involving cervical sp ine, lumbar spine/lumbar radiculopathy, knee and hip joint arthritis. Patient follows Dr. Garner, last seen in April 2022. PT and OT ordered. Avoid NSAIDs. 01/25: Patient was educated about NSAIDs and an even she has to take take a small dose 400 mg every 8 hourly as needed; not to take for long time. For now, NSAIDs discontinued 6. Other chronic comorbidities include dyslipidemia, anxiety and depression and chronic pain syndrome: On Zoloft. Home medication reconciliation done. Living will/advanced directive/end of life care: Patient does not have living will or advanced directive. Her next to kin is her sister Mrs. Rocío Gomez who lives in [facility]. After discussion of benefits/risks procedures involved with full code, DNR CC arrest and DNR CC, the patient opted for full code. Patient does want artificial life support including intubation, tube feed, ventilator and/chest compression, central venous catheter, vasopressor and DC shock if needed Total time spent in [id number] encounter in discussion of advanced directive 17 minutes. Clinical Impression(s) from Imaging Studies Chest X-Ray 01/23/23 11:02 IMPRESSION: No radiographic evidence of acute cardiopulmonary disease. Charges/Coding Visit Charges Inpatient E&M: 31193 Subs Hosp L2
[2023-01-24] MEDS: Alendronate Sodium 70 MG Tablet PO (09:12)
[2023-01-24] MEDS: Ceftriaxone 1 GM/50 ML BAG IV (09:12)
[2023-01-24] MEDS: Baclofen 10 MG Tablet PO (09:13)
[2023-01-24] MEDS: Mirabegron 50 MG TAB.ER.24H PO (09:14)
[2023-01-24] MEDS: Ergocalciferol 1.25 MG (50, 000 UNIT) Capsule PO (09:14)
[2023-01-24] MEDS: Enoxaparin 30 MG/0.3 ML Syringe SC (09:14)
[2023-01-24] MEDS: amLODIPine 5 MG Tablet PO (09:14)
[2023-01-24] MEDS: Pantoprazole Sodium 40 MG Tablet PO (09:14)
[2023-01-24] MEDS: Sertraline 100 MG Tablet PO (09:15)
[2023-01-24] MEDS: Senna/Docusate Sodium 1 Tablet 2 TABLET PO (09:15)
--- NOTE | 2023-01-24 09:41 | PCM.CONS.R ---
Assessment & Plan Assessment/Plan (1) Acute hyponatremia: PLAN: Sodium on admission was 126. She has had mild hyponatremia in the past. Sodium this morning is reading normal. Actually most of the labs look normal. We will repeat BMP. Preadmission medication list reviewed. She is on sertraline, hydrochlorothiazide. I would probably hold hydrochlorothiazide at the time of discharge since she had hyponatremia before this admission as well. (2) Acute kidney injury: PLAN: Creatinine is normal today. HPI Consult Data Date of Consult: 01/24/23 HPI Narrative Reason for Consultation: Hyponatremia HPI Narrative: MAXI GARCIA, is a 67 F who presents to the hospital with multiple complaints including shoulder pain, ankle pain, generalized weakness. Nephrology consulted in view of hyponatremia. Sodium on admission was 126. It seems she had mild hyponatremia for several weeks now. Possible CKD, creatinine was normal last year, most of the labs this year showed elevated creatinine ranging between 1.2-1.5. Labs today look essentially normal. Denies any urinary complaints. Denies any GI related symptoms. Medication list reviewed. [facility] Medical History Abdominal pain Abnormal liver ultrasound Alcohol use Anemia Arthritis Back pain Cirrhosis Depression Easy bruising Former smoker Gastric reflux GERD (gastroesophageal reflux disease) History of Cali's esophagus History of edema History of stress test Hypertension Injury of head and neck Leg cramps Restless legs Shortness of breath on exertion Wears dentures Wears glasses Home Medications sertraline 100 mg tablet 100 mg PO DAILY antidepressant 03/28/19 [History Last Taken 09/25/20] atorvastatin 10 mg tablet 40 mg PO DAILY CHOLESTEROL 05/26/20 [History Last Taken 09/25/20] baclofen 10 mg tablet 10 mg PO BID SPASMS 09/26/20 [History Last Taken 09/25/20] lisinopril 30 mg tablet 40 mg PO DAILY BP 09/26/20 [History Last Taken 09/26/20] alendronate 70 mg tablet 70 mg PO NORRIS 10/23/21 [History Last Taken Unknown] ergocalciferol (vitamin D2) 1,250 mcg (50,000 unit) capsule (Vitamin D2) 1,250 mcg PO NORRIS 10/31/21 [History Last Taken Unknown] docusate sodium 100 mg capsule (Col-Rite) 100 mg PO DAILY PRN Constipation 01/23/23 [History Last Taken Unknown] fluticasone 100 mcg-salmeterol 50 mcg/dose blistr powdr for inhalation See Rx Instructions .Route .COMPLEX Check with primary doctor 01/23/23 [History Last Taken Unknown] fluticasone propionate 50 mcg/actuation nasal spray,suspension 50 mcg intranasal DAILY Check with primary doctor 01/23/23 [History Last Taken Unknown] gabapentin 100 mg capsule 200 mg PO QHS Check with primary doctor 01/23/23 [History Last Taken Unknown] hydrochlorothiazide 25 mg tablet 25 mg PO DAILY Check with primary doctor 01/23/23 [History Last Taken Unknown] ibuprofen 800 mg tablet 80 mg PO Q8H Check with primary doctor 01/23/23 [History Last Taken Unknown] melatonin 1 mg tablet 1 mg PO QHS Check with primary doctor 01/23/23 [History Last Taken Unknown] mirabegron 50 mg tablet,extended release 24 hr (Myrbetriq) 50 mg PO DAILY Check with primary doctor 01/23/23 [History Last Taken Unknown] pantoprazole 40 mg tablet,delayed release (Protonix) 40 mg PO DAILY Check with primary doctor 01/23/23 [History Last Taken Unknown] Allergy/AdvReac Type Severity Reaction Status Date / Time Penicillins Allergy Rash Verified 01/23/23 10:36 Family History no significant family his Surgical History H/O cervical spine surgery Hx of colonoscopy Hx of left cataract extraction Social History Smoking Status: Former smoker alcohol intake: former substance use type: does not use ROS ROS Narrative Negative except above Physical Exam Narrative Alert awake oriented x 3 no obvious distress no pallor no icterus no JVD s1s2 no murmurs lungs clear abdomen soft no organomegaly no edema no cyanosis Lab / Micro Data Result Diagrams: 01/24/23 06:00 01/24/23 06:00 Labs: Laboratory Results - last 24 hr 01/23/23 11:30: WBC 4.9, RBC 3.84 L, Hgb 11.4 L, Hct 32.9 L, MCV 85.7, MCH 29.7, MCHC 34.7, RDW Std Deviation 43.7, RDW Coeff of Carlos 13.9, Plt Count 215, MPV 10.2, Immature Gran % (Auto) 0.200, Neut % (Auto) 56.5, Lymph % (Auto) 30.0, [place] % (Auto) 9.7, Eos % (Auto) 2.6, Baso % (Auto) 1.0, Absolute Neuts (auto) 2.8, Absolute Lymphs (auto) 1.48, Nucleated RBC % 0 01/23/23 11:30: Sodium 126 L, Potassium 4.0, Chloride 91 L, Carbon Dioxide 22.0, Anion Gap 13, BUN 19 H, Creatinine 1.70 H, Estim Creat Clear Calc 30.93, Est GFR (MDRD) Af Amer 39 L, Est GFR (MDRD) Non-Af 32 L, BUN/Creatinine Ratio 11.2, Glucose 119 H, Calcium 9.7, Total Bilirubin 0.20, AST 30, ALT 28, Alkaline Phosphatase 48, Total Protein 8.3 H, Albumin 4.6, Globulin 3.7, Albumin/Globulin Ratio 1.2 01/23/23 11:30: Ammonia 17.0 01/23/23 11:30: Urine Color Yellow, Urine Clarity Sl. Cloudy, Urine pH 5.0, Ur Specific [place] 1.020, Urine Protein Negative, Urine Glucose (UA) Normal, Urine Ketones 5 H, Urine Occult Blood Negative, Urine Nitrite Negative, Urine Bilirubin Negative, Urine Urobilinogen Normal, Ur Leukocyte Esterase 500 H, Urine RBC 0 SEEN, Urine WBC 5-10 SEEN, Ur Squamous Epith Cells 0-5 SEEN, Urine Bacteria 1+, Urine Mucus 0 SEEN 01/23/23 11:30: Phosphorus 2.9, Magnesium 1.8 01/24/23 06:00: WBC 4.5, RBC 3.32 L, Hgb 10.0 L, Hct 29.6 L, MCV 89.2, MCH 30.1, MCHC 33.8, RDW Std Deviation 47.1 H, RDW Coeff of Carlos 14.4, Plt Count 158, MPV 10.0, Immature Gran % (Auto) 0.200, Neut % (Auto) 55.4, Lymph % (Auto) 32.5, [place] % (Auto) 7.4, Eos % (Auto) 3.4, Baso % (Auto) 1.1 H, Absolute Neuts (auto) 2.5, Absolute Lymphs (auto) 1.45, Nucleated RBC % 0 01/24/23 06:00: Sodium 139, Potassium 3.7, Chloride 110 H, Carbon Dioxide 20.0 L, Anion Gap 9, BUN 10, Creatinine 0.67, Estim Creat Clear Calc 53.69, Est GFR (MDRD) Af Amer 113, Est GFR (MDRD) Non-Af 93, BUN/Creatinine Ratio 14.9, Glucose 94, Calcium 8.2 L Micro: Microbiology 01/23/23 11:15 Urine, Clean Catch Urine Culture - Final Mixed Gram Positive Organisms Rhythm Strip Rhythm Strip: Sinus Rhythm Rate: 76 Ectopy: None Radiology Impression Chest X-Ray 01/23/23 11:02 IMPRESSION: No radiographic evidence of acute cardiopulmonary disease. Electronically Signed: Melissa López MD at 12:00 EDT , Renal Ultrasound 01/23/23 12:43 IMPRESSION: No acute findings in the retroperitoneum. Electronically Signed: Janes Barboza (Brooks) at 15:49 EDT ,
[2023-01-24] MEDS: Acetaminophen 325 MG Tablet 650 MG PO (11:36)
[2023-01-24 13:28] LABS: Anion Gap 7 (5-15); BUN 8 mg/dL (7-18); BUN/Creat Ratio 10.8 RATIO (10-20); Calcium,Total 8.8 mg/dL (8.5-10.1); Chloride 109 mmol/L (98-107); Creatinine, Serum 0.74 mg/dL (0.55-1.02); EST Glomerular Filtration Rate 83 mL/min (>60); Est Glom Filt Rate - Afr Amer 101 mL/min (>60); Estimated Creatinine Clearance 53.69 ml/min; Glucose 126 mg/dL (74-106); Potassium 3.9 mmol/L (3.5-5.1); Sodium Level 137 mmol/L (136-145)
[2023-01-24] MEDS: Potassium Chloride Oral Tablet 20 MEQ 40 MEQ PO (13:51)
[2023-01-24] MEDS: oxyCODONE 5 MG Tablet PO (13:53)
[2023-01-24] MEDS: Albuterol 2.5 MG/3 ML VIAL.NEB. INHALATION ×2 (15:36→18:49)
[2023-01-24] MEDS: Phenazopyridine 95 MG Tablet 190 MG PO ×2 (17:20→20:40)
[2023-01-24] MEDS: Budesonide Respules 0.5 MG/2 ML AMPUL.NEB. INHALATION (18:49)
[2023-01-24] MEDS: Atorvastatin Calcium 10 MG Tablet PO (20:40)
[2023-01-24] MEDS: Gabapentin 100 MG Capsule 200 MG PO (20:40)
[2023-01-24] MEDS: MELATONIN 3 MG TABLET 5 MG PO (23:42)
[2023-01-25] VITALS (8 sets, daily range): BP systolic 120–144; BP diastolic 50–78; PULSE 70–79; RESP 16–20; TEMP 36.3–36.9; O2SAT 94–97
[2023-01-25] MEDS: Phenazopyridine 95 MG Tablet 190 MG PO ×2 (05:15→13:22)
[2023-01-25 06:37] LABS: Anion Gap 6 (5-15); BUN 8 mg/dL (7-18); BUN/Creat Ratio 12.4 RATIO (10-20); Calcium,Total 8.8 mg/dL (8.5-10.1); Chloride 108 mmol/L (98-107); Creatinine, Serum 0.64 mg/dL (0.55-1.02); EST Glomerular Filtration Rate 98 mL/min (>60); Est Glom Filt Rate - Afr Amer 119 mL/min (>60); Estimated Creatinine Clearance 53.69 ml/min; Glucose 96 mg/dL (74-106); Potassium 4.4 mmol/L (3.5-5.1); Sodium Level 136 mmol/L (136-145)
[2023-01-25] MEDS: Albuterol 2.5 MG/3 ML VIAL.NEB. INHALATION ×2 (07:00→12:54)
[2023-01-25] MEDS: Budesonide Respules 0.5 MG/2 ML AMPUL.NEB. INHALATION (07:00)
[2023-01-25] MEDS: Enoxaparin 30 MG/0.3 ML Syringe SC (08:55)
[2023-01-25] MEDS: Sertraline 50 MG Tablet PO (08:55)
[2023-01-25] MEDS: Baclofen 10 MG Tablet PO (08:56)
[2023-01-25] MEDS: Pantoprazole Sodium 40 MG Tablet PO (08:56)
[2023-01-25] MEDS: amLODIPine 5 MG Tablet PO (08:57)
[2023-01-25] MEDS: Mirabegron 50 MG TAB.ER.24H PO (08:57)
[2023-01-25] MEDS: Ceftriaxone 1 GM/50 ML BAG IV (09:03)
--- NOTE | 2023-01-25 10:30 | CASEMGMT ---
RN?CM?NEUROLOGY SPECIALIST?CM?to room to meet with patient for initial transition planning/care coordination?assessment.?RN?CM?introduced self and role at [facility].? Pt voices understanding and consents to?assessment?at this time.? Pt sitting up in chair in no distress at this time.? Pt is A/O at this time and answers all questions appropriately.?? Care providers, pharmacy, and demographics verified/updated at this time. PCP: Dr Voss Specialists: Dr Osie-urology Preferred Pharmacy: [facility] Retail Insurance: [employer]. Pt states she has a CM through [employer] [facility]. Prescription Benefit:?yes Living Will/HPOA:?States does not have LW or HCPOA .? Interested in more information but states does not want to talk with SW at this time to complete paperwork.? Provided information on advanced directives and to call if chooses in the future to utilize [facility] social work for advanced directive completion. Patient expresses understanding. LNOK: SisterRocío Living Arrangements: Lives alone in 1st floor studio apt w/no steps to enter. Indep w/ADL's and IADL's and manages her own medications. Pt plans to stay w/her sister for a couple of days after discharging from the hospital. Transportation:?Pt does not drive. She uses [employer] through her insurance or her sister or friend provide transportation. DME: ?States has the following DME: grab bars, hand held shower. ?Pt interested in info on medical alert system. Provided w/info at this time and also advised to contact CM as often these are provided through pt's insurance. Pt states no need for further DME at this time.? HHC/SNF: Has been to [facility] in the past and has had HHC. Denies need for HHC or OP therapy. Pt wishes to return home and states has no concerns with going home at time of discharge.? CM?to follow for any further discharge planning/needs.? Pt voices no further concerns/needs at this time.? Advised pt to ask for?CM?if any further questions/concerns/needs arise.? Voices understanding. PLAN:??Home w/sister for a couple of days. August BSN?RN?CM
--- NOTE | 2023-01-25 11:15 | PCM.PN.REN ---
Subjective Subjective Sitting in chair. No complaints. No overnight events. Hopeful to go home today. Objective Data Objective Data Vital Signs: Vital Signs Temp Pulse Resp BP Pulse Ox O2 Del Method 97.4 F L 75 18 127/78 H 97 Room Air 01/25/23 08:50 01/25/23 08:50 01/25/23 08:50 01/25/23 08:50 01/25/23 08:50 01/25/23 08:50 Oxygen Delivery Method Room Air Weight: 61.462 kg Body Mass Index (BMI) 28.3 Intake & Output: Intake and Output for Last 24 Hours 01/23/23 01/24/23 01/25/23 23:59 23:59 23:59 Intake Total 1250 / 1250 3451.67 / 3451.67 50 / 50 Output Total 300 / 300 1325 / 1725 400 / 400 Balance 950 / 950 2126.67 / 1726.67 -350 / -350 Lab / Micro Data Result Diagrams: 01/24/23 06:00 01/25/23 05:23 Labs: Laboratory Results - last 24 hr 01/24/23 13:08: Sodium 137, Potassium 3.9, Chloride 109 H, Carbon Dioxide 21.0, Anion Gap 7, BUN 8, Creatinine 0.74, Estim Creat Clear Calc 53.69, Est GFR (MDRD) Af Amer 101, Est GFR (MDRD) Non-Af 83, BUN/Creatinine Ratio 10.8, Glucose 126 H, Calcium 8.8 01/25/23 05:23: Sodium 136, Potassium 4.4, Chloride 108 H, Carbon Dioxide 22.0, Anion Gap 6, BUN 8, Creatinine 0.64, Estim Creat Clear Calc 53.69, Est GFR (MDRD) Af Amer 119, Est GFR (MDRD) Non-Af 98, BUN/Creatinine Ratio 12.4, Glucose 96, Calcium 8.8 Micro: Microbiology 01/23/23 11:15 Urine, Clean Catch Urine Culture - Final Mixed Gram Positive Organisms Rhythm Strip Rhythm Strip: Sinus Rhythm Rate: 76 Ectopy: None Physical Exam Narrative Alert awake oriented x 3 no obvious distress s1s2 no murmurs lungs clear abdomen soft, nontender no edema Assessment & Plan Assessment/Plan (1) Acute hyponatremia: (2) Acute kidney injury: PLAN: - Sodium on admission was 126. She has had mild hyponatremia in the past. Last 2 days sodium was normal. Yesterday sodium 139 and today her sodium is 136. Continue off hydrochlorothiazide. Discussed with patient stopping hydrochlorothiazide. - Creatinine 1.7 mg/dL on admission and has normalized last 2 days. Renal ultrasound no hydronephrosis, no acute findings. UA negative for protein and blood. Recommend avoiding NSAIDs. - Blood pressures acceptable on amlodipine - Possible discharge to home, ok for discharge per renal standpoint. Recommend holding hydrochlorothiazide at discharge.
[2023-01-25] MEDS: Acetaminophen 325 MG Tablet 650 MG PO (15:08)
--- NOTE | 2023-01-25 18:33 | DS.PCM_ITS ---
Providers Date of Admission: 01/23/23 Date of Discharge: 01/25/23 Primary Care Physician: Dr. Keaton Voss MD Consultations 01/23/23 14:38 Consult: Nephrology Routine Consulting Provider: Arianne Rutherford Reason for Consult: RUPAL or RUPAL on CKD, HYPO Na EMERGENT Consult: No MD Notified: Yes Date Notified: 01/23/23 Time Notified: 13:54 Method of Notification: Text Reason For Visit: HYPONATREMIA, RUPAL Diagnosis Discharge Diagnosis (1) Acute hyponatremia: Status: Acute Code(s): E87.1 - Hypo-osmolality and hyponatremia (2) Acute kidney injury: Status: Acute Code(s): N17.9 - Acute kidney failure, unspecified Medications at Discharge Home Medications sertraline 100 mg tablet 100 mg PO DAILY antidepressant 03/28/19 atorvastatin 10 mg tablet 40 mg PO DAILY CHOLESTEROL 05/26/20 baclofen 10 mg tablet 10 mg PO BID SPASMS 09/26/20 lisinopril 30 mg tablet 40 mg PO DAILY BP 09/26/20 alendronate 70 mg tablet 70 mg PO NORRIS 10/23/21 ergocalciferol (vitamin D2) 1,250 mcg (50,000 unit) capsule (Vitamin D2) 1,250 mcg PO NORRIS vitamin 10/31/21 docusate sodium 100 mg capsule (Col-Rite) 100 mg PO DAILY PRN Constipation 01/23/23 fluticasone 100 mcg-salmeterol 50 mcg/dose blistr powdr for inhalation See Rx Instructions .Route .COMPLEX breathing 01/23/23 fluticasone propionate 50 mcg/actuation nasal spray,suspension 50 mcg intranasal DAILY allergies 01/23/23 gabapentin 100 mg capsule 200 mg PO QHS nerve pain 01/23/23 ibuprofen 800 mg tablet 80 mg PO Q8H pain 01/23/23 melatonin 1 mg tablet 1 mg PO QHS sleep 01/23/23 mirabegron 50 mg tablet,extended release 24 hr (Myrbetriq) 50 mg PO DAILY pain 01/23/23 pantoprazole 40 mg tablet,delayed release (Protonix) 40 mg PO DAILY reflux 01/23/23 Hospital Course Operations None Summary of Care Provided Minutes Spent on Discharge: 45 Hospital Course: Patient is a 67-year-old female with past medical history as outlined who came into the ED on 01/23/2023 with a complaint of chronic back and neck pain has had aquatic lower back pain was radiating down her right buttock. Generally following up with spine surgery on outpatient basis with her last visit being in April 2022. She also complained of right flank pain and burning with urination. She did have a history of recurrent UTI. Of note she also complained of dizziness and lightheadedness. Her troponin was elevated and she was managed for acute on chronic CKD stage IIIa as well as hyponatremia with sodium being 126 on admission.. She was also started empirically on IV ceftriaxone for UTI. Physical therapy did work with her. She was hydrated with IV fluids. Her sodium trended upwards and normalized and RUPAL also resolved. She worked well with therapy and did well. She was discharged home on 01/26/2001/09/2023. She is to follow-up with her primary care doctor and also follow- up with spine surgery on outpatient basis for chronic low back pain Patient seen and examined prior to discharge. She had no complaints and had an uneventful night. Review of systems otherwise negative. Labs and vitals reviewed. Home medication reviewed and reconciled. Physical Exam Const alert, oriented x3 and no apparent distress General Appearance: cooperative, comfortable and well kempt Exam Limitations: no limitations HEENT normocephalic, head/scalp atraumatic, hearing grossly normal bilaterally and moist oral mucous membranes Mouth: oral and palatal mucosa normal Eyes PERRL, EOMs intact bilaterally and conjunctivae normal Neck no lymphadenopathy, supple and no JVD Resp normal respiratory effort, no retractions, no use of accessory muscles and clear to auscultation bilaterally Cardio regular rate, regular rhythm, S1 normal heart sound, S2 normal heart sound and no murmurs GI normal to inspection, nondistended, normoactive bowel sounds, soft to palpation, non-tender and non-distended Extremity normal to inspection, full ROM and no clubbing, cyanosis or edema Skin no rashes or lesions noted, no wounds and skin turgor normal Neuro oriented x3, CN's II-XII intact bilaterally, moves all extremities, no focal motor deficits and no sensory deficits noted Sensorium / Orientation: awake and alert Motor Exam: strength 5/5 throughout Psych affect normal Weight / BMI Weight Weight: 135 lb 8 oz Body Mass Index (BMI) 28.3 ABG / Lab / Microbiology Data Result Diagrams: 01/24/23 06:00 01/25/23 05:23 Laboratory: Laboratory Results - last 24 hr 01/25/23 05:23: Sodium 136, Potassium 4.4, Chloride 108 H, Carbon Dioxide 22.0, Anion Gap 6, BUN 8, Creatinine 0.64, Estim Creat Clear Calc 53.69, Est GFR (MDRD) Af Amer 119, Est GFR (MDRD) Non-Af 98, BUN/Creatinine Ratio 12.4, Glucose 96, Calcium 8.8 Microbiology: Microbiology 01/23/23 11:15 Urine, Clean Catch Urine Culture - Final Mixed Gram Positive Organisms D/C Instructions Discharge Diet: Low fat / Low cholesterol Discharge Activity: Return to Normal Activity Weight Bearing Status: Weight bearing as tolerated Call your doctor if you observe: Fever of 101 or Higher, Shortness of breath, Dizziness, Swelling in the ankles and Chest pain Meaningful Use Info Meaningful Use Diagnoses (Choose all that apply): None applicable Discharge Plan Admission Admit Date/Time: 01/23/23 17:09 Primary Reason for Your Visit: RUPAL, hyponatremia Attending Provider: Natalia Muñoz Primary Care Provider: Keaton Voss Consulting Providers: Arianne Rutherford ; Raghavendra Pearson Instructions Patient Instructions: Hyponatremia Ch Dc Discharge Orders/Prescriptions Prescriptions: Continued alendronate 70 mg tablet 70 mg PO NORRIS sertraline 100 MG tablet 100 mg PO DAILY atorvastatin 10 MG tablet 40 mg PO DAILY baclofen 10 MG tablet 10 mg PO BID lisinopril 30 MG tablet 40 mg PO DAILY ergocalciferol (vitamin D2) [Vitamin D2] 1,250 mcg (50,000 unit) Capsule 1,250 mcg PO NORRIS ibuprofen 800 mg tablet 80 mg PO Q8H Label Comments: take 1 tablet by mouth every 8 hours if needed for pain - TAKE WITH FOOD pantoprazole [Protonix] 40 mg Tablet,Delayed Release (Dr/Ec) 40 mg PO DAILY docusate sodium [Col-Rite] 100 mg capsule 100 mg PO DAILY PRN (Reason: Constipation) Label Comments: take 1 capsule by mouth twice a day if needed gabapentin 100 mg capsule 200 mg PO QHS Label Comments: take 2 capsules by mouth daily at bedtime fluticasone propion-salmeterol 100-50 mcg/dose blister with device See Rx Instructions .ROUTE .COMPLEX Rx Instructions: inhale 1 puff by mouth and INTO THE LUNGS twice a day ( Rinse mouth after use ) fluticasone propionate 50 mcg/actuation spray,suspension 50 mcg INTRANASAL DAILY Label Comments: instill 2 sprays into each nostril once daily Myrbetriq 50 mg tablet extended release 24 hr 50 mg PO DAILY Label Comments: take 1 tablet by mouth once daily melatonin 1 mg tablet 1 mg PO QHS Label Comments: take 1 tablet by mouth once daily at bedtime Discontinued hydrochlorothiazide 25 mg tablet 25 mg PO DAILY Referrals / Follow Up: Keaton Voss MD [Primary Care Provider] - Within 2 Weeks Arianne Rutherford MD [Med Staff - Consulting] - Within 2 Weeks Disposition Disposition (needs filled in before D/C Order can be placed): Home, Self Care Charges/Coding Visit Charges Inpatient E&M: 80134 Disch Hosp >30min
== END 2023-01-25 19:02 | disposition home or self-care (01) | DRG 683 ==
LOC: ED 12:46 → PCU 12:55
PROVIDERS: Internal Medicine Nephrology; Admitting Provider Internal Medicine; Emergency Provider Emergency Medicine; PCP Family Medicine; Visit Provider Student in an Organized Health Care Education/Training Program
DX: N17.9 Acute kidney failure, unspecified (principal); E87.1 Hypo-osmolality and hyponatremia; N39.0 Urinary tract infection, site not specified; N18.31 Chronic kidney disease, stage 3a; M17.0 Bilateral primary osteoarthritis of knee; E78.5 Hyperlipidemia, unspecified; E86.0 Dehydration; I12.9 Hypertensive chronic kidney disease with stage 1 through stage 4 chronic kidney disease, or unspecified chronic kidney disease; M47.26 Other spondylosis with radiculopathy, lumbar region; M47.22 Other spondylosis with radiculopathy, cervical region; M16.12 Unilateral primary osteoarthritis, left hip; F41.9 Anxiety disorder, unspecified; S39.012A Strain of muscle, fascia and tendon of lower back, initial encounter; X58.XXXA Exposure to other specified factors, initial encounter; R06.00 Dyspnea, unspecified; N39.41 Urge incontinence; G89.4 Chronic pain syndrome; M81.0 Age-related osteoporosis without current pathological fracture; F32.A Depression, unspecified; Z79.1 Long term (current) use of non-steroidal anti-inflammatories (NSAID); Z79.83 Long term (current) use of bisphosphonates; Z79.899 Other long term (current) drug therapy; Z87.891 Personal history of nicotine dependence
CPT/HCPCS: 36415; 71046; 76770; 80048; 80053; 81001; 82140; 83735; 84100; 85025; 87086; 87088; 93005; 94640; 94668; 96372; 99284; J7030; A4216

== ENCOUNTER 2025-01-20 21:17 | Inpatient (IN) | payer MEDICARE, MEDICAID, SELFPAY ==
[2025-01-20] VITALS (10 sets, daily range): BP systolic 82–116; BP diastolic 37–58; PULSE 51–63; RESP 11–16; TEMP 36.6; O2SAT 97–100; BMI 21.7
--- NOTE | 2025-01-20 21:18 | EKG12_ITS ---
Test Reason : DYSRHYTHMIA Blood Pressure : */* mmHG Vent. Rate : 59 BPM Atrial Rate : 59 BPM P-R Int : 194 ms QRS Dur : 72 ms QT Int : 406 ms P-R-T Axes : 63 37 44 degrees QTcB Int : 401 ms Sinus bradycardia Septal infarct , age undetermined Abnormal ECG Confirmed by Farhad Bermeo ([id number]), senior editor ОЛЬГА FERNANDEZ ([id number]) on 01/22/2025 10:56:28 AM Referred By: Confirmed By: Farhad Bermeo
--- NOTE | 2025-01-20 21:18 | CT_ITS ---
PROCEDURE: STROKE CTA HEAD AND NECK W/CON 01/20/2025 REASON FOR EXAM: NEURO DEFICIT, ACUTE, STROKE SUSPECTED TECHNIQUE: CTA imaging of the head and neck from the aortic arch to the skull vertex with out contrast and with intravenous contrast. Multiplanar and multisequence images were obtained. CONTRAST: Isovue 370 VOLUME: 86 mL. One or more dose reduction techniques were used (e.g., Automated exposure control, adjustment of the mA and/or kV according to patient size, use of iterative reconstruction technique). RADIATION DOSE SUMMARY: CTDlvol: 16.61+ 15.49 mGy DLP: 560.67 mGycm COMPARISON: None. FINDINGS: Right apical calcified granuloma. The common carotid, internal carotid, and cervical vertebral arteries are patent without evidence of stenosis or injury. Dominant right cervical vertebral artery relative to the left. The [id number] is patent. The anterior cerebral, anterior communicating, middle cerebral, posterior cerebral arteries are patent. The intracranial vertebrobasilar system is patent. CT/STROKE CTA Head AND Neck W/Con IMPRESSION: No acute arterial abnormality of the head or neck. Reading Location: [place] [id number]
--- NOTE | 2025-01-20 21:18 | CT_ITS ---
PROCEDURE: STROKE BRAIN/HEAD WITHOUT CONT 01/20/2025 REASON FOR EXAM: NEURO DEFICIT, ACUTE, STROKE SUSPECTED TECHNIQUE: Head CT without intravenous contrast. Coronal and Sagittal reconstruction series were provided. One or more dose reduction techniques were used (e.g., Automated exposure control, adjustment of the mA and/or kV according to patient size, use of iterative reconstruction technique. RADIATION DOSE SUMMARY: CTDlvol: 44.99 mGy DLP: 12.98 mGycm COMPARISON: 05/26/2020. FINDINGS: Moderate global parenchymal atrophy. Periventricular white matter hypodensity likely representing mild chronic microvascular ischemia. No evidence of acute hemorrhage or infarction. No extra-axial blood or fluid collections. The paranasal sinuses are clear. The mastoid air cells are well aerated. The calvarial vault and skull base are intact. CT/STROKE Brain/Head without Cont IMPRESSION: No acute intracranial abnormality. Reading Location: [place] [address]
--- NOTE | 2025-01-20 21:19 | EDS_ITS ---
HPI History of Present Illness Chief Complaint: Stroke Alert Detail of Chief Complaint: Family found patient on floor. Per EMS family ember called Informant: EMS Limited: other (Patient is not awake or alert. She does open her eyes will answer question to minimal stimulus.) Onset/Context/Timing Onset: - (1907 last known well) Context: Sudden Onset Timing: Continuous Quality and Location: Positive for Right Arm Weakness Onset: 1906 Current Severity: Mild Maximum Severity: Mild Worsened by: Nothing Relieved by: Nothing Associated Symptoms Associated Symptoms: Negative for Headache, Nausea or Vomiting Narrative Narrative: Patient is a 69-year-old woman. She has history of GERD, Cali's esophagitis, chronic low back pain, hypertension, hyperlipidemia, depression and encephalopathy. She also has history of alcohol abuse. [facility] ever called because she was found on the ground. Patient is not on an antithrombotic or anticoagulant per EMS. When she was met in the ambulance patient would not open her eyes. When attempted to complete my exam in the radiology suite she still would not open her eyes. Hold them open for her to read the words and describe the objects at etc. Patient is not a good informant. In light of the fact that she has history of alcohol abuse and encephalopathy alcohol and ammonia level were added. Prior similar symptoms: No Recent Illness/Hospitalization: No [facility] Medical History GERD (gastroesophageal reflux disease) Abdominal pain History of Cali's esophagus Abnormal liver ultrasound Wears glasses Wears dentures Alcohol use Arthritis Anemia Cirrhosis Easy bruising Restless legs Back pain Injury of head and neck Gastric reflux Former smoker Shortness of breath on exertion Leg cramps History of edema History of stress test Hypertension Depression Home Medications ?Medication ?Instructions ?Recorded ?Last Taken ?Type sertraline 100 mg tablet 100 mg PO DAILY antidepressa nt 03/28/19 09/25/20 History atorvastatin 10 mg tablet 40 mg PO DAILY CHOLESTEROL 1 09/25/20 History baclofen 10 mg tablet 10 mg PO BID SPASMS 09/26/20 09/25/20 History lisinopril 30 mg tablet 40 mg PO DAILY BP 09/26/20 0 09/26/20 History alendronate 70 mg tablet 70 mg PO NORRIS 10/23/21 Unknown History ergocalciferol (vitamin D2) 1,250 1,250 mcg PO NORRIS kameron min 10/31/21 Unknown History mcg (50,000 unit) capsule (Vitamin D2) docusate sodium 100 mg capsule 100 mg PO DAILY PRN Con stipation 01/23/23 Unknown History (Col-Rite) fluticasone 100 mcg-salmeterol 50 See Rx Instructions .Route 01/23/23 Unknown History mcg/dose blistr powdr for .COMPLEX breathing inhalation fluticasone propionate 50 50 mcg intranasal DAILY kar rgies 01/23/23 Unknown History mcg/actuation nasal spray,suspension gabapentin 100 mg capsule 200 mg PO QHS nerve pain 11/12 Unknown History ibuprofen 800 mg tablet 80 mg PO Q8H pain 01/23/23 U nknown History melatonin 1 mg tablet 1 mg PO QHS sleep 01/23/23 U nknown History mirabegron 50 mg tablet,extended 50 mg PO DAILY pain 0 01/23/23 Unknown History release 24 hr (Myrbetriq) pantoprazole 40 mg tablet,delayed 40 mg PO DAILY reflu x 01/23/23 Unknown History release (Protonix) Allergy/AdvReac Type Severity Reaction Status Date / Time Penicillins Allergy Rash Verified 01/20/25 21:25 Family History no significant family his Surgical History Hx of colonoscopy Hx of left cataract extraction H/O cervical spine surgery Social History Smoking Status: Former smoker alcohol intake: former substance use type: does not use ROS ROS ED Review of Systems ROS Unobtainable: due to mental status Constitutional Constitutional ED: Reports fever(s) Eyes Eyes: Reports blurry vision and change in vision ENT ENT ED: Reports rhinorrhea and sore throat Cardiovascular Cardiovascular: Reports chest pain and palpitations Respiratory/Chest Respiratory/Chest: Reports cough and dyspnea on exertion Gastrointestinal Gastrointestinal: Reports abdominal pain, nausea and vomiting Genitourinary Genitourinary ED: Reports dysuria, hematuria and urinary frequency Musculoskeletal Musculoskeletal: Reports back pain Neurologic Neurologic: Denies headache(s) or paresthesias EXAM Physical Exam Const Vital Signs: 01/20/25 21:17 01/20/25 21:17 01/20/25 21:18 Temperature 97.8 F 97.8 F Temperature Source Oral Oral Pulse Rate 58 L 59 L 56 L Respiratory Rate 11 L 16 Blood Pressure 105/50 L 105/50 L 105/50 L Blood Pressure Mean 68 68 68 Pulse Ox 100 100 100 Oxygen Delivery Method Room Air 01/20/25 21:28 01/20/25 21:48 01/20/25 22:17 Temperature Temperature Source Pulse Rate 56 L 59 L Respiratory Rate Blood Pressure 89/41 L 82/37 L Blood Pressure Mean 57 52 Pulse Ox 100 97 Oxygen Delivery Method Room Air Room Air Room Air 01/20/25 22:18 01/20/25 22:30 01/20/25 22:41 Temperature Temperature Source Pulse Rate 63 58 L 57 L Respiratory Rate 15 Blood Pressure 88/54 L 102/45 L 116/58 L Blood Pressure Mean 65 64 77 Pulse Ox 100 100 100 Oxygen Delivery Method Room Air Room Air Room Air Positive well nourished and well developed Constitutional Narrative: Patient not awake or alert alert. She does know the month and her age. Difficult to understand because she speaks very slowly and softly. Ears appear normal. There is no epistaxis. There is no clinical findings of basilar skull fracture. General Appearance ED: well developed HEENT atraumatic Nose: other Other Details: No septal deviation hematoma. Eyes PERRL and EOMs intact bilaterally Eyes Narrative: There is no nystagmus. There is no visual field cut. General Eye ED: Negative for pale conjunctiva or scleral icterus Neck no lymphadenopathy, supple and no JVD Neck Narrative: There is no posterior midline tenderness to palpation. There is no step-off. Resp normal respiratory effort and clear to auscultation bilaterally Cardio no murmurs Rate: Negative for regular rate Rhythm: Negative for regular rhythm Heart Sounds: Negative for S1 normal or S2 normal GI normal to inspection, nondistended, normoactive bowel sounds, soft to palpation, non-tender, non-distended and no masses Back/Spine no CVA tenderness Cervical Spine: Negative for cervical spine tenderness Extremity normal to inspection Neuro CN's II-XII intact bilaterally and no sensory deficits noted Aurora Coma Scale: document GCS findings To Voice Obeys Commands Oriented 14 Sensorium / Orientation: Negative for alert Skin no wounds MDM MDM MDM Narrative Medical decision making narrative: Patient did not recognize with a traffic light was or bridge. Uncertain if this was due to her not being awake and alert. With history of fall need to rule out intracranial bleed i.e. subdural, epidural hematoma, traumatic subarachnoid hemorrhage and parenchymal contusion. With history of alcoholism need to assess for intoxication. Also need to assess for hepatic encephalopathy. Once patient returns from the radiology suite will ask more questions regarding possible infectious cause. With her having weakness left upper extremity this may represent a stroke. With her having difficulty identifying objects the right- sided weakness with expressive aphasia would be consistent with a left hemispheric stroke. Lab Data Attestation: I reviewed the patient's lab results. Lab results narrative: CBC is remarkable for mild anemia. Indices are normal. White count and differential are normal. Coags are normal. Basic metabolic panel reveals a BUN of 26 and creatinine of 1.95. Last creatinine was 0.64. Estimated GFR is 28. Alcohol is less than 10. Troponin was elevated at 34. Ammonia is normal at 17. Urine is remarkable for pyuria. There is no bacteria. Urine culture was sent. Labs: Laboratory Results - last 24 hr 01/20/25 01/20/25 21:48 22:31 WBC 5.7 RBC 3.55 L Hgb 11.1 L Hct 33.9 L MCV 95.5 MCH 31.3 MCHC 32.7 RDW Std Deviation 45.5 H RDW Coeff of Carlos 12.9 Plt Count 239 MPV 10.2 Immature Gran % (Auto) 0.400 Neut % (Auto) 48.5 Lymph % (Auto) 38.5 [place] % (Auto) 7.8 Eos % (Auto) 3.4 Baso % (Auto) 1.4 H Absolute Neuts (auto) 2.8 Absolute Lymphs (auto) 2.18 Nucleated RBC % 0 PT 12.9 INR 1.0 APTT 29.0 Sodium 143 Potassium 4.5 Chloride 109 H Carbon Dioxide 21.0 Anion Gap 13 BUN 26 H Creatinine 1.95 H Estim Creat Clear Calc 19.83 L Est GFR (MDRD) Non-Af 28 L BUN/Creatinine Ratio 13.4 Glucose 131 H Calcium 9.3 Ammonia 17.6 Troponin T High Sens 34 H Urine Color Yellow Urine Clarity Cloudy Urine pH 6.0 Ur Specific [place] 1.015 Urine Protein 30 H Urine Glucose (UA) Normal Urine Ketones Negative Urine Occult Blood Negative Urine Nitrite Negative Urine Bilirubin Negative Urine Urobilinogen Normal Ur Leukocyte Esterase 500 H Urine RBC 0-5 SEEN Urine WBC 25-50 SEEN Ur Squamous Epith Cells 0-5 SEEN Urine Bacteria 0 SEEN Urine Mucus 0 SEEN Ethyl Alcohol < 10.1 Radiography Diagnostic Testing: Clinical Impression(s) from Imaging Studies Brain CT 01/20/25 21:18 IMPRESSION: No acute intracranial abnormality. Reading Location: [place] [id number] Head/Neck CTA 01/20/25 21:18 IMPRESSION: No acute arterial abnormality of the head or neck. Reading Location: [place] [id number] C-minus of the head reveals no fracture, subdural hematoma, epidural hematoma, traumatic subarachnoid hemorrhage or intraparenchymal contusion. There is no obvious ischemic changes noted. Her head is slightly rotated. Awaiting formal read by radiologist. EKG Initial EKG: Attestation: I personally reviewed and interpreted this EKG as follows: Interpretation: Sinus Bradycardia (Rate is 59. There is decreased anterior forces. IN interval 294 ms. QRS duration 72 ms the QT is 406 ms. Mccomb is normal. There is no acute ischemic changes noted.) Management Discussion w/another healthcare provider: Hospitalist (Case was discussed with the hospitalist Dr. Kimani Hayes. Full admit PCU) Treatment and Re-Evaluation Narrative: Per family member who arrived at 2148 patient was last known well around 1600. She was awakened at 1908. Because of the altered mental status and now knowing that she is outside the TNK window nurses been asked to straight catheter UA which was added. According to the sister there was a glass that was next to her and concern this was an alcoholic beverage since it smelled like a beverage with ETOH. Nurse was told the canceled the consult to [facility] since there are multiple possibilities. Nurse informing that blood pressure was 89/41. When she repeated it was 79 systolic. A 10 cc/kg bolus of normal saline was ordered. Patient blood pressure did respond to the 10 cc/kg bolus. When patient was reassessed to inform her of results she is noted to be unresponsive. Blood pressure 72 systolic. Another fluid bolus was ordered and the hospitalist was paged for admission. Discharge Plan Dx/Rx/DC Orders Clinical Impression: Acute hypotension, Acute alteration in mental status, Pyuria, Anemia, RUPAL (acute kidney injury), Elevated troponin, Sinus bradycardia seen on hotel registration clerk, History of gastroesophageal reflux (GERD) Disposition Disposition: Acute Care Hospital [facility] NIHSS NIHSS 1a. Level of Consciousness: 1 - Not alert; Arousable by minor stimuli to obey, answer & respond 1b. LOC Questions: 0 - Answers BOTH questions correctly 1c. LOC Commands: 0 - Performs BOTH tasks correctly 2. Best Gaze: 0 - Normal 3. Visual: 0 - No visual loss 4. Facial Palsy: 0 - Normal symmetrical movements 5a. Left Arm: 0 - No drift; arm holds 90 (or 45) degrees for full 10 seconds 5b. Right Arm: 1 - Drift; arm drifts downward but doesn?t hit the bed 6a. Left Le - No drift; leg holds 30-degree position for full 5 seconds 6b. Right Le - No drift; leg holds 30-degree position for full 5 seconds 8. Sensory: 0 - Normal; no sensory loss 9. Best Language: 1 - Nuqb-he-wchnoxsy aphasia; 10. Dysarthria: 0 - Normal 11. Extinction and Inattention: 0 - No abnormality Total: 3 Stroke Questions Stroke Team Activated: Yes Reviewed Inclusion/Exclusion criteria: Yes No contraindications from thrombolytic administration: Yes Informed the patient and/or family of all associated risks, benefits, & alternatives to IV Thrombolytic Therapy. Patient and/or family voluntarily consent to the administration of IV Thrombolytic Therapy: Unable due to patients mental status/condition Details of attempts to obtain consent:: - Patient lacks the capacity to give informed consent - Attempts to contact patient high school admissions representative were unsuccessful - There is an urgent need to proceed with treatment in the absence of consent - Two providers both independently agree that thrombolytics are indicated - Implied consent for emergency treatment Mental status / Condition details that prevents obtaining consent: Patient with GCS less than 9. Very complicated case and no evidence of CVA on scan or any vascular disease. 2nd Provider who agrees that thrombolytic is indicated: Not applicable
[2025-01-20 21:58] LABS: Absolute Lymphocyte Count 2.18 X10^3/uL (0.83-4.51); Absolute Neutrophil Count 2.8 X10^3/uL (2.0-7.7); Basophil# 0.08 X10^3/uL; Basophil% 1.4 % (0-1); Eosinophil# 0.19 X10^3/uL; Eosinophils% 3.4 % (0-5); Hematocrit 33.9 % (37-47); Hemoglobin 11.1 g/dL (12.0-15.0); Lymphocyte # 2.18 X10^3/ul (0.83-4.51); Lymphocyte % 38.5 % (19-41); Mean Corp Hgb Conc 32.7 g/dL (32-36); Mean Corpuscular Hgb 31.3 pg (27.0-32.0); Mean Corpuscular Volume 95.5 fL (81-99); Mean Platelet Vol. 10.2 fl (6.2-12.0); Monocyte# 0.44 X10^3/uL; Monocyte% 7.8 % (0-10); NRBC Flagged by Analyzer 0 % (0-5); Neutrophil # 2.75 X10^3/uL (2.7-7.7); Neutrophil % 48.5 % (47-70); Platelet Count 239 K/mm3 (150-450); RBC Distribution Width CV 12.9 % (11.6-14.6); RBC Distribution Width SD 45.5 fl (35.1-43.9); Red Blood Count 3.55 M/mm3 (4.2-5.4); White Blood Count 5.7 K/mm3 (4.4-11.0)
[2025-01-20 22:11] LABS: Prothrombin Time (Protime)PT. 12.9 SECONDS (11.7-14.9)
[2025-01-20 22:25] LABS: Ammonia 17.6 umol/L (11-51)
[2025-01-20] MEDS: 0.9% Normal Saline (500mL Bag) 500 ML 1000 ML IV (22:25)
[2025-01-20 22:26] LABS: Alcohol, Blood (Medical)-Serum < 10.1 mg/dL (<=10.0); Anion Gap 13 (5-15); BUN 26 mg/dL (4-19); BUN/Creat Ratio 13.4 RATIO (10-20); Calcium,Total 9.3 mg/dL (7.6-11.0); Chloride 109 mmol/L (98-108); Creatinine, Serum 1.95 mg/dL (0.70-1.20); EST Glomerular Filtration Rate 28 (>60); Estimated Creatinine Clearance 19.83 ml/min (50-250); Glucose 131 mg/dL (70-99); Potassium 4.5 mmol/L (3.3-5.1); Sodium Level 143 mmol/L (133-145); Troponin T High Sensitivity 34 ng/L (<=14)
[2025-01-20 22:37] LABS: Bacteria 0 SEEN /hpf (None Seen); Mucous, Urine 0 SEEN /hpf (<or=2+)
[2025-01-20 22:46] LABS: Glucose, Dipstick Normal (Normal); Ketone-Dipstick Negative (Negative); Leukocyte Esterase-Dipstick 500 /ul (Negative); Nitrite-Dipstick Negative (Negative); Occult Blood-Urine Negative /ul (Negative); Protein-Dipstick 30 mg/dl (Negative); Specific Gravity, Urine 1.015 (1.002-1.030); Urine Bilirubin Dipstick Negative (Negative); Urine Urobilinogen Normal (Normal)
[2025-01-20 22:47] LABS: Color, Urine Yellow (Yellow); Urine Clarity Cloudy (Clear)
[2025-01-20 23:04] LABS: Squamous Epithelial Cells - UA 0-5 SEEN /hpf (5-10); White Blood Cells 25-50 SEEN /hpf (0-5)
[2025-01-20 23:08] LABS: Red Blood Cells-Urine 0-5 SEEN /hpf (0-5)
[2025-01-20] MEDS: Naloxone 0.4 MG/ML Syringe IV (23:38)
[2025-01-20 23:46] LABS: Amphetamine Urine NEGATIVE (<1000 ng/mL); Barbiturate Urine NEGATIVE (< 200 ng/mL); Benzodiazepine Urine NEGATIVE (< 200 ng/mL); Cocaine Urine NEGATIVE (< 300 ng/mL); Fentanyl, Urine NEGATIVE; Methadone Urine NEGATIVE (< 300 ng/mL); Opiates Urine NEGATIVE (< 300 ng/mL); Oxycodone, Urine NEGATIVE (< 100 ng/mL); PCP Urine NEGATIVE (< 25 ng/mL); THC Urine NEGATIVE (< 50 ng/mL)
--- NOTE | 2025-01-20 23:53 | ED.RN ---
[facility] no longer needed per DR Martinez
[2025-01-21] VITALS (10 sets, daily range): BP systolic 92–150; BP diastolic 45–68; PULSE 48–82; RESP 12–18; TEMP 36.4–36.9; O2SAT 96–100; BMI 23.6
[2025-01-21 00:10] LABS: Allen Test Positive; Base Excess -6 mmol/L (-2 to +2); Bicarbonate 21.3 mmol/L (22-26); Blood Gas Specimen Type ART; Mode Not entered; O2 Delivery Device Room Air; PO2 98 mmHG (75-100); SITE R Radial; SO2 96 % (95-99); Total Carbon Dioxide 23 mmol/L; pCO2 49.2 mmHg (35-45); pH 7.24 (7.35-7.45)
[2025-01-21 00:14] LABS: Troponin T High Sens 2 HR 33 ng/L (<=14)
[2025-01-21 00:56] LABS: Buprenorphine Urine NEGATIVE (< 200 ng/mL)
--- NOTE | 2025-01-21 01:02 | PCM.HP.STD ---
HPI - General General Date of Admission: 01/21/25 HPI Narrative MAXI GARCIA, is a 69 F who presents to the hospital because she was found down at home. She responds to painful stimuli unclear if this is illness related or behavioral as she will actively bite me to open her eyes. Sister states that she does have access to alcohol and she is on muscle relaxers at home it is unclear if this is an overdose, as her urine drug screen is negative and her alcohol level is normal. She did get a dose of Narcan in the ER which did not improve her situation. The sister cannot provide much history in terms of the current illness and states the patient did not have any major complaints prior to today. Workup so far demonstrates RUPAL with creatinine of 1.95 from baseline normal creatinine, her ABG pH of 7.24 with a bicarb of 21.3 and a PCO2 of 49.2, indicating metabolic acidosis with a respiratory acidosis, she does not have an elevated gap. Sister does not relate any abdominal pain complaints or nausea, vomiting, diarrhea at home. CTA of the head and neck as well as CT of the brain were unremarkable. [facility] Medical History GERD (gastroesophageal reflux disease) Abdominal pain History of Cali's esophagus Abnormal liver ultrasound Wears glasses Wears dentures Alcohol use Arthritis Anemia Cirrhosis Easy bruising Restless legs Back pain Injury of head and neck Gastric reflux Former smoker Shortness of breath on exertion Leg cramps History of edema History of stress test Hypertension Depression Home Medications ?Medication ?Instructions ?Recorded ?Last Taken ?Type sertraline 100 mg tablet 100 mg PO DAILY antidepressant 03/28/19 09/25/20 History atorvastatin 10 mg tablet 40 mg PO DAILY CHOLESTEROL 05/26/20 09/25/20 History baclofen 10 mg tablet 10 mg PO BID SPASMS 09/26/20 09/25/20 History lisinopril 30 mg tablet 40 mg PO DAILY BP 09/26/20 09/26/20 History alendronate 70 mg tablet 70 mg PO NORRIS 10/23/21 Unknown History ergocalciferol (vitamin D2) 1,250 1,250 mcg PO NORRIS vitamin 10/31/21 Unknown History mcg (50,000 unit) capsule (Vitamin D2) docusate sodium 100 mg capsule 100 mg PO DAILY PRN Constipation 01/23/23 Unknown History (Col-Rite) fluticasone 100 mcg-salmeterol 50 See Rx Instructions .Route 01/23/23 Unknown History mcg/dose blistr powdr for .COMPLEX breathing inhalation fluticasone propionate 50 50 mcg intranasal DAILY allergies 01/23/23 Unknown History mcg/actuation nasal spray,suspension gabapentin 100 mg capsule 200 mg PO QHS nerve pain 01/23/23 Unknown History ibuprofen 800 mg tablet 80 mg PO Q8H pain 01/23/23 Unknown History melatonin 1 mg tablet 1 mg PO QHS sleep 01/23/23 Unknown History mirabegron 50 mg tablet,extended 50 mg PO DAILY pain 01/23/23 Unknown History release 24 hr (Myrbetriq) pantoprazole 40 mg tablet,delayed 40 mg PO DAILY reflux 01/23/23 Unknown History release (Protonix) amlodipine 5 mg tablet 5 mg PO DAILY htn 01/20/25 Unknown History Allergy/AdvReac Type Severity Reaction Status Date / Time Penicillins Allergy Rash Verified 01/20/25 21:25 Family History (Updated 01/21/25 @ 04:[address] Salvador Hayes MD) Other Cancer Family History no significant family his Surgical History Hx of colonoscopy Hx of left cataract extraction H/O cervical spine surgery Social History Smoking Status: Former smoker alcohol intake: former substance use type: does not use ROS Review of Systems ROS Unobtainable: due to encephalopathy Vital Signs Vital Signs Vital Signs: 01/20/25 21:17 01/20/25 21:17 01/20/25 21:18 Temperature 97.8 F 97.8 F Temperature Source Oral Oral Pulse Rate 58 L 59 L 56 L Respiratory Rate 11 L 16 Blood Pressure 105/50 L 105/50 L 105/50 L Blood Pressure Mean 68 68 68 Pulse Ox 100 100 100 Oxygen Delivery Method Room Air 01/20/25 21:28 01/20/25 21:48 01/20/25 22:17 Temperature Temperature Source Pulse Rate 56 L 59 L Respiratory Rate Blood Pressure 89/41 L 82/37 L Blood Pressure Mean 57 52 Pulse Ox 100 97 Oxygen Delivery Method Room Air Room Air Room Air 01/20/25 22:18 01/20/25 22:30 01/20/25 22:41 Temperature Temperature Source Pulse Rate 63 58 L 57 L Respiratory Rate 15 Blood Pressure 88/54 L 102/45 L 116/58 L Blood Pressure Mean 65 64 77 Pulse Ox 100 100 100 Oxygen Delivery Method Room Air Room Air Room Air 01/20/25 23:00 01/20/25 23:54 01/20/25 23:57 Temperature 97.8 F Temperature Source Pulse Rate 52 L 51 L 52 L Respiratory Rate 16 Blood Pressure 105/52 L 99/48 L 99/48 L Blood Pressure Mean 69 65 65 Pulse Ox 100 100 100 Oxygen Delivery Method Room Air Room Air 01/21/25 00:56 Temperature Temperature Source Pulse Rate 48 L Respiratory Rate Blood Pressure 92/45 L Blood Pressure Mean 60 Pulse Ox 100 Oxygen Delivery Method Room Air Weight Weight: 103 lb 9.876 oz Body Mass Index (BMI) 21.7 Physical Exam Narrative General: Drowsy but responsive to pain HEENT: Atraumatic, PERRLA, normocephalic Oral: Dry mucosa Neck: Supple, No JVD Lungs: Diminished, Normal air movement, No rhonchi, No wheeze, No rales Cardiovascular: Regular rate, Regular Rhythm, Normal S1, Normal S2, No murmurs Abdomen: Soft, Non Tender, Non-Distended, No Hepato-splenomegaly Extremities: No edema, Capillary Refill Less than 3 Seconds Skin: No rashes, No breakdown Musculoskeletal: No Tenderness to Palpation of Joints or Extremities Neurological: Does not interact with exam Psych/Mental Status: Does not interact with exam Results Lab / Micro Data 01/20/25 21:48 01/20/25 21:48 Labs: Laboratory Results - last 24 hr 01/20/25 21:48: WBC 5.7, RBC 3.55 L, Hgb 11.1 L, Hct 33.9 L, MCV 95.5, MCH 31.3, MCHC 32.7, RDW Std Deviation 45.5 H, RDW Coeff of Carlos 12.9, Plt Count 239, MPV 10.2, Immature Gran % (Auto) 0.400, Neut % (Auto) 48.5, Lymph % (Auto) 38.5, [place] % (Auto) 7.8, Eos % (Auto) 3.4, Baso % (Auto) 1.4 H, Absolute Neuts (auto) 2.8, Absolute Lymphs (auto) 2.18, Nucleated RBC % 0, PT 12.9, INR 1.0, APTT 29.0, Sodium 143, Potassium 4.5, Chloride 109 H, Carbon Dioxide 21.0, Anion Gap 13, BUN 26 H, Creatinine 1.95 H, Estim Creat Clear Calc 19.83 L, Est GFR (MDRD) Non-Af 28 L, BUN/Creatinine Ratio 13.4, Glucose 131 H, Calcium 9.3, Ammonia 17.6, Troponin T High Sens 34 H, Ethyl Alcohol < 10.1 01/20/25 22:31: Urine Color Yellow, Urine Clarity Cloudy, Urine pH 6.0, Ur Specific [place] 1.015, Urine Protein 30 H, Urine Glucose (UA) Normal, Urine Ketones Negative, Urine Occult Blood Negative, Urine Nitrite Negative, Urine Bilirubin Negative, Urine Urobilinogen Normal, Ur Leukocyte Esterase 500 H, Urine RBC 0-5 SEEN, Urine WBC 25-50 SEEN, Ur Squamous Epith Cells 0-5 SEEN, Urine Bacteria 0 SEEN, Urine Mucus 0 SEEN, Urine Opiates Screen NEGATIVE, U Buprenorphine Qual NEGATIVE, Ur Oxycodone Screen NEGATIVE, Urine Methadone Screen NEGATIVE, Urine Fentanyl Screen NEGATIVE, Ur Barbiturates Screen NEGATIVE, Ur Phencyclidine Scrn NEGATIVE, Ur Amphetamines Screen NEGATIVE, U Benzodiazepines Scrn NEGATIVE, Urine Cocaine Screen NEGATIVE, U Cannabinoids Screen NEGATIVE 01/20/25 23:50: Troponin T Hi Sens 2 Hr 33 H ABG Data ABG results: ABG 01/21/25 00:06 Specimen Type ART Sample Site R Radial pH 7.24 L Bicarbonate Actual 21.3 L Total CO2 23 Base Excess -6 L O2 Saturation 96 ABG pCO2 49.2 H ABG pO2 98 Karri Test Positive O2 Delivery Device Room Air Vent Mode Not entered Imaging Radiology Impression Brain CT 01/20/25 21:18 IMPRESSION: No acute intracranial abnormality. Reading Location: [id number] Head/Neck CTA 01/20/25 21:18 IMPRESSION: No acute arterial abnormality of the head or neck. Reading Location: [id number] Assessment & Plan Assessment/Plan (1) Encephalopathy acute: (2) RUPAL (acute kidney injury): PLAN: Plan 1. Acute metabolic versus toxic encephalopathy/RUPAL ? Will continue with IV fluids ? Will hold any nephrotoxic agents ? Will repeat lab work in the morning after some IV fluids ? Urine sample does show positive leukocyte esterase but no bacteria, urine culture is pending but will not empirically treat given lack of fever, leukocytosis ? ABG demonstrates both metabolic and respiratory acidosis, the metabolic aspect is nonanion gap however drug screen is normal. Liver functions were not done in the ER, the ammonia was normal so we will obtain liver functions this morning ? Troponins are slightly elevated as was her CPK, the troponin elevation is insignificant 2. Essential HTN/HLD ? Will hold her home medications ? Will monitor make adjustments as necessary 3. Chronic pain/anxiety/depression ? Will hold her home medications 4. GERD ? Stable ? Will hold her home oral medications DVT: Lovenox Charges/Coding Visit Charges Inpatient E&M: 59157 Init Hosp L2
[2025-01-21 01:14] LABS: CPK Total, Creatine Kinase 235 U/L (24-195)
[2025-01-21] MEDS: 0.9% Normal Saline (1000mL) 1,000 ML 100 ML IV ×2 (01:48→11:54)
[2025-01-21 02:37] LABS: Troponin T High Sens 4 HR 25 ng/L (<=14)
[2025-01-21 04:57] LABS: Absolute Lymphocyte Count 2.06 X10^3/uL (0.83-4.51); Absolute Neutrophil Count 1.7 X10^3/uL (2.0-7.7); Basophil# 0.07 X10^3/uL; Basophil% 1.6 % (0-1); Eosinophil# 0.13 X10^3/uL; Eosinophils% 2.9 % (0-5); Hematocrit 30.4 % (37-47); Hemoglobin 9.8 g/dL (12.0-15.0); Lymphocyte # 2.06 X10^3/ul (0.83-4.51); Lymphocyte % 46.1 % (19-41); Mean Corp Hgb Conc 32.2 g/dL (32-36); Mean Corpuscular Hgb 31.2 pg (27.0-32.0); Mean Corpuscular Volume 96.8 fL (81-99); Mean Platelet Vol. 10.7 fl (6.2-12.0); Monocyte# 0.48 X10^3/uL; Monocyte% 10.7 % (0-10); NRBC Flagged by Analyzer 0 % (0-5); Neutrophil # 1.72 X10^3/uL (2.7-7.7); Neutrophil % 38.5 % (47-70); Platelet Count 172 K/mm3 (150-450); RBC Distribution Width CV 13.2 % (11.6-14.6); Red Blood Count 3.14 M/mm3 (4.2-5.4); White Blood Count 4.5 K/mm3 (4.4-11.0)
[2025-01-21 06:00] LABS: Anion Gap 12 (5-15); BUN 23 mg/dL (4-19); BUN/Creat Ratio 16.5 RATIO (10-20); Calcium,Total 8.6 mg/dL (7.6-11.0); Carbon Dioxide 18.4 mmol/L (21.0-32.0); Chloride 114 mmol/L (98-108); Creatinine, Serum 1.38 mg/dL (0.70-1.20); EST Glomerular Filtration Rate 42 (>60); Estimated Creatinine Clearance 28.03 ml/min (50-250); Glucose 92 mg/dL (70-99); Potassium 4.2 mmol/L (3.3-5.1); Sodium Level 145 mmol/L (133-145)
[2025-01-21 09:05] LABS: AST(SGOT) 22 U/L (<=31); Alanine Aminotransfer ALT/SGPT 14 U/L (<=34); Albumin, Serum 3.9 g/dL (3.4-4.8); Alkaline Phosphatase 33 U/L (35-104); Bilirubin, Direct < 0.08 mg/dL (0.00-0.30); Globulin 2.4 g/dL (2.2-4.2); Protein, Total 6.3 g/dL (5.9-8.4); Total Bilirubin < 0.15 mg/dL (0.00-1.30)
[2025-01-21] MEDS: Albuterol 2.5 MG/3 ML VIAL.NEB. INHALATION ×3 (10:32→18:59)
[2025-01-21] MEDS: Budesonide Respules 0.5 MG/2 ML AMPUL.NEB. INHALATION (10:32)
--- NOTE | 2025-01-21 10:32 | PN.HOSP_ITS ---
Hospitalist Note Patient admitted overnight for acute encephalopathy. I saw the patient at bedside this morning. Patient was sitting back in bed, making appropriate eye contact with me and answering questions with short appropriate responses. She did appear fatigued and her voice was weak. She knew that she was at [facility] and that it was 2024. She could tell me that she was here because she fell at home yesterday. States that she lives with her sister. States that she had been feeling okay the past few days, did not feel dehydrated or have any infectious symptoms. Does continue to have low back pain with sciatica that has been bothering her; denies taking more medication for this than she should. Currently she states that she is not hungry but would like some water to drink. She denies any acute pain or discomfort outside of her chronic back pain. Given her significant improvement from overnight and relatively benign workup, seems that decreased clearance of home gabapentin and baclofen in setting of RUPAL may have been contributing to her encephalopathy. Will have nursing complete bedside swallow testing and if patient passes this, she will be okay for a regular diet. Will plan to restart her home medications this evening. Will PT and OT work with her either today or tomorrow to determine her functional stat us. Will continue to monitor her closely today. Full progress note to follow tomorrow.
[2025-01-21] MEDS: Pantoprazole Sodium 40 MG Tablet PO (10:33)
[2025-01-21] MEDS: Atorvastatin Calcium 40 MG Tablet PO (10:33)
[2025-01-21] MEDS: Sertraline 100 MG Tablet PO (10:33)
[2025-01-21] MEDS: Enoxaparin 30 MG/0.3 ML Syringe SC (10:33)
[2025-01-21] MEDS: Acetaminophen 325 MG Tablet 650 MG PO (15:40)
[2025-01-21] MEDS: Baclofen 10 MG Tablet PO (21:42)
[2025-01-21] MEDS: Gabapentin 100 MG Capsule 200 MG PO (21:42)
[2025-01-22] VITALS (7 sets, daily range): BP systolic 145–164; BP diastolic 60–75; PULSE 58–77; RESP 16–18; TEMP 36.7–36.8; O2SAT 95–98
[2025-01-22 04:57] LABS: Hematocrit 26.3 % (37-47); Hemoglobin 8.4 g/dL (12.0-15.0); Mean Corp Hgb Conc 31.9 g/dL (32-36); Mean Corpuscular Hgb 30.8 pg (27.0-32.0); Mean Corpuscular Volume 96.3 fL (81-99); Mean Platelet Vol. 10.9 fl (6.2-12.0); Platelet Count 155 K/mm3 (150-450); RBC Distribution Width CV 13.3 % (11.6-14.6); RBC Distribution Width SD 47.1 fl (35.1-43.9); Red Blood Count 2.73 M/mm3 (4.2-5.4)
[2025-01-22 05:23] LABS: Anion Gap 9 (5-15); BUN 16 mg/dL (4-19); BUN/Creat Ratio 20.7 RATIO (10-20); Calcium,Total 8.8 mg/dL (7.6-11.0); Carbon Dioxide 18.6 mmol/L (21.0-32.0); Chloride 115 mmol/L (98-108); Creatinine, Serum 0.78 mg/dL (0.70-1.20); EST Glomerular Filtration Rate 83 (>60); Estimated Creatinine Clearance 48.34 ml/min (50-250); Glucose 99 mg/dL (70-99); Potassium 4.1 mmol/L (3.3-5.1); Sodium Level 143 mmol/L (133-145)
[2025-01-22] MEDS: Budesonide Respules 0.5 MG/2 ML AMPUL.NEB. INHALATION (06:42)
[2025-01-22] MEDS: Albuterol 2.5 MG/3 ML VIAL.NEB. INHALATION ×2 (06:42→13:39)
--- NOTE | 2025-01-22 08:38 | PCM.PN.HOSP ---
Reason for Visit Reason for Visit: Diagnoses Encephalopathy, unspecified (01/21/25) Acute kidney failure, unspecified (01/21/25) Subjective Subjective Feeling better. States that she may have been taking the baclofen and gabapentin to closer proximity. States that she takes a baclofen in the morning because she has some aches in again in the afternoon. Objective Data Objective Data Vital Signs: Vital Signs Temp Pulse Resp BP Pulse Ox O2 Del Method 36.8 C 71 18 145/60 H 98 Room Air 01/22/25 07:40 01/22/25 07:40 01/22/25 07:40 01/22/25 07:40 01/22/25 07:40 01/22/25 07:40 Oxygen Delivery Method Room Air Weight: 51.4 kg Body Mass Index (BMI) 23.6 Intake & Output: Intake and Output for Last 24 Hours 01/20/25 01/21/25 01/22/25 23:59 23:59 23:59 Intake Total 500 / 500 2580 / 2580 0 / 0 Output Total 0 / 0 Balance 500 / 500 2580 / 2580 0 / 0 Lab / Micro Data 01/22/25 04:10 01/22/25 04:10 Labs: Laboratory Results - last 24 hr 01/21/25 04:06: Total Bilirubin < 0.15, Direct Bilirubin < 0.08, AST 22, ALT 14, Alkaline Phosphatase 33 L, Total Protein 6.3, Albumin 3.9, Globulin 2.4 01/22/25 04:10: WBC 4.0 L, RBC 2.73 L, Hgb 8.4 L, Hct 26.3 L, MCV 96.3, MCH 30.8, MCHC 31.9 L, RDW Std Deviation 47.1 H, RDW Coeff of Carlos 13.3, Plt Count 155, MPV 10.9, Sodium 143, Potassium 4.1, Chloride 115 H, Carbon Dioxide 18.6 L, Anion Gap 9, BUN 16, Creatinine 0.78, Estim Creat Clear Calc 48.34 L, Est GFR (MDRD) Non-Af 83, BUN/Creatinine Ratio 20.7 H, Glucose 99, Calcium 8.8 Physical Exam Const alert and no apparent distress Constitutional Narrative: Up in bed. Afebrile. Nontoxic Assessment & Plan Assessment/Plan (1) Encephalopathy acute: PLAN: Toxic encephalopathy secondary to baclofen and Neurontin. improving head CT and CTA H+N negative Patient is back to her baseline. Discussed with the patient and she takes baclofen more for pain not necessary spasticity and gabapentin for neuropathic pain related with sciatica. Number that is okay to continue with the gabapentin but to discontinue the baclofen as the risks outweigh the benefits being that she was hospitalized for confusion. PLAN: Plan VTE propylaxis: LMWH. DC home
[2025-01-22] MEDS: Acetaminophen 325 MG Tablet 650 MG PO (09:25)
[2025-01-22] MEDS: Pantoprazole Sodium 40 MG Tablet PO (09:26)
[2025-01-22] MEDS: Baclofen 10 MG Tablet PO (09:26)
[2025-01-22] MEDS: Sertraline 100 MG Tablet PO (09:27)
[2025-01-22] MEDS: Atorvastatin Calcium 40 MG Tablet PO (09:27)
[2025-01-22] MEDS: Enoxaparin 30 MG/0.3 ML Syringe SC (09:28)
--- NOTE | 2025-01-22 10:30 | CASEMGMT ---
JAMI GREER Face to Face with patient for initial transition planning/care coordination assessment. RN CM introduced self and role at [facility]. Patient lying in bed, alert and oriented. Patient willing to participate in assessment and is able to answer all questions appropriately. Care providers, pharmacy, and demographics verified. Strata: 2 PCP: [facility] Specialists: none Preferred Pharmacy: [facility] Insurance: [employer] Pres[employer] Benefit: yes Living Will/HPOA: none LNOK: sister Living Arrangements: Patient lives with sister in a mobile home with ramp to enter. Patient is independent at home. Transportation: Provide a Ride, sister DME/HHC: Patient denies DME in the home. Patient has been to [facility] in the past. No previous HHC. Patient will be start outpatient therapy at [facility] once insurance approves. Patient wishes to discharge home with previously ordered outpatient therapy. Patient states she has no further needs or concerns at this time. CM to follow for discharge planning needs that may arise. Disposition Plan: Patient to discharge home with family support and follow-up plans in place. Dede LEWIS, RN, CM
--- NOTE | 2025-01-22 11:46 | PCM.DC.SUM ---
Providers Date of Admission: 01/21/25 Primary Care Physician: Dr. Keaton Voss MD Reason For Visit: ENCEPHALOPATHY Diagnosis Discharge Diagnosis (1) Encephalopathy acute: Status: Acute Code(s): G93.40 - Encephalopathy, unspecified Plan: Toxic encephalopathy secondary to baclofen and Neurontin. improving head CT and CTA H+N negative Patient is back to her baseline. Discussed with the patient and she takes baclofen more for pain not necessary spasticity and gabapentin for neuropathic pain related with sciatica. Number that is okay to continue with the gabapentin but to discontinue the baclofen as the risks outweigh the benefits being that she was hospitalized for confusion. Plan VTE propylaxis: LMWH. DC home Medications at Discharge Home Medications sertraline 100 mg tablet 100 mg PO DAILY antidepressant 03/28/19 atorvastatin 10 mg tablet 40 mg PO DAILY CHOLESTEROL 05/26/20 lisinopril 30 mg tablet 40 mg PO DAILY BP 09/26/20 alendronate 70 mg tablet 70 mg PO NORRIS 10/23/21 ergocalciferol (vitamin D2) 1,250 mcg (50,000 unit) capsule (Vitamin D2) 1,250 mcg PO NORRIS vitamin 10/31/21 docusate sodium 100 mg capsule (Col-Rite) 100 mg PO DAILY PRN Constipation 01/23/23 fluticasone 100 mcg-salmeterol 50 mcg/dose blistr powdr for inhalation See Rx Instructions .Route .COMPLEX breathing 01/23/23 fluticasone propionate 50 mcg/actuation nasal spray,suspension 50 mcg intranasal DAILY allergies 01/23/23 gabapentin 100 mg capsule 200 mg PO QHS nerve pain 01/23/23 melatonin 1 mg tablet 1 mg PO QHS sleep 01/23/23 mirabegron 50 mg tablet,extended release 24 hr (Myrbetriq) 50 mg PO DAILY pain 01/23/23 pantoprazole 40 mg tablet,delayed release (Protonix) 40 mg PO DAILY reflux 01/23/23 amlodipine 5 mg tablet 5 mg PO DAILY htn 01/20/25 acetaminophen 325 mg tablet 1,000 mg (3.0769 x 325 mg) PO Q8H PRN PRN Pain 1-10 Or Fever #0 tabs 01/22/25 ibuprofen 800 mg tablet 800 mg PO Q8H pain #10 tabs 01/22/25 Hospital Course Operations None Procedures None Summary of Care Provided Minutes Spent on Discharge: 32 Hospital Course: Patient presents with profound confusion. Workup was unremarkable. Patient did receive Narcan that had no effect on her. This is likely due to the combination of baclofen and gabapentin. Patient is back to her normal mental status. Patient states that she takes baclofen more for pain. Explained to her that it is more for spasticity but given fact that she was hospitalized for this cycle the combination of baclofen and gabapentin may have caused this episode. I am recommending discontinuing baclofen altogether. Patient expressed understanding. Troponins were minimally elevated and trended downwards. No additional cardiac workup is necessary. Patient did have RUPAL likely due to dehydration. That RUPAL as well as medications likely culminated in her encephalopathy. Her RUPAL has since resolved with IV fluids. Weight / BMI Weight Weight: 51.4 kg Body Mass Index (BMI) 23.6 ABG / Lab / Microbiology Data 01/22/25 04:10 01/22/25 04:10 Laboratory: Laboratory Results - last 24 hr 01/22/25 04:10: WBC 4.0 L, RBC 2.73 L, Hgb 8.4 L, Hct 26.3 L, MCV 96.3, MCH 30.8, MCHC 31.9 L, RDW Std Deviation 47.1 H, RDW Coeff of Carlos 13.3, Plt Count 155, MPV 10.9, Sodium 143, Potassium 4.1, Chloride 115 H, Carbon Dioxide 18.6 L, Anion Gap 9, BUN 16, Creatinine 0.78, Estim Creat Clear Calc 48.34 L, Est GFR (MDRD) Non-Af 83, BUN/Creatinine Ratio 20.7 H, Glucose 99, Calcium 8.8 D/C Instructions Discharge Diet: No restrictions DC O2, CPAP, BIPAP Needs Home O2 Discharge instructions: No Meaningful Use Info Meaningful Use Meaningful Use Diagnoses (Choose all that apply): None applicable Ischemic Stroke Statin Dosing Therapy Reference: STATIN DOSE THERAPY REFERENCE: * Patients > 75 years receive moderate or high dose statin therapy. * Patients 75 years or YOUNGER should receive HIGH intensity statin dose unless contraindicated. You will be required to document reason for non-treatment if statin daily dose does not meet guidelines. HIGH DOSE STATIN THERAPY DAILY Atorvastatin > than or = to 40 mg Rosuvastatin > than or = to 20 mg Amlodipine + Atorvastatin > than or = to 2.5/40 mg Ezetimibe + Simvastatin 10/80 mg Simvastatin 80mg Discharge Plan Admission Admit Date/Time: 01/21/25 00:53 Primary Reason for Your Visit: Encephalopathy Attending Provider: Jarad Flanagan Primary Care Provider: Keaton Voss Consulting Providers: Salvador Hayes Alexander Discharge Orders/Prescriptions Prescriptions: New acetaminophen 325 mg Tablet 1,000 mg PO Q8H PRN PRN (Reason: Pain 1-10 Or Fever) Qty: 0 0RF Continued alendronate 70 mg tablet 70 mg PO NORRIS sertraline 100 MG tablet 100 mg PO DAILY atorvastatin 10 MG tablet 40 mg PO DAILY lisinopril 30 MG tablet 40 mg PO DAILY ergocalciferol (vitamin D2) [Vitamin D2] 1,250 mcg (50,000 unit) Capsule 1,250 mcg PO NORRIS pantoprazole [Protonix] 40 mg Tablet,Delayed Release (Dr/Ec) 40 mg PO DAILY docusate sodium [Col-Rite] 100 mg capsule 100 mg PO DAILY PRN (Reason: Constipation) Patient Comments: take 1 capsule by mouth twice a day if needed gabapentin 100 mg capsule 200 mg PO QHS Patient Comments: take 2 capsules by mouth daily at bedtime fluticasone propion-salmeterol 100-50 mcg/dose blister with device See Rx Instructions .ROUTE .COMPLEX Rx Instructions: inhale 1 puff by mouth and INTO THE LUNGS twice a day ( Rinse mouth after use ) fluticasone propionate 50 mcg/actuation spray,suspension 50 mcg INTRANASAL DAILY Patient Comments: instill 2 sprays into each nostril once daily Myrbetriq 50 mg tablet extended release 24 hr 50 mg PO DAILY Patient Comments: take 1 tablet by mouth once daily melatonin 1 mg tablet 1 mg PO QHS Patient Comments: take 1 tablet by mouth once daily at bedtime amlodipine 5 mg tablet 5 mg PO DAILY Changed ibuprofen 800 mg tablet 800 mg PO Q8H Qty: 10 0RF Patient Comments: take 1 tablet by mouth every 8 hours if needed for pain - TAKE WITH FOOD Discontinued baclofen 10 MG tablet 10 mg PO BID Referrals / Follow Up: Keaton Voss MD [Primary Care Provider] - Within 2 Weeks Disposition Disposition (needs filled in before D/C Order can be placed): Home, Self Care Charges/Coding Visit Charges Inpatient E&M: 68694 Disch Hosp >30min
--- NOTE | 2025-01-22 16:19 | PHA.DC.MR.R ---
Pharmacy [place] Med Reconciliation Pharmacy Service has performed discharge medication reconciliation for this patient. The patient's discharge medication list was reviewed for discrepancies and discrepancies were resolved. Medications at Discharge Home Medications sertraline 100 mg tablet 100 mg PO DAILY antidepressant 03/28/19 atorvastatin 10 mg tablet 40 mg PO DAILY CHOLESTEROL 05/26/20 lisinopril 30 mg tablet 40 mg PO DAILY BP 09/26/20 alendronate 70 mg tablet 70 mg PO NORRIS 10/23/21 ergocalciferol (vitamin D2) 1,250 mcg (50,000 unit) capsule (Vitamin D2) 1,250 mcg PO NORRIS vitamin 10/31/21 docusate sodium 100 mg capsule (Col-Rite) 100 mg PO DAILY PRN Constipation 01/23/23 fluticasone 100 mcg-salmeterol 50 mcg/dose blistr powdr for inhalation See Rx Instructions .Route .COMPLEX breathing 01/23/23 fluticasone propionate 50 mcg/actuation nasal spray,suspension 50 mcg intranasal DAILY allergies 01/23/23 gabapentin 100 mg capsule 200 mg PO QHS nerve pain 01/23/23 melatonin 1 mg tablet 1 mg PO QHS sleep 01/23/23 mirabegron 50 mg tablet,extended release 24 hr (Myrbetriq) 50 mg PO DAILY pain 01/23/23 pantoprazole 40 mg tablet,delayed release (Protonix) 40 mg PO DAILY reflux 01/23/23 amlodipine 5 mg tablet 5 mg PO DAILY htn 01/20/25 acetaminophen 325 mg tablet 1,000 mg (3.0769 x 325 mg) PO Q8H PRN PRN Pain 1-10 Or Fever #0 tabs 01/22/25 ibuprofen 800 mg tablet 800 mg PO Q8H pain #10 tabs 01/22/25
== END 2025-01-22 17:51 | disposition home or self-care (01) | DRG 917 ==
LOC: ED 23:21 → PCU 23:43
PROVIDERS: Hospitalist; Admitting Provider Family Medicine; Emergency Provider Emergency Medicine; PCP Family Medicine
DX: T42.8X1A Poisoning by antiparkinsonism drugs and other central muscle-tone depressants, accidental (unintentional), initial encounter (principal); G92.8 Other toxic encephalopathy; E87.4 Mixed disorder of acid-base balance; E87.29 Other acidosis; N17.9 Acute kidney failure, unspecified; K74.60 Unspecified cirrhosis of liver; I10 Essential (primary) hypertension; D64.9 Anemia, unspecified; R00.1 Bradycardia, unspecified; K21.9 Gastro-esophageal reflux disease without esophagitis; E78.5 Hyperlipidemia, unspecified; I95.9 Hypotension, unspecified; K22.70 Barrett's esophagus without dysplasia; M19.90 Unspecified osteoarthritis, unspecified site; F10.90 Alcohol use, unspecified, uncomplicated; G89.29 Other chronic pain; Z87.891 Personal history of nicotine dependence; R82.81 Pyuria; R79.89 Other specified abnormal findings of blood chemistry; Z79.83 Long term (current) use of bisphosphonates; Z97.3 Presence of spectacles and contact lenses; Z79.899 Other long term (current) drug therapy; Z79.1 Long term (current) use of non-steroidal anti-inflammatories (NSAID); Z98.890 Other specified postprocedural states; X58.XXXA Exposure to other specified factors, initial encounter
CPT/HCPCS: 36415; 36600; 70450; 70496; 70498; 80048; 80076; 80307; 81001; 82077; 82140; 82550; 82803; 84484; 85025; 85027; 85610; 85730; 87086; 87088; 93005; 94640; 99252; 99285; P9612; Q9967; A4216; G0463; J2310